=== PATIENT | male | born 1950 | race Caucasian/White ===

== ENCOUNTER 2016-12-22 17:37 | Inpatient (IN) | payer OTHER, MEDICARE ==
[~2016-12-22] VITALS: Ht 170.2 cm; Wt 63.5 kg
--- NOTE | 2016-12-22 17:45 | NUR ---
RILEY FROM HOME FOR RECTAL BLEEDING. PER EMS, PT HAS HAD RECTAL BLEEDING X1 YEAR, BRIGHT RED BLOOD NOTED TODAY. PT HAS ALSO BEEN HAVING GENERALIZED WEAKNESS, WEIGHT LOSS OF 20 LBS IN 6 MONTHS, BLE EDEMA, DIFFICULTY URINATING, AND PAIN IN LOWER SPINE RADIATING DOWN BOTH LEGS WITH WEAKNESS IN EXTREMITIES. HAS NOT SEEN A PCP IN 40 YEARS. DENIES PMHX, DAILY MEDS, ALLERGIES
--- NOTE | 2016-12-22 17:51 | NUR ---
DR. MASON AT BEDSIDE
[2016-12-22] MEDS ORDERED: ALEVE220 M1 PO (18:25)
--- NOTE | 2016-12-22 18:43 | NUR ---
MEDICATED WITH 4MG ZOFRAN AND 10MG IV MORPHINE VIA SLOW INFUSING PER DR. MASON. PT TOLERATING WELL. O2 99%
--- NOTE | 2016-12-22 18:58 | NUR ---
LABS DRAWN AND SENT
[2016-12-22 19:08] LABS: ABSOLUTE BASOPHIL COUNT 0 /CUMM (0.0-0.2); ABSOLUTE EOSINOPHIL COUNT 0.1 /CUMM (0.0-0.7); ABSOLUTE MONOCYTE COUNT 0.7 /CUMM (0.10-0.60); MEAN CORPUSCULAR HGB 29.6 PG (27.0-31.0); MEAN CORPUSCULAR HGB CONC 32.5 G/DL (33.0-37.0); RED BLOOD CELL CT 1.41 /CUMM (4.70-6.10)
[2016-12-22 19:11] LABS: ABSOLUTE GRANULOCYTE CT 4.6 /CUMM (1.4-6.5); ABSOLUTE LYMPH COUNT 2.3 /CUMM (1.2-3.4); BASOPHIL % 0.5 % (0.0-2.0); EOSINOPHIL % 0.9 % (0-5); GRANULOCYTE % 59.8 % (42.2-75.2); MEAN CORPUSCULAR VOLUME 91.3 FL (80.0-94.0); PLATELET COUNT 136 /CUMM (130-400); RBC DISTRIBUTION WIDTH 21.8 % (11.5-14.5); WHITE BLOOD CELL COUNT 7.7 /CUMM (4.8-10.8)
--- NOTE | 2016-12-22 19:20 | NUR ---
PT STATES PAIN IS BETTER BUT STILL INTERMITTENT. CHANGED INTO DOWN, ABLE TO ROLL SIDE TO SIDE SLOWLY BUT WITH MINIMAL ASSISTANCE. STATES HE'S BEEN WEARING A INCONTINENT BRIEF BECAUSE IT'S TOO PAINFUL TO MOVE
[2016-12-22 19:24] LABS: PT 14.7 SEC (9.4-12.5)
[2016-12-22 19:33] LABS: HEMATOCRIT 12.9 % (42-52)
--- NOTE | 2016-12-22 19:33 | NUR ---
CRITICAL TEST RESULTS [id number] AZUCENA ACOSTA 66 Jacquie TESTS AND RESULTS: HEMOGLOBIN 4.2 HEMATOCRIT 12.9 Results received and read back by: KWABENA COTTO Results received date and time: 12/22/161932 The following provider was notified of the results, and read the results back: DR. MASON Notified date and time: 12/22/16 at 1933
--- NOTE | 2016-12-22 20:06 | ED GI/GU/ABDOMINAL COMPLAINT ---
History of Present Illness General Chief Complaint: General Adult Stated Complaint: BIBA WITH WEAKNESS, Source: patient, family Exam Limitations: no limitations Vital Signs & Intake/Output Vital Signs & Intake/Output Vital Signs Date Time Temp Pulse Resp B/P Pulse O2 O2 Flow FiO2 Ox Delivery Rate 12/24 0800 94 Nasal 2.0L Cannula 12/24 0800 98.7 80 20 120/68 94 Nasal 2.0L Cannula 12/24 0000 99 Nasal 2.0L Cannula 12/23 2300 98.3 72 18 112/72 99 Nasal 2.0L Cannula 12/23 1600 Nasal 2.0L Cannula 12/23 1600 98.4 71 18 108/62 99 Nasal 2.0L Cannula ED Intake and Output 12/24 0000 12/23 1200 Intake Total 1940 Output Total 1050 1100 Balance 890 -1100 Intake, Blood 340 Product Intake, IV 400 Intake, Oral 1200 Number 0 Bowel Movements Output, Urine 1050 1100 Allergies Coded Allergies: aspirin (BLEEDS 12/22/16) Reconcile Medications Naproxen Sodium (Aleve) 220 MG CAPSULE 2-3 CAP PO DAILY PAIN/INFLAMMATION ( Reported) Triage Note: BIBA FROM HOME FOR RECTAL BLEEDING. PER EMS, PT HAS HAD RECTAL BLEEDING X1 YEAR, BRIGHT RED BLOOD NOTED TODAY. PT HAS ALSO BEEN HAVING GENERALIZED WEAKNESS, WEIGHT LOSS OF 20 LBS IN 6 MONTHS, BLE EDEMA, DIFFICULTY URINATING, AND PAIN IN LOWER SPINE RADIATING DOWN BOTH LEGS WITH WEAKNESS IN EXTREMITIES. HAS NOT SEEN A PCP IN 40 YEARS. DENIES PMHX, DAILY MEDS, ALLERGIES Triage Nurses Notes Reviewed? yes HPI: Mr. Womack is a 66 yo w/ with unknown medical history BIBA for generalized weakness. Patient states he's had ongoing GI bleeding per rectum for the past year. He has bright red blood every time he uses the restroom. The patient also states that he's had unintentional weight loss of approximately 30-40 pounds over the past 6 months. No change in by mouth intake or diet. Daughter adds that the patient has not seen a doctor in over 45 years. He is no diagnosed medical conditions. Patient states he takes Motrin for pain and has been taking it chronically for a while. Today the patient was so weak that he is unable to get out of bed so the daughter called 911 to bring him into the emergency department for evaluation. She also adds that he looks quite pale compared to his normal coloration. Patient denies any fevers, chills, shortness of breath, nausea, vomiting or diarrhea. He had that he feels diffusely weak. She also has bilateral upper extremity petechiae on his forearms which he states have been there for several months. He denies any trauma. (DIANA MASON MD) Past History Travel History Traveled to [place] past 21 day No Medical History Any Pertinent Medical History? none Surgical History Surgical History: none Family History Hx Contributory? No (DIANA MASON MD) Review of Systems Review of Systems Constitutional: Reports: no symptoms, weakness, unexplained weight loss. EENTM: Reports: no symptoms. Respiratory: Reports: no symptoms. Cardiovascular: Reports: no symptoms. GI: Reports: bloody stool. Genitourinary: Reports: no symptoms. Musculoskeletal: Reports: no symptoms. Skin: Reports: rash. Neurological/Psychological: Reports: no symptoms. Hematologic/Endocrine: Reports: bruising, bleeding. Immunologic/Allergic: Reports: no symptoms. All Other Systems: Reviewed and Negative (DIANA MASON MD) Physical Exam Physical Exam General Appearance: alert, awake, moderate distress Head: atraumatic, pale coloration Eyes: Bilateral: PERRL, EOMI, other (bilaterally pale conjunctiva). Ears, Nose, Throat, Mouth: hearing grossly normal Neck: normal inspection, supple, full range of motion Respiratory: normal breath sounds, chest non-tender, no respiratory distress Cardiovascular: regular rate/rhythm, edema (1+ bilateral lower extremity e) Gastrointestinal: normal bowel sounds, soft, non-tender, no organomegaly Rectal: heme positive stool, bloody stool, hemmorrhoids Back: normal inspection, vertebral tenderness (L2-4) Extremities: normal range of motion Neurologic/Psych: no motor/sensory deficits, awake, alert, oriented x 3, normal mood/affect Skin: intact, warm/dry, pallor, rash (bilateral forearm petechiae) Core Measures ACS in differential dx? No Severe Sepsis Present: No Septic Shock Present: No (DIANA MASON MD) Progress Differential Diagnosis: colon cancer, diverticulitis, gastritis, hemorrhoids, inflamm bowel dis, prostatitis, peptic ulcer, PUD/GERD, perforated viscous Plan of Care: Orders Procedure Date/time Status Nothing by Mouth 12/26 B Active ICU LAB BUNDLE 12/25 0500 Active CBC WITHOUT DIFFERENTIAL 12/25 0500 Active RT: Evaluation 12/24 1305 Active CBC WITHOUT DIFFERENTIAL 12/24 1030 Complete Transfer patient to 12/24 1010 Active BLOOD PRODUCT PICKUP 12/24 0603 Active [place], Insertion/Removal/Asses 12/24 0059 Active CBC WITHOUT DIFFERENTIAL 12/24 0030 Complete TRC EVALUATION (GEN) 12/24 UNK Active TRC EVALUATION (GEN) 12/24 UNK Active INCENTIVE SPIROMETRY TRX (GEN) 12/24 UNK Active PT EVAL MOD COMPLEX 30 MIN 12/24 UNK Complete Gait Training 12/24 UNK Complete BLOOD PRODUCT PICKUP 12/23 1710 Active TROPONIN LEVEL 12/23 1200 Complete Lab Add-on Test 12/23 UNK Active BONE SCAN 12/23 UNK Active MISSING MEDICATION FORM 12/23 UNK Active Current Medications Sig/Sada Start time Last Medication Dose Stop Time Status Admin Albuterol Sulfate 3 ML BID 12/24 2200 AC (Proventil) Acetaminophen 650 MG Q6P PRN 12/23 0030 AC (Tylenol) Acetaminophen 1,000 MG Q6P PRN 12/23 0030 AC (Ofirmev) Morphine Sulfate 2 MG Q4P PRN 12/23 0030 AC (Morphine) Laboratory Tests 12/24/16 0936: CBC w Diff MAN DIFF ORDERED, RBC 3.18 L, MCV 86.2, MCH 27.9, RDW 18.9 H, MPV 8.6, Gran % 65.3, Lymphocytes % 23.8, Monocytes % 9.3, Eosinophils % 1.3, Basophils % 0.3, Absolute Granulocytes 5.2, Segmented Neutrophils 58, Band Neutrophils 8 H, Absolute Lymphocytes 1.9, Lymphocytes 25, Monocytes 8, Absolute Monocytes 0.7 H, Eosinophils 1, Absolute Eosinophils 0.1, Absolute Basophils 0, Nucleated RBCs 7 H, Platelet Estimate DECREASED, Hypochromic- Microcytic 2+, Anisocytosis 1+, PUBS MCHC 32.4 L 12/24/16 0450: Anion Gap 8, Estimated GFR 55 L, Glucose 86, Calcium 7.3 L, Phosphorus 2.7, Magnesium 1.8, Total Bilirubin 0.6, AST 101 H, ALT 35, Albumin 2.5 L, CBC w Diff NO MAN DIFF REQ, RBC 2.42 L, MCV 86.4, MCH 28.8, RDW 18.8 H, MPV 8.6, Gran % 61.9, Lymphocytes % 27.6, Monocytes % 8.9, Eosinophils % 1.3, Basophils % 0.3, Absolute Granulocytes 4.2, Absolute Lymphocytes 1.8, Absolute Monocytes 0.6 , Absolute Eosinophils 0.1, Absolute Basophils 0, PUBS MCHC 33.4 12/24/16 0030: CBC w Diff MAN DIFF ORDERED, RBC 2.46 L, MCV 86.2, MCH 28.8, RDW 18.9 H, MPV 8.3, Gran % 65.9, Lymphocytes % 24.5, Monocytes % 8.1, Eosinophils % 1.4, Basophils % 0.1, Absolute Granulocytes 4.2, Segmented Neutrophils 70, Band Neutrophils 1, Absolute Lymphocytes 1.6, Lymphocytes 24, Monocytes 5, Absolute Monocytes 0.5, Absolute Eosinophils 0.1, Absolute Basophils 0, Nucleated RBCs 1 H, Platelet Estimate DECREASED, Polychromasia 1+, Poikilocytosis 1+, Basophilic Stippling 1+, Ovalocytes 1+, Stomatocytes FEW, PUBS MCHC 33.5, Fld Total RBCs Counted 100 12/23/16 2100: CBC w Diff Cancelled, WBC Cancelled, RBC Cancelled, Hgb Cancelled, Hct Cancelled , MCV Cancelled, MCH Cancelled, RDW Cancelled, Plt Count Cancelled, MPV Cancelled, PUBS MCHC Cancelled 12/23/16 1827: CBC w Diff NO MAN DIFF REQ, RBC 2.50 L, MCV 86.2, MCH 28.6, RDW 18.8 H, MPV 8.4, Gran % 65.4, Lymphocytes % 24.4, Monocytes % 8.4, Eosinophils % 1.4, Basophils % 0.4, Absolute Granulocytes 4.1, Absolute Lymphocytes 1.5, Absolute Monocytes 0.5, Absolute Eosinophils 0.1, Absolute Basophils 0, PUBS MCHC 33.2 Patient is at his ill-appearing and quite pale in coloration. He is hemodynamically stable at this point in time. Per family hasn't seen a physician in over 45 years but has had ongoing she had bleeding for the past year. Guaiac is grossly positive for bright red blood. Patient is given first liter of normal saline IV fluids. Critical results from labs show H&H of 4.2/ 12.9. GI bleeding is possibly related to patient's chronic NSAID use, however, given the intentional weight loss and diffuse weakness, this is likely an oncologic process. Patient ordered for 2 units of packed RBCs to transfuse here in the ED for the critical anemia. On physical exam the patient is tender in his L-spine over the vertebra, concerning for metastases. Patient was given 10 mg of morphine that was infused and a 50 mL bag of normal saline and slowly infused into the patient. He received 2 doses of this. Plan is to obtain CT abdomen and pelvis to assess for mass and/or metastases see other locations. Several electrolyte abnormalities noted including significant hypokalemia at 2.7. Patient ordered for potassium 10 mEq IV. Patient has remained hemodynamically stable here in the department during his entire evaluation. CT scan returned with irregularities in the prostate, possibly invading the bladder wall. Patient also has bony metastases to the spine. GI attending made aware of the GI bleed. We will follow along and likely evaluate tomorrow. Plan to admit the patient to the hospitalist on telemetry given the hypokalemia. Patient will have repeat H&H is unlikely additional units of blood. (DIANA MASON MD) Diagnostic Imaging: Viewed by Me: CT Scan. Discussed w/RAD: CT Scan. Radiology Impression: 1. Enlarged lobular prostate which could be invading the bladder wall. There is distention of the bladder and significant bilateral hydronephrosis consistent with bladder outlet obstruction. 2. Retroperitoneal lymphadenopathy. 3. Osteoblastic bony metastatic disease. Prostate cancer likely etiology. 4. Small bilateral pleural effusions. Atelectasis at left lung base. 5. Cholelithiasis. 6. Small hiatal hernia. Mild diverticulosis. No acute change of the bowel. Extensive sclerotic changes in the osseous structures are likely due to metastatic disease in the setting of prostate cancer., Suspected bladder outlet obstruction with moderate bilateral hydroureteronephrosis. Retroperitoneal adenopathy also present. Severe degenerative disc disease at L5- S1 with moderate central canal stenosis and foraminal narrowing. Questionable mild pathologic superior endplate compression fracture at L3 in the setting of osseous metastatic disease, superimposed upon a degenerative Schmorl's node with mild bony retropulsion. Initial ED EKG: normal axis, normal intervals, normal p-waves, normal QRS complex, normal sinus rhythm, no ST T wave changes (DIANA MASON MD) Departure Departure Time of Disposition: 2257 Disposition: STILL A PATIENT Condition: Stable Clinical Impression Primary Impression: GI bleed Qualifiers: GI bleed type/associated pathology: unspecified peptic ulcer Qualified Code: K27.4 - Chronic or unspecified peptic ulcer, site unspecified, with hemorrhage Secondary Impressions: Anemia Qualifiers: Anemia type: unspecified type Qualified Code: D64.9 - Anemia, unspecified Bony metastasis Ruled Out Impressions: GI bleed due to NSAIDs Referrals: PATIENT HAS NO PRIMARY CARE DR (PCP/Family) Departure Forms: Customer Survey General Discharge Information Admission Note Spoke With: MARIYA BEVERLY MD Documentation of Exam: Documentation of any treatments & extenuating circumstances including Concerns Regarding Discharge (functional status, medication knowledge or non-compliance, living conditions, etc.) that warrant an admission rather than observation: This patient requires inpatient admission for further evaluation of his GI bleed as well as his likely prostatic cancer with metastasis. Patient had a critically low hemoglobin and hematocrit today and was transfused with blood and will likely need more blood transfusion as an inpatient. Patient also has severe pain secondary to bony metastases requiring morphine. She needs consultation and evaluation by both gastroenterology in addition to urology and likely oncology (DIANA MASON MD) PA/CANNERY TENDER ENGINEER Co-Sign Statement Statement: ED Attending supervision documentation- [] I saw and evaluated the patient. I have also reviewed all the pertinent lab results and diagnostic results. I agree with the findings and the plan of care as documented in the PA's/CANNERY TENDER ENGINEER's documentation. [X] I have reviewed the ED Record and agree with the PA's/CANNERY TENDER ENGINEER's documentation. [] Additions or exceptions (if any) to the PAs/CANNERY TENDER ENGINEER's note and plan are summarized below: [] (MARIZA WISE DO) Critical Care Note Critical Care Note Critical Care Time: 30-74 min (45) (DIANA MASON MD)
--- NOTE | 2016-12-22 20:06 | NUR ---
CRITICAL TEST RESULTS [id number] AZUCENA ACOSTA TESTS AND RESULTS: POTASSIUM 2.8 Results received and read back by: DR. MASON Results received date and time: 12/22/162005
--- NOTE | 2016-12-22 22:00 | NUR ---
PT MORE ALERT, TALKATIVE, JOKING AROUND. FAMILY AT BEDSIDE FOR SUPPORT. AVSS.
--- NOTE | 2016-12-22 22:09 | CT SCAN REPORT ---
EXAMINATION: CT LUMBAR SPINE WITH CONTRAST CLINICAL INFORMATION: Unintentional weight loss. Rule out mass. COMPARISON: Abdominal CT performed at the same time as the lumbar CT study. TECHNIQUE: Following intravenous administration of 95 mL of Optiray 320, helical imaging was performed through the lumbar spine. DLP: 292.91 mGy-cm FINDINGS: There are extensive sclerotic changes in the osseous structures. Prominent superior endplate Schmorl's nodes are visible at the L2 and L3 levels. No subluxations are seen. Multilevel disc bulges are present. There may be a pathologic superior endplate compression fracture at L3 with mild bony retropulsion as well. There is severe degenerative disc disease with significant loss of disc height at L5-S1. Hypertrophic facet arthropathy is also present at this level with moderate narrowing of the central canal and neural foramina. There are small bilateral pleural effusions, left greater than right side with passive atelectasis. There is a partially imaged gastroesophageal hiatal hernia with distention of the stomach, filled with oral contrast. There is moderate bilateral hydroureteronephrosis and retroperitoneal adenopathy with bladder distention as a result of what is suspected to represent prostatic carcinoma invaginating into the bladder base with outlet obstruction. IMPRESSION: Extensive sclerotic changes in the osseous structures are likely due to metastatic disease in the setting of prostate cancer. Suspected bladder outlet obstruction with moderate bilateral hydroureteronephrosis. Retroperitoneal adenopathy also present. Severe degenerative disc disease at L5-S1 with moderate central canal stenosis and foraminal narrowing. Questionable mild pathologic superior endplate compression fracture at L3 in the setting of osseous metastatic disease, superimposed upon a degenerative Schmorl's node with mild bony retropulsion.
--- NOTE | 2016-12-22 22:32 | CT SCAN REPORT ---
EXAMINATION: CT ABDOMEN AND PELVIS WITH CONTRAST CLINICAL INFORMATION: GI bleeding. Unintentional weight loss. Petechiae. COMPARISON: None TECHNIQUE: Multidetector volumetric imaging was performed of the abdomen and pelvis before and after the IV administration of 95 mL of Optiray 320 intravenous contrast. Oral contrast was given. Sagittal and coronal reformatted images were obtained on the technologist's workstation. DLP: 2092.91 mGy-cm FINDINGS: LUNG BASES: Small bilateral dependent pleural effusions. Atelectasis at the left lung base. Small hiatal hernia. LIVER, GALLBLADDER, AND BILIARY TREE: The liver is normal in size, shape, and attenuation. No focal hepatic lesion or biliary ductal dilatation is present. There are several peripherally calcified about 1 cm sized gallstones in the gallbladder. Gallbladder is partially contracted. No edema around the gallbladder. Extrahepatic CBD measures 6 mm. PANCREAS: There is atrophy of the pancreas. No acute change of pancreas. SPLEEN: Unremarkable. ADRENAL GLANDS: Unremarkable. KIDNEYS AND URETERS: Bilateral hydronephrosis with dilatation of renal calyces, renal pelvis and both ureters to the ureterovesical junction. No renal or ureteral stone. BLADDER: The bladder is distended. Bladder extends up to about the level of the umbilicus. The distended bladder along with the bilateral hydronephrosis and an enlarged prostate is consistent with bladder outlet obstruction. GASTROINTESTINAL TRACT: Diverticulosis of the colon with diverticula throughout the colon. Diverticula are most numerous in the distal descending colon and sigmoid. There is no diverticulitis. No bowel wall thickening or edema. No pericolonic edema. Moderate volume of stool throughout the colon. No bowel obstruction. The appendix is normal. The small bowel loops are normal. ABDOMINAL WALL: Mild generalized anasarca. LYMPH NODES: Retroperitoneal lymphadenopathy. Largest lymph nodes at the aortic bifurcation adjacent to the inferior vena cava and aorta. Lymph nodes measuring up to a diameter of 1.3 cm in short axis diameter. There are smaller lymph nodes in the more proximal retroperitoneum. No bulky lymphadenopathy of the pelvis. VASCULAR: Atherosclerotic vascular wall calcifications of aorta and iliac vessels without aneurysm. PELVIC VISCERA: Prostate is enlarged and lobular. Difficult to separate the inferior wall of the bladder from the prostate. The prostate measures approximately 7.5 x 7 x 4.8 cm. OSSEOUS STRUCTURES: There is extensive bony metastatic disease throughout the osseous skeleton with osteoblastic lesions seen throughout the spine, pelvis and hips. IMPRESSION: 1. Enlarged lobular prostate which could be invading the bladder wall. There is distention of the bladder and significant bilateral hydronephrosis consistent with bladder outlet obstruction. 2. Retroperitoneal lymphadenopathy. 3. Osteoblastic bony metastatic disease. Prostate cancer likely etiology. 4. Small bilateral pleural effusions. Atelectasis at left lung base. 5. Cholelithiasis. 6. Small hiatal hernia. Mild diverticulosis. No acute change of the bowel.
--- NOTE | 2016-12-22 23:22 | History & Physical ---
IVONNE BEDOYA,[facility] 12/22/16 2321: General Information and [facility] MD Statement: I have seen and personally examined AZUCENA ACOSTA and documented this H&P. The patient is a 66 year old M who presented with a patient stated chief complaint of bright red blood per rectum Source of Information: patient Exam Limitations: no limitations History of Present Illness: This is a 66-year-old male with no significant past medical history, has not seen a physician in the past 45 years, presents with chief complaint of bright red blood per rectum. As per patient he has been having episodes of bright red blood per rectum for almost 6 months now (sometimes blood is mixed with stool sometimes when he wipes off sometimes both), he also has noticed that he has lost over 20 pounds in the past 6 months, along with having low appetite. Also endorses off and on dark stools, off and on abdominal pain, off and on difficulty urinating. He has not seek any medical attention up until now. This morning he had 2 episodes of diarrhea which had copious amount of bright red blood, it scared him, was accompanied with generalized weakness and cold feeling in his body that sort persuaded him come to ER for further evaluation. Denies any nausea, vomiting, burning sensation in urine, hematuria, any bowel or urinary incontinence.. He has been having back pain but as per him he has had it for a while, he correlates it to the nature of his job which included a lot of pushing, pulling heavier objects. But recently for about 6 months now the pain has aggravated, and describes this as to shooting pain traveling from his back to his knees to his ankles. He reports that he has been taking Aleve, he started with 1 pill a day>>2 and currently taking 3 pills a day secondary to worsening of his back pain. He denies any urinary incontinence, hesitation, burning, abdominal pain secondary to urinary retention. Apparently had urinary tract infection sometime ago for which he took [id number] AZO which gave him symptomatic relief. He lives with his daughter, at baseline is able to do his daily activities, is a current daily smoker, denies illicit drug abuse. Allergies/Medications Allergies: Coded Allergies: aspirin (BLEEDS 12/22/16) Home Med list Naproxen Sodium (Aleve) 220 MG CAPSULE 2-3 CAP PO DAILY PAIN/INFLAMMATION ( Reported) Past History Travel History Traveled to [place] past 21 day No Medical History Blood Transfusion Hx: No EENT: NONE Cardiovascular: NONE Respiratory: NONE Gastrointestinal: lower GI bleed Hepatic: NONE Surgical History Surgical History: none Past Family/Social History Family History Relations & Conditions if any Relation not specified for: *No pertinent family history Psychosocial History Where do you live? Home Who Do You Live With? child Services at Home: None Primary Language: Kiswahili Smoking Status: Current Some Day Smoker ETOH Use: denies use Illicit Drug Use: denies illicit drug use Functional Ability ADLs Independent: dressing, eating, toileting, bathing. Ambulation: independent IADLs Independent: shopping, housework, finances, food prep, telephone, transportation , medication admin. Review of Systems Review of Systems Constitutional: Reports: see HPI. Exam & Diagnostic Data Last 24 Hrs of Vital Signs/I&O Vital Signs Date Time Temp Pulse Resp B/P Pulse O2 O2 Flow FiO2 Ox Delivery Rate 12/23 0140 97.0 78 18 120/58 95 Nasal 2.0L Cannula 12/23 0120 96.7 81 18 108/76 94 Room Air 12/22 2339 81 16 119/57 96 Room Air 12/22 2222 81 16 119/56 98 Room Air 12/22 2133 86 16 128/60 86 Room Air 12/22 2107 96.7 75 16 108/56 96 Room Air 12/22 1957 83 16 118/58 95 Room Air 12/22 1944 95.7 16 96 Room Air 12/22 1912 83 16 121/60 100 Room Air 12/22 1842 74 16 110/56 98 Room Air 12/22 1810 100 Room Air 12/22 1745 96.4 79 16 125/58 100 Room Air Intake & Output 12/23 0800 12/23 0000 12/22 1600 Intake Total 1350 Output Total 650 Balance -650 1350 Intake, Blood 350 Product Intake, IV 1000 Intake, Oral 0 Output, Urine 650 Patient 74.843 kg Weight Physical Exam General Appearance Alert, Oriented X3, Cooperative HEENT Atraumatic Neck Supple Cardiovascular Regular Rate, Normal S1, Normal S2, No Murmurs Lungs Clear to Auscultation, Normal Air Movement Abdomen Normal Bowel Sounds, PALPABLE NONTENDER DISTENDED BLADDER Extremities No Clubbing, No Cyanosis, No Edema Last 24 Hrs of Labs/J Carlos: Laboratory Tests 12/23/16 0109: Urinalysis LIGHT H, Urine Color PINK H, Urine Clarity CLDY H, Urine pH 6.0, Ur Specific Mulino 1.010, Urine Protein 30 H, Urine Ketones NEG, Urine Nitrite NEG, Urine Bilirubin NEG, Urine Urobilinogen 0.2, Ur Leukocyte Esterase SMALL H , Ur Microscopic SEDIMENT EXAMINED, Urine RBC >75 H, Urine WBC 1-3 H, Urine Hemoglobin LARGE H, Urine Glucose NEG 12/22/16 2104: Lactic Acid Cancelled 12/22/16 1857: Anion Gap 9, Estimated GFR 47 L, BUN/Creatinine Ratio 13.3, Glucose 100 H, Hemoglobin A1c Pending, Lactic Acid 1.4, Calcium 7.6 L, Iron 50, TIBC 192 L, Ferritin 553.0 H, Total Bilirubin 0.5, AST 26, ALT 24, Alkaline Phosphatase 959 H, Total Protein 5.0 L, Albumin 2.6 L, Globulin 2.4, Albumin/Globulin Ratio 1.1, Vitamin B12 Pending, TSH 1.170, Free T4 1.49, PT 14.7 H, INR 1.40 H, CBC w Diff NO MAN DIFF REQ, RBC 1.41 L, MCV 91.3, MCH 29.6, RDW 21.8 H, MPV 8.0, Gran % 59.8, Lymphocytes % 29.9, Monocytes % 8.9, Eosinophils % 0.9, Basophils % 0.5, Absolute Granulocytes 4.6, Absolute Lymphocytes 2.3, Absolute Monocytes 0.7 H, Absolute Eosinophils 0.1, Absolute Basophils 0, PUBS MCHC 32.5 L Microbiology 12/23 013 LOWER RESP: Respiratory Culture - COLB 12/24 135 LOWER RESP: Gram Stain - COLB 12/23 108 URINE ROUT: Urine Culture - RECD 12/24 31 URINE ROUT: Urine Culture - CAN Cancelled: Cancelled via OE: BEING DONE FROM [facility] 12/22 2256 URINE ROUT: Urine Culture - CAN Cancelled: Cancelled via OE: BEING DONE FROM [facility] 12/22 2052 BLOOD: Blood Culture - RECD 12/22 2044 BLOOD: Blood Culture - RECD Diagnostic Data CXR Results normal sinus rhythm, HR 78, QTC [address] ABD/PLV: 1. Enlarged lobular prostate which could be invading the bladder wall. There is distention of the bladder and significant bilateral hydronephrosis consistent with bladder outlet obstruction. 2. Retroperitoneal lymphadenopathy. 3. Osteoblastic bony metastatic disease. Prostate cancer likely etiology. 4. Small bilateral pleural effusions. Atelectasis at left lung base. 5. Cholelithiasis. 6. Small hiatal hernia. Mild diverticulosis. No acute change of the bowel. Assessment/Plan Assessment: This is a 66-year-old male with no significant past medical history, has not seen a physician in the past 45 years, presents with chief complaint of bright red blood per rectum. Vitals at the time of admission blood pressure 190 25/58, respiratory rate 16, pulse 79, afebrile saturating 96% on room air. CT of the abdomen pelvis was done which shows enlarged lobular prostate which could be invading the bladder wall with distention of the bladder and significant bilateral hydronephrosis consistent with bladder outlet obstruction. He also has retroperitoneal lymphadenopathy osteoblastic bony metastases metastatic disease most likely cancer of the prostate. He also has small bilateral pleural effusions and atelectasis at left lung bases. There is also small hiatal hernia with mild diverticulosis and acute change of bowel CT of the lumbar spine revealed extensive sclerotic changes in the osseous structures secondary to metastatic disease, suspected bladder outlet obstruction with moderate bilateral hydroureter oh nephrosis, retroperitoneal adenopathy, severe degenerative disc disease at L5- S1, with moderate central canal stenosis and foraminal narrowing. There is also questionable superior endplate compression fracture at L3 in the setting of osseous metastatic disease. Patient to admitted to telemetry floor and monitor for the following conditions: Acute blood loss anemia: H&H upon presentation. Likely secondary to GI bleed in setting of prostatic cancer along with chronic use of and states, patient currently getting transfused 2 units of packed red blood cells, a follow-up post transfusion H&H. Iron studies ordered, TSH B12 please follow-up. GI consult has been placed, follow-up recommendations in a.m. Avoid NSAIDs. Acute kidney injury: Creatinine upon presentation 1.5, baseline unknown. Likely secondary to obstructive uropathy along with interstitial nephritis in setting of chronic nsaids use. Will hydrate the patient with normal saline at 75 mL per hour, strict I's and O's, urology consult. Prostatic carcinoma with metastases: CT scan findings as above. Consider oncology consult in a.m. CT chest for further evaluation of metastasis. Chronic low back pain: Likely secondary to compression fracture insetting of metastatic prostate cancer. Pain management with IV Tylenol every 6 hours as needed. Avoid NSAIDs in setting of GI bleed and a HALLEY Diet: Regular DVT prophylaxis with Alps Pain Pathway patient is full code As Ranked By This Provider Problem List: 1. Bony metastasis 2. GI bleed Qualifiers GI bleed type/associated pathology: unspecified peptic ulcer Qualified Code: K27.4 - Chronic or unspecified peptic ulcer, site unspecified, with hemorrhage 3. Bladder outlet obstruction Core Measures/Miscellaneous Acute Coronary Syndrome ACS Diagnosis: No Cerebrovascular Accident CVA/TIA Diagnosis: No Congestive Heart Failure CHF Diagnosis: No Venous Thromboembolism VTE Risk Factors: Acute medical illness, Age > 40 No [facility] VTE prophylaxis d/t: No contraindications No VTE Pharm Prophylaxis d/t: Medical contraindication VTE Diagnosis: No VTE Type: NONE VTE Confirmed by (Test): NONE Severe Sepsis Severe Sepsis Present: No Septic Shock Septic Shock Present: No Miscellaneous Documentation Attending Case Discussed With: Siria Primary Care Physician: PATIENT HAS NO PRIMARY CARE DR Patient sees these Specialists ,. Level of Patient Care: Telemetry OLIVIER DIANA 12/22/16 2329: Resident Review Statement Resident Statement: examined this patient, discussed with recording studio internship, agreed with recording studio internship, discussed with family, reviewed EMR data (avail), discussed with nursing , discussed with case mgmt, reviewed images, amended to note Other Findings: 66-year-old man who has not followed up with a physician in 45 years and has been experiencing bright red bleeding per rectum for the past few years now ( which he attributed it to his hemorrhoids) presented to the ED because he had a large amount of bleeding per rectum this morning and was also having generalized weakness, and lower back pain that radiated down to his legs. He also was having difficulty urinating and has an unintentional weight loss of about 40 pounds in the past 6 months. Of note he doesn't really have a past medical history. According to the patient he used to lift heavy weight objects in the past and has had hemorrhoids with intermittent wiping of blood on toilet paper. However for the past 6 months or so his been having bleeding per rectum mixed with stools as well as on the toilet paper upon wiping. He also endorses back pain that waxes and wanes and is a 10 out of 10 when at its worst, radiating down to his ankles and lower extremities. Patient denies any urinary or fecal incontinence and does endorse sensation in his groin area. He denies any numbness or tingling sensations in his lower extremities. He states that his been taking Aleve about 2-3 tablets on a regular basis for the past few weeks now. He also endorses heartburn however denies any fever, chills. He does endorse bringing up productive purulent phlegm. He denies any chest pain, shortness of breath, nausea, vomiting, dizziness, lightheadedness, urinary hesitation, however does endorse burning micturition and stated that about a year and a half ago he had a bladder infection for which she took Hosel [id number] which helped with the burning sensation. He's never had a colonoscopy since he doesn't like to see physicians and does not have any surgical history. He denies any allergies to medications that he knows of. His family history is pertinent for osteoarthritis. There is no history of cancer in his family reportedly. Mr. Acosta has been having GI bleeding per rectum for the past year has not seen a physician for 45 years. She just is also had unintentional weight loss 30-40 pounds over the past 6 months. Apparently this morning the patient was very weak and was unable to get out of bed and so the daughter called 911 and vitamin to the ED for evaluation. Vitals at the time of admission blood pressure 190 25/58, respiratory rate 16, pulse 79, afebrile saturating 96% on room air. On physical exam he is alert, oriented 3 lying in bed. HEENT revealed pale and dry mucous membranes, PERRLA, no cervical lymphadenopathy or elevated JVD. Cardiovascular exam revealed normal S1, S2, no murmurs rubs or gallops appreciated. Respiratory exam revealed decreased breath sounds bilaterally. Abdominal exam revealed abdomen that was distended, firm with normal bowel sounds well as a palpable urinary bladder extending up to L1. Examination of the back did not reveal any spinal or paraspinal tenderness however patient did receive morphine prior to or examination. He did not allow us to do a digital rectal exam and so rectal tone could not be assessed. Examination of the lower extremities revealed 1+ bilateral edema. Neuro exam was grossly unremarkable. Labs pertinent for normocytic anemia with an H&H of 4.2/12.9, MCV of 91.3, white blood cell count of 7700 and a platelet count of 136,000. Serum chemistries pertinent for sodium of 142, hypokalemia with a potassium of 2.7, bicarbonate 26 , anion gap 9, BUN 20 and creatinine 1.5. Serum glucose elevated to 100 and lactic acid 1.4, corrected calcium of 8.7. LFTs pertinent for a normal total bili of 0.5, AST/ALT of 26/24 and alkaline phosphatase of 959. INR elevated to 1.40. UA pending. In the ER he received a bolus of normal saline, run off KCl 10 mEq 1, Zofran 4 mg IV 1, morphine 10 mg IV 2. Blood cultures and urine cultures were sent CT of the abdomen pelvis was done which shows enlarged lobular prostate which could be invading the bladder wall with distention of the bladder and significant bilateral hydronephrosis consistent with bladder outlet obstruction. He also has retroperitoneal lymphadenopathy osteoblastic bony metastases metastatic disease most likely cancer of the prostate. He also has small bilateral pleural effusions and atelectasis at left lung bases. There is also small hiatal hernia with mild diverticulosis and acute change of bowel CT of the lumbar spine revealed extensive sclerotic changes in the osseous structures secondary to metastatic disease, suspected bladder outlet obstruction with moderate bilateral hydroureter oh nephrosis, retroperitoneal adenopathy, severe degenerative disc disease at L5- S1, with moderate central canal stenosis and foraminal narrowing. There is also questionable superior endplate compression fracture at L3 in the setting of osseous metastatic disease. EKG revealed normal sinus rhythm, heart rate of 78, QTC [address] segment depression and V3. Assessment and plan Admit patient to telemetry given hypokalemia with EKG changes #Acute blood loss anemia Most likely secondary to lower GI bleed from potentially prostatic carcinoma invading the colon. Patient already received a unit of active RBC in the ER. Transfused with another unit and follow-up CBCs at 6 AM. Follow-up iron studies, TSH, vitamin B12 GI consult in a.m. #Lower back pain Most likely secondary to compression fracture with no evidence of synovitis Tesaureliano and her signs and symptoms of spinal cord compression Optimize pain management with Tylenol thousand milligrams IV every 6 when necessary and morphine 2 mg every 4 when necessary IV #Hypokalemia Most likely secondary to diarrhea Replete with runs of IV KCl and follow up BEP in a.m. F/U repeat EKG @ 6:00am #? AK I 2/2 obstructive uropathy versus dehydration vs interstial nephritis form chronic NSAID use Place Barnes catheter Hydrate with NS @75mls/hr for 1 bag Strict I's and O's Urology consult in a.m. given evidence of bilateral hydroureteronephrosis on CT scan 2/2 enlarged prostate. Follow-up UA #? Prostatic carcinoma with metastases His alkaline phosphatase is elevated with urographic evidence of osteoblastic lesions Consider placing an oncology consult in AM Consider chest CT in a.m. to further evaluate for metastases #Generalized weakness and physical deconditioning - 2/2 metastatic disease - PT eval in AM #Elevated blood glucose - Check Hb A1 - DVT prophylaxis Heparin 5000 international units 3 times a day subcutaneous - Diet Regular CODE STATUS Full code SIRIA BEDOYA, [facility] 12/23/16 0548: Attending MD Review Statement Attending Statement Attending MD Statement: examined this patient, discuss w/resident/PA/CUSTOMER SERVICE ASSOCIATE, agreed w/resident/PA/CUSTOMER SERVICE ASSOCIATE Attending Assessment/Plan: 66 yo M who has not seen a physician in over 45 yrs is brought in to the ER by his daughter for weakness. Patient reports ongoing BRBPR for over 6 months to 1 year, he has a h/o hemorrhoids he reports. Reports low back pain that has gradually worsened over past few weeks, requiring him to take Aleve up to 3 times a day. Weight loss of 40 lbs in 6 months, poor appetite+. He denies urinary or fecal incontinence, however reports he has difficulty urinating and uses a diaper. Intermittent diarrhea with black stools at times. VSS. Exam: pallor+, dry mucous membranes+. Abd soft, distended bladder upto umbilicus+. Patient very unco-operative with exam. Rectal exam done by ER physician BRB, hemorrhoid+, rectal tone not assessed. Labs: H/H 4.2/12.9, MCV 91.3, INR 1.40, K 2.7, creat 1.5, alk phos 959. UA cloudy, RBC > 75, WBC 1-3. EKG: SR, with U-waves and mild T-wave flattening. CT abd/pelvis: enlarged prostate invading bladder wall, bladder outlet obstruction with b/l hydronephrosis; retroperitoneal lymphadenopathy, osteoblastic bony metastatic disease, small b/l pleural effusions. CT lumbar spine metastatic disease, DDD L5-S1 with canal stenosis, ?L3 compression fracture. 1. Hypokalemia with EKG changes. Likely 2/2 poor PO intake, diarrhea. Tele admit , monitor for arrhythmias, replete with IV and PO potassium, serial EKG and troponin. Check magnesium levels and replete if needed. 2. Acute blood loss anemia, symptomatic anemia, lower GI bleed. Type and crossmatch, transfuse 2 units PRBC, keep Hb > 7.0, GI consult (placed by ER). Check iron studies, B12 and folic acid. Avoid NSAIDs or aspirin. 3. Enlarged prostate on CT with bladder outlet obstruction, b/l hydronephrosis and HALLEY. Barnes catheter placement, monitor I/O's, IV fluids, trend renal functions. Urology consult for eventual need for TURP. Once biopsy results available consider Heme-Onc consult for eventual management. 4. Low back pain in the setting of osteoblastic mets and ?compression fracture with primary most likely prostate cancer. Pain management, PT eval. Needs further work up of cancer, CT chest, outpatient PET -CT, tissue biopsy and eventual Oncology input. DVT ppx Alps. Full code.
--- NOTE | 2016-12-22 23:45 | NUR ---
HOUSE STAFF AT BEDSIDE NOW FOR ASSESSMENT. BLOOD FINISHED NOW. PT HAS NO SIGNS OF SYMPTOMS OF REACTIONS TO BLOOD PRODUCTS. SINUS ON THE MONITOR WITH NO NEW COMPLAINTS. STATES HE IS COMFORTBALE LAYING. NO RESP DISTRESS.
--- NOTE | 2016-12-23 01:25 | NUR ---
URINE TRIO OBTAINED AND SENT TO LAB FROM PATIENT'S [facility], APPROX 650ML DARK PINK URINE DRAINED FROM [facility] DRAINAGE BAG. SECOND UNIT PRBC INFUSING AT THIS TIME VIA IV SITE #18. WILL REMAIN W/ PATIENT X 15 MINUTES. BLOOD AND PATIENT ID VERIFIED PER POLICY BY KONSTANTIN RN AND RD DURAN DOCUMENTED ON VLOOD PRODUCT TRANSFUSION CARD IN PATIENT CHART. VSS. PATIENT HR:73, SINUS ON MONITOR.
--- NOTE | 2016-12-23 01:40 | NUR ---
PATIENT NOTED W/ O2 SLOWLY DECREASING FROM 94%RA TO 50%RA WHILE SLEEPING W/ GOOD WAVEFORM. HOUSE STAFF OLIVIER (BEEPER 211) AWARE, PER PLAN THIS RN TO PLACE PATIENT ON 2LNC AND INCREASE NEEDED TO MAINTAIN O2 WNL WHILE SLEEPING, IF NO IMPROVEMENT HOUSE STAFF WILL DISCUSS W/ RN AND PATIENT TO DETERMINE ALTERNATE POC. PATIENT PLACED ON 2LNC AT THIS TIME. PATIENT DENIES EVER NEEDING SUPPLEMENTAL O2 DURING SLEEP. PATIENT REPORTING "BUT I'VE BEEN TOLD THAT I ALWAYS BREATHE VERY SHALLOW WHEN I'M ASLEEP."
--- NOTE | 2016-12-23 01:57 | NUR ---
KCL 10MEQ AT 100ML/HR INFUSING W/ NS AT 75ML/HR AT THIS TIME VIA IV #20 LEFT AC. PATIENT SLEEPING, NOTED W/ O2:97% ON 2LNC WHILE SLEEPING, SNORING LOUDLY. LUNGS CTA.
--- NOTE | 2016-12-23 02:56 | NUR ---
2ND TOTAL KCL COMPLETED, 3RD KCL INFUSING AT 100ML/HR PER EMAR. TOLERATING WELL. PATIENT CONTINUES TO SLEEP AT THIS TIME.
--- NOTE | 2016-12-23 03:42 | NUR ---
BLOOD TRANSFUSION COMPLETE, TRANSFUSION COMPLETE IN ELECTRONIC DOCUMENTATION.
--- NOTE | 2016-12-23 05:09 | NUR ---
REPORT CALLED TO MCKAYLA DURAN AT ICU, WILL GO TO ICU TELE OVERFLOW.
--- NOTE | 2016-12-23 05:33 | NUR ---
REPEAT LABS (LAV, SST, BLUE) AND EKG OBTAINED FOR 0600 ORDER. PATIENT BEING CHANGED INTO ER STRETCHER FROM HOSPITAL BED FOR TRANSPORT.
--- NOTE | 2016-12-23 05:37 | NUR ---
PER HOUSE STAFF MILTON (BEEPER 211) NO TROP TO BE ORDERED.
[2016-12-23 05:45] LABS: ABSOLUTE BASOPHIL COUNT 0 /CUMM (0.0-0.2); ABSOLUTE EOSINOPHIL COUNT 0.1 /CUMM (0.0-0.7); ABSOLUTE GRANULOCYTE CT 4.4 /CUMM (1.4-6.5); ABSOLUTE LYMPH COUNT 2.3 /CUMM (1.2-3.4); ABSOLUTE MONOCYTE COUNT 0.4 /CUMM (0.10-0.60); BASOPHIL % 0.4 % (0.0-2.0); EOSINOPHIL % 1.2 % (0-5); GRANULOCYTE % 60.5 % (42.2-75.2); MEAN CORPUSCULAR HGB 28.5 PG (27.0-31.0); MEAN CORPUSCULAR HGB CONC 32.8 G/DL (33.0-37.0); MEAN CORPUSCULAR VOLUME 86.9 FL (80.0-94.0); PLATELET COUNT 126 /CUMM (130-400); RBC DISTRIBUTION WIDTH 20.4 % (11.5-14.5); WHITE BLOOD CELL COUNT 7.3 /CUMM (4.8-10.8)
[2016-12-23 05:49] LABS: RED BLOOD CELL CT 2.26 /CUMM (4.70-6.10)
--- NOTE | 2016-12-23 05:49 | Admission Certification ---
Admission Certification Certification Statement - As attending physician, I certify that at the time of - admission, based on clinical presentation, severity of - symptoms, need for further diagnostic testing and - therapeutic interventions, and risk of adverse outcomes - without in-hospital treatment, in my clinical assessment, - this patient requires an acute hospital stay for a minimum - of two nights or longer. I have also considered psychsocial - factors such as support system, advanced age, financial - issues, cognitive issues, and failed out-patient treatments, - past re-admission history, safety of patient, and lack of - compliance as applicable. Specific rationale supporting this admission is: Acute blood loss anemia, symptomatic anemia, hypokalemia, new diagnosis of prostate cancer.
[2016-12-23 05:51] LABS: HEMATOCRIT 19.6 % (42-52)
[2016-12-23 06:30] VITALS: BP 110/90
--- NOTE | 2016-12-23 06:52 | Cons- CRCU ---
General Information and HPI Allergies/Medications Allergies: Coded Allergies: aspirin (BLEEDS 12/22/16) Home Med List: Naproxen Sodium (Aleve) 220 MG CAPSULE 2-3 CAP PO DAILY PAIN/INFLAMMATION ( Reported) Past History Travel History Traveled to [place] past 21 day No Medical History Blood Transfusion Hx: No EENT: NONE Cardiovascular: NONE Respiratory: NONE Gastrointestinal: lower GI bleed Hepatic: NONE Surgical History Surgical History: 1 Family History Relations & Conditions If Any: Relation not specified for: *No pertinent family history Psychosocial History Where Do You Live? Home Who Do You Live With? child Services at Home: None Primary Language: Thai Smoking Status: Current Some Day Smoker ETOH Use: denies use Illicit Drug Use: denies illicit drug use Functional Ability ADLs Independent: dressing, eating, toileting, bathing. Ambulation: independent IADLs Independent: shopping, housework, finances, food prep, telephone, transportation , medication admin. Assessment/Plan Consult Acknowledgment - Thank you for your consult request.
[2016-12-23 08:00] VITALS: BP 110/64
--- NOTE | 2016-12-23 08:13 | Cons- Gastroenterology ---
KATIE SNOW MD 12/23/16 0812: General Information and HPI Consulting Request Date of Consult: 12/23/16 Requested By: MARIYA BEVERLY MD Reason for Consult: I was notified this morning by the hospitalist service of a request for a GI consult to assess severe anemia and rectal bleeding in the setting of what appears to be widespread metastatic prostate cancer with bone metastases. Source of Information: patient Exam Limitations: fair historian, poor insight History of Present Illness: 66-year-old male, without significant past history, although he has not seen a physician 45 years. He presented to the [facility] 12/22/2016 at 5:37 PM, BIBA from home for rectal bleeding. Per EMS, the patient was having intermittent rectal bleeding for 6 m0nths. He also had generalized weakness with weight loss of 20 pounds over the past 6 months, B/L lower extremity edema, difficulty urinating, and pain in his lower spine radiating down both legs, with weakness in his extremities bilaterally. Upon arrival, he was hemodynamically stable and afebrile, with a normal O2 sat. He was given IV NS, Zofran, morphine, & potassium. His O2 saturation dropped and he was given supplemental oxygen. He stabilized on 2 L nc & was transfused 3u PRBC overnight. BC & UC were obtained on admission, although he did not spike a fever. According to the patient, he has had episodes of BRBPR intermittently mixed with stool, sometimes after wiping. He is downplaying the amount of rectal bleeding. He admits to gross hematuria. He denies any fevers, chills, jaundice, symptoms of UTI, or URI. He denied any fecal or urinary incontinence. He denied any nausea, vomiting, early satiety, odynophagia, or dysphagia. He admitted to mild reflux. He was taking Aleve 3 tabs daily for the past few weeks. He denied any aspirin. He is a [id number] smoker. He denies EtOH. He denied any constipation, obstipation, tenesmus, abdominal pain, or change in stool caliber. There was no spontaneous lower GI bleeding or melena. He had 1 episode of diarrhea on the day of admission. He denied any recent antibiotics. There is no family history of GI malignancy, GI disease, or inherited liver disease. He has never had an EGD or colonoscopy. He denied any CP or SOB, but had some GLASS. His back pain is giving him difficulty with stairs. He was found to be severely anemic and hypokalemic. Additionally, unfortunately imaging studies were consistent with widespread metastatic prostate cancer, with osteoblastic bone lesions, including the spine, and bilateral hydronephrosis, with bladder outlet obstruction. 12/22/2016: Admission labs- WBC 7.7, H/H 4.2/12.9, MCV 91.3, RDW 21.8, PLT 136, PT 14.7, INR 1.40, glucose 100, BUN/Cr 20/1.5, GFR 47, Na 142, K 2.7, HCO3 26, AG 9, lactate 1.4, calcium 7.6, albumin 2.6, glob 2.4, TBil 0.5, alk phos 959, AST 26, ALT 24, nl TFT with TSH 1.17, Fe 50, TIBC 192, Fe sat 26%, ferritin 553 (probable acute phase reactant), B12 269; Hgb A1C- pending 12/23/2016: U/A- cloudy, pink, 1.010, 6.0, > 75 RBC, 1-3 WBC, large Hgb, 30+ protein , neg bili, 0.2 urobilin; negative nitrite, small esterase. 12/23/2016: troponin .06, folate- pending (? if sent after transfusion) 12/22/2016: EKG- NSR @ 78, normal axis, borderline prolonged QT interval, nonspecific T wave flattening. 12/22/2016: CT ABDOMEN AND PELVIS WITH IV/PO CONTRAST- 1. Enlarged lobular prostate which could be invading the bladder wall. There is distention of the bladder up to the level of the umbilicus and significant bilateral hydronephrosis consistent with bladder outlet obstruction. 2. Retroperitoneal lymphadenopathy. 3. Osteoblastic bony metastatic disease. *Prostate cancer likely etiology. 4. Small bilateral pleural effusions. Atelectasis at left lung base. 5. Cholelithiasis. No dilated ducts. CBD 6 mm. No cholecystitis. Atrophic pancreas. Normal liver. 6. Small hiatal hernia. Mild diverticulosis. No acute change of the bowel. Moderate stool throughout colon without large bowel obstruction. Normal small bowel. Normal appendix. Mild generalized anasarca. 7. Left basilar atelectasis. 12/22/2016: CT LUMB SPINE W IV CONTRAST- Extensive sclerotic changes in the osseous structures are likely due to metastatic disease in the setting of prostate cancer. Suspected bladder outlet obstruction with moderate bilateral hydroureteronephrosis. Retroperitoneal adenopathy also present. Severe degenerative disc disease at L5-S1 with moderate central canal stenosis and foraminal narrowing. Questionable mild pathologic superior endplate compression fracture at L3 in the setting of osseous metastatic disease, superimposed upon a degenerative Schmorl's node with mild bony retropulsion. 12/23/2016: EKG- NSR @ 83, normal axis, borderline prolonged QT interval, minimal ST depression anterolaterally. Allergies/Medications Current Medications: Current Medications Sig/Sada Start time Last Medication Dose Route Stop Time Status Admin Acetaminophen 650 MG Q6P PRN 12/23 0030 AC PO Acetaminophen 1,000 MG Q6P PRN 12/23 0030 AC IV Cyanocobalamin 1,000 MCG DAILY 12/23 1029 AC PO Heparin Sodium 5,000 UNIT Q8 12/23 0600 DC (Porcine) SC Morphine Sulfate 2 MG Q4P PRN 12/23 0030 AC IV Morphine Sulfate 0 .STK-MED ONE 12/22 2101 DC .ROUTE Morphine Sulfate 10 MG ONCE ONE 12/22 2014 DC 12/22 IV 12/22 2016 2100 Morphine Sulfate 10 MG ONCE ONE 12/22 1845 DC 12/22 IV 12/22 1846 1843 Morphine Sulfate 0 .STK-MED ONE 12/22 1837 DC .ROUTE Ondansetron HCl 4 MG ONCE ONE 12/22 1845 DC 12/22 IV 12/22 1846 1843 Ondansetron HCl 0 .STK-MED ONE 12/22 1837 DC .ROUTE Potassium Chloride 10 MEQ ONCE ONE 12/23 0200 CAN IV 12/23 0201 Potassium Chloride 10 MEQ Q1H 12/23 0145 DC 12/23 IV 12/23 0246 0256 Potassium Chloride 10 MEQ ONCE ONE 12/22 2014 DC 12/22 IV 12/22 2016 2050 Sodium Chloride 1,000 ML ONCE ONE 12/23 0045 AC 12/23 IV 12/23 1404 0136 Sodium Chloride 1,000 ML BOLUS ONE 12/22 1815 DC 12/22 IV 12/22 1914 1821 Past History Travel History Traveled to [place] past 21 day No Medical History Blood Transfusion Hx: No Neurological: B/L LE wekness & ? 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 FATHER, , Age 60+; Cause: MVA (motor vehicle accident). Relation not specified for: *No pertinent family history Psychosocial History Where Do You Live? Home Who Do You Live With? self Services at Home: None Primary Language: Romanian Smoking Status: Current Some Day Smoker ETOH Use: denies use Illicit Drug Use: denies illicit drug use Living Will? no Power of Flame Annealing Machine Setter/HCP? no Other Social History: x 2. Lives alone. 1 son (by 2nd ) & 1 dtr (by 1st )- both A&W. 50 pk yr cigarette smoker. NoEtOH. No drugs. 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 Functional Ability ADLs Independent: dressing, eating, toileting, bathing. Ambulation: independent (stairs becoming difficult) IADLs Independent: shopping, housework, finances, food prep, telephone, transportation , medication admin. 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 Review of Systems Constitutional: Reports: weakness, unexplained weight loss. Denies: chills, diaphoresis, fever, malaise. EENTM: Denies: blurred vision, double vision, visual changes, eye pain, eye drainage, eye tearing, icterus, ear discharge, ear pain, ear redness, hearing changes, nasal congestion, epistaxis, nasal pain, throat pain, throat swelling, mouth pain, tooth pain. Cardiovascular: Denies: no symptoms (mild GLASS), chest pain, edema, orthopena, palpitations, peripheral edema, syncope. Respiratory: Reports: short of breath (mild GLASS). Denies: cough, hemoptysis, orthopnea, sputum production, stridor, wheezing. GI: Reports: bloody stool. Denies: abdominal pain, bloating, constipation, diarrhea , distention, bowel incontinence, melena, nausea, changes in stool, vomiting, steatorrhea. Genitourinary: Reports: hematuria (gross), hesitation. Denies: no symptoms (difficulty voiding ), discharge, dysuria, frequency, nocturia, pain, urgency. Musculoskeletal: Reports: back pain, joint pain (hips). Denies: gout, joint swelling, muscle pain, muscle stiffness, neck pain. Skin: Denies: cysts, change in skin color, change in hair/nails, dryness, erythema, jaundice, lesions, lymphangitis, lumps, moles, rash. Neurological/Psychological: Reports: weakness, other (? B/L LE sciatica). Denies: anxiety, ataxia, cognitive dysfunction, confusion, depressed, dementia, emotional problems, headache, numbness, paresthesia, pre-existing deficit, petit mal seizures, tingling, tremors, tonic-clonic seizures, unable to move lower ext, unable to move upper ext. Hematologic/Endocrine: Denies: bruising, bleeding, polyuria, polydipsia. Immunologic/Allergic: Denies: splenectomy, HIV/AIDS, lymphadenopathy. All Other Systems: Reviewed and Negative Exam & Diagnostic Data Vital Signs and I&O Vital Signs Date Time Temp Pulse Resp B/P Pulse O2 O2 Flow FiO2 Ox Delivery Rate 12/23 0800 98.8 88 18 110/64 94 Nasal 2.0L Cannula 12/23 0630 97 Nasal 2.0L Cannula 12/23 0630 98.5 78 16 110/90 97 Nasal 2.0L Cannula 12/23 0439 82 18 118/65 93 Nasal 2.0L Cannula 12/23 0239 97.1 82 18 142/66 93 Nasal 2.0L Cannula 12/23 0140 97.0 78 18 120/58 95 Nasal 2.0L Cannula 12/23 0120 96.7 81 18 108/76 94 Room Air 12/22 2339 81 16 119/57 96 Room Air 12/22 2222 81 16 119/56 98 Room Air 12/22 2133 86 16 128/60 86 Room Air 12/227 96.7 75 16 108/56 96 Room Air 12/22 1957 83 16 118/58 95 Room Air 12/22 1944 95.7 16 96 Room Air 12/22 1912 83 16 121/60 100 Room Air 12/22 1842 74 16 110/56 98 Room Air 12/22 1810 100 Room Air 12/22 1745 96.4 79 16 125/58 100 Room Air Intake & Output 12/23 1600 12/23 0400 12/22 0400 12/21 0400 Intake Total 1350 Output Total 450 650 Balance -450 700 Intake, Blood 350 Product Intake, IV 1000 Intake, Oral 0 Output, Urine 450 650 Patient 165 lb Weight Physical Exam: Elderly male, slightly pale (less so after transfusions), NAD. Sclera anicteric. Conjunctiva slightly pale. No oral thrush. No aphthous ulcers. Oropharynx: clear (no bottom teeth). No adenopathy, thyromegaly or JVD. No CVAT. No point spine tenderness. No peripheral stigmata of chronic liver disease or IBD on exam. Lungs: clear to A&P except for slight decreased BS at the bases B/L. No wheezing , rales or rhonchi. COR: RRR, S1S2, without murmur. Abdominal exam: normal bowel sounds, minimally distended, nontender, without guarding or rebound. No organomegaly. Negative Willson sign. No fluid shift. No pulsatile mass. No epigastric bruit. No mass. Rectal: done by myself 12/23/16- brown stool with seth of dark red clot, obviously OB+, with hard nodular irregular prostate on anterior wall (? if break in rectal mucosa anteriorly), nontender, normal sphincter tone, no fissure, scant external hemorrhoids. Extremities: without C, C or E. No palpable cords. No rash. Mod DJD. Hips NT B/L, but FROM deferred. Motor: 4/5 B/L. Downgoing plantars B/L. A detailed exam for cord compression and /or peripheral neuropthy was deferred for the medical team. Gait not assessed. Results Pertinent Lab Results: Laboratory Tests 12/23 12/23 0530 0109 Chemistry Sodium (137 - 145 mmol/L) 143 Potassium (3.5 - 5.1 mmol/L) 3.5 Chloride (98 - 107 mmol/L) 107 Carbon Dioxide (22 - 30 mmol/L) 31 H Anion Gap (5 - 16) 6 BUN (9 - 20 mg/dL) 19 Creatinine (0.7 - 1.2 mg/dL) 1.6 H Estimated GFR (>60 ml/min) 43 L BUN/Creatinine Ratio (7 - 25 %) 11.9 Magnesium (1.6 - 2.3 mg/dL) 2.2 Troponin I (<0.11 ng/ml) 0.06 Total PSA (0.00 - 4.00 ng/mL) Pending Folate (2.76 - 20.0 ng/mL) 5.2 Hematology CBC w Diff NO MAN DIFF REQ WBC (4.8 - 10.8 /CUMM) 7.3 RBC (4.70 - 6.10 /CUMM) 2.26 L Hgb (14.0 - 18.0 G/DL) 6.4 *L Hct (42 - 52 %) 19.6 *L MCV (80.0 - 94.0 FL) 86.9 MCH (27.0 - 31.0 PG) 28.5 RDW (11.5 - 14.5 %) 20.4 H Plt Count (130 - 400 /CUMM) 126 L MPV (7.4 - 10.4 FL) 8.0 Gran % (42.2 - 75.2 %) 60.5 Lymphocytes % (20.5 - 51.1 %) 31.7 Monocytes % (1.7 - 9.3 %) 6.2 Eosinophils % (0 - 5 %) 1.2 Basophils % (0.0 - 2.0 %) 0.4 Absolute Granulocytes (1.4 - 6.5 /CUMM) 4.4 Absolute Lymphocytes (1.2 - 3.4 /CUMM) 2.3 Absolute Monocytes (0.10 - 0.60 /CUMM) 0.4 Absolute Eosinophils (0.0 - 0.7 /CUMM) 0.1 Absolute Basophils (0.0 - 0.2 /CUMM) 0 PUBS MCHC (33.0 - 37.0 G/DL) 32.8 L Urines Urinalysis LIGHT H Urine Color (YEL,AMB,STR) PINK H Urine Clarity (CLEAR) CLDY H Urine pH (5.0 - 8.0) 6.0 Ur Specific Fonda (1.001 - 1.035) 1.010 Urine Protein (NEG,<30 MG/DL) 30 H Urine Ketones (NEG) NEG Urine Nitrite (NEG) NEG Urine Bilirubin (NEG) NEG Urine Urobilinogen (0.1 - 1.0 EU/dl) 0.2 Ur Leukocyte Esterase (NEG) SMALL H Ur Microscopic SEDIMENT EXAMINED Urine RBC (0 - 5 /HPF) >75 H Urine WBC (0 - 2 /HPF) 1-3 H Urine Hemoglobin (NEG) LARGE H Urine Glucose (N MG/DL) NEG 12/224 0927 Chemistry Sodium (137 - 145 mmol/L) 142 Potassium (3.5 - 5.1 mmol/L) 2.7 *L Chloride (98 - 107 mmol/L) 106 Carbon Dioxide (22 - 30 mmol/L) 26 Anion Gap (5 - 16) 9 BUN (9 - 20 mg/dL) 20 Creatinine (0.7 - 1.2 mg/dL) 1.5 H Estimated GFR (>60 ml/min) 47 L BUN/Creatinine Ratio (7 - 25 %) 13.3 Glucose (65 - 99 mg/dL) 100 H Hemoglobin A1c (4.2 - 5.8 %) 5.6 Lactic Acid (0.7 - 2.1 mmol/L) Cancelled 1.4 Calcium (8.4 - 10.2 mg/dL) 7.6 L Iron (49 - 181 ug/dL) 50 TIBC (261 - 462 ug/dL) 192 L Ferritin (17.9 - 464 ng/mL) 553.0 H Total Bilirubin (0.2 - 1.3 mg/dL) 0.5 AST (17 - 59 U/L) 26 ALT (21 - 72 U/L) 24 Alkaline Phosphatase (< 127 U/L) 959 H Total Protein (6.3 - 8.2 g/dL) 5.0 L Albumin (3.5 - 5.0 g/dL) 2.6 L Globulin (1.9 - 4.2 gm/dL) 2.4 Albumin/Globulin Ratio (1.1 - 2.2 %) 1.1 Vitamin B12 (239 - 931 pg/mL) 269 TSH (0.270 - 4.200 uIU/mL) 1.170 Free T4 (0.78 - 2.44 ng/dL) 1.49 Coagulation PT (9.4 - 12.5 SEC) 14.7 H INR (0.90 - 1.17) 1.40 H Hematology CBC w Diff NO MAN DIFF REQ WBC (4.8 - 10.8 /CUMM) 7.7 RBC (4.70 - 6.10 /CUMM) 1.41 L Hgb (14.0 - 18.0 G/DL) 4.2 *L Hct (42 - 52 %) 12.9 *L MCV (80.0 - 94.0 FL) 91.3 MCH (27.0 - 31.0 PG) 29.6 RDW (11.5 - 14.5 %) 21.8 H Plt Count (130 - 400 /CUMM) 136 MPV (7.4 - 10.4 FL) 8.0 Gran % (42.2 - 75.2 %) 59.8 Lymphocytes % (20.5 - 51.1 %) 29.9 Monocytes % (1.7 - 9.3 %) 8.9 Eosinophils % (0 - 5 %) 0.9 Basophils % (0.0 - 2.0 %) 0.5 Absolute Granulocytes (1.4 - 6.5 /CUMM) 4.6 Absolute Lymphocytes (1.2 - 3.4 /CUMM) 2.3 Absolute Monocytes (0.10 - 0.60 /CUMM) 0.7 H Absolute Eosinophils (0.0 - 0.7 /CUMM) 0.1 Absolute Basophils (0.0 - 0.2 /CUMM) 0 PUBS MCHC (33.0 - 37.0 G/DL) 32.5 L Imaging/Other Studies: 12/22/2016: EKG- NSR @ 78, normal axis, borderline prolonged QT interval, nonspecific T wave flattening. 12/22/2016: CT ABDOMEN AND PELVIS WITH IV/PO CONTRAST- 1. Enlarged lobular prostate which could be invading the bladder wall. There is distention of the bladder up to the level of the umbilicus and significant bilateral hydronephrosis consistent with bladder outlet obstruction. 2. Retroperitoneal lymphadenopathy. 3. Osteoblastic bony metastatic disease. *Prostate cancer likely etiology. 4. Small bilateral pleural effusions. Atelectasis at left lung base. 5. Cholelithiasis. No dilated ducts. CBD 6 mm. No cholecystitis. Atrophic pancreas. Normal liver. 6. Small hiatal hernia. Mild diverticulosis. No acute change of the bowel. Moderate stool throughout colon without large bowel obstruction. Normal small bowel. Normal appendix. Mild generalized anasarca. 7. Left basilar atelectasis. 12/22/2016: CT LUMB SPINE W IV CONTRAST- Extensive sclerotic changes in the osseous structures are likely due to metastatic disease in the setting of prostate cancer. Suspected bladder outlet obstruction with moderate bilateral hydroureteronephrosis. Retroperitoneal adenopathy also present. Severe degenerative disc disease at L5-S1 with moderate central canal stenosis and foraminal narrowing. Questionable mild pathologic superior endplate compression fracture at L3 in the setting of osseous metastatic disease, superimposed upon a degenerative Schmorl's node with mild bony retropulsion. 12/23/2016: EKG- NSR @ 83, normal axis, borderline prolonged QT interval, minimal ST depression anterolaterally. Assessment/Plan Assessment/Recommendations: 66-year-old male, without significant past history, although he has not seen a physician 45 years. He presented to the [facility] 12/22/2016 at 5:37 PM, BIBA from home for rectal bleeding. Per EMS, the patient was having intermittent rectal bleeding for 6 m0nths. He also had generalized weakness with weight loss of 20 pounds over the past 6 months, B/L lower extremity edema, difficulty urinating, and pain in his lower spine radiating down both legs, with weakness in his extremities bilaterally. Upon arrival, he was hemodynamically stable and afebrile, with a normal O2 sat. He was given IV NS, Zofran, morphine, & potassium. His O2 saturation dropped and he was given supplemental oxygen. He stabilized on 2 L nc & was transfused 3u PRBC overnight. BC & UC were obtained on admission, although he did not spike a fever. According to the patient, he has had episodes of BRBPR intermittently mixed with stool, sometimes after wiping. He is downplaying the amount of rectal bleeding. He admits to gross hematuria. He denies any fevers, chills, jaundice, symptoms of UTI, or URI. He denied any fecal or urinary incontinence. He denied any nausea, vomiting, early satiety, odynophagia, or dysphagia. He admitted to mild reflux. He was taking Aleve 3 tabs daily for the past few weeks. He denied any aspirin. He is a [id number] smoker. He denies EtOH. He denied any constipation, obstipation, tenesmus, abdominal pain, or change in stool caliber. There was no spontaneous lower GI bleeding or melena. He had 1 episode of diarrhea on the day of admission. He denied any recent antibiotics. There is no family history of GI malignancy, GI disease, or inherited liver disease. He has never had an EGD or colonoscopy. He denied any CP or SOB, but had some GLASS. His back pain is giving him difficulty with stairs. He was found to be severely anemic and hypokalemic. Additionally, unfortunately imaging studies were consistent with widespread metastatic prostate cancer, with osteoblastic bone lesions, including the spine, and bilateral hydronephrosis, with bladder outlet obstruction. 12/22/2016: Admission labs- WBC 7.7, H/H 4.2/12.9, MCV 91.3, RDW 21.8, PLT 136, PT 14.7, INR 1.40, glucose 100, BUN/Cr 20/1.5, GFR 47, Na 142, K 2.7, HCO3 26, AG 9, lactate 1.4, calcium 7.6, albumin 2.6, glob 2.4, TBil 0.5, alk phos 959, AST 26, ALT 24, nl TFT with TSH 1.17, Fe 50, TIBC 192, Fe sat 26%, ferritin 553 (probable acute phase reactant), B12 269; Hgb A1C- pending 12/23/2016: U/A- cloudy, pink, 1.010, 6.0, > 75 RBC, 1-3 WBC, large Hgb, 30+ protein , neg bili, 0.2 urobilin; negative nitrite, small esterase. 12/23/2016: troponin .06, folate- pending (? if sent after transfusion) 12/22/2016: EKG- NSR @ 78, normal axis, borderline prolonged QT interval, nonspecific T wave flattening. 12/22/2016: CT ABDOMEN AND PELVIS WITH IV/PO CONTRAST- 1. Enlarged lobular prostate which could be invading the bladder wall. There is distention of the bladder up to the level of the umbilicus and significant bilateral hydronephrosis consistent with bladder outlet obstruction. 2. Retroperitoneal lymphadenopathy. 3. Osteoblastic bony metastatic disease. *Prostate cancer likely etiology. 4. Small bilateral pleural effusions. Atelectasis at left lung base. 5. Cholelithiasis. No dilated ducts. CBD 6 mm. No cholecystitis. Atrophic pancreas. Normal liver. 6. Small hiatal hernia. Mild diverticulosis. No acute change of the bowel. Moderate stool throughout colon without large bowel obstruction. Normal small bowel. Normal appendix. Mild generalized anasarca. 7. Left basilar atelectasis. 12/22/2016: CT LUMB SPINE W IV CONTRAST- Extensive sclerotic changes in the osseous structures are likely due to metastatic disease in the setting of prostate cancer. Suspected bladder outlet obstruction with moderate bilateral hydroureteronephrosis. Retroperitoneal adenopathy also present. Severe degenerative disc disease at L5-S1 with moderate central canal stenosis and foraminal narrowing. Questionable mild pathologic superior endplate compression fracture at L3 in the setting of osseous metastatic disease, superimposed upon a degenerative Schmorl's node with mild bony retropulsion. 12/23/2016: EKG- NSR @ 83, normal axis, borderline prolonged QT interval, minimal ST depression anterolaterally. *The patient's major issues seem to be metastatic prostate cancer, with bone metastases and bilateral hydronephrosis. He has a hard nodular prostate palpable on the anterior wall of the rectum, with a few specks of clot. It is possible his prostate cancer could be eroding into the anterior wall of the rectum. The majority of his anemia most likely is from metastatic prostate cancer, and/or gross hematuria, rather than from significant GI bleeding. His liver is clean on CT and his elevated alkaline phosphatase is undoubtedly from widespread osteoblastic bone metastases. He does not seem to completely grasp the concept of his widespread malignancy. I do not think his rectal bleeding is his major concern at the moment. SUGGEST: Check PSA. Consider checking 5'NTD. Urology consult. Consideration for decompression of B/L hydronephrosis. Oncology consult. Transfuse as needed. Pain control. Watch for signs of cord compression. May need RT input. No NSAIDs. Replete B12. Check folate. DVT prophylaxis. Replete lytes (i.e.- K+). At the moment, I would defer endoscopic workup until the above issues are clarified. The patient was given my office number for consideration for outpatient colonoscopy. The above findings and recommendations were discussed with Dr. Nelson. Further inpatient GI follow up as needed. Problem List: 1. Anemia 2. Prostate CA 3. Rectal bleed 4. Bony metastasis Copies To: PETAR BEDOYA,EPI [place]; MANISH BEDOYA,LUCÍA; MÓNICA BEDOYA,[facility]; SIRIA BEDOYA,JANETHHayley Consult Acknowledgment - Thank you for your consult request. PARMJIT BEDOYA,RAKESH 12/23/16 1117: General Information and HPI Allergies/Medications Allergies: Coded Allergies: aspirin (BLEEDS 12/22/16) acetaminophen (From TYLENOL) (Severe, CHEST TIGHTNESS 12/29/16) Home Med List: Bicalutamide 50 MG TABLET 50 MG PO DAILY PRN prostate cancer Cyanocobalamin (Vitamin B-12) 1,000 MCG TABLET 1,000 MCG PO DAILY supplement Polyethylene Glycol 3350 (Miralax) 17 GRAM/DOSE POWDER 17 GM PO DAILY PRN constipation Tramadol HCl (Ultram) 50 MG TABLET 1 TAB PO Q6P PRN pain Assessment/Plan Other Findings/Comments: Although I was involved in this patients care, I was not on the GI service. This document was added to my care in error. Consult Acknowledgment - Thank you for your consult request.
--- NOTE | 2016-12-23 08:28 | NUR ---
0600 ORIENTED X3 PATIENT RECEIVED INTO [facility] #[id number] FROM ER VIA STRETCHER FOR TELEMETRY CARE, SKIN PALE, WARM AND DRY, O2 AT 2L/MIN VIA NC- O2 SAT AT 97%, UPPER FIELD RHONCHI, LOWER FIELD CLEAR ON AUSCULTATION, ABDOMEN SOFT, +BS, , EXPLOSIVE OPERATOR SINUS WITHOUT ECTOPY, BLE +1 EDEMA, PATIETN ORIENTED TO SURROUNDINGD/ROUTINE, ENCOURAGED TO VERBALIZE QUESTIONS/CONCERNS, PATIENT IS DROWSY AFTER EARLIER PAIN MED IN ER- STATES THAT MED VERY EFFECTIVE, "BEST I'VE FELT IN AWHILE," 0/10 DISCOMFORT, SETTLED FOR SLEEP, CALL LIGHT WITHIN REACH
--- NOTE | 2016-12-23 08:54 | NUR ---
0800: RECEIVED PT IN BED. D/A ORIENTED. ON 2L NC. LUNGS CLEAR. NON PRODUCTIVE COUGH. ABDOMEN SOFT, +BS. NO BM. PT DENIES ANY ABDOMINAL PAIN. BARNES IN PLACE DRAINING TEA COLOR/SLIGHT HEMATURIC URINE. BLE EDEMA +2, ALPS ON. SKIN INTACT. PT COMFORTABLE. WILL MONITOR.
--- NOTE | 2016-12-23 10:04 | Cons- Oncology ---
BRITTNEY LANTIGUA 12/23/16 1001: General Information and HPI Consulting Request Date of Consult: 12/23/16 Requested By: MARIYA BEVERLY MD Reason for Consult: Prostate cancer? Source of Information: patient, old records Exam Limitations: no limitations History of Present Illness: Mr. Womack is 66-year-old man with no known past medical history. Presented to the emergency department with a chief complaint of bleeding per rectum for the past months. He stated that his last time he so her physician was 45-years ago when he was in the [employer]. He stated that he doesn't seek any medical attention because he thought his rectal bleeding secondary to hemorrhoids. he stated that his bleeding per rectum mixed with stools as well as on the toilet paper upon wiping. He also endorses back pain that waxes and wanes and is a 10 out of 10 when at its worst, radiating down to his ankles and lower extremities, because of that he was taking [id number] Aleve 2-3 tablets daily for the past few weeks. Also he reports urine tract infection 6 months ago and he stated that he treated with [id number] medication. On presentation to the emergency department he also reports generalized weakness that made him call 911 who brought him to the ED for evaluation. there is a positive history of unintention weight loss, he approximated around 20-25 pound in the last 6 month, he stated his appetite overall good. Also reports difficulty urinating With the change in his urine color and some burning during urination. He deny any fever, chills, chest pain, shortness of breath, palpitation, orthopnea, abdominal pain, nausea, vomiting, diarrhea, headache, change in vision or hearing, excessive bruising. Is an active smoker at least 10 cigarettes per day for the past 50 year. Family history: His mother had skin cancer. CT abdomen and pelvis IV contrast was done to evaluate the lower GI bleeding and it showed: 1. Enlarged lobular prostate which could be invading the bladder wall. There is distention of the bladder and significant bilateral hydronephrosis consistent with bladder outlet obstruction. 2. Retroperitoneal lymphadenopathy. 3. Osteoblastic bony metastatic disease. Prostate cancer likely etiology. Due to the CT finding [place] catheter was placed its drain gross hematuria. Gastroenterology evaluate the patient and they didn't recommend any intervention for example colonoscopy during hospitalization and they diverted for outpatient evaluation. Urology was consult their evaluation still pending. Allergies/Medications Allergies: Coded Allergies: aspirin (BLEEDS 12/22/16) Home Med List: Naproxen Sodium (Aleve) 220 MG CAPSULE 2-3 CAP PO DAILY PAIN/INFLAMMATION ( Reported) Current Medications: Current Medications Sig/Sada Start time Last Medication Dose Route Stop Time Status Admin Acetaminophen 650 MG Q6P PRN 12/23 0030 AC PO Acetaminophen 1,000 MG Q6P PRN 12/23 0030 AC IV Cyanocobalamin 1,000 MCG DAILY 12/23 1029 AC PO Heparin Sodium 5,000 UNIT Q8 12/23 0600 DC (Porcine) SC Morphine Sulfate 2 MG Q4P PRN 12/23 0030 AC IV Morphine Sulfate 0 .STK-MED ONE 12/22 2101 DC .ROUTE Morphine Sulfate 10 MG ONCE ONE 12/22 2014 DC 12/22 IV 12/23 2015 2100 Morphine Sulfate 10 MG ONCE ONE 12/22 1845 DC 12/22 IV 12/22 1846 1843 Morphine Sulfate 0 .STK-MED ONE 12/22 1837 DC .ROUTE Ondansetron HCl 4 MG ONCE ONE 12/22 1845 DC 12/22 IV 12/22 1846 1843 Ondansetron HCl 0 .STK-MED ONE 12/22 1837 DC .ROUTE Potassium Chloride 10 MEQ ONCE ONE 12/23 0200 CAN IV 12/23 0201 Potassium Chloride 10 MEQ Q1H 12/23 0145 DC 12/23 IV 12/23 0246 0256 Potassium Chloride 10 MEQ ONCE ONE 12/22 2014 DC 12/22 IV 12/22 2016 2050 Sodium Chloride 1,000 ML ONCE ONE 12/23 0045 AC 12/23 IV 12/23 1404 0136 Sodium Chloride 1,000 ML BOLUS ONE 12/22 1815 DC 12/22 IV 12/22 1914 1821 Review of Systems Review of Systems Constitutional: Reports: weakness. Denies: chills, fever. EENTM: Denies: blurred vision, double vision. Cardiovascular: Reports: peripheral edema. Denies: chest pain, orthopena, palpitations. Respiratory: Denies: hemoptysis, orthopnea, short of breath, wheezing. GI: Reports: bloody stool, changes in stool. Denies: abdominal pain, diarrhea, vomiting. Genitourinary: Reports: dysuria, hematuria. Musculoskeletal: Reports: back pain. Denies: joint swelling, neck pain. Skin: Denies: jaundice, lumps. Hematologic/Endocrine: Reports: bleeding. Denies: bruising. Past History Travel History Traveled to [place] past 21 day No Medical History Blood Transfusion Hx: No EENT: NONE Cardiovascular: NONE Respiratory: NONE Gastrointestinal: lower GI bleed Hepatic: NONE Surgical History Surgical History: 1 Family History Relations & Conditions If Any: Relation not specified for: *No pertinent family history Psychosocial History Where Do You Live? Home Who Do You Live With? child Services at Home: None Primary Language: Yemeni Smoking Status: Current Some Day Smoker ETOH Use: denies use Illicit Drug Use: denies illicit drug use Functional Ability ADLs Independent: dressing, eating, toileting, bathing. Ambulation: independent IADLs Independent: shopping, housework, finances, food prep, telephone, transportation , medication admin. Exam & Diagnostic Data Vital Signs and I&O Vital Signs Date Time Temp Pulse Resp B/P Pulse O2 O2 Flow FiO2 Ox Delivery Rate 12/23 0800 Nasal 2.0L Cannula 12/23 0800 98.8 88 18 110/64 94 Nasal 2.0L Cannula 12/23 0630 97 Nasal 2.0L Cannula 12/23 0630 98.5 78 16 110/90 97 Nasal 2.0L Cannula 12/23 0439 82 18 118/65 93 Nasal 2.0L Cannula 12/23 0239 97.1 82 18 142/66 93 Nasal 2.0L Cannula 12/23 0140 97.0 78 18 120/58 95 Nasal 2.0L Cannula 12/23 0120 96.7 81 18 108/76 94 Room Air 12/22 2339 81 16 119/57 96 Room Air 12/22 2222 81 16 119/56 98 Room Air 12/22 2133 86 16 128/60 86 Room Air 12/22 2107 96.7 75 16 108/56 96 Room Air 12/22 1957 83 16 118/58 95 Room Air 12/22 1944 95.7 16 96 Room Air 12/22 1912 83 16 121/60 100 Room Air 12/22 1842 74 16 110/56 98 Room Air 12/22 1810 100 Room Air 12/22 1745 96.4 79 16 125/58 100 Room Air Intake & Output 12/23 1600 12/23 0800 12/23 0000 Intake Total 1350 Output Total 1100 Balance -1100 1350 Intake, Blood 350 Product Intake, IV 1000 Intake, Oral 0 Output, Urine 1100 Patient 165 lb Weight Physical Exam General Appearance: no apparent distress, alert, awake, comfortable Head: atraumatic, normal appearance Eyes: Bilateral: PERRL, EOMI, pale conjunctivae. Neck: normal inspection, supple Respiratory: normal breath sounds, chest non-tender, lungs clear Cardiovascular: regular rate/rhythm Gastrointestinal: normal bowel sounds, soft, non-tender Back: normal inspection, no vertebral tenderness Extremities: pedal edema Neurologic/Psych: awake, alert, oriented x 3 Last 48 Hours of Lab Results: Laboratory Tests 12/23 12/23 0530 0109 Chemistry Sodium (137 - 145 mmol/L) 143 Potassium (3.5 - 5.1 mmol/L) 3.5 Chloride (98 - 107 mmol/L) 107 Carbon Dioxide (22 - 30 mmol/L) 31 H Anion Gap (5 - 16) 6 BUN (9 - 20 mg/dL) 19 Creatinine (0.7 - 1.2 mg/dL) 1.6 H Estimated GFR (>60 ml/min) 43 L BUN/Creatinine Ratio (7 - 25 %) 11.9 Magnesium (1.6 - 2.3 mg/dL) 2.2 Troponin I (<0.11 ng/ml) 0.06 Total PSA (0.00 - 4.00 ng/mL) Pending Folate (2.76 - 20.0 ng/mL) 5.2 Hematology CBC w Diff NO MAN DIFF REQ WBC (4.8 - 10.8 /CUMM) 7.3 RBC (4.70 - 6.10 /CUMM) 2.26 L Hgb (14.0 - 18.0 G/DL) 6.4 *L Hct (42 - 52 %) 19.6 *L MCV (80.0 - 94.0 FL) 86.9 MCH (27.0 - 31.0 PG) 28.5 RDW (11.5 - 14.5 %) 20.4 H Plt Count (130 - 400 /CUMM) 126 L MPV (7.4 - 10.4 FL) 8.0 Gran % (42.2 - 75.2 %) 60.5 Lymphocytes % (20.5 - 51.1 %) 31.7 Monocytes % (1.7 - 9.3 %) 6.2 Eosinophils % (0 - 5 %) 1.2 Basophils % (0.0 - 2.0 %) 0.4 Absolute Granulocytes (1.4 - 6.5 /CUMM) 4.4 Absolute Lymphocytes (1.2 - 3.4 /CUMM) 2.3 Absolute Monocytes (0.10 - 0.60 /CUMM) 0.4 Absolute Eosinophils (0.0 - 0.7 /CUMM) 0.1 Absolute Basophils (0.0 - 0.2 /CUMM) 0 PUBS MCHC (33.0 - 37.0 G/DL) 32.8 L Urines Urinalysis LIGHT H Urine Color (YEL,AMB,STR) PINK H Urine Clarity (CLEAR) CLDY H Urine pH (5.0 - 8.0) 6.0 Ur Specific Shanks (1.001 - 1.035) 1.010 Urine Protein (NEG,<30 MG/DL) 30 H Urine Ketones (NEG) NEG Urine Nitrite (NEG) NEG Urine Bilirubin (NEG) NEG Urine Urobilinogen (0.1 - 1.0 EU/dl) 0.2 Ur Leukocyte Esterase (NEG) SMALL H Ur Microscopic SEDIMENT EXAMINED Urine RBC (0 - 5 /HPF) >75 H Urine WBC (0 - 2 /HPF) 1-3 H Urine Hemoglobin (NEG) LARGE H Urine Glucose (N MG/DL) NEG 12/22 1857 Chemistry Sodium (137 - 145 mmol/L) 142 Potassium (3.5 - 5.1 mmol/L) 2.7 *L Chloride (98 - 107 mmol/L) 106 Carbon Dioxide (22 - 30 mmol/L) 26 Anion Gap (5 - 16) 9 BUN (9 - 20 mg/dL) 20 Creatinine (0.7 - 1.2 mg/dL) 1.5 H Estimated GFR (>60 ml/min) 47 L BUN/Creatinine Ratio (7 - 25 %) 13.3 Glucose (65 - 99 mg/dL) 100 H Hemoglobin A1c (4.2 - 5.8 %) 5.6 Lactic Acid (0.7 - 2.1 mmol/L) Cancelled 1.4 Calcium (8.4 - 10.2 mg/dL) 7.6 L Iron (49 - 181 ug/dL) 50 TIBC (261 - 462 ug/dL) 192 L Ferritin (17.9 - 464 ng/mL) 553.0 H Total Bilirubin (0.2 - 1.3 mg/dL) 0.5 AST (17 - 59 U/L) 26 ALT (21 - 72 U/L) 24 Alkaline Phosphatase (< 127 U/L) 959 H Total Protein (6.3 - 8.2 g/dL) 5.0 L Albumin (3.5 - 5.0 g/dL) 2.6 L Globulin (1.9 - 4.2 gm/dL) 2.4 Albumin/Globulin Ratio (1.1 - 2.2 %) 1.1 Vitamin B12 (239 - 931 pg/mL) 269 TSH (0.270 - 4.200 uIU/mL) 1.170 Free T4 (0.78 - 2.44 ng/dL) 1.49 Coagulation PT (9.4 - 12.5 SEC) 14.7 H INR (0.90 - 1.17) 1.40 H Hematology CBC w Diff NO MAN DIFF REQ WBC (4.8 - 10.8 /CUMM) 7.7 RBC (4.70 - 6.10 /CUMM) 1.41 L Hgb (14.0 - 18.0 G/DL) 4.2 *L Hct (42 - 52 %) 12.9 *L MCV (80.0 - 94.0 FL) 91.3 MCH (27.0 - 31.0 PG) 29.6 RDW (11.5 - 14.5 %) 21.8 H Plt Count (130 - 400 /CUMM) 136 MPV (7.4 - 10.4 FL) 8.0 Gran % (42.2 - 75.2 %) 59.8 Lymphocytes % (20.5 - 51.1 %) 29.9 Monocytes % (1.7 - 9.3 %) 8.9 Eosinophils % (0 - 5 %) 0.9 Basophils % (0.0 - 2.0 %) 0.5 Absolute Granulocytes (1.4 - 6.5 /CUMM) 4.6 Absolute Lymphocytes (1.2 - 3.4 /CUMM) 2.3 Absolute Monocytes (0.10 - 0.60 /CUMM) 0.7 H Absolute Eosinophils (0.0 - 0.7 /CUMM) 0.1 Absolute Basophils (0.0 - 0.2 /CUMM) 0 PUBS MCHC (33.0 - 37.0 G/DL) 32.5 L Imaging/Other Studies: EXAMINATION: CT ABDOMEN AND PELVIS WITH CONTRAST CLINICAL INFORMATION: GI bleeding. Unintentional weight loss. Petechiae. COMPARISON: None TECHNIQUE: Multidetector volumetric imaging was performed of the abdomen and pelvis before and after the IV administration of 95 mL of Optiray 320 intravenous contrast. Oral contrast was given. Sagittal and coronal reformatted images were obtained on the technologist's workstation. DLP: 2092.91 mGy-cm FINDINGS: LUNG BASES: Small bilateral dependent pleural effusions. Atelectasis at the left lung base. Small hiatal hernia. LIVER, GALLBLADDER, AND BILIARY TREE: The liver is normal in size, shape, and attenuation. No focal hepatic lesion or biliary ductal dilatation is present. There are several peripherally calcified about 1 cm sized gallstones in the gallbladder. Gallbladder is partially contracted. No edema around the gallbladder. Extrahepatic CBD measures 6 mm. PANCREAS: There is atrophy of the pancreas. No acute change of pancreas. SPLEEN: Unremarkable. ADRENAL GLANDS: Unremarkable. KIDNEYS AND URETERS: Bilateral hydronephrosis with dilatation of renal calyces, renal pelvis and both ureters to the ureterovesical junction. No renal or ureteral stone. BLADDER: The bladder is distended. Bladder extends up to about the level of the umbilicus. The distended bladder along with the bilateral hydronephrosis and an enlarged prostate is consistent with bladder outlet obstruction. GASTROINTESTINAL TRACT: Diverticulosis of the colon with diverticula throughout the colon. Diverticula are most numerous in the distal descending colon and sigmoid. There is no diverticulitis. No bowel wall thickening or edema. No pericolonic edema. Moderate volume of stool throughout the colon. No bowel obstruction. The appendix is normal. The small bowel loops are normal. ABDOMINAL WALL: Mild generalized anasarca. LYMPH NODES: Retroperitoneal lymphadenopathy. Largest lymph nodes at the aortic bifurcation adjacent to the inferior vena cava and aorta. Lymph nodes measuring up to a diameter of 1.3 cm in short axis diameter. There are smaller lymph nodes in the more proximal retroperitoneum. No bulky lymphadenopathy of the pelvis. VASCULAR: Atherosclerotic vascular wall calcifications of aorta and iliac vessels without aneurysm. PELVIC VISCERA: Prostate is enlarged and lobular. Difficult to separate the inferior wall of the bladder from the prostate. The prostate measures approximately 7.5 x 7 x 4.8 cm. OSSEOUS STRUCTURES: There is extensive bony metastatic disease throughout the osseous skeleton with osteoblastic lesions seen throughout the spine, pelvis and hips. IMPRESSION: 1. Enlarged lobular prostate which could be invading the bladder wall. There is distention of the bladder and significant bilateral hydronephrosis consistent with bladder outlet obstruction. 2. Retroperitoneal lymphadenopathy. 3. Osteoblastic bony metastatic disease. Prostate cancer likely etiology. 4. Small bilateral pleural effusions. Atelectasis at left lung base. 5. Cholelithiasis. 6. Small hiatal hernia. Mild diverticulosis. No acute change of the bowel. Assessment/Plan Assessment: This is 66-year-old man with no known past medical history. Presented to the emergency department with a chief complaint of bleeding per rectum for the past months. Assessment: -Acute blood loss anemia: Most likely secondary to lower GI and hematuria that is secondary to mass invading his bladder will. Patient will need urology evaluation and most likely cystoscopy with biopsy for further evaluation. First need to be stabilized with blood transfusion and fluid resuscitation. -Prostate cancer?: Due to the CT scan finding, it could be most likely prostate cancer which is stage IV as the patient has osteoblastic bony metastases. he will need staging workup along with biopsy along with urology evaluation. Recommendation: -MRI spine to evaluate metastatic lesion -Obtain neurosurgical consultation and start dexamethasone if there is cord compression. -Bone scan evaluation -Urology evaluation with Tissue biopsy -Casodex 50 mg daily Consult Acknowledgment - Thank you for your consult request. MÓNICA BEDOYA,[facility] 12/23/16 1325: General Information and HPI Consulting Request Date of Consult: 12/23/16 Requested By: LUCÍA HAMMOND MD Allergies/Medications Current Medications: Current Medications Sig/Sada Start time Last Medication Dose Route Stop Time Status Admin Acetaminophen 650 MG Q6P PRN 12/23 0030 AC PO Acetaminophen 1,000 MG Q6P PRN 12/230 AC IV Cyanocobalamin 1,000 MCG DAILY 12/23 1029 AC 12/23 PO 1203 Heparin Sodium 5,000 UNIT Q8 12/23 0600 DC (Porcine) SC Morphine Sulfate 2 MG Q4P PRN 12/230 AC IV Morphine Sulfate 0 .STK-MED ONE 12/22 2100 DC .ROUTE Morphine Sulfate 10 MG ONCE ONE 12/22 2014 DC 12/22 IV 04/13 2016 2100 Morphine Sulfate 10 MG ONCE ONE 12/22 1845 DC / IV 12/22 1846 1843 Morphine Sulfate 0 .STK-MED ONE 12/22 1837 DC .ROUTE Ondansetron HCl 4 MG ONCE ONE 12/23 1230 DC 12/23 IV 12/23 1231 1232 Ondansetron HCl 4 MG ONCE ONE 12/22 1845 DC / IV 12/22 1846 1843 Ondansetron HCl 0 .STK-MED ONE 12/22 1837 DC .ROUTE Potassium Chloride 10 MEQ ONCE ONE 12/23 0200 CAN IV 12/23 0201 Potassium Chloride 10 MEQ Q1H 12/23 0145 DC 12/23 IV 12/23 0246 0256 Potassium Chloride 10 MEQ ONCE ONE 12/22 2014 DC 12/22 IV 12/22 2016 2050 Sodium Chloride 1,000 ML Q20H 12/23 1315 AC IV Sodium Chloride 1,000 ML ONCE ONE 12/23 0045 AC 12/23 IV 12/23 1404 0136 Sodium Chloride 1,000 ML BOLUS ONE 12/22 1815 DC 12/22 IV 12/22 1914 1821 Review of Systems Review of Systems Constitutional: Denies: chills, fever. EENTM: Denies: blurred vision, double vision. Cardiovascular: Denies: chest pain. GI: Denies: diarrhea, bowel incontinence. Genitourinary: Reports: hematuria. Musculoskeletal: Reports: back pain. Neurological/Psychological: Reports: weakness, other (more somnolent). Denies: confusion. Hematologic/Endocrine: Denies: bruising. Immunologic/Allergic: Denies: lymphadenopathy. Exam & Diagnostic Data Vital Signs and I&O Vital Signs Date Time Temp Pulse Resp B/P Pulse O2 O2 Flow FiO2 Ox Delivery Rate 12/23 0800 Nasal 2.0L Cannula 12/23 0800 98.8 88 18 110/64 94 Nasal 2.0L Cannula 12/23 0630 97 Nasal 2.0L Cannula 12/23 06 98.5 78 16 110/90 97 Nasal 2.0L Cannula 12/23 0439 82 18 118/65 93 Nasal 2.0L Cannula 12/23 0239 97.1 82 18 142/66 93 Nasal 2.0L Cannula 12/23 0140 97.0 78 18 120/58 95 Nasal 2.0L Cannula 12/23 0120 96.7 81 18 108/76 94 Room Air 12/22 2339 81 16 119/57 96 Room Air 12/22 2222 81 16 119/56 98 Room Air 12/22 2133 86 16 128/60 86 Room Air 12/22 2107 96.7 75 16 108/56 96 Room Air 12/22 1957 83 16 118/58 95 Room Air 12/22 1944 95.7 16 96 Room Air 12/22 1912 83 16 121/60 100 Room Air 12/22 1842 74 16 110/56 98 Room Air 12/22 1810 100 Room Air 12/22 1745 96.4 79 16 125/58 100 Room Air Intake & Output 12/23 1600 12/23 0800 12/23 0000 Intake Total 1350 Output Total 1100 Balance -1100 1350 Intake, Blood 350 Product Intake, IV 1000 Intake, Oral 0 Output, Urine 1100 Patient 74.843 kg Weight Physical Exam General Appearance: well developed/nourished, alert, awake, comfortable Ears, Nose, Throat: On NC Respiratory: normal breath sounds, chest non-tender, lungs clear Cardiovascular: regular rate/rhythm Gastrointestinal: normal bowel sounds, soft, non-tender Back: no vertebral tenderness Lymphatic: no anterior cervical vianca Last 48 Hours of Lab Results: Laboratory Tests 12/23 12/23 1200 0530 Chemistry Sodium (137 - 145 mmol/L) 144 143 Potassium (3.5 - 5.1 mmol/L) 3.3 L 3.5 Chloride (98 - 107 mmol/L) 108 H 107 Carbon Dioxide (22 - 30 mmol/L) 29 31 H Anion Gap (5 - 16) 7 6 BUN (9 - 20 mg/dL) 20 19 Creatinine (0.7 - 1.2 mg/dL) 1.6 H 1.6 H Estimated GFR (>60 ml/min) 43 L 43 L BUN/Creatinine Ratio (7 - 25 %) 12.5 11.9 Magnesium (1.6 - 2.3 mg/dL) 2.2 Troponin I (<0.11 ng/ml) 0.06 Total PSA (0.00 - 4.00 ng/mL) 932.00 H Folate (2.76 - 20.0 ng/mL) 5.2 Hematology CBC w Diff NO MAN DIFF REQ NO MAN DIFF REQ WBC (4.8 - 10.8 /CUMM) 6.4 7.3 RBC (4.70 - 6.10 /CUMM) 2.49 L 2.26 L Hgb (14.0 - 18.0 G/DL) 7.2 *L 6.4 *L Hct (42 - 52 %) 21.4 L 19.6 *L MCV (80.0 - 94.0 FL) 86.0 86.9 MCH (27.0 - 31.0 PG) 29.0 28.5 RDW (11.5 - 14.5 %) 18.7 H 20.4 H Plt Count (130 - 400 /CUMM) 108 L 126 L MPV (7.4 - 10.4 FL) 8.2 8.0 Gran % (42.2 - 75.2 %) 62.6 60.5 Lymphocytes % (20.5 - 51.1 %) 28.3 31.7 Monocytes % (1.7 - 9.3 %) 7.3 6.2 Eosinophils % (0 - 5 %) 1.4 1.2 Basophils % (0.0 - 2.0 %) 0.4 0.4 Absolute Granulocytes (1.4 - 6.5 /CUMM) 4.0 4.4 Absolute Lymphocytes (1.2 - 3.4 /CUMM) 1.8 2.3 Absolute Monocytes (0.10 - 0.60 /CUMM) 0.5 0.4 Absolute Eosinophils (0.0 - 0.7 /CUMM) 0.1 0.1 Absolute Basophils (0.0 - 0.2 /CUMM) 0 0 PUBS MCHC (33.0 - 37.0 G/DL) 33.7 32.8 L 12/23 Chemistry Lactic Acid Cancelled Urines Urinalysis LIGHT H Urine Color (YEL,AMB,STR) PINK H Urine Clarity (CLEAR) CLDY H Urine pH (5.0 - 8.0) 6.0 Ur Specific Shanks (1.001 - 1.035) 1.010 Urine Protein (NEG,<30 MG/DL) 30 H Urine Ketones (NEG) NEG Urine Nitrite (NEG) NEG Urine Bilirubin (NEG) NEG Urine Urobilinogen (0.1 - 1.0 EU/dl) 0.2 Ur Leukocyte Esterase (NEG) SMALL H Ur Microscopic SEDIMENT EXAMINED Urine RBC (0 - 5 /HPF) >75 H Urine WBC (0 - 2 /HPF) 1-3 H Urine Hemoglobin (NEG) LARGE H Urine Glucose (N MG/DL) NEG 12/22 1857 Chemistry Sodium (137 - 145 mmol/L) 142 Potassium (3.5 - 5.1 mmol/L) 2.7 *L Chloride (98 - 107 mmol/L) 106 Carbon Dioxide (22 - 30 mmol/L) 26 Anion Gap (5 - 16) 9 BUN (9 - 20 mg/dL) 20 Creatinine (0.7 - 1.2 mg/dL) 1.5 H Estimated GFR (>60 ml/min) 47 L BUN/Creatinine Ratio (7 - 25 %) 13.3 Glucose (65 - 99 mg/dL) 100 H Hemoglobin A1c (4.2 - 5.8 %) 5.6 Lactic Acid (0.7 - 2.1 mmol/L) 1.4 Calcium (8.4 - 10.2 mg/dL) 7.6 L Iron (49 - 181 ug/dL) 50 TIBC (261 - 462 ug/dL) 192 L Ferritin (17.9 - 464 ng/mL) 553.0 H Total Bilirubin (0.2 - 1.3 mg/dL) 0.5 AST (17 - 59 U/L) 26 ALT (21 - 72 U/L) 24 Alkaline Phosphatase (< 127 U/L) 959 H Total Protein (6.3 - 8.2 g/dL) 5.0 L Albumin (3.5 - 5.0 g/dL) 2.6 L Globulin (1.9 - 4.2 gm/dL) 2.4 Albumin/Globulin Ratio (1.1 - 2.2 %) 1.1 Vitamin B12 (239 - 931 pg/mL) 269 TSH (0.270 - 4.200 uIU/mL) 1.170 Free T4 (0.78 - 2.44 ng/dL) 1.49 Coagulation PT (9.4 - 12.5 SEC) 14.7 H INR (0.90 - 1.17) 1.40 H Hematology CBC w Diff NO MAN DIFF REQ WBC (4.8 - 10.8 /CUMM) 7.7 RBC (4.70 - 6.10 /CUMM) 1.41 L Hgb (14.0 - 18.0 G/DL) 4.2 *L Hct (42 - 52 %) 12.9 *L MCV (80.0 - 94.0 FL) 91.3 MCH (27.0 - 31.0 PG) 29.6 RDW (11.5 - 14.5 %) 21.8 H Plt Count (130 - 400 /CUMM) 136 MPV (7.4 - 10.4 FL) 8.0 Gran % (42.2 - 75.2 %) 59.8 Lymphocytes % (20.5 - 51.1 %) 29.9 Monocytes % (1.7 - 9.3 %) 8.9 Eosinophils % (0 - 5 %) 0.9 Basophils % (0.0 - 2.0 %) 0.5 Absolute Granulocytes (1.4 - 6.5 /CUMM) 4.6 Absolute Lymphocytes (1.2 - 3.4 /CUMM) 2.3 Absolute Monocytes (0.10 - 0.60 /CUMM) 0.7 H Absolute Eosinophils (0.0 - 0.7 /CUMM) 0.1 Absolute Basophils (0.0 - 0.2 /CUMM) 0 PUBS MCHC (33.0 - 37.0 G/DL) 32.5 L Imaging/Other Studies: CT lumbar spine 12/22/2016: Extensive sclerotic changes in the osseous structures are likely due to metastatic disease in the setting of prostate cancer. Suspected bladder outlet obstruction with moderate bilateral hydroureteronephrosis. Retroperitoneal adenopathy also present. Severe degenerative disc disease at L5-S1 with moderate central canal stenosis and foraminal narrowing. Questionable mild pathologic superior endplate compression fracture at L3 in the setting of osseous metastatic disease, superimposed upon a degenerative Schmorl' s node with mild bony retropulsion Assessment/Plan Assessment: Mr. Womack is a 66-year-old male without medical history who presents with weakness in the lower extremity and fatigue. He was noted to have hemoglobin of 4.2 g/dL. He had some hematuria and BRBPR. He is noted to have elevated PSA of 932 and multiple skeletal lesions. Given these findings, he likely has prostate cancer. It is reasonable to start him on Casodex 50 mg PO daily for now. He should have urology to evaluate him for prostate with likely erosion into the bladder. He may need biopsy of the prostate at that time. If not possible, he should have bone biopsy of skeletal lesion. Given the vertebral lesion, he will be at risk for spine involvment and cord compression. He should have MRI done fo the spine to evaluate for cord compression. If some compromise, he may need neurosurgery evaluation and radiation oncology evaluation. He will need bone scan done to stage him. Recommendations: 1. Obtain CT scan of chest, can be without contrast 2. MRI spine for metastatic evaluation (can do without contrast if needed) 3. Bone scan evaluation 4. Follow up urology evaluation 5. Tissue biopsy: prostate vs bone 6. Follow up GI evaluation: especially rectal bleeding in setting of enlarged prostate 7. Dexamethasone if cord compression 8. Neurosurgery/radiation oncology if cord compression 9. Start Casodex 50 mg daily Problem List: 1. Prostate CA 2. Rectal bleed 3. Anemia 4. Bladder outlet obstruction 5. Bony metastasis Other Findings/Comments: Please call [phone] with any consults. Consult Acknowledgment - Thank you for your consult request.
--- NOTE | 2016-12-23 10:29 | PN- Resident CRCU ---
PARMJIT BEDOYA,[facility] 12/23/16 1029: Subjective HPI/CRCU Issues: Mr. Womack was seen and admitted this morning. Resting in bed comfortably. He was alert and oriented 3 although states that he feels very tired and would like to rest. Patient denies any current issues is currently pain-free.He states that he feels he has enough pain medications on board. He reports no weakness or loss of sensation to his lower extremities. He has not had a bowel movement since been admitted. He has breakfast ordered although is currently deferred eating to later on in the morning. 24 Hour Events: Currently Being Transfused Third Unit PRBC Objective Vital Signs & I&O Last 8 Hrs of Vitals and I&O: T: 98.4 MN: 71 RR: 18 BP 108/62 RR: NC 2.0L Exam General Appearance: well developed/nourished, no apparent distress, alert, awake Head: atraumatic, normal appearance Ears, Nose, Throat: normal pharynx Neck: normal inspection, supple Respiratory: normal breath sounds Cardiovascular: regular rate/rhythm Gastrointestinal: normal bowel sounds, soft, non-tender Extremities: normal inspection, no edema, No Loss of sensation. Movement of lower extemeities WNL Cranial Nerves: normal hearing, normal speech Skin: intact, normal color, warm/dry Back: normal inspection, normal range of motion Current Medications: Current Medications Sig/Sada Start time Last Medication Dose Route Stop Time Status Admin Acetaminophen 650 MG Q6P PRN 12/23 0030 AC PO Acetaminophen 1,000 MG Q6P PRN 12/23 0030 AC IV Bicalutamide 50 MG DAILY 12/23 1745 AC PO Cyanocobalamin 1,000 MCG DAILY 12/23 1029 AC 12/23 PO 1203 Heparin Sodium 5,000 UNIT Q8 12/23 0600 DC (Porcine) SC Morphine Sulfate 2 MG Q4P PRN 12/23 0030 AC IV Morphine Sulfate 0 .STK-MED ONE 12/22 2101 DC .ROUTE Morphine Sulfate 10 MG ONCE ONE 12/22 2014 DC 12/22 IV 12/22 2016 2100 Morphine Sulfate 10 MG ONCE ONE 12/22 1845 DC 12/22 IV 12/22 1846 1843 Morphine Sulfate 0 .STK-MED ONE 12/22 1837 DC .ROUTE Ondansetron HCl 4 MG ONCE ONE 12/23 1230 DC 12/23 IV 12/23 1231 1232 Ondansetron HCl 4 MG ONCE ONE 12/22 1845 DC 12/22 IV 12/22 1846 1843 Ondansetron HCl 0 .STK-MED ONE 12/22 1837 DC .ROUTE Potassium Chloride 40 MEQ ONCE ONE 12/23 1530 DC 12/23 PO 12/23 1531 1636 Potassium Chloride 10 MEQ ONCE ONE 12/23 0200 CAN IV 12/23 0201 Potassium Chloride 10 MEQ Q1H 12/23 0145 DC 12/23 IV 12/23 0246 0256 Potassium Chloride 10 MEQ ONCE ONE 12/22 2014 DC 12/22 IV 12/22 2016 205 Sodium Chloride 1,000 ML Q20H 12/23 1315 AC 12/23 IV 1635 Sodium Chloride 1,000 ML ONCE ONE 12/23 0045 DC 12/23 IV 12/23 1404 0136 Sodium Chloride 1,000 ML BOLUS ONE 12/22 1815 DC 12/22 IV 12/22 1914 1821 Impression/Plan Impression/Problem List Impression: This is a 66-year-old gentleman with limited past medical history is not seen a primary care physician know 45 years who presented to the emergency department on 12/22/2016 after experiencing weakness, lower back pain and bleeding per rectum. The patient was admitted to telemetry (in the ICU) for closer monitoring due to EKG changes. BARNES: Day One Problem List: #Prostate Ca #Bladder outlet obstruction #Hypokalemia #Anemia #GI Bleed Respiratory Patient currently saturating we on 2 L Nasal Canula. Maintain O2 Saturations above 92%. Bileteral Pleural Effusions present on Chest Imaging. Cardiovascular Initial EKG Showed Minimal ST Depression Troponin form this am was WNL, repeat troponin at 12.00 Heme Patient was transfused a total of four units, Last CBC:7.1 Will repeat CBC in AM. Hematology and Oncology Consutlation obtained. MRI of cervical, thoracic and lumbar spine without ELLIE ordered. If any evidence of cord compression, patient will need steroids started stat and a consultation with neuro surgery, will also likely radiation. Continue frequent monitoring. Bone scan was also ordered for: 12/26/2016/ Casodex 50 mg PSA: 960 GI Formal GI consultation Obtained. colonoscopy and Endoscopy isidraley defered till out patient. Bilaterral Hydronephrosis vikash due to cancer invasion into bladder, causing bladder outlet obstruction. Formal Urology Consultation has been obtained. Patient will likely need a tissue biopsy. Patient moris has a barnes in place. Metabolic Patients electrolytes have been repleted. Repeat BEP in AM. Vitamin B12 supplemented. Alimentary Tolerating PO intake well. Neurology Avoid sedating medications. Diet: Regular heart healthy DVT prophylaxis ALPS Code Full code Problem List: 1. Bladder outlet obstruction 2. Bony metastasis 3. Anemia 4. GI bleed 5. Anemia 6. Prostate CA Pain Ratin Tomorrow's Labs & Rationales: CBC ICU Bundle LUCÍA HAMMOND MD 12/23/164: Impression/Plan Plan DVT/Prophylaxis: mechanical Attending MD Review Statement Attending Sign Off Attending Cosign Statement: I have: examined this patient, reviewed aval EMR data, personally reviewd images, discussd w/resident/PA/WORKERS COMPENSATION CLAIMS SPECIALIST, discussed mgmt plan w/fabian, discussed mgmt plan w/pt, agreed w/resident/PA/WORKERS COMPENSATION CLAIMS SPECIALIST. Other Findings: The patient was seen and discussed with the house staff. Appreciate GI, Oncology input. Agree with the plan of care. Transfusions in progress. Patient w/o cord compression on MRI cervical and thoracic spine (done today). He could not tolerate lumbar spine MRI and may reattempt tomorrow.
--- NOTE | 2016-12-23 11:06 | NUR ---
PHYSICAL THERAPY: RECIEVED CONSULT ORDERS, REVIEWED CHART, SPOKE W/ RN. Pt ARRIVED TO [facility] WITH SEVERE ANEMIA (HGB 4.2, HCT 12.9); CURRENTLY RECIEVING 3 UNITS OF BLOOD WITH MOST RECENT HGB 19.6, HCT 6.4. AT THIS TIME, P.T. IS NOT APPROPRIATE. PER RN, LAB VALUES TO BE RE-ASSESSED AT 1200 NOON. P.T. WILL DEFER EVALUATION AND F/U APPROPRIATE AT THIS TIME FOR P.T. EVALUATION.
[2016-12-23 12:37] LABS: ABSOLUTE BASOPHIL COUNT 0 /CUMM (0.0-0.2); ABSOLUTE EOSINOPHIL COUNT 0.1 /CUMM (0.0-0.7); BASOPHIL % 0.4 % (0.0-2.0); WHITE BLOOD CELL COUNT 6.4 /CUMM (4.8-10.8)
[2016-12-23 12:41] LABS: ABSOLUTE LYMPH COUNT 1.8 /CUMM (1.2-3.4); ABSOLUTE MONOCYTE COUNT 0.5 /CUMM (0.10-0.60); EOSINOPHIL % 1.4 % (0-5); GRANULOCYTE % 62.6 % (42.2-75.2); HEMATOCRIT 21.4 % (42-52); MEAN CORPUSCULAR HGB CONC 33.7 G/DL (33.0-37.0); MEAN PLATELET VOLUME 8.2 FL (7.4-10.4); PLATELET COUNT 108 /CUMM (130-400); RBC DISTRIBUTION WIDTH 18.7 % (11.5-14.5); RED BLOOD CELL CT 2.49 /CUMM (4.70-6.10)
--- NOTE | 2016-12-23 13:31 | NUR ---
PHYSICAL THERAPY: ATTEMPTED TO SEE PATIENT THIS P.M. PATIENT WAS IN CARE OF TRANSPORT TEAM AND WILL TAKEN BE [facility] FOR MRI. PATIENT WAS A&OX3 BUT VISIBLY CONFUSED. ABLE TO STATE PLOF AMB W/ USE OF S.C. AND HAS STAIRS WITHIN HOME. P.T. TO F/U AND COMPLETE FULL EVALUATION TOMORROW.
--- NOTE | 2016-12-23 13:35 | NUR ---
PT DOWN FOR CT SCAN AND STAT MRI.
--- NOTE | 2016-12-23 15:43 | CT SCAN REPORT ---
EXAMINATION: CT CHEST WITHOUT CONTRAST CLINICAL INFORMATION: 66-year-old male, known prostate cancer. Suspected metastatic disease. COMPARISON: CT of the abdomen and pelvis and CT of the lumbar spine done on 12/22/2016. TECHNIQUE: Multidetector volumetric CT imaging of the chest was done. Axial MIP volume rendering provided. Sagittal and coronal reformatted images were obtained. DLP: 201.35 mGy-cm FINDINGS: LPN PER DIEM: No discrete focal abnormality is present. LUNGS: Small emphysematous bullous disease related changes are noted at both lung apices. Compressive atelectatic changes are noted at both lung bases. There are 3 tiny sub-5 mm lung nodules noted within the lingula (see the haines images). There is a solitary sub-5 mm ground-glass nodule identified within the right upper lobe (see the haines images). The remainder of the lung hansen otherwise appear clear. The tracheobronchial tree appeared patent. MEDIASTINUM: Atherosclerotic disease including coronary arterial calcifications are present. There are no pathologically enlarged lymphadenopathy present. The right paratracheal lymph node measures 0.9 cm at its maximum short axis dimension. PLEURA: Bilateral small pleural effusions are noted (left greater than right). AXILLA: No lymphadenopathy. UPPER ABDOMEN: No suspicious lytic or sclerotic abnormality. OSSEOUS STRUCTURES: Extensive sclerotic changes, cortical destruction, periosteal reaction is noted involving the manubrium with evidence of retrosternal soft tissue curvilinear mass, consistent with metastatic disease. Less extensive changes are noted within the remainder of the sternum, entire visualized thoracic spine with evidence of multilevel platyspondylia. Multiple old healed rib fractures are noted within the right mid posterior hemithorax. IMPRESSION: 1. Extensive osseous metastatic disease is present likely arising from the prostate with most pronounced involvement seen involving the manubrium of the sternum. 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 2. Three tiny sub-5 mm lung nodules are noted within the lingula and solitary sub-5 mm ground-glass nodule within the right upper lobe, nonspecific in appearance, may represent granulomatous disease within the lingula and atelectatic changes, nonspecific airspace disease within the right upper lobe. Possibility of metastasis is considered less likely. Followup imaging surveillance may be considered for further clarification. 3. Bilateral small pleural effusions (left greater than right), and underlying compressive atelectatic changes at both lung bases.
[2016-12-23 16:00] VITALS: BP 108/62
--- NOTE | 2016-12-23 16:43 | MRI REPORT ---
EXAMINATION: MR CERVICAL SPINE WITHOUT CONTRAST MR THORACIC SPINE WITHOUT CONTRAST CLINICAL INFORMATION: Evaluate for metastatic disease in the setting of prostate carcinoma. COMPARISON: CT scan of the chest earlier 12/23/2016. TECHNIQUE: MRI scans of the cervical and thoracic spine were obtained using routine sequences without contrast. Due to technique imaging is suboptimal (large [id number]). The patient could not tolerate the lumbar spine imaging. The T12 vertebra was not included on the [id number]. FINDINGS: MRI Cervical Spine: VERTEBRAL BODIES AND PARASPINAL SOFT TISSUES: There is anatomic alignment of the vertebral bodies. There is multilevel narrowing of intervertebral disc height in the mid and lower cervical spine. There is loss of vertebral body height of C6 superiorly and anteriorly. There are multiple areas of increased T2 and STIR signal throughout the cervical spine. Vertebral body heights elsewhere are maintained. There is fluid in the right mastoid air cells. The paravertebral structures are unremarkable. CERVICOMEDULLARY JUNCTION AND VISUALIZED POSTERIOR FOSSA: The craniocervical and posterior fossa structures are normal. Accounting for artifact, spinal cord signal appears normal. SPINAL LEVELS: C2-C3: Disc contour is normal. There is no spinal cord compression or central stenosis. The neural foramina are patent. C3-C4: There is mild left facet arthropathy. There is a shallow posterior disc protrusion. There is no central stenosis or foraminal narrowing. C4-C5: There is bilateral facet arthropathy, worse on the right. There is a broad-based posterior disc protrusion with mild effacement of CSF ventral to the spinal cord. There is no spinal cord compression. C5-C6: There is mild left facet arthropathy. There is a broad-based posterior disc protrusion. There are bilateral uncovertebral osteophytes. There is effacement of CSF ventral to the spinal cord without spinal cord compression. There is mild bilateral foraminal narrowing. C6-C7: There is a small posterior disc protrusion. There is minimal effacement of CSF ventral to the spinal cord. There are uncovertebral osteophytes. There is mild bilateral foraminal narrowing. C7-T1: There is a small central disc protrusion. There is no spinal cord compression or central stenosis. MRI Thoracic Spine: VERTEBRAL BODIES AND PARASPINAL STRUCTURES: There is a mild dextroscoliosis in the midthoracic region. There is heterogenous signal from multiple vertebrae and posterior elements throughout the thoracic spine. There is mild loss of vertebral body heights of T4, T5, T6, T8, T10 and T11, which is age-indeterminate. There is abnormal STIR signal in multiple ribs bilaterally. There is increased STIR signal in the right transverse processes of T2 and T7. The paravertebral structures are unremarkable. There is atelectasis in the lungs bilaterally, and there are bilateral pleural effusions. The visualized upper retroperitoneal structures are unremarkable. The conus of the thoracic spinal cord is not included on the available images, and it is below the level of T11-T12. Accounting for artifact, spinal cord signal appears normal. SPINAL LEVELS: T3-T4: There is mild protrusion of the body of T4, which effaces CSF ventral to the spinal cord, but there is no spinal cord compression. T4-T5: There is mild protrusion of the posterior body of T5 to the right of midline. There is no spinal cord compression or central stenosis. T5-T6: There is mild protrusion of the posterior body of T6 just to the left of midline. There is no spinal cord compression or central stenosis. T7-T8: There is mild protrusion of the posterior body of T8. There is no spinal cord compression or central stenosis. T9-T10: There is a small central disc protrusion which distorts the ventral thecal sac. There is no spinal cord compression or central stenosis. T10-T11: There is posterior protrusion of the body of T10. There is also posterior protrusion of the body of the superior body of T11 on the left which distorts the ventral thecal sac. There is no spinal cord compression central stenosis. There is no spinal cord compression or central stenosis. IMPRESSION: MRI cervical spine: 1. There is heterogenous signal throughout the cervical spine, consistent with multiple metastases. There is loss of vertebral body height of C6 anteriorly and superiorly, which is age-indeterminate. 2. There is no spinal cord compression or central stenosis. 3. There is mild multilevel foraminal narrowing. MRI thoracic spine: 1. There is heterogenous signal throughout the thoracic spine consistent with multiple osseous metastases. This includes the ribs and transverse processes as described above. 2. There is mild protrusion of the posterior bodies of multiple vertebrae, but there is no spinal cord compression or central stenosis. 3. There are bilateral pleural effusions.
--- NOTE | 2016-12-23 19:11 | Cons- Urology ---
General Information and HPI Consulting Request Date of Consult: 12/23/16 Requested By: LUCÍA Alves MD Reason for Consult: evaluate for prostate ca Source of Information: patient, old records Exam Limitations: no limitations History of Present Illness: This patient presented to the ER with a complaint of weakness. He was found to have a Hct of 12.9. He gives a hx of a UTI about 6 months ago treated with over the counter meds. He has also had rectal bleeding and gross hematuria for at least a year. CT scan of the abd and pelvis showed bilateral moderate hydronephrosis, a distended bladder, a large lobular prostate likely invading the bladder, retroperitoneal adenopathy and diffuse sclerotic demetrius mets. His creatinine was 1.6. MRI of the cervical and thoracic spine shows diffuse demetrius mets with no spinal cord compression. Allergies/Medications Allergies: Coded Allergies: aspirin (BLEEDS 12/22/16) Home Med List: Naproxen Sodium (Aleve) 220 MG CAPSULE 2-3 CAP PO DAILY PAIN/INFLAMMATION ( Reported) Current Medications: Current Medications Sig/Sada Start time Last Medication Dose Route Stop Time Status Admin Acetaminophen 650 MG Q6P PRN 12/23 0030 AC PO Acetaminophen 1,000 MG Q6P PRN 12/23 0030 AC IV Bicalutamide 50 MG DAILY 12/23 1745 AC PO Cyanocobalamin 1,000 MCG DAILY 12/23 1029 AC 12/23 PO 1203 Heparin Sodium 5,000 UNIT Q8 12/23 0600 DC (Porcine) SC Morphine Sulfate 2 MG Q4P PRN 12/23 0030 AC IV Morphine Sulfate 0 .STK-MED ONE 12/22 2101 DC .ROUTE Morphine Sulfate 10 MG ONCE ONE 12/22 2014 DC 12/22 IV 12/23 2015 2100 Omeprazole 40 MG DAILY AC 12/23 1829 AC 12/23 PO 1844 Ondansetron HCl 4 MG ONCE ONE 12/23 1230 DC 12/23 IV 12/23 1231 1232 Potassium Chloride 40 MEQ ONCE ONE 12/23 1530 DC 12/23 PO 12/23 1531 1636 Potassium Chloride 10 MEQ ONCE ONE 12/23 0200 CAN IV 12/23 0201 Potassium Chloride 10 MEQ Q1H 12/23 0145 DC 12/23 IV 12/23 0246 0256 Potassium Chloride 10 MEQ ONCE ONE 12/22 2014 DC 12/22 IV 12/22 Sodium Chloride 1,000 ML Q20H 12/23 1315 AC 12/23 IV 1635 Sodium Chloride 1,000 ML ONCE ONE 12/23 0045 DC 12/23 IV 12/23 1404 0136 Sodium Chloride 1,000 ML BOLUS ONE 12/22 1815 DC 12/22 IV 12/22 191 1821 Past History Medical History Blood Transfusion Hx: No Neurological: B/L LE wekness & ? B/L sciatica EENT: NONE Cardiovascular: NONE Respiratory: NONE Gastrointestinal: intermittent rectal bleeding post defecation , without spontaneous LGIB Hepatic: NONE Renal: B/L hydro noted 12/22/16 Musculoskeletal: chronic back pain, fracture (pathologic- spine) Psychiatric: NONE Endocrine: NONE Blood Disorders: anemia Cancer(s): prostate cancer (by CT- not yet bx proven) DATA OPERATIONS MANAGER/Reproductive: NONE Surgical History Pertinent Surgical History: none Family History Relations & Conditions If Any: MOTHER, , Age 94; Cause: Old age. FATHER, , Age 60+; Cause: MVA (motor vehicle accident). Relation not specified for: *No pertinent family history Psychosocial History Where Do You Live? Home Who Do You Live With? self Services at Home: None Primary Language: Samoan Smoking Status: Current Some Day Smoker ETOH Use: denies use Illicit Drug Use: denies illicit drug use Living Will? no Power of Purchasing Manager/Sales/HCP? no Other Social History: x 2. Lives alone. 1 son (by 2nd ) & 1 dtr (by 1st )- both [employer]. 50 pk yr cigarette smoker. NoEtOH. No drugs. 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 Functional Ability ADLs Independent: dressing, eating, toileting, bathing. Ambulation: independent (stairs becoming difficult) IADLs Independent: shopping, housework, finances, food prep, telephone, transportation , medication admin. 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 [employer] Exam & Diagnostic Data Vital Signs and I&O Vital Signs Date Time Temp Pulse Resp B/P Pulse O2 O2 Flow FiO2 Ox Delivery Rate 12/23 1600 Nasal 2.0L Cannula 12/23 1600 98.4 71 18 108/62 99 Nasal 2.0L Cannula 12/23 0800 Nasal 2.0L Cannula 12/23 0800 98.8 88 18 110/64 94 Nasal 2.0L Cannula 12/23 0630 97 Nasal 2.0L Cannula 12/23 0630 98.5 78 16 110/90 97 Nasal 2.0L Cannula 12/23 0439 82 18 118/65 93 Nasal 2.0L Cannula 12/23 0239 97.1 82 18 142/66 93 Nasal 2.0L Cannula 12/23 0140 97.0 78 18 120/58 95 Nasal 2.0L Cannula 12/23 0120 96.7 81 18 108/76 94 Room Air 12/22 2339 81 16 119/57 96 Room Air 12/22 2222 81 16 119/56 98 Room Air 12/22 2133 86 16 128/60 86 Room Air 12/22 2107 96.7 75 16 108/56 96 Room Air 12/22 1957 83 16 118/58 95 Room Air 12/22 1944 95.7 16 96 Room Air 12/22 1912 83 16 121/60 100 Room Air Intake & Output 12/23 1600 12/23 0800 12/23 0000 12/22 1600 12/22 0800 12/22 0000 Intake Total 1060 1350 Output Total 1100 Balance 1060 -1100 1350 Intake, Blood 340 350 Product Intake, IV 1000 Intake, Oral 720 0 Number 0 Bowel Movements Output, Urine 1100 Patient 165 lb Weight No acute distress Back: no CVA tenderness Abd: soft and non tender Genitalia: Normal male. Mckinley in place draining light red urine BERTRAND: patient declined rectal exam stating it was done multiple times today Laboratory Tests 12/23 12/23 1827 1200 Chemistry Sodium (137 - 145 mmol/L) 144 Potassium (3.5 - 5.1 mmol/L) 3.3 L Chloride (98 - 107 mmol/L) 108 H Carbon Dioxide (22 - 30 mmol/L) 29 Anion Gap (5 - 16) 7 BUN (9 - 20 mg/dL) 20 Creatinine (0.7 - 1.2 mg/dL) 1.6 H Estimated GFR (>60 ml/min) 43 L BUN/Creatinine Ratio (7 - 25 %) 12.5 Hematology CBC w Diff Pending NO MAN DIFF REQ WBC (4.8 - 10.8 /CUMM) Pending 6.4 RBC (4.70 - 6.10 /CUMM) Pending 2.49 L Hgb (14.0 - 18.0 G/DL) Pending 7.2 *L Hct (42 - 52 %) Pending 21.4 L MCV (80.0 - 94.0 FL) Pending 86.0 MCH (27.0 - 31.0 PG) Pending 29.0 RDW (11.5 - 14.5 %) Pending 18.7 H Plt Count (130 - 400 /CUMM) Pending 108 L MPV (7.4 - 10.4 FL) Pending 8.2 Gran % (42.2 - 75.2 %) 62.6 Lymphocytes % (20.5 - 51.1 %) 28.3 Monocytes % (1.7 - 9.3 %) 7.3 Eosinophils % (0 - 5 %) 1.4 Basophils % (0.0 - 2.0 %) 0.4 Absolute Granulocytes (1.4 - 6.5 /CUMM) 4.0 Absolute Lymphocytes (1.2 - 3.4 /CUMM) 1.8 Absolute Monocytes (0.10 - 0.60 /CUMM) 0.5 Absolute Eosinophils (0.0 - 0.7 /CUMM) 0.1 Absolute Basophils (0.0 - 0.2 /CUMM) 0 PUBS MCHC (33.0 - 37.0 G/DL) Pending 33.7 12/23 12/23 0530 0109 Chemistry Sodium (137 - 145 mmol/L) 143 Potassium (3.5 - 5.1 mmol/L) 3.5 Chloride (98 - 107 mmol/L) 107 Carbon Dioxide (22 - 30 mmol/L) 31 H Anion Gap (5 - 16) 6 BUN (9 - 20 mg/dL) 19 Creatinine (0.7 - 1.2 mg/dL) 1.6 H Estimated GFR (>60 ml/min) 43 L BUN/Creatinine Ratio (7 - 25 %) 11.9 Magnesium (1.6 - 2.3 mg/dL) 2.2 Troponin I (<0.11 ng/ml) 0.06 Total PSA (0.00 - 4.00 ng/mL) 932.00 H Folate (2.76 - 20.0 ng/mL) 5.2 Hematology CBC w Diff NO MAN DIFF REQ WBC (4.8 - 10.8 /CUMM) 7.3 RBC (4.70 - 6.10 /CUMM) 2.26 L Hgb (14.0 - 18.0 G/DL) 6.4 *L Hct (42 - 52 %) 19.6 *L MCV (80.0 - 94.0 FL) 86.9 MCH (27.0 - 31.0 PG) 28.5 RDW (11.5 - 14.5 %) 20.4 H Plt Count (130 - 400 /CUMM) 126 L MPV (7.4 - 10.4 FL) 8.0 Gran % (42.2 - 75.2 %) 60.5 Lymphocytes % (20.5 - 51.1 %) 31.7 Monocytes % (1.7 - 9.3 %) 6.2 Eosinophils % (0 - 5 %) 1.2 Basophils % (0.0 - 2.0 %) 0.4 Absolute Granulocytes (1.4 - 6.5 /CUMM) 4.4 Absolute Lymphocytes (1.2 - 3.4 /CUMM) 2.3 Absolute Monocytes (0.10 - 0.60 /CUMM) 0.4 Absolute Eosinophils (0.0 - 0.7 /CUMM) 0.1 Absolute Basophils (0.0 - 0.2 /CUMM) 0 PUBS MCHC (33.0 - 37.0 G/DL) 32.8 L Urines Urinalysis LIGHT H Urine Color (YEL,AMB,STR) PINK H Urine Clarity (CLEAR) CLDY H Urine pH (5.0 - 8.0) 6.0 Ur Specific Anderson (1.001 - 1.035) 1.010 Urine Protein (NEG,<30 MG/DL) 30 H Urine Ketones (NEG) NEG Urine Nitrite (NEG) NEG Urine Bilirubin (NEG) NEG Urine Urobilinogen (0.1 - 1.0 EU/dl) 0.2 Ur Leukocyte Esterase (NEG) SMALL H Ur Microscopic SEDIMENT EXAMINED Urine RBC (0 - 5 /HPF) >75 H Urine WBC (0 - 2 /HPF) 1-3 H Urine Hemoglobin (NEG) LARGE H Urine Glucose (N MG/DL) NEG 12/23 2103 Chemistry Lactic Acid Cancelled Assessment/Plan Assessment/Plan Imp: 1. Overall findings c/w diffusely metatatic prostate ca 2. Bilateral hydronephrosis due to distended bladder or prostate cancer invading into bladder trigone 3. Hematuria likely due to prostate ca Plan: 1. Leave mckinley in place. Irrigate prn no drainage 2. If creatinine is rising substatially would need to have IR place a unilateral perc nephrostomy 3. Unlikely to be able to place ureteral stent as CT is c/w prostate ca invading bladder base 4. Order PSA if not done already 5. Urine C&S 6. Agree with starting bicalutamide 50 mg qd 7. Will need tissue dx. Please keep npo after midnight Monday night. If stable may try to add on OR schedule for Monday for cysto and tissue bx if other treating physicians agree Consult Acknowledgment - Thank you for your consult request.
[2016-12-23 19:22] LABS: ABSOLUTE BASOPHIL COUNT 0 /CUMM (0.0-0.2); ABSOLUTE EOSINOPHIL COUNT 0.1 /CUMM (0.0-0.7); ABSOLUTE GRANULOCYTE CT 4.1 /CUMM (1.4-6.5); ABSOLUTE LYMPH COUNT 1.5 /CUMM (1.2-3.4); ABSOLUTE MONOCYTE COUNT 0.5 /CUMM (0.10-0.60); BASOPHIL % 0.4 % (0.0-2.0); EOSINOPHIL % 1.4 % (0-5); GRANULOCYTE % 65.4 % (42.2-75.2); HEMATOCRIT 21.5 % (42-52); MEAN CORPUSCULAR HGB 28.6 PG (27.0-31.0); MEAN CORPUSCULAR HGB CONC 33.2 G/DL (33.0-37.0); MEAN CORPUSCULAR VOLUME 86.2 FL (80.0-94.0); MEAN PLATELET VOLUME 8.4 FL (7.4-10.4); PLATELET COUNT 101 /CUMM (130-400); RBC DISTRIBUTION WIDTH 18.8 % (11.5-14.5); WHITE BLOOD CELL COUNT 6.2 /CUMM (4.8-10.8)
--- NOTE | 2016-12-23 20:26 | NUR ---
PTS H+H RESULTS FROM 1800 CAME BACK AT 7.[address] GUME BARRERA DO NOT TRANSFUSE, WILL RECHECK CBC AT 0030 ON 12/24 AND TRANSFUSE IF HGB <7. PT CONTINUES WITH HEMATURIA IN BARNES, DENIES ANY PAIN, DIZZINESS, LIGHTHEADEDNESS, OR CHEST PAIN AT THIS TIME. OFFERS NO COMPLAINTS AT THIS TIME. [facility] AWARE OF BLOODWORK TO BE DONE AT 0030 AND IN AGREEMENT.
[2016-12-23 23:00] VITALS: BP 112/72
[2016-12-24 01:00] LABS: ABSOLUTE BASOPHIL COUNT 0 /CUMM (0.0-0.2); ABSOLUTE EOSINOPHIL COUNT 0.1 /CUMM (0.0-0.7); ABSOLUTE GRANULOCYTE CT 4.2 /CUMM (1.4-6.5); ABSOLUTE LYMPH COUNT 1.6 /CUMM (1.2-3.4); ABSOLUTE MONOCYTE COUNT 0.5 /CUMM (0.10-0.60); BASOPHIL % 0.1 % (0.0-2.0); EOSINOPHIL % 1.4 % (0-5); GRANULOCYTE % 65.9 % (42.2-75.2); HEMATOCRIT 21.2 % (42-52); MEAN CORPUSCULAR HGB 28.8 PG (27.0-31.0); MEAN CORPUSCULAR HGB CONC 33.5 G/DL (33.0-37.0); MEAN CORPUSCULAR VOLUME 86.2 FL (80.0-94.0); MEAN PLATELET VOLUME 8.3 FL (7.4-10.4); PLATELET COUNT 98 /CUMM (130-400); RBC DISTRIBUTION WIDTH 18.9 % (11.5-14.5); RED BLOOD CELL CT 2.46 /CUMM (4.70-6.10); WHITE BLOOD CELL COUNT 6.4 /CUMM (4.8-10.8)
[2016-12-24 05:38] LABS: ABSOLUTE BASOPHIL COUNT 0 /CUMM (0.0-0.2); ABSOLUTE EOSINOPHIL COUNT 0.1 /CUMM (0.0-0.7); ABSOLUTE GRANULOCYTE CT 4.2 /CUMM (1.4-6.5); ABSOLUTE LYMPH COUNT 1.8 /CUMM (1.2-3.4); ABSOLUTE MONOCYTE COUNT 0.6 /CUMM (0.10-0.60); BASOPHIL % 0.3 % (0.0-2.0); EOSINOPHIL % 1.3 % (0-5); GRANULOCYTE % 61.9 % (42.2-75.2); HEMATOCRIT 20.9 % (42-52); MEAN CORPUSCULAR HGB 28.8 PG (27.0-31.0); MEAN CORPUSCULAR HGB CONC 33.4 G/DL (33.0-37.0); MEAN CORPUSCULAR VOLUME 86.4 FL (80.0-94.0); MEAN PLATELET VOLUME 8.6 FL (7.4-10.4); PLATELET COUNT 98 /CUMM (130-400); RBC DISTRIBUTION WIDTH 18.8 % (11.5-14.5); RED BLOOD CELL CT 2.42 /CUMM (4.70-6.10); WHITE BLOOD CELL COUNT 6.7 /CUMM (4.8-10.8)
--- NOTE | 2016-12-24 06:24 | NUR ---
PT'S H+H CAME BACK AT 7.[address] MARYSOL MORLEY, TRANSUFSE 1U PRBC NOW. WILL COMPLY. PT CONTINUES WTIH HEMATURIA IN BARNES. NO S/S GI BLEED, NO STOOLS OR EMESIS THIS SHIFT, NO RECTAL BLEEDING NOTED. PT AOX3, OFFERS NO COMPLAINTS. WILL CONTINUE TO MONITOR.
--- NOTE | 2016-12-24 06:53 | PN- Resident CRCU ---
PARMJIT BEDOYA,[facility] 12/24/16 0652: Subjective HPI/CRCU Issues: Mr Womack was seen and examined this morning. Resting comfortably in bed. He reports no issues overnight. Does state that he is hungry and would like to be fed. He states he is no active pain. Denies any loss of sensation to his lower extremities or any feelings of numbness or paresthesias. He mentioned this morning that he may be agreeable to going for the latter part of his MRI today. He is currently be transfused 1 unit. States that he has not had a bowel movement since admission. He denies any fever, chills, nausea, vomiting. 24 Hour Events: NA Objective Vital Signs & I&O Last 8 Hrs of Vitals and I&O: Temperature 99.8 Pulse rate 87 Respiratory rate 16 Blood pressure 167/64 Pulse ox 94% on room air Intake & Output 12/24 0800 Intake Total 600 Output Total 1650 Balance -1050 Intake, IV 600 Intake, Oral 0 Output, Urine 1650 Exam General Appearance: well developed/nourished, no apparent distress, alert, awake Head: atraumatic, normal appearance Respiratory: normal breath sounds, chest non-tender Cardiovascular: regular rate/rhythm Gastrointestinal: normal bowel sounds, soft, non-tender, no organomegaly Extremities: normal inspection, normal capillary refill Cranial Nerves: normal hearing, normal speech Skin: intact Current Medications: Current Medications Sig/Sada Start time Last Medication Dose Route Stop Time Status Admin Acetaminophen 650 MG Q6P PRN 12/23 0030 AC PO Acetaminophen 1,000 MG Q6P PRN 12/23 0030 AC IV Bicalutamide 50 MG DAILY 12/23 1745 AC PO Cyanocobalamin 1,000 MCG DAILY 12/23 1029 AC 12/23 PO 1203 Morphine Sulfate 2 MG Q4P PRN 12/23 0030 AC IV Omeprazole 40 MG DAILY AC 12/23 1829 AC 12/24 PO 0628 Ondansetron HCl 4 MG ONCE ONE 12/23 1230 DC 12/23 IV 12/23 1231 1232 Potassium Chloride 40 MEQ ONCE ONE 12/23 1530 DC 12/23 PO 12/23 1531 1636 Sodium Chloride 1,000 ML Q20H 12/23 1315 AC 12/23 IV 1635 Sodium Chloride 1,000 ML ONCE ONE 12/23 0045 DC 12/23 IV 12/23 1404 0136 Impression/Plan Impression/Problem List Impression: This is a 66-year-old gentleman with limited past medical history is not seen a primary care physician know 45 years who presented to the emergency department on 12/22/2016 after experiencing weakness, lower back pain and bleeding per rectum. The patient was admitted to telemetry (in the ICU) for closer monitoring due to EKG changes. Mckinley: Day two Problem List: Prostate Ca Bladder outlet obstruction Hypokalemia Anemia GI Bleed Respiratory Patient currently saturating we on 2 L Nasal Canula. Maintain O2 Saturations above 92%. Bileteral Pleural Effusions present on Chest Imaging. Cardiovascular Initial EKG Showed Minimal ST Depression Troponin form this am was WNL, repeat troponin 0.06-->0.06 Heme Patient was transfused a total of five units, Last H/H:8.9/27.4 Will repeat CBC in AM. Hematology and Oncology Consutlation obtained. MRI of cervical, thoracic and lumbar spine without ELLIE ordered 12/23/2016. Study was partially completed. May consider repeating the Lumbar MRI. If any evidence of cord compression, patient will need steroids started stat and a consultation with neuro surgery, will also likely radiation. Continue frequent monitoring. Bone scan was also ordered for next week. Casodex 50 mg PSA: 960 GI Formal GI consultation Obtained. colonoscopy and Endoscopy likley defered till out patient. Bilaterral Hydronephrosis likley due to cancer invasion into bladder, causing bladder outlet obstruction. Formal Urology Consultation has been obtained. Patient will likely need a tissue biopsy. Patient currenlty has a mckinley in place, draining well. Metabolic Patients electrolytes have been repleted. Repeat BEP in AM. Vitamin B12 supplemented. Alimentary Tolerating PO intake well. Neurology Avoid sedating medications. Diet: Regular heart healthy. Patient will be kept nothing by mouth Monday evening for possible biopsy on Monday AM:12/26/2016. DVT prophylaxis ALPS Code Full code Problem List: 1. Rectal bleed 2. Prostate CA 3. Anemia 4. Bladder outlet obstruction 5. Bony metastasis 6. Anemia Pain Ratin Tomorrow's Labs & Rationales: CBC ICU Bundle Plan DVT/Prophylaxis: LUCÍA Freire MD 12/24/16 3935: Attending MD Review Statement Attending Sign Off Attending Cosign Statement: I have: examined this patient, reviewed [facility] EMR data, personally reviewd images, discussd w/resident/PA/DIRECTOR, discussed mgmt plan w/pt, agreed w/resident/ PA/DIRECTOR, amended to note. Other Findings: The patient was seen and discussed with house staff (resident). H/H increased post transfusion and OK to transfer patient to General Medical floor/service ( not clear why he was sent to telemetry). Will undergo cystoscopy and biopsy Tuesday 12/26. Physical therapy consult. Monitor H/H.
[2016-12-24 08:00] VITALS: BP 120/68
--- NOTE | 2016-12-24 10:22 | NUR ---
PHYSICAL THERAPY: ATTEMTPED TO SEE PATIENT THIS A.M.; PER RN, PATIENT STILL WITH LOW H/H AND CURRENTLY RECIEVING TRANSFUSION. ASKED TO FOLLOW UP AFTER 10AM. UPON RETURN, PATIENT WAS [facility] [facility] FOR FURTHER IMAGING. P.T. WILL DEFER EVALUATION TODAY AND F/U TOMORROW APPROPRIATE.
[2016-12-24 10:27] LABS: ABSOLUTE BASOPHIL COUNT 0 /CUMM (0.0-0.2); ABSOLUTE EOSINOPHIL COUNT 0.1 /CUMM (0.0-0.7); ABSOLUTE LYMPH COUNT 1.9 /CUMM (1.2-3.4); EOSINOPHIL % 1.3 % (0-5); MEAN CORPUSCULAR VOLUME 86.2 FL (80.0-94.0)
[2016-12-24 10:47] LABS: ABSOLUTE GRANULOCYTE CT 5.2 /CUMM (1.4-6.5); ABSOLUTE MONOCYTE COUNT 0.7 /CUMM (0.10-0.60); BASOPHIL % 0.3 % (0.0-2.0); GRANULOCYTE % 65.3 % (42.2-75.2); MEAN CORPUSCULAR HGB 27.9 PG (27.0-31.0); MEAN CORPUSCULAR HGB CONC 32.4 G/DL (33.0-37.0); MEAN PLATELET VOLUME 8.6 FL (7.4-10.4); PLATELET COUNT 109 /CUMM (130-400); RBC DISTRIBUTION WIDTH 18.9 % (11.5-14.5)
[2016-12-24 10:49] LABS: HEMATOCRIT 27.4 % (42-52); RED BLOOD CELL CT 3.18 /CUMM (4.70-6.10)
[2016-12-24 11:15] LABS: WHITE BLOOD CELL COUNT 7.5 /CUMM (4.8-10.8)
[2016-12-24 16:16] VITALS: BP 167/64
[2016-12-25 00:02] VITALS: BP 142/68
[2016-12-25 05:29] LABS: ABSOLUTE BASOPHIL COUNT 0.1 /CUMM (0.0-0.2); ABSOLUTE EOSINOPHIL COUNT 0.1 /CUMM (0.0-0.7); ABSOLUTE GRANULOCYTE CT 4.3 /CUMM (1.4-6.5); ABSOLUTE LYMPH COUNT 1.9 /CUMM (1.2-3.4); ABSOLUTE MONOCYTE COUNT 0.7 /CUMM (0.10-0.60); BASOPHIL % 1.1 % (0.0-2.0); GRANULOCYTE % 60.8 % (42.2-75.2); MEAN CORPUSCULAR HGB 27.9 PG (27.0-31.0); MEAN CORPUSCULAR HGB CONC 32.6 G/DL (33.0-37.0); MEAN CORPUSCULAR VOLUME 85.5 FL (80.0-94.0); MEAN PLATELET VOLUME 8.2 FL (7.4-10.4); PLATELET COUNT 108 /CUMM (130-400); RBC DISTRIBUTION WIDTH 19.1 % (11.5-14.5); RED BLOOD CELL CT 2.69 /CUMM (4.70-6.10); WHITE BLOOD CELL COUNT 7.1 /CUMM (4.8-10.8)
--- NOTE | 2016-12-25 07:10 | NUR ---
PT H/H 7.5 AND 23. MD MORLEY AWARE. NNO AT THIS TIME.
--- NOTE | 2016-12-25 08:09 | PN- Housestaff ---
MADALYNJAZMÍN 12/25/16 0809: Subjective Follow-up For: Hematuria, prostate cancer Bilateral wheezing Acute blood loss Subjective: I have seen and examined the patient. And patient does report of coughing which is his baseline. Vital signs are stable. Patient hemoglobin 7.5 today. He will transfuse 1 unit of blood today. Review of Systems Constitutional: Reports: see HPI. Objective Last 24 Hrs of Vital Signs/I&O Vital Signs Date Time Temp Pulse Resp B/P Pulse O2 O2 Flow FiO2 Ox Delivery Rate 12/25 0829 98.7 86 16 154/78 96 Nasal Cannula 12/25 0002 98.9 90 16 142/68 94 Room Air 12/25 0000 Room Air 12/24 2020 96 Room Air Room Air 12/24 1616 99.8 87 16 167/64 94 Room Air 12/24 1458 Room Air Intake & Output 12/25 1600 12/25 0800 12/25 0000 Intake Total 600 220 Output Total 1000 2000 Balance -400 -1780 Intake, IV 600 100 Intake, Oral 120 Output, Urine 1000 1999 Physical Exam General Appearance: Alert, Oriented X3, Cooperative HEENT: Atraumatic, PERRLA Cardiovascular: Regular Rate, Normal S1, Normal S2 Lungs: bilateral wheezing Abdomen: Normal Bowel Sounds, Soft, No Tenderness, mckinley has schwarz red hematura no clots Extremities: No Edema Assessment/Plan Assessment: This is a 66-year-old gentleman with limited past medical history is not seen a primary care physician know 45 years who presented to the emergency department on 12/22/2016 after experiencing weakness, lower back pain and bleeding per rectum. CT scan showed metastatic prostate cancer with bladder invasion. #Prostate Ca/Bladder outlet obstruction/hematuria -Patient is still has hematuria with no clots -We will transfuse 1 unit of blood -NPO for cystoscopy tomorrow -HALLEY has resolved -Follow oncology and urology notes -No NSAIDs or aspirin or pharmacological DVT prophylaxis for now -IV hydration is starting tomorrow morning -PT PTT INR tomorrow -Continue Mckinley Hypokalemia/hypomagnesemia -Replete with oral K and IV magnesium and check them tomorrow Anemia -Status post 4 units transfusion hemoglobin today is 7.5 he was transferred 1 unit of blood today #Lower back pain -Continue current pain regimen -MRI of the thoracic spine " 1. There is heterogenous signal throughout the thoracic spine consistent with multiple osseous metastases. 2. There is mild protrusion of the posterior bodies of multiple vertebrae,but there is no spinal cord compression or central stenosis.3. There are bilateral pleural effusions." -May consider MRI of the lumbar spine if patient develops symptoms of cord compression Regular diet, full code, DVT prophylaxis is mechanical, Tylenol for pain Problem List: 1. Anemia 2. Bladder outlet obstruction 3. Prostate CA Pain Ratin Pain Location: no pain Pain Goal: Pain 4 or less Pain Plan: same Tomorrow's Labs & Rationales: cbc , bep halley , acure blood loss LUCÍA HAMMOND MD 12/25/16 1903: Attending MD Review Statement Attending Statement Attending MD Statement: examined this patient, discuss w/resident/PA/PAPER SALES MANAGER, agreed w/resident/PA/PAPER SALES MANAGER, reviewed EMR data (avail), discussed with nursing, amended to note Attending Assessment/Plan: The patient was seen and discussed with house staff. H/H dropped and will transfuse additional unit of blood. No blood per rectum, however hematuria persists. Should have cystoscopy and biopsy tomorrow (await input from Urology). Replete K and Mg. 3. Prostate CA Pain Ratin Pain Location: no pain Pain Goal: Pain 4 or less Pain Plan: same Tomorrow's Labs & Rationales: cbc , bep halley , acure blood loss Pain Plan: same Tomorrow's Labs & Rationales: cbc , bep halley , acure blood loss
[2016-12-25 08:29] VITALS: BP 154/78
[2016-12-25 16:40] VITALS: BP 144/69
[2016-12-25 21:04] VITALS: BP 138/68
[2016-12-26 07:13] VITALS: BP 158/82
--- NOTE | 2016-12-26 07:40 | PN- Housestaff ---
GWEN BREWER 12/26/16 0740: Subjective Follow-up For: Metastatic Prostrate cancer Subjective: Seen and examined patient. States he is hungry. Understands he is to undergo cystoscopy today. Reports non productive cough. Denies being in pain, short of breath, chest pain. Review of Systems Constitutional: Denies: chills, diaphoresis, fever, malaise, weakness, unexplained weight loss. Cardiovascular: Denies: chest pain, edema, orthopena, palpitations, peripheral edema, syncope. Respiratory: Reports: cough. Denies: hemoptysis, orthopnea, short of breath, sputum production, stridor, wheezing. Neurological/Psychological: Denies: numbness, paresthesia, tingling. Objective Last 24 Hrs of Vital Signs/I&O Vital Signs Date Time Temp Pulse Resp B/P Pulse O2 O2 Flow FiO2 Ox Delivery Rate 12/26 0839 95 Room Air Room Air 12/26 0713 98.9 91 17 158/82 95 12/26 0000 Room Air 12/25 2104 99.0 92 18 138/68 95 Room Air 12/25 1858 97 Room Air Room Air 12/25 1640 100.1 95 16 144/69 95 Room Air 12/25 1621 100.1 12/25 0950 97 Room Air Room Air Intake & Output 12/26 1600 12/26 0800 12/26 0000 Intake Total 10 Output Total 2200 2250 Balance -2190 -2250 Intake, IV 10 Intake, Oral 0 Number 0 Bowel Movements Output, Urine 2200 2250 Physical Exam General Appearance: Alert, Oriented X3, Cooperative, No Acute Distress Cardiovascular: Regular Rate, Normal S1, Normal S2 Lungs: b/l rhonchi Abdomen: Normal Bowel Sounds, No Tenderness, palpable mass in lower abdomen, likely bladder Extremities: No Edema Current Medications: Current Medications Sig/Sada Start time Last Medication Dose Route Stop Time Status Admin Acetaminophen 650 MG .STK-MED ONE 12/25 1620 DC PO 12/25 162 Acetaminophen 650 MG Q6P PRN 12/23 0030 AC 12/25 PO 1621 Acetaminophen 1,000 MG Q6P PRN 12/23 0030 AC IV Albuterol Sulfate 3 ML BID 12/24 2200 AC 12/26 INH 0834 Bicalutamide 50 MG DAILY 12/23 1745 AC 04/16 PO 0941 Cyanocobalamin 1,000 MCG DAILY 12/23 1029 AC 12/25 PO 0941 Docusate Sodium 100 MG DAILY NEEDED PRN 12/25 1700 AC 12/25 PO 1839 Magnesium Sulfate 1 GM Q2H 12/25 1030 DC 12/25 Dextrose/Water 100 ML IV 12/25 1429 1516 Morphine Sulfate 2 MG Q4P PRN 12/23 0030 AC 12/25 IV 2325 Omeprazole 40 MG DAILY AC 12/23 1829 AC 12/25 PO 0556 Polyethylene Glycol 17 GM DAILY 12/25 1656 AC 12/25 PO 1839 Senna/Docusate Sodium 1 TAB BID PRN 12/25 1700 AC 12/25 PO 1839 Sodium Chloride 1,000 ML Q20H 12/26 0800 AC 12/26 IV 0814 Last 24 Hrs of Lab/J Carlos Results Last 24 Hrs of Labs/Mics: Laboratory Tests 12/26/16 0620: Anion Gap 7, Estimated GFR > 60, BUN/Creatinine Ratio 16.0, Magnesium 1.6, PT 14.7 H, INR 1.40 H, APTT 30, CBC w Diff Pending, WBC Pending, RBC Pending, Hgb Pending, Hct Pending, MCV Pending, MCH Pending, RDW Pending, Plt Count Pending, MPV Pending, Gran % Pending, Lymphocytes % Pending, Monocytes % Pending, Eosinophils % Pending, Basophils % Pending, Absolute Granulocytes Pending, Absolute Lymphocytes Pending, Absolute Monocytes Pending, Absolute Eosinophils Pending, Absolute Basophils Pending, PUBS MCHC Pending Lines/Diet/Fluids [place] Still Needed? Yes (draining ) Assessment/Plan Assessment: 66-year-old gentleman with limited past medical history, not seen a primary care physician in 45 years admitted on 12/22/2016 for weakness, lower back pain and bleeding per rectum. CT scan showed metastatic prostate cancer with bladder invasion. MRI of the cervical and thoracic spine shows diffuse demetrius mets with no spinal cord compression. #Prostate Ca/Bladder outlet obstruction/hematuria -[place] in place and continues to drain hematuria, clots noted. -NPO for cystoscopy today, urology on board, apprec recs -HALLEY has resolved - Oncology consulted -No NSAIDs or aspirin or pharmacological DVT prophylaxis for now hypomagnesemia -Repleted with IV magnesium, will continue to monitor Anemia -Status post 5 units transfusion -h/h pending, will follow up #Lower back pain -Continue current pain regimen Regular diet DVT prophylaxis is mechanical full code Problem List: 1. Bony metastasis 2. Bladder outlet obstruction 3. Prostate CA Pain Ratin Pain Location: na Pain Goal: Pain 4 or less Pain Plan: current regimen Tomorrow's Labs & Rationales: cbc/bep AMANDA BEDOYAJB 12/26/16 1406: Attending MD Review Statement Attending Statement Attending MD Statement: examined this patient, discuss w/resident/PA/STATION AGENT, agreed w/resident/PA/STATION AGENT, reviewed EMR data (avail), discussed with nursing, discussed with case mgmt, amended to note Attending Assessment/Plan: Patient seen and examined. Resting comfortably and not in any acute distress. Denies any pain. No issues overnight reported by nursing staff. Scheduled today to undergo cystoscopy. He is alert and oriented 3. Heart sounds are regular. Lungs are clear bilaterally. Abdomen is soft and nontender. He has no peripheral edema. He has no spine tenderness on examination. Constellation of findings are suggestive of prostate cancer with diffuse bony metastasis. Problems: 1. Severe acute on chronic blood loss anemia. Status post transfusion of 5 PRBC. 2. Diffuse metastatic disease; likely primaries the prostate gland. 3. Pulmonary nodules; appeared nonmalignant 4. Lumbar compression fractures. 5. Obstructive uropathy; status post improvement of a TIA. Recommendations: -Scheduled to undergo cystoscopy today. Tissue biopsy should be obtained during the procedure. -Oncology consultation. -Pain appears to be controlled on current regimen. -Regardless of treatment options offered by the oncology service, would strongly recommend referral of the patient to an outpatient palliative care program. -We'll discuss goals of care further with the patient after discussion of treatment options by the oncology service.
--- NOTE | 2016-12-26 07:59 | PN- Urology ---
Surgical Brief Attending Note Brief Attending Note: Above noted. Will schedule today for cysto and bx of prostate. Anticipate procedure to be late morning or early afternoon. Please continue npo today except for po meds with sip
[2016-12-26 08:18] LABS: PT 14.7 SEC (9.4-12.5); PTT 30 SEC (25-37)
[2016-12-26 08:21] LABS: ABSOLUTE BASOPHIL COUNT 0 /CUMM (0.0-0.2); ABSOLUTE EOSINOPHIL COUNT 0.1 /CUMM (0.0-0.7); ABSOLUTE LYMPH COUNT 1.9 /CUMM (1.2-3.4); ABSOLUTE MONOCYTE COUNT 0.6 /CUMM (0.10-0.60); BASOPHIL % 0.4 % (0.0-2.0); EOSINOPHIL % 1.7 % (0-5); HEMATOCRIT 27.3 % (42-52); MEAN CORPUSCULAR HGB 28.1 PG (27.0-31.0); MEAN CORPUSCULAR HGB CONC 33.4 G/DL (33.0-37.0); MEAN CORPUSCULAR VOLUME 84.1 FL (80.0-94.0); MEAN PLATELET VOLUME 8.8 FL (7.4-10.4); RBC DISTRIBUTION WIDTH 19.3 % (11.5-14.5); WHITE BLOOD CELL COUNT 7.7 /CUMM (4.8-10.8)
[2016-12-26 09:17] LABS: GRANULOCYTE % 65.9 % (42.2-75.2); PLATELET COUNT 115 /CUMM (130-400); RED BLOOD CELL CT 3.24 /CUMM (4.70-6.10)
--- NOTE | 2016-12-26 13:14 | Transfer of Care Summary ---
Hospital Course Course Hospital Course: Mr Womack is a 66-year-old gentleman with limited past medical history is not seen a primary care physician for 45 years who presented to the emergency department on 12/22/2016 after experiencing weakness, lower back pain and bleeding per rectum. The patient was admitted to telemetry (in the ICU) for closer monitoring due to EKG changes. Problem List: Prostate Ca Bladder outlet obstruction Hypokalemia Anemia GI Bleed Respiratory Patient currently saturating we on 2 L Nasal Canula. Maintain O2 Saturations above 92%. Bileteral Pleural Effusions present on Chest Imaging. Cardiovascular Initial EKG at the time of admission Showed Minimal ST Depression. Repeat EKG were non contibutory for any findings. His troponins were trended. Repeat troponin 0.06-->0.06 Heme Owing to the patient profound Anemia, he was transfused a total of 5 units of PRBC. 4 units on day one and 1 unit on day two of admisstion. Hematology and Oncology Consutlations were obtained. MRI of cervical, thoracic and lumbar spine without ELLIE ordered 12/23/2016. Study was partially completed. During the latter part of the study, the patient felt anxious and so was unable to complete the chest. The MRI was done with the intention that if any evidence of cord compression was found, patient needed steroids started stat and a consultation with neuro surgery, will also likely radiation. Following the oncologists recommendations a Bone Scan was also ordered and the patient started on Bicalutamide 50 mg daily. GI A formal GI consultation Obtained, as the patient complained of a long standing history of bright bloogt per rectum loss. Formal Imaging Studies were deferred for the outpatient setting. Bilaterral Hydronephrosis likley due to cancer invasion into bladder, causing bladder outlet obstruction. Formal Urology Consultation was obtained. Patient is scheduled to go for a tissue biopsy. Since admission, the patient has had a mckinley in place. Metabolic Patients electrolytes and vitamins were repleted. Diet: Regular heart healthy. Patient needs to be kept NPO Monday evening for a tissue biopsy on Monday with urology. DVT prophylaxis Patient Maintained on ALPS Code Full code Pertinent Lab Results: H/H on admission: 4.2/12.9 PSA: 960 SERVICE DATE: 12/23/16 EXAM TYPE: CAT - CT CHEST WO IV CONTRAST EXAMINATION: CT CHEST WITHOUT CONTRAST CLINICAL INFORMATION: 66-year-old male, known prostate cancer. Suspected metastatic disease. COMPARISON: CT of the abdomen and pelvis and CT of the lumbar spine done on 12/22/2016. TECHNIQUE: Multidetector volumetric CT imaging of the chest was done. Axial MIP volume rendering provided. Sagittal and coronal reformatted images were obtained. DLP: 201.35 mGy-cm FINDINGS: CELL TECHNICIAN: No discrete focal abnormality is present. LUNGS: Small emphysematous bullous disease related changes are noted at both lung apices. Compressive atelectatic changes are noted at both lung bases. There are 3 tiny sub-5 mm lung nodules noted within the lingula (see the haines images). There is a solitary sub-5 mm ground-glass nodule identified within the right upper lobe (see the haines images). The remainder of the lung hansen otherwise appear clear. The tracheobronchial tree appeared patent. MEDIASTINUM: Atherosclerotic disease including coronary arterial calcifications are present. There are no pathologically enlarged lymphadenopathy present. The right paratracheal lymph node measures 0.9 cm at its maximum short axis dimension. PLEURA: Bilateral small pleural effusions are noted (left greater than right). AXILLA: No lymphadenopathy. UPPER ABDOMEN: No suspicious lytic or sclerotic abnormality. OSSEOUS STRUCTURES: Extensive sclerotic changes, cortical destruction, periosteal reaction is noted involving the manubrium with evidence of retrosternal soft tissue curvilinear mass, consistent with metastatic disease. Less extensive changes are noted within the remainder of the sternum, entire visualized thoracic spine with evidence of multilevel platyspondylia. Multiple old healed rib fractures are noted within the right mid posterior hemithorax. IMPRESSION: 1. Extensive osseous metastatic disease is present likely arising from the prostate with most pronounced involvement seen involving the manubrium of the sternum. 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 2. Three tiny sub-5 mm lung nodules are noted within the lingula and solitary sub-5 mm ground-glass nodule within the right upper lobe, nonspecific in appearance, may represent granulomatous disease within the lingula and atelectatic changes, nonspecific airspace disease within the right upper lobe. Possibility of metastasis is considered less likely. Followup imaging surveillance may be considered for further clarification. 3. Bilateral small pleural effusions (left greater than right), and underlying compressive atelectatic changes at both lung bases. DICTATED BY: GENIE CHASE MD SERVICE DATE: 12/22/16 EXAM TYPE: CAT - CT ABD & PELVIS W ORAL & IV CO EXAMINATION: CT ABDOMEN AND PELVIS WITH CONTRAST CLINICAL INFORMATION: GI bleeding. Unintentional weight loss. Petechiae. COMPARISON: None TECHNIQUE: Multidetector volumetric imaging was performed of the abdomen and pelvis before and after the IV administration of 95 mL of Optiray 320 intravenous contrast. Oral contrast was given. Sagittal and coronal reformatted images were obtained on the technologist's workstation. DLP: 2092.91 mGy-cm FINDINGS: LUNG BASES: Small bilateral dependent pleural effusions. Atelectasis at the left lung base. Small hiatal hernia. LIVER, GALLBLADDER, AND BILIARY TREE: The liver is normal in size, shape, and attenuation. No focal hepatic lesion or biliary ductal dilatation is present. There are several peripherally calcified about 1 cm sized gallstones in the gallbladder. Gallbladder is partially contracted. No edema around the gallbladder. Extrahepatic CBD measures 6 mm. PANCREAS: There is atrophy of the pancreas. No acute change of pancreas. SPLEEN: Unremarkable. ADRENAL GLANDS: Unremarkable. KIDNEYS AND URETERS: Bilateral hydronephrosis with dilatation of renal calyces, renal pelvis and both ureters to the ureterovesical junction. No renal or ureteral stone. BLADDER: The bladder is distended. Bladder extends up to about the level of the umbilicus. The distended bladder along with the bilateral hydronephrosis and an enlarged prostate is consistent with bladder outlet obstruction. GASTROINTESTINAL TRACT: Diverticulosis of the colon with diverticula throughout the colon. Diverticula are most numerous in the distal descending colon and sigmoid. There is no diverticulitis. No bowel wall thickening or edema. No pericolonic edema. Moderate volume of stool throughout the colon. No bowel obstruction. The appendix is normal. The small bowel loops are normal. ABDOMINAL WALL: Mild generalized anasarca. LYMPH NODES: Retroperitoneal lymphadenopathy. Largest lymph nodes at the aortic bifurcation adjacent to the inferior vena cava and aorta. Lymph nodes measuring up to a diameter of 1.3 cm in short axis diameter. There are smaller lymph nodes in the more proximal retroperitoneum. No bulky lymphadenopathy of the pelvis. VASCULAR: Atherosclerotic vascular wall calcifications of aorta and iliac vessels without aneurysm. PELVIC VISCERA: Prostate is enlarged and lobular. Difficult to separate the inferior wall of the bladder from the prostate. The prostate measures approximately 7.5 x 7 x 4.8 cm. OSSEOUS STRUCTURES: There is extensive bony metastatic disease throughout the osseous skeleton with osteoblastic lesions seen throughout the spine, pelvis and hips. IMPRESSION: 1. Enlarged lobular prostate which could be invading the bladder wall. There is distention of the bladder and significant bilateral hydronephrosis consistent with bladder outlet obstruction. 2. Retroperitoneal lymphadenopathy. 3. Osteoblastic bony metastatic disease. Prostate cancer likely etiology. 4. Small bilateral pleural effusions. Atelectasis at left lung base. 5. Cholelithiasis. 6. Small hiatal hernia. Mild diverticulosis. No acute change of the bowel. DICTATED BY: LANETTE KOO MD Assessment/Plan: Mr Womack is a 66-year-old gentleman with limited past medical history is not seen a primary care physician for 45 years who presented to the emergency department on 12/22/2016 after experiencing weakness, lower back pain and bleeding per rectum. The patient was admitted to telemetry (in the ICU) for closer monitoring due to EKG changes. Problem List: Prostate Ca Bladder outlet obstruction Hypokalemia Anemia GI Bleed Cardiovascular May consider cardiology referral as an outpatient. Heme The patient will need to follow up with the oncologist service as an outpatient. GI The patient will need to follow up with the GI service as an outpatient. Bilaterral Hydronephrosis vikash due to cancer invasion into bladder, causing bladder outlet obstruction. Formal Urology Consultation was obtained. Patient is scheduled to go for a tissue biopsy. Since admission, the patient has had a mckinley in place. DVT prophylaxis Patient Maintained on ALPS Code Full code
--- NOTE | 2016-12-26 14:31 | Operative Report ---
Operative/Inv Procedure Report Surgery Date: 12/26/16 Name of Procedure: Cystoscopy and transurethral resection of bladder mass, likely originating in the prostate Pre-Operative Diagnosis: Probable prostate ca Post-Operative Diagnosis: bladder mass, consisitent with prostate ca invading bladder. Estimated Blood Loss: 50ml to 100ml Surgeon/Computer Systems Administrator: JB Crook M.D Anesthesia: laryngeal mask airway Drains: 22 fr 3-way hematuria catheter for CBI Specimens: Bladder mass fragments Complications: none Condition: fair Operative Indication: Metastatic disease, likely of prostatic origin. Bladder mass, likely prostate ca invading bladder. Procedure done to make histologic diagnosis and to control bleeding Operative/Procedure Note Note: The patient was taken to the cystoscopy room and identified. He was placed in supine position on the cystoscopy table. Timeout was executed appropriately with the patient awake. Gen. anesthesia was induced via LMA. He was then placed in dorsolithotomy position. Bimanual rectal exam revealed a firm prostate. He was prepped and draped in usual fashion for cystoscopy. A surgical pause was executed appropriately. The 22 Swedish cystoscope sheath was placed into the bladder under direct vision using the 30 lens. Anterior urethra was normal. The prostatic urethra did not appear to be causing high- grade bladder outlet obstruction. However from the left side of the area of the prostate there was a mass growing into the bladder. This extended from the 11 o 'clock position down to the 5 o'clock position. It did extend quite proximally. Did not have the typical appearance of bladder tumor. The bladder was heavily trabeculated. The right ureteral orifice was normal. The left could not be visualized. This point the bladder was left full and the cystoscope removed. 26 Swedish resectoscope sheath was placed into the bladder using the obturator. The working element was inserted. A good portion of the mass was resected in order to obtain tissue for pathologic diagnosis as well as to control bleeding. However the mass was not completely resected. The Anika evacuator was used to remove all chips from the bladder. Hemostasis is obtained electrocautery. There was some oozing noted from the residual mass. At this point the bladder was left full and resectoscope removed. A 22 Swedish three-way [place] catheter was inserted and continuous bladder irrigation begun. With the catheter on traction the drainage was light pink. The patient tolerated the procedure well and as completion was taken to recovery room stable condition. Findings: 1. Prostate not appearing to cause high grade obstruction 2. Mass originating in area of prostate and extending into bladder, mostly on L side, from 11 o'clock to 5 o'clock 3. Heavily trabeculated bladder 4. R ureteral orifice visualized. L not visualized due to mass Discharge Disposition: PACU
[2016-12-26 16:00] VITALS: BP 140/64
--- NOTE | 2016-12-26 16:26 | PN- Oncology ---
Subjective Subjective: He denies any new symptoms. Morphine is controlling his pain. Review of Systems: Constitutional: Reports: weakness. Denies: chills, fever. Cardiovascular: Reports: peripheral edema. Denies: chest pain, orthopena, palpitations. Respiratory: Denies: hemoptysis, orthopnea, short of breath, wheezing. GI: Reports: bloody stool, changes in stool. Denies: abdominal pain, diarrhea, vomiting. Genitourinary: Reports: dysuria, hematuria. Musculoskeletal: Reports: back pain. Denies: joint swelling, neck pain. Hematologic/Endocrine: Reports: bleeding. Denies: bruising. Review of Systems All Other Systems: Reviewed and Negative Objective Vital Signs and I&Os Vital Signs Date Time Temp Pulse Resp B/P Pulse O2 O2 Flow FiO2 Ox Delivery Rate 12/26 0839 95 Room Air Room Air 12/26 0713 98.9 91 17 158/82 95 12/26 0000 Room Air 12/25 2104 99.0 92 18 138/68 95 Room Air 12/25 1858 97 Room Air Room Air 12/25 1640 100.1 95 16 144/69 95 Room Air 12/25 1621 100.1 12/25 0950 97 Room Air Room Air Intake & Output 12/26 1600 12/26 0800 12/26 0000 12/25 1600 12/25 0800 12/25 0000 Intake Total 10 1050 600 220 Output Total 2200 2250 2500 1000 1999 Balance -2190 -2250 -1450 -400 -1780 Intake, Blood 350 Product Intake, IV 10 300 600 100 Intake, Oral 0 400 120 Number 0 Bowel Movements Output, Urine 2200 2250 2500 1000 1999 Physical Exam: General Appearance: no apparent distress, alert, awake, comfortable Respiratory: normal breath sounds, chest non-tender, lungs clear Cardiovascular: regular rate/rhythm Gastrointestinal: normal bowel sounds, soft, non-tender Back: normal inspection, no vertebral tenderness Extremities: pedal edema Neurologic/Psych: awake, alert, oriented x 3 Current Medications: Current Medications Sig/Sada Start time Last Medication Dose Route Stop Time Status Admin Acetaminophen 650 MG .STK-MED ONE 12/25 1620 DC PO 12/25 162 Acetaminophen 650 MG Q6P PRN 12/23 0030 AC 12/25 PO 1621 Acetaminophen 1,000 MG Q6P PRN 12/23 0030 AC IV Albuterol Sulfate 3 ML BID 12/24 2200 AC 12/26 INH 0834 Bicalutamide 50 MG DAILY 12/23 1745 AC 12/25 PO 0941 Cyanocobalamin 1,000 MCG DAILY 12/23 1029 AC 12/25 PO 0941 Docusate Sodium 100 MG DAILY NEEDED PRN 12/25 1700 AC 12/25 PO 1839 Magnesium Sulfate 1 GM Q2H 12/25 1030 DC 12/25 Dextrose/Water 100 ML IV 12/25 1429 1516 Morphine Sulfate 2 MG Q4P PRN 12/23 0030 AC 12/25 IV 2325 Omeprazole 40 MG DAILY AC 12/23 1829 AC 12/25 PO 0556 Polyethylene Glycol 17 GM DAILY 12/25 1656 AC 12/25 PO 1839 Senna/Docusate Sodium 1 TAB BID PRN 12/25 1700 AC 12/25 PO 1839 Sodium Chloride 1,000 ML Q20H 12/26 0800 AC 12/26 IV 0814 Results Last 24 Hours of Lab Results: Laboratory Tests 12/26 0620 Chemistry Sodium Pending Potassium Pending Chloride Pending Carbon Dioxide Pending Anion Gap Pending BUN Pending Creatinine Pending BUN/Creatinine Ratio Pending Magnesium Pending Coagulation PT (9.4 - 12.5 SEC) 14.7 H INR (0.90 - 1.17) 1.40 H APTT (25 - 37 SEC) 30 Hematology CBC w Diff Pending WBC Pending RBC Pending Hgb Pending Hct Pending MCV Pending MCH Pending RDW Pending Plt Count Pending MPV Pending Gran % Pending Lymphocytes % Pending Monocytes % Pending Eosinophils % Pending Basophils % Pending Absolute Granulocytes Pending Absolute Lymphocytes Pending Absolute Monocytes Pending Absolute Eosinophils Pending Absolute Basophils Pending PUBS MCHC Pending Recent Imaging Studies: MRI cervical/thoracic 12/23/2016: MRI cervical spine: 1. There is heterogenous signal throughout the cervical spine, consistent with multiple metastases. There is loss of vertebral body height of C6 anteriorly and superiorly, which is age-indeterminate. 2. There is no spinal cord compression or central stenosis. 3. There is mild multilevel foraminal narrowing. MRI thoracic spine: 1. There is heterogenous signal throughout the thoracic spine consistent with multiple osseous metastases. This includes the ribs and transverse processes as described above. 2. There is mild protrusion of the posterior bodies of multiple vertebrae, but there is no spinal cord compression or central stenosis. 3. There are bilateral pleural effusions. Chest CT 12/23/2016: 1. Extensive osseous metastatic disease is present likely arising from the prostate with most pronounced involvement seen involving the manubrium of the sternum. 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 2. Three tiny sub-5 mm lung nodules are noted within the lingula and solitary sub-5 mm ground-glass nodule within the right upper lobe, nonspecific in appearance, may represent granulomatous disease within the lingula and atelectatic changes, nonspecific airspace disease within the right upper lobe. Possibility of metastasis is considered less likely. Followup imaging surveillance may be considered for further clarification. 3. Bilateral small pleural effusions (left greater than right), and underlying compressive atelectatic changes at both lung bases. CT lumbar spine 12/22/2016: Extensive sclerotic changes in the osseous structures are likely due to metastatic disease in the setting of prostate cancer. Suspected bladder outlet obstruction with moderate bilateral hydroureteronephrosis. Retroperitoneal adenopathy also present. Severe degenerative disc disease at L5-S1 with moderate central canal stenosis and foraminal narrowing. Questionable mild pathologic superior endplate compression fracture at L3 in the setting of osseous metastatic disease, superimposed upon a degenerative Schmorl's node with mild bony retropulsion. Abdomen/pelvis CT 12/22/2016: 1. Enlarged lobular prostate which could be invading the bladder wall. There is distention of the bladder and significant bilateral hydronephrosis consistent with bladder outlet obstruction. 2. Retroperitoneal lymphadenopathy. 3. Osteoblastic bony metastatic disease. Prostate cancer likely etiology. 4. Small bilateral pleural effusions. Atelectasis at left lung base. 5. Cholelithiasis. 6. Small hiatal hernia. Mild diverticulosis. No acute change of the bowel. Assessment/Plan Assessment/Recommendations: Mr. Womack is a 66-year-old male without medical history who presents with weakness in the lower extremity and fatigue. He was noted to have hemoglobin of 4.2 g/dL. He had some hematuria and BRBPR. He is noted to have elevated PSA of 932 and multiple skeletal lesions. Given these findings, he likely has prostate cancer. MRI of the cervical and thoracic spine did not demonstrate any obvious cord compression. There are heterogenous signal throughout the spine which represent multiple osseous metastases. CT chest did not demonstrate any obvious metastatic disease except for osseous finding. He did have some bilateral small pleural effusion. Given his elevated PSA, he was started on Casodex 50 mg PO daily. He will need bone scan done. Urology is evaluating for cystoscopy and likely biopsy today. Recommendations: 1. Continue Casodex 50 mg daily 2. Bone scan 3. Tissue biopsy as per urology Please call [phone] with any questions or concerns. Problem List: 1. Rectal bleed 2. Prostate CA 3. Anemia 4. Bony metastasis
[2016-12-26 22:36] VITALS: BP 138/70
--- NOTE | 2016-12-27 06:56 | PN- Housestaff ---
GWEN BREWER 12/27/16 0656: Subjective Follow-up For: Metastatic Prostrate cancer Subjective: Seen and examined patient. Offers no complaints denies being in pain anywhere. Denies fevers, chills, chest pain, shortness of breath Review of Systems Constitutional: Denies: chills, diaphoresis, fever, malaise, weakness, unexplained weight loss. Cardiovascular: Denies: chest pain, edema, orthopena, palpitations, peripheral edema, syncope. Respiratory: Denies: cough, hemoptysis, orthopnea, short of breath, sputum production, stridor, wheezing. Objective Last 24 Hrs of Vital Signs/I&O Vital Signs Date Time Temp Pulse Resp B/P Pulse O2 O2 Flow FiO2 Ox Delivery Rate 12/27 0719 97.6 85 20 124/78 97 Nasal 4.0L Cannula 12/27 0706 98.7 87 20 128/68 97 Room Air 12/27 0600 Room Air 12/27 0315 Room Air 12/27 0000 Room Air 12/26 2236 97.8 84 22 138/70 100 Room Air 12/26 2215 96 Room Air 12/26 2200 Room Air 12/26 1600 97.7 74 20 140/64 94 Room Air 12/26 0839 95 Room Air Room Air Intake & Output 12/27 1600 12/27 0800 12/27 0000 Intake Total Output Total 3400 800 Balance -3400 -800 Output, Urine 3400 800 Physical Exam General Appearance: Alert, Oriented X3, Cooperative, No Acute Distress Cardiovascular: Regular Rate, Normal S1, Normal S2 Lungs: Normal Air Movement Abdomen: Normal Bowel Sounds, Soft, No Tenderness Extremities: No Edema Current Medications: Current Medications Sig/Sada Start time Last Medication Dose Route Stop Time Status Admin Acetaminophen 650 MG Q6P PRN 12/23 0030 AC 12/25 PO 1621 Acetaminophen 1,000 MG Q6P PRN 12/23 0030 AC 12/26 IV 1623 Albuterol Sulfate 3 ML BID 12/24 2200 12/27 INH 0314 Bicalutamide 50 MG DAILY 12/23 1745 AC 12/26 PO 1743 Cyanocobalamin 1,000 MCG DAILY 12/23 1029 AC 12/26 PO 1742 Docusate Sodium 100 MG DAILY NEEDED PRN 12/25 1700 AC 12/26 PO 1805 Fentanyl Citrate 250 MCG .STK-MED ONE 12/26 1153 DC IM 12/26 1154 Hydromorphone HCl 2 MG .STK-MED ONE 12/26 1411 DC IM 12/26 1412 Magnesium Sulfate 1 GM ONCE ONE 12/26 0915 DC 12/26 Dextrose/Water 100 ML IV 12/26 1314 1742 Meperidine HCl 50 MG .STK-MED ONE 12/26 1411 DC IM 12/26 1412 Midazolam HCl 2 MG .STK-MED ONE 12/26 1152 DC IM 12/26 1153 Morphine Sulfate 2 MG Q4P PRN 12/23 0030 AC 12/25 IV 2325 Omeprazole 40 MG DAILY AC 12/23 1829 12/27 PO 0612 Patient Medication 1 ED .STK-MED ONE 12/26 1313 DC Teaching ED 12/26 1314 Polyethylene Glycol 17 GM DAILY 12/25 1656 AC 12/26 PO 1743 Senna/Docusate Sodium 1 TAB BID PRN 12/25 1700 AC 12/25 PO 1839 Sodium Chloride 1,000 ML Q20H 12/26 0800 AC 12/27 IV 0612 Last 24 Hrs of Lab/J Carlos Results Last 24 Hrs of Labs/Mics: Laboratory Tests 12/27/16 0715: Sodium Pending, Potassium Pending, Chloride Pending, Carbon Dioxide Pending, Anion Gap Pending, BUN Pending, Creatinine Pending, BUN/Creatinine Ratio Pending , Magnesium Pending, CBC w Diff Pending, WBC Pending, RBC Pending, Hgb Pending, Hct Pending, MCV Pending, MCH Pending, RDW Pending, Plt Count Pending, MPV Pending, PUBS MCHC Pending Assessment/Plan Assessment: 66-year-old gentleman with limited past medical history, not seen a primary care physician in 45 years admitted on 12/22/2016 for weakness, lower back pain and bleeding per rectum. CT scan showed metastatic prostate cancer with bladder invasion. MRI of the cervical and thoracic spine shows diffuse demetrius mets with no spinal cord compression. Status post cystoscopy with TURP yesterday. Prostate Ca/Bladder outlet obstruction/hematuria -[place] in place, clear drainage, continue CBI -Cystoscope showed a heavily trabeculated bladder and the mass was not completely resected - urology on board, apprec recs -HALLEY has resolved - No NSAIDs or aspirin or pharmacological DVT prophylaxis for nowOncology consulted, -appreciate recommendations, continue Casodex Oncologist recommending bone scan, when patient was informed of this he declined. He was explained the reason for it ,including assessing for further metastases and ultimately affecting his management. He verbalized understanding of this and still did not wish to proceed with the bone scan. Anemia -Status post 5 units transfusion -h/h stable Lower back pain -Continue current pain regimen Regular diet DVT prophylaxis is mechanical full code At four pm today had a family meeting with patient and his daughter Yamile Acosta at patient's request. She was updated regarding status and what further plans are. His daughter is to be informed of any changes. Problem List: 1. Bony metastasis 2. Bladder outlet obstruction 3. Prostate CA Pain Ratin Pain Location: Not applicable Pain Goal: Pain 4 or less Pain Plan: Current regimen Tomorrow's Labs & Rationales: none required JB PATEL MD 12/27/16 1556: Attending MD Review Statement Attending Statement Attending MD Statement: examined this patient, discuss w/resident/PA/SIFTING OPERATOR, agreed w/resident/PA/SIFTING OPERATOR, reviewed EMR data (avail), discussed with nursing, discussed with case mgmt, amended to note Attending Assessment/Plan: \Patient seen and examined. Resting comfortably and not in any acute distress. No issues overnight reported by nursing staff. Denies nausea vomiting. Denies abdominal pain. Denies low back pain. On examination abdomen is soft and nontender with normal bowel sounds. CBI remains in progress with bloody urine in the bag. Recommendations: -Patient declines to have bone scan done at present. His is tired of all the testing. Procedure may be deferred to the outpatient setting. -Mobilize patient. -Anticipate discharge on CBI was discontinued by the urology service. -Patient will follow up pathology results and further treatment recommendations with the urology service as an outpatient.
[2016-12-27 07:06] VITALS: BP 128/68
[2016-12-27 07:18] VITALS: BP 111/58
[2016-12-27 07:19] VITALS: BP 111/58; BP 124/78
--- NOTE | 2016-12-27 07:28 | PN- Urology ---
Subjective Subjective: No distress Objective Vital Signs and I&Os Vital Signs Date Time Temp Pulse Resp B/P Pulse O2 O2 Flow FiO2 Ox Delivery Rate 12/27 07 97.6 85 20 124/78 97 Nasal 4.0L Cannula 12/27 07 98.7 87 20 128/68 97 Room Air 12/27 0315 Room Air 12/27 0000 Room Air 12/26 2236 97.8 84 22 138/70 100 Room Air 12/26 2215 96 Room Air 12/26 2200 Room Air 12/26 1600 97.7 74 20 140/64 94 Room Air 12/26 0839 95 Room Air Room Air 12/26 0800 96 Room Air Intake & Output 12/27 0800 12/27 0000 12/26 1600 12/26 0800 12/26 0000 12/25 1600 Intake Total 10 1050 Output Total 2650 800 1400 2200 2250 2500 Balance -2650 -800 -1400 -2190 -2250 -1450 Intake, Blood 350 Product Intake, IV 10 300 Intake, Oral 0 400 Number 0 Bowel Movements Output, Urine 2650 800 1400 2200 2250 2500 Abd: soft and non tender Genitalia: 3-way mckinley in place. CBI running with very clear drainage Assessment/Plan Assessment/Plan Imp: Likely metastatic prostate ca s/p TUR of bladder mass originating on L side of prostate Plan: Continue CBI at slow rate today. Will hopefully be able to stop CBI tomorrow Continue casodex f/u path bone scan
--- NOTE | 2016-12-27 07:38 | PN- Oncology ---
Subjective Subjective: He feels a little better. Pain is still persistent. He has no new pain. He feels full in his bladder. He underwent TURBT yesterday under the care of Dr. Choudhary. He has CBI in place right now. Review of Systems Constitutional: Denies: chills, fever. Cardiovascular: Denies: chest pain. Respiratory: Reports: cough. Denies: short of breath. Gastrointestinal: Denies: abdominal pain. Musculoskeletal: Denies: back pain. Neurological/Psychological: Reports: anxiety. Denies: headache. All Other Systems: Reviewed and Negative Objective Vital Signs and I&Os Vital Signs Date Time Temp Pulse Resp B/P Pulse O2 O2 Flow FiO2 Ox Delivery Rate 12/27 07 97.6 85 20 124/78 97 Nasal 4.0L Cannula 12/27 07 98.7 87 20 128/68 97 Room Air 12/27 0315 Room Air 12/27 0000 Room Air 12/26 2236 97.8 84 22 138/70 100 Room Air 12/26 2215 96 Room Air 12/26 2200 Room Air 12/26 1600 97.7 74 20 140/64 94 Room Air 12/26 0839 95 Room Air Room Air 12/26 0800 96 Room Air Intake & Output 12/27 0800 12/27 0000 12/26 1600 12/26 0800 12/26 0000 12/25 1600 Intake Total 10 1050 Output Total 2650 800 1400 2200 2250 2500 Balance -2650 -800 -1400 -2190 -2250 -1450 Intake, Blood 350 Product Intake, IV 10 300 Intake, Oral 0 400 Number 0 Bowel Movements Output, Urine 2650 800 1400 2200 2250 2500 Physical Exam: General Appearance: no apparent distress, alert, awake, comfortable Respiratory: normal breath sounds, chest non-tender, lungs clear Cardiovascular: regular rate/rhythm Gastrointestinal: normal bowel sounds, soft, non-tender : CBI in place. Back: normal inspection, no vertebral tenderness Extremities: pedal edema Neurologic/Psych: awake, alert, oriented x 3 Current Medications: Current Medications Sig/Sada Start time Last Medication Dose Route Stop Time Status Admin Acetaminophen 650 MG Q6P PRN 12/23 0030 AC 12/25 PO 1621 Acetaminophen 1,000 MG Q6P PRN 12/23 0030 AC 12/26 IV 1623 Albuterol Sulfate 3 ML BID 12/24 2200 AC 12/27 INH 0314 Bicalutamide 50 MG DAILY 12/23 1745 AC 12/26 PO 1743 Cyanocobalamin 1,000 MCG DAILY 12/23 1029 AC 12/26 PO 1742 Docusate Sodium 100 MG DAILY NEEDED PRN 12/25 1700 AC 12/26 PO 1805 Fentanyl Citrate 250 MCG .STK-MED ONE 12/26 1153 DC IM 12/26 1154 Hydromorphone HCl 2 MG .STK-MED ONE 12/26 1411 DC IM 12/26 1412 Magnesium Sulfate 1 GM ONCE ONE 12/26 0915 DC 12/26 Dextrose/Water 100 ML IV 12/26 1314 1742 Meperidine HCl 50 MG .STK-MED ONE 12/26 1411 DC IM 12/26 1412 Midazolam HCl 2 MG .STK-MED ONE 12/26 1152 DC IM 12/26 1153 Morphine Sulfate 2 MG Q4P PRN 12/23 0030 AC 12/25 IV 2325 Omeprazole 40 MG DAILY AC 12/23 1829 12/27 PO 0612 Patient Medication 1 ED .STK-MED ONE 12/26 1313 DC Teaching ED 12/26 1314 Polyethylene Glycol 17 GM DAILY 12/25 1656 AC 12/26 PO 1743 Senna/Docusate Sodium 1 TAB BID PRN 12/25 1700 AC 12/25 PO 1839 Sodium Chloride 1,000 ML Q20H 12/26 0800 12/27 IV 0612 Assessment/Plan Assessment/Recommendations: Mr. Womack is a 66-year-old male without medical history who presents with weakness in the lower extremity and fatigue. He was noted to have hemoglobin of 4.2 g/dL. He had some hematuria and BRBPR. CT demonstrated prostatic invasion into the bladder wall. He is noted to have elevated PSA of 932 and diffuse skeletal lesions. Given these findings, he likely has prostate cancer. He was taken to the OR for cystoscopy and TURBT by Dr. Choudhary yesterday. Pathology is pending. Given his likely prostate cancer diagnosis, he was started on Casodex 50 mg PO daily. He is tolerating this well. Bone scan is pending for the patient. Recommendations: 1. Continue Casodex 50 mg daily 2. Bone scan when possible 3. Follow up pathology Please call [phone] with any questions or concerns. Problem List: 1. Anemia 2. Bladder outlet obstruction 3. Bony metastasis 4. GI bleed 5. Prostate CA
[2016-12-27 08:25] LABS: ABSOLUTE BASOPHIL COUNT 0 /CUMM (0.0-0.2); ABSOLUTE EOSINOPHIL COUNT 0.1 /CUMM (0.0-0.7); ABSOLUTE LYMPH COUNT 1.7 /CUMM (1.2-3.4); ABSOLUTE MONOCYTE COUNT 0.8 /CUMM (0.10-0.60); BASOPHIL % 0.3 % (0.0-2.0); EOSINOPHIL % 1.7 % (0-5); GRANULOCYTE % 68.9 % (42.2-75.2); MEAN CORPUSCULAR HGB 28.2 PG (27.0-31.0); MEAN CORPUSCULAR HGB CONC 33.3 G/DL (33.0-37.0); MEAN CORPUSCULAR VOLUME 84.7 FL (80.0-94.0); MEAN PLATELET VOLUME 8.6 FL (7.4-10.4); PLATELET COUNT 123 /CUMM (130-400); RBC DISTRIBUTION WIDTH 19.9 % (11.5-14.5); WHITE BLOOD CELL COUNT 8.6 /CUMM (4.8-10.8)
[2016-12-27 14:29] VITALS: BP 122/60
[2016-12-27 22:14] VITALS: BP 130/60
[2016-12-28 06:43] VITALS: BP 123/60
--- NOTE | 2016-12-28 07:37 | PN- Oncology ---
Subjective Subjective: He denies any new pain. He does not want to have bone scan at the moment. He is considering not doing anything. He denies any new pain. CBI still in place. Review of Systems Constitutional: Denies: chills, fever. Cardiovascular: Denies: chest pain. Respiratory: Denies: short of breath. Gastrointestinal: Denies: abdominal pain. Musculoskeletal: Denies: back pain. Hematologic/Endocrine: Denies: bruising, bleeding. Immunologic/Allergic: Denies: lymphadenopathy. All Other Systems: Reviewed and Negative Objective Vital Signs and I&Os Vital Signs Date Time Temp Pulse Resp B/P B/P Pulse O2 O2 Flow FiO2 Mean Ox Delivery Rate 12/28 0643 98.8 88 20 123/60 95 Room Air 12/28 0000 95 Room Air 12/27 2214 98.3 90 20 130/60 96 12/27 1429 98.0 89 22 122/60 95 Room Air 12/27 1400 95 Room Air 12/27 1100 96 Room Air 12/27 0800 94 Room Air Intake & Output 12/28 0800 12/28 0000 12/27 1600 12/27 0800 12/27 0000 12/26 1600 Intake Total 200 1150 Output Total 500 3400 800 1400 Balance 200 650 -3400 -800 -1400 Intake, IV 350 Intake, Oral 200 800 Output, Urine 500 3400 800 1400 Physical Exam General Appearance: alert, awake, comfortable Head: atraumatic Respiratory: normal breath sounds, chest non-tender, no respiratory distress, quiet respiration Cardiovascular: regular rate/rhythm Abdomen: normal bowel sounds, soft, non-tender, no organomegaly Extremities: no edema Skin: intact Other Physical Findings: CBI, mckinley in place Current Medications: Current Medications Sig/Sada Start time Last Medication Dose Route Stop Time Status Admin Acetaminophen 650 MG Q6P PRN 12/23 0030 AC 12/25 PO 1621 Acetaminophen 1,000 MG Q6P PRN 12/23 0030 AC 12/26 IV 1623 Albuterol Sulfate 3 ML Q4 HRS NEEDED PRN 12/27 2215 AC INH Albuterol Sulfate 3 ML BID 12/24 2200 DC 12/27 INH 1057 Bicalutamide 50 MG DAILY 12/23 1745 AC 12/27 PO 1034 Cyanocobalamin 1,000 MCG DAILY 12/23 1029 AC 12/27 PO 1034 Docusate Sodium 100 MG DAILY NEEDED PRN 12/25 1700 AC 12/26 PO 1805 Morphine Sulfate 2 MG Q4P PRN 12/23 0030 AC 12/27 IV 2211 Omeprazole 40 MG DAILY AC 12/23 1829 AC 12/28 PO 0556 Polyethylene Glycol 17 GM DAILY 12/25 1656 AC 12/27 PO 1034 Senna/Docusate Sodium 1 TAB BID PRN 12/25 1700 AC 12/25 PO 1839 Sodium Chloride 1,000 ML Q20H 12/26 0800 DC 12/27 IV 0612 Assessment/Plan Assessment/Recommendations: Mr. Womack is a 66-year-old male without medical history who presents with weakness in the lower extremity and fatigue. He was noted to have hemoglobin of 4.2 g/dL. He had some hematuria and BRBPR. CT demonstrated prostatic invasion into the bladder wall. He is noted to have elevated PSA of 932 and diffuse skeletal lesions. Given these findings, he likely has prostate cancer. Pathology is pending from cystoscopy and TURBT. CBI is in place currently. He is doing well on Casodex. He does not want to have bone scan at the moment. This may be done as an outpatient if patient refuses. He is considering not doing anything. I discussed with the patient regarding the prognosis and overall therapy goal. Therapy tend to be well tolerated without significant side effect. Benefit may be signficant. Recommendations: 1. Continue Casodex 50 mg daily 2. Bone scan when possible, may be as an outpatient if need 3. Follow up pathology 4. Follow up as outpatient once discharged Please call [phone] with any questions or concerns. Problem List: 1. Prostate CA 2. Anemia 3. Bladder outlet obstruction 4. Bony metastasis
--- NOTE | 2016-12-28 07:57 | PN- Urology ---
Subjective Subjective: No distress Objective Vital Signs and I&Os Vital Signs Date Time Temp Pulse Resp B/P B/P Pulse O2 O2 Flow FiO2 Mean Ox Delivery Rate 12/28 0643 98.8 88 20 123/60 95 Room Air 12/28 0000 95 Room Air 12/27 2214 98.3 90 20 130/60 96 12/27 1429 98.0 89 22 122/60 95 Room Air 12/27 1400 95 Room Air 12/27 1100 96 Room Air 12/27 0800 94 Room Air Intake & Output 12/28 0800 12/28 0000 12/27 1600 12/27 0800 12/27 0000 12/26 1600 Intake Total 200 1150 Output Total 0576 201 7921 800 1400 Balance -1000 200 650 -3400 -800 -1400 Intake, IV 350 Intake, Oral 200 800 Output, Urine 6576 119 3339 800 1400 Abd: soft and non tender Genitalia: mckinley in place. CBI at slow rate with clear drainage Assessment/Plan Assessment/Plan Imp: 1. Probable metastatic prostate ca 2. s/p TUR of bladder/prostate mass Plan: 1. CBI turned off, mckinley to stay in 2. f/u path 3. continue casodex 4. Will consider voiding trial in next few days
[2016-12-28] MEDS ORDERED: BICALUTAMIDE50 M1 PO (08:12)
--- NOTE | 2016-12-28 08:14 | Patient Discharge Instructions ---
Discharge Instructions General Discharge Information You were seen/treated for: Blood in urine Prostate cancer with spread Special Instructions: please follow up with your primary care doctor within one week of discharge please follow up with your oncologist within two weeks of discharge Please follow up with your urologist within two weeks for voiding trial, keep mckinley in place till then Check CBC on 01/02 to assess for further hemoglobin/hematocrit drop. Acute Coronary Syndrome Inclusion Criteria At DC or during hospital stay patient has or had the following: ACS DIAGNOSIS No Discharge Core Measures Meds if any: Prescribed or Continued at Discharge Meds if any: NOT Prescribed or Continued at Discharge Congestive Heart Failure Inclusion Criteria At DC or during hospital stay patient has or had the following: CHF DIAGNOSIS No Discharge Core Measures Meds if any: Prescribed or Continued at Discharge Meds if any: NOT Prescribed or Continued at Discharge Cerebrovascular accident Inclusion Criteria At DC or during hospital stay patient has or had the following: CVA/TIA Diagnosis No Discharge Core Measures Meds if any: Prescribed or Continued at Discharge Meds if any: NOT Prescribed or Continued at Discharge Venous thromboembolism Inclusion Criteria VTE Diagnosis No VTE Type NONE VTE Confirmed by (Test) NONE Discharge Core Measures - Per Current guidelines, there needs to be overlap - treatment for the first 5 days of Warfarin therapy. - If discharged on Warfarin prior to 5 days of - overlap therapy, the patient will need to be - assessed for post discharge needs including - *Post discharge parental anticoagulation - *Warfarin and/or parental anticoagulation education - *Follow up date to check INR post discharge At least 5 days overlap therapy as Inpatient No Meds if any: Prescribed or Continued at Discharge Note: Overlap Therapy is Warfarin and Anticoagulant Meds if any: NOT Prescribed or Continued at Discharge
--- NOTE | 2016-12-28 08:26 | PN- Housestaff ---
See Addendum Subjective Follow-up For: Metastatic Prostrate cancer Subjective: Seen and examined patient. Has not had a bowel movement in 3-4 days. Denies fevers, chest pain, chills, abdominal pain. Review of Systems Constitutional: Denies: chills, diaphoresis, fever, malaise, weakness, unexplained weight loss. Cardiovascular: Denies: chest pain, edema, orthopena, palpitations, peripheral edema, syncope. Respiratory: Denies: cough, hemoptysis, orthopnea, short of breath, sputum production, stridor, wheezing. Objective Last 24 Hrs of Vital Signs/I&O Vital Signs Date Time Temp Pulse Resp B/P B/P Pulse O2 O2 Flow FiO2 Mean Ox Delivery Rate 12/28 1437 98.6 96 20 118/60 95 Room Air 12/28 1030 96 Room Air Room Air 12/28 0643 98.8 88 20 123/60 95 Room Air 12/28 0000 95 Room Air 12/27 2214 98.3 90 20 130/60 96 Intake & Output 12/28 1600 12/28 0800 12/28 0000 Intake Total 200 Output Total 1000 Balance -1000 200 Intake, Oral 200 Output, Urine 1000 Physical Exam General Appearance: Alert, Oriented X3, Cooperative, No Acute Distress Cardiovascular: Regular Rate, Normal S1, Normal S2 Lungs: Clear to Auscultation, Normal Air Movement Abdomen: Normal Bowel Sounds, Soft, No Tenderness Current Medications: Current Medications Sig/Sada Start time Last Medication Dose Route Stop Time Status Admin Acetaminophen 650 MG Q6P PRN 12/23 0030 AC 12/25 PO 1621 Acetaminophen 1,000 MG Q6P PRN 12/23 0030 AC 12/26 IV 1623 Albuterol Sulfate 3 ML Q4 HRS NEEDED PRN 12/27 2215 AC INH Albuterol Sulfate 3 ML BID 12/24 2200 DC 12/27 INH 1057 Bicalutamide 50 MG DAILY 12/23 1745 AC 12/28 PO 0904 Cyanocobalamin 1,000 MCG DAILY 12/23 1029 AC 12/28 PO 0904 Docusate Sodium 100 MG DAILY NEEDED PRN 12/25 1700 AC 12/28 PO 1030 Morphine Sulfate 2 MG Q4P PRN 12/23 0030 AC 12/27 IV 2211 Omeprazole 40 MG DAILY AC 12/23 1829 AC 12/28 PO 0556 Patient Medication 1 ED .STK-MED ONE 12/28 1358 MO Teaching ED 12/28 1359 Polyethylene Glycol 17 GM DAILY 12/25 1656 12/28 PO 0904 Senna/Docusate Sodium 1 TAB BID PRN 12/25 1700 12/25 PO 1839 Assessment/Plan Assessment: 66-year-old gentleman with limited past medical history, not seen a primary care physician in 45 years admitted on 12/22/2016 for weakness, lower back pain and bleeding per rectum. CT scan showed metastatic prostate cancer with bladder invasion. MRI of the cervical and thoracic spine shows diffuse demetrius mets with no spinal cord compression. Status post cystoscopy with TURP yesterday. Prostate Ca/Bladder outlet obstruction/hematuria -CBI discontinued today, will be discharged with [place], appointment made at Dr. Choudhary's office for Monday, January 29 for voiding trial. -Cystoscopy showed a heavily trabeculated bladder and the mass was not completely resected - urology on board, apprec recs -HALLEY has resolved - No NSAIDs or aspirin Oncology consulted, will follow-up as outpatient, appreciate recommendations, continue Casodex Anemia -Status post 5 units transfusion -h/h stable Lower back pain -Continue current pain regimen Regular diet DVT prophylaxis is mechanical full code Bowel regimen given and patient had a bowel movement today. Physical therapy is to work with patient and if cleared by them for home with palliative care services. Can be discharged later today. His daughter is to be informed of any changes. Problem List: 1. Prostate CA 2. Bladder outlet obstruction 3. GI bleed Pain Ratin Pain Location: Not applicable Pain Goal: Pain 4 or less Pain Plan: Current regimen Tomorrow's Labs & Rationales: None required
--- NOTE | 2016-12-28 08:51 | Discharge Summary ---
Hospital Course Allergies: Coded Allergies: aspirin (BLEEDS 12/22/16) Discharge Instructions Medications at Discharge Discharge Medications: Stop taking the following medications: Naproxen Sodium (Aleve) 220 MG CAPSULE ORAL DAILY Start taking the following new medications: Bicalutamide (Bicalutamide) 50 MG TABLET 50 Milligram ORAL DAILY as needed for prostate cancer Days = 30 No Refills
[2016-12-28 14:37] VITALS: BP 118/60
[2016-12-28 22:23] VITALS: BP 116/58
[2016-12-29 06:32] VITALS: BP 108/58
--- NOTE | 2016-12-29 07:13 | PN- Housestaff ---
GWEN BREWER 12/29/16 0713: Subjective Follow-up For: Metastatic Prostrate cancer Subjective: He and examined patient, states he is having some mild arthritic pain which is usual for him on rainy days. At this time does not wish to have any pain medications and said that he will ask for it if he needs. Review of Systems Constitutional: Denies: chills, diaphoresis, fever, malaise, weakness, unexplained weight loss. Cardiovascular: Denies: chest pain, edema, orthopena, palpitations, peripheral edema, syncope. Respiratory: Denies: cough, hemoptysis, orthopnea, short of breath, sputum production, stridor, wheezing. Objective Last 24 Hrs of Vital Signs/I&O Vital Signs Date Time Temp Pulse Resp B/P B/P Pulse O2 O2 Flow FiO2 Mean Ox Delivery Rate 12/29 0814 Room Air 12/29 0632 98.1 84 20 108/58 94 Room Air 12/29 0000 95 Room Air 12/28 2223 98.9 89 18 116/58 96 12/28 1601 Room Air Room Air 12/28 1600 96 Room Air 12/28 1437 98.6 96 20 118/60 95 Room Air 12/28 1030 96 Room Air Room Air Intake & Output 12/29 1600 12/29 0800 12/29 0000 Intake Total 800 Output Total 1250 600 Balance -1250 200 Intake, Oral 800 Output, Urine 1250 600 Physical Exam General Appearance: Alert, Oriented X3, Cooperative, No Acute Distress Cardiovascular: Regular Rate, Normal S1, Normal S2 Lungs: Clear to Auscultation, Normal Air Movement Abdomen: Normal Bowel Sounds, Soft, No Tenderness Extremities: No Edema Current Medications: Current Medications Sig/Sada Start time Last Medication Dose Route Stop Time Status Admin Acetaminophen 650 MG Q6P PRN 12/23 0030 AC 12/25 PO 1621 Acetaminophen 1,000 MG Q6P PRN 12/23 0030 AC 12/26 IV 1623 Albuterol Sulfate 3 ML Q4 HRS NEEDED PRN 12/27 2215 AC INH Bicalutamide 50 MG DAILY 12/23 1745 AC 12/28 PO 0904 Cyanocobalamin 1,000 MCG DAILY 12/23 1029 AC 12/28 PO 0904 Docusate Sodium 200 MG .STK-MED ONE 12/28 1028 DC PO 12/28 1029 Docusate Sodium 100 MG DAILY NEEDED PRN 12/25 1700 AC 12/28 PO 1030 Morphine Sulfate 2 MG Q4P PRN 12/23 0030 AC 12/28 IV 1926 Omeprazole 40 MG DAILY AC 12/23 1829 AC 12/29 PO 0558 Patient Medication 1 ED .STK-MED ONE 12/28 1358 DC Teaching ED 12/28 1359 Polyethylene Glycol 17 GM DAILY 12/25 1656 12/28 PO 0904 Senna/Docusate Sodium 1 TAB BID PRN 12/25 1700 AC 12/25 PO 1839 Assessment/Plan Assessment: 66-year-old gentleman with limited past medical history, not seen a primary care physician in 45 years admitted on 12/22/2016 for weakness, lower back pain and bleeding per rectum. CT scan showed metastatic prostate cancer with bladder invasion. MRI of the cervical and thoracic spine shows diffuse demetrius mets with no spinal cord compression. Status post cystoscopy with TURP Prostate Ca/Bladder outlet obstruction/hematuria -Continues to have hematuria, will be discharged with [place], appointment made at Dr. Choudhary's office for January 29 for voiding trial. -Cystoscopy showed a heavily trabeculated bladder and the mass was not completely resected - urology on board, apprec recs -HALLEY has resolved - No NSAIDs or aspirin Oncology consulted, will follow-up as outpatient, appreciate recommendations, continue Casodex Anemia -Status post 5 units transfusion -h/h stable Lower back pain -Continue current pain regimen Regular diet DVT prophylaxis is mechanical full code PT to work with patient and is stable further recommendations will be discharged later today. His daughter is to be informed of any changes. Problem List: 1. Bony metastasis 2. Bladder outlet obstruction 3. Prostate CA 4. Moderate protein-calorie malnutrition Pain Ratin Pain Location: diffuse Pain Goal: Pain 4 or less Pain Plan: current regimen Tomorrow's Labs & Rationales: none required JB PATEL MD 12/29/16 1150: Attending MD Review Statement Attending Statement Attending MD Statement: examined this patient, discuss w/resident/PA/SHOP HELPER, agreed w/resident/PA/SHOP HELPER, reviewed EMR data (avail), discussed with nursing, discussed with case mgmt, amended to note Attending Assessment/Plan: Patient seen and examined. Resting comfortably and not in any distress. No issues overnight. He remains hemodynamically stable. He has not been ambulated by nursing staff will physical therapy at the time of evaluation this morning. We'll follow-up after he is evaluated by the physical therapy services this morning. His discharge disposition will be determined at their evaluation of the patient today.
--- NOTE | 2016-12-29 07:23 | PN- Oncology ---
Subjective Subjective: He feels better. He does have some back pain. He still has a mckinley in place. CBI has been stopped. Review of Systems Constitutional: Denies: chills, fever, weakness. Cardiovascular: Denies: chest pain. Respiratory: Denies: short of breath. Gastrointestinal: Denies: abdominal pain. Genitourinary: Denies: no symptoms. Musculoskeletal: Reports: back pain. Skin: Denies: rash. Neurological/Psychological: Denies: anxiety, depressed. Hematologic/Endocrine: Denies: bruising, bleeding. Immunologic/Allergic: Denies: lymphadenopathy. All Other Systems: Reviewed and Negative Objective Vital Signs and I&Os Vital Signs Date Time Temp Pulse Resp B/P B/P Pulse O2 O2 Flow FiO2 Mean Ox Delivery Rate 12/29 0632 98.1 84 20 108/58 94 Room Air 12/29 0000 95 Room Air 12/28 2223 98.9 89 18 116/58 96 12/28 1601 Room Air Room Air 12/28 1600 96 Room Air 12/28 1437 98.6 96 20 118/60 95 Room Air 12/28 1030 96 Room Air Room Air 12/28 0800 94 Intake & Output 12/29 0800 12/29 0000 12/28 1600 12/28 0800 12/28 0000 12/27 1600 Intake Total 800 647 834 2190 Output Total 1250 336 717 0367 500 Balance -1250 200 70 -1000 200 650 Intake, IV 350 Intake, Oral 800 720 200 800 Number 1 Bowel Movements Output, Urine 1250 267 701 2436 500 Physical Exam General Appearance: alert, awake, comfortable Head: atraumatic Ears, Nose, Throat: normal pharynx Respiratory: normal breath sounds, chest non-tender, no respiratory distress Cardiovascular: regular rate/rhythm Abdomen: normal bowel sounds, soft, non-tender Extremities: no edema Skin: ecchymosis (scatter,rare) Other Physical Findings: Mckinley in place Current Medications: Current Medications Sig/Sada Start time Last Medication Dose Route Stop Time Status Admin Acetaminophen 650 MG Q6P PRN 12/23 0030 AC 12/25 PO 1621 Acetaminophen 1,000 MG Q6P PRN 12/23 0030 AC 12/26 IV 1623 Albuterol Sulfate 3 ML Q4 HRS NEEDED PRN 12/27 2215 AC INH Bicalutamide 50 MG DAILY 12/23 1745 AC 12/28 PO 0904 Cyanocobalamin 1,000 MCG DAILY 12/23 1029 12/28 PO 0904 Docusate Sodium 200 MG .STK-MED ONE 12/28 1028 DC PO 12/28 1029 Docusate Sodium 100 MG DAILY NEEDED PRN 12/25 1700 12/28 PO 1030 Morphine Sulfate 2 MG Q4P PRN 12/23 0030 AC 12/28 IV 1926 Omeprazole 40 MG DAILY AC 12/23 1829 12/29 PO 0558 Patient Medication 1 ED .STK-MED ONE 12/28 1358 DC Teaching ED 12/28 1359 Polyethylene Glycol 17 GM DAILY 12/25 1656 12/28 PO 0904 Senna/Docusate Sodium 1 TAB BID PRN 12/25 1700 AC 12/25 PO 1839 Assessment/Plan Assessment/Recommendations: Mr. Womack is a 66-year-old male without medical history who presents with weakness in the lower extremity and fatigue. Hemoglobin was found to be 4.2 g/ dL. He had some hematuria and BRBPR. CT demonstrated prostatic invasion into the bladder wall. He is noted to have elevated PSA of 932 and diffuse skeletal lesions. Given these findings, he likely has prostate cancer. He underwent cystoscopy with TURBT on 12/26/[address] Choudhary. Cystoscopy noted mass originating in area of prostate and extending into bladder mostly on the left side, from 11 o'clock to 5 o'clock. The left ureteral was not visualized due to mass. Pathology is pending. He has been on Casodex daily. He should be continued on this for now. He is hesitant on starting any therapy and getting bone scan. I discussed the overall response and prognosis for patient with metastatic prostate is generally good. Therapy is very well tolerated. He will need to start at least leuprolide. Recommendations: 1. Continue Casodex 50 mg daily 2. He will need bone scan when possible, may be as an outpatient 3. Follow up pathology result 4. Will need leuprolide, likely as outpatient 5. Follow up as outpatient once discharged Please call [phone] with any questions or concerns. Problem List: 1. Prostate CA 2. Rectal bleed 3. Anemia 4. Bladder outlet obstruction 5. Bony metastasis
--- NOTE | 2016-12-29 14:27 | PN- Urology ---
Subjective Subjective: No distress Objective Vital Signs and I&Os Vital Signs Date Time Temp Pulse Resp B/P B/P Pulse O2 O2 Flow FiO2 Mean Ox Delivery Rate 12/29 0814 Room Air 12/29 0632 98.1 84 20 108/58 94 Room Air 12/29 0000 95 Room Air 12/28 2223 98.9 89 18 116/58 96 12/28 1601 Room Air Room Air 12/28 1600 96 Room Air 12/28 1437 98.6 96 20 118/60 95 Room Air Intake & Output 12/29 1600 12/29 0800 12/29 0000 12/28 1600 12/28 0800 12/28 0000 Intake Total 800 720 200 Output Total 1250 861 648 3239 Balance -1250 200 70 -1000 200 Intake, Oral 800 720 200 Number 1 Bowel Movements Output, Urine 1250 706 729 4626 Abd: soft and non tender Genitalia: mckinley in place. Urine very light pink Path pending. Assessment/Plan Assessment/Plan Imp: Probable metastatic prostate ca s/p TURP Urinary retention Resolved renal failure Plan: From urology point of view ok to go to rehab or home Office f/u in 2 weeks for voiding trial continue casodex f/u path
[2016-12-29 14:39] VITALS: BP 106/60
[2016-12-29 21:15] VITALS: BP 100/50
--- NOTE | 2016-12-29 23:37 | NUR ---
2200 RT TREATMENT GIVEN ALERT AND ORIENTED X 3. VITAL SIGNS STABLE. ON ROOM AIR. BARNES CARE GIVEN. PATIENT RESTING AT THIS TIME. WILL CONTINUE TO MONITOR
[2016-12-30 06:12] VITALS: BP 100/58
--- NOTE | 2016-12-30 07:06 | PN- Housestaff ---
GWEN BREWER 12/30/16 0706: Subjective Follow-up For: Metastatic Prostrate cancer Subjective: seen and examined patient, ambulating more today. Reported that he was given tyelenol overnight and he experience some shortness of breath. Currently stating that he is not in any significant pain and does not wish any pain medications. Denies fever, abdominal pain or shortness of breath. Review of Systems Constitutional: Denies: chills, diaphoresis, fever, malaise, weakness, unexplained weight loss. Cardiovascular: Denies: chest pain, edema, orthopena, palpitations, peripheral edema, syncope. Respiratory: Denies: cough, hemoptysis, orthopnea, short of breath, sputum production, stridor, wheezing. Objective Last 24 Hrs of Vital Signs/I&O Vital Signs Date Time Temp Pulse Resp B/P B/P Pulse O2 O2 Flow FiO2 Mean Ox Delivery Rate 12/30 1430 98.2 100 18 92/52 97 Room Air 12/30 1049 96 Room Air Room Air 12/30 0921 Room Air Room Air 12/30 0800 98.2 82 18 100/58 12/30 0800 94 Room Air Room Air 12/30 0612 98.2 82 18 100/58 95 Room Air 12/30 0000 96 Room Air Room Air 12/29 2115 98.4 84 18 100/50 96 Room Air Intake & Output 12/30 1600 12/30 0800 12/30 0000 Intake Total 580 300 Output Total 150 450 300 Balance 430 -450 0 Intake, IV 100 Intake, Oral 480 300 Number 2 2 Bowel Movements Output, Urine 150 450 300 Physical Exam General Appearance: Alert, Oriented X3, Cooperative, No Acute Distress Cardiovascular: Regular Rate, Normal S1, Normal S2 Lungs: Clear to Auscultation, Normal Air Movement Extremities: No Edema Current Medications: Current Medications Sig/Sada Start time Last Medication Dose Route Stop Time Status Admin Acetaminophen 650 MG Q6P PRN 12/23 0030 DC 12/25 PO 1621 Acetaminophen 1,000 MG Q6P PRN 12/23 0030 DC 12/29 IV 1827 Albuterol Sulfate 3 ML Q4 HRS NEEDED PRN 12/27 2215 AC 12/29 INH 2222 Bicalutamide 50 MG DAILY 12/23 1745 AC 12/30 PO 1005 Cyanocobalamin 1,000 MCG DAILY 12/23 1029 AC 12/30 PO 1004 Docusate Sodium 100 MG DAILY NEEDED PRN 12/25 1700 AC 12/28 PO 1030 Morphine Sulfate 2 MG Q4P PRN 12/23 0030 DC 12/28 IV 1926 Omeprazole 40 MG DAILY AC 12/23 1829 AC 12/30 PO 0603 Patient Medication 1 ED .STK-MED ONE 12/30 1401 RI Teaching ED 12/30 1402 Polyethylene Glycol 17 GM DAILY 12/25 1656 12/30 PO 1006 Senna/Docusate Sodium 1 TAB BID PRN 12/25 1700 AC 12/25 PO 1839 Sodium Chloride 1,000 ML Q10H 12/30 1345 AC 12/30 IV 12/30 2344 1358 Tramadol HCl 50 MG Q6 12/29 2359 AC 12/30 PO 1006 Assessment/Plan Assessment: 66-year-old gentleman with limited past medical history, not seen a primary care physician in 45 years admitted on 12/22/2016 for weakness, lower back pain and bleeding per rectum. CT scan showed metastatic prostate cancer with bladder invasion. MRI of the cervical and thoracic spine shows diffuse demetrius mets with no spinal cord compression. Status post cystoscopy with TURP Prostate Ca/Bladder outlet obstruction/hematuria -urine is clearing up, will be discharged with [place] till he sees Dr. Crowley in two weeks for voiding trial. Called their office and gave contact information of [facility]. - urology on board, apprec recs -HALLEY has resolved - No NSAIDs or aspirin Oncology consulted, will follow-up as outpatient, appreciate recommendations, continue Casodex Anemia -Status post 5 units transfusion -h/h stable, will repeat tommorrow prior to discharge Lower back pain -will be discharged on tramadol Regular diet DVT prophylaxis is mechanical full code His daughter is to be informed of any changes. Problem List: 1. Anemia 2. Prostate CA 3. Rectal bleed 4. Bony metastasis 5. Bladder outlet obstruction Pain Ratin Pain Location: diffuse Pain Goal: Pain 4 or less Pain Plan: morphine 2mg IV as needed Tomorrow's Labs & Rationales: gabriella PATEL MD,JB 12/30/16 1253: Attending MD Review Statement Attending Statement Attending MD Statement: examined this patient, discuss w/resident/PA/PHYSICAL DAMAGE APPRAISER, agreed w/resident/PA/PHYSICAL DAMAGE APPRAISER, reviewed EMR data (avail), discussed with nursing, discussed with case mgmt, amended to note Attending Assessment/Plan: Patient seen and examined. Resting comfortably and not in any acute distress. After extensive conversation with the patient yesterday including his daughter at the bedside he has agreed to be discharged to alf facility for short-term rehabilitation as recommended by the physical therapy service. Is currently awaiting bed placement. He has no new complaints this morning. He is not requiring significant medications for pain control. He was given Tylenol yesterday for low back pain but then complained of throat tightness afterwards. This has since resolved. Ultram has been ordered but has not required any dose. His blood pressure is on the lower side this morning but he stable. He is mentating appropriately. He is not dizzy. Problems: 1. Acute on chronic anemia 2. Metastatic prostate cancer 3. Deconditioning Recommendations: -Check orthostatic vitals. If stable, patient remains medication is scheduled to be discharged to alf facility once a bed is available. -Patient is to continue on Casodex. -He is to follow-up with the urology service and hematology service as an outpatient. -He'll require bone scan as an outpatient.
--- NOTE | 2016-12-30 07:14 | PN- Oncology ---
Subjective Subjective: He reports having chest pain with the acetaminophen. He denies any fever or chills. He did have some nausea with the acetaminophen. Review of Systems Constitutional: Reports: weakness. Denies: chills, fever. Cardiovascular: Reports: chest pain. Respiratory: Denies: short of breath. Gastrointestinal: Reports: nausea. Musculoskeletal: Reports: joint pain. Skin: Denies: rash. All Other Systems: Reviewed and Negative Objective Vital Signs and I&Os Vital Signs Date Time Temp Pulse Resp B/P B/P Pulse O2 O2 Flow FiO2 Mean Ox Delivery Rate 12/30 0612 98.2 82 18 100/58 95 Room Air 12/30 0000 96 Room Air Room Air 12/29 2115 98.4 84 18 100/50 96 Room Air 12/29 1600 95 Room Air 12/29 1538 95 Room Air Room Air 12/29 1439 98.4 84 20 106/60 94 Room Air 12/29 0814 Room Air Intake & Output 12/30 0800 12/30 0000 12/29 1600 12/29 0800 12/29 0000 12/28 1600 Intake Total 300 800 720 Output Total 450 560 347 5436 600 650 Balance -450 0 -850 -1250 200 70 Intake, Oral 300 800 720 Number 2 1 1 Bowel Movements Output, Urine 450 675 225 8551 600 650 Physical Exam: General Appearance: alert, awake, comfortable Head: atraumatic Ears, Nose, Throat: normal pharynx Respiratory: normal breath sounds, chest non-tender, no respiratory distress Cardiovascular: regular rate/rhythm Abdomen: normal bowel sounds, soft, non-tender Extremities: no edema Skin: rare ecchymoses Other Physical Findings: [place] in place Current Medications: Current Medications Sig/Sada Start time Last Medication Dose Route Stop Time Status Admin Acetaminophen 650 MG Q6P PRN 12/23 0030 DC 12/25 PO 1621 Acetaminophen 1,000 MG Q6P PRN 12/23 0030 DC 12/29 IV 1827 Albuterol Sulfate 3 ML Q4 HRS NEEDED PRN 12/27 2215 AC 12/29 INH 2222 Bicalutamide 50 MG DAILY 12/23 1745 AC 12/29 PO 1014 Cyanocobalamin 1,000 MCG DAILY 12/23 1029 AC 12/29 PO 1014 Docusate Sodium 100 MG DAILY NEEDED PRN 12/25 1700 AC 12/28 PO 1030 Morphine Sulfate 2 MG Q4P PRN 12/23 0030 DC 12/28 IV 1926 Omeprazole 40 MG DAILY AC 12/23 1829 AC 12/30 PO 0603 Polyethylene Glycol 17 GM DAILY 12/25 1656 AC 12/28 PO 0904 Senna/Docusate Sodium 1 TAB BID PRN 12/25 1700 AC 12/25 PO 1839 Tramadol HCl 50 MG Q6 12/29 2359 AC PO Assessment/Plan Assessment/Recommendations: Mr. Womack is a 66-year-old male without medical history who presents with weakness in the lower extremity and fatigue. Hemoglobin was found to be 4.2 g/ dL. He had some hematuria and BRBPR. CT demonstrated prostatic invasion into the bladder wall. He is noted to have elevated PSA of 932 and diffuse skeletal lesions. Given these findings, he likely has prostate cancer. He underwent cystoscopy with TURBT on 12/26/[address] Choudhary. Cystoscopy noted mass originating in area of prostate and extending into bladder mostly on the left side, from 11 o'clock to 5 o'clock. The left ureteral was not visualized due to mass. Pathology is pending. He is now on Casodex. He will continue on this for now. He will need bone scan as an outpatient as he does not want it while in the hospital. He will likely need leuprolide. He 1. continue Casodex 50 mg daily 2. Bone scan as outpatient 3. Return to clinic 1 week after discharge 4. Follow up pathology results 5. May need MMA check given low normal vitamin B12 level Please call [phone] with any questions or concerns. Problem List: 1. Rectal bleed 2. Prostate CA 3. Anemia
--- NOTE | 2016-12-30 07:45 | Discharge Summary ---
See Addendum Visit Information Visit Dates Admission Date: 12/22/16 Discharge Date: 12/30/16 Hospital Course Course Attending Physician: JB PATEL M.D Primary Care Physician: PATIENT HAS NO PRIMARY CARE DR Hospital Course: Rex a 66-year-old man with no previous history of medical problems (no medical follow-up) who presented with weakness and lower shoulder Itzel significant fatigue. Found to have a hemoglobin of 4, and experienced hematuria or bright red blood per rectum. CAT scan demonstrate prostatic invasion into the bladder wall. His PSA was 932 and he has diffuse skeletal metastases. It appeared that he had metastatic prostate cancer. He was evaluated by oncology and begun on Casodex and will continue this with further outpatient workup and bone scan to determine staging of an extent of lesions. Oncology feels he will likely need leuprolide in the future. He underwent cystoscopy with a transurethral resection of bladder tumor on 12/26/2016. He had a CBI placed and hematuria subsequently resolved. Cystoscopy noted maceration in the area prostatectomy and bladder most left-sided from 11:00 to 5 o'clock position. Pathology report is still pending. Patient will need to return to oncology clinic in one week after discharge, he will also need to see the urologist in 2 weeks for voiding trials. Del [place] catheters remain in place Allergies: Coded Allergies: aspirin (BLEEDS 12/22/16) acetaminophen (From TYLENOL) (Severe, CHEST TIGHTNESS 12/29/16) Pertinent Lab Results: Vital Signs Date Time Temp Pulse Resp B/P B/P Pulse O2 O2 Flow FiO2 Mean Ox Delivery Rate 12/30 0921 Room Air Room Air 12/30 0612 98.2 82 18 100/58 95 Room Air 12/30 0000 96 Room Air Room Air 12/29 2115 98.4 84 18 100/50 96 Room Air 12/29 1600 95 Room Air 12/29 1538 95 Room Air Room Air 12/29 1439 98.4 84 20 106/60 94 Room Air 12/29 0814 Room Air 12/29 0632 98.1 84 20 108/58 94 Room Air 12/29 0000 95 Room Air 12/28 2223 98.9 89 18 116/58 96 12/28 1601 Room Air Room Air 12/28 1600 96 Room Air 12/28 1437 98.6 96 20 118/60 95 Room Air 12/28 1030 96 Room Air Room Air 12/28 0800 94 12/28 0643 98.8 88 20 123/60 95 Room Air 12/28 0000 95 Room Air 12/27 2214 98.3 90 20 130/60 96 12/27 1429 98.0 89 22 122/60 95 Room Air 12/27 1400 95 Room Air 12/27 1100 96 Room Air 12/27 0800 94 Room Air 12/27 0719 97.6 85 20 124/78 97 Nasal 4.0L Cannula 12/27 0706 98.7 87 20 128/68 97 Room Air 12/27 0600 Room Air 12/27 0315 Room Air 12/27 0000 Room Air 12/26 2236 97.8 84 22 138/70 100 Room Air 12/26 2215 96 Room Air 12/26 2200 Room Air 12/26 1600 97.7 74 20 140/64 94 Room Air 12/26 0839 95 Room Air Room Air 12/26 0800 96 Room Air 12/26 0713 98.9 91 17 158/82 95 12/26 0000 Room Air 12/25 2104 99.0 92 18 138/68 95 Room Air 12/25 1858 97 Room Air Room Air 12/25 1640 100.1 95 16 144/69 95 Room Air 12/25 1621 100.1 12/25 0950 97 Room Air Room Air 12/25 0829 98.7 86 16 154/78 96 Nasal Cannula 12/25 0002 98.9 90 16 142/68 94 Room Air 12/25 0000 Room Air 12/24 2020 96 Room Air Room Air 12/24 1616 99.8 87 16 167/64 94 Room Air 12/24 1458 Room Air 12/24 0800 94 Nasal 2.0L Cannula 12/24 0800 98.7 80 20 120/68 94 Nasal 2.0L Cannula 12/24 0000 99 Nasal 2.0L Cannula 12/23 2300 98.3 72 18 112/72 99 Nasal 2.0L Cannula 14 1600 Nasal 2.0L Cannula 12/23 1600 98.4 71 18 108/62 99 Nasal 2.0L Cannula 12/23 0800 Nasal 2.0L Cannula 12/23 0800 98.8 88 18 110/64 94 Nasal 2.0L Cannula 12/23 0630 97 Nasal 2.0L Cannula 12/23 0630 98.5 78 16 110/90 97 Nasal 2.0L Cannula 12/23 0439 82 18 118/65 93 Nasal 2.0L Cannula 12/23 0239 97.1 82 18 142/66 93 Nasal 2.0L Cannula 12/23 0140 97.0 78 18 120/58 95 Nasal 2.0L Cannula 12/23 0120 96.7 81 18 108/76 94 Room Air 12/22 2339 81 16 119/57 96 Room Air 12/22 2222 81 16 119/56 98 Room Air 12/22 2133 86 16 128/60 86 Room Air 12/22 2107 96.7 75 16 108/56 96 Room Air 12/22 1957 83 16 118/58 95 Room Air 12/22 1944 95.7 16 96 Room Air 12/22 1912 83 16 121/60 100 Room Air 12/22 1842 74 16 110/56 98 Room Air 12/22 1810 100 Room Air 12/22 1745 96.4 79 16 125/58 100 Room Air Last 24 Hours I&Os 12/30 1600 12/30 0800 12/30 0000 Intake Total 300 Output Total 450 300 Balance -450 0 Intake, Oral 300 Number 2 Bowel Movements Output, Urine 450 300 Orders Procedure Date/time Status Del Rio, Insertion/Removal/Asses 12/29 1541 Active AEROSOL CHG 12/29 UNK Complete Therapeutic Activities 12/29 UNK Complete Gait Training 12/29 UNK Complete [place], Insertion/Removal/Asses 12/28 UNK Complete MISSING MEDICATION FORM 12/28 UNK Active RT: Reevaluation 12/27 2156 Active [place], Insertion/Removal/Asses 12/27 2052 Complete AEROSOL CHG 12/27 UNK Complete THERAPIST ORDERS 12/27 UNK Complete Therapeutic Activities 12/27 UNK Complete Therapeutic Exercise 12/27 UNK Complete Gait Training 12/27 UNK Complete Disposition Summary Disposition Principal Diagnosis: See hospital summary Additional Diagnosis: See hospital summary Discharge Disposition: REHABILITATION Discharge Instructions General Discharge Information Code Status: Full Code Patient's Diet: Regular diet Patient's Activity: Self-limited Follow-Up Instructions/Appts: Follow-up with primary medical doctor, follow-up with Dr. Gunter (oncology), follow up with Dr. Zeeshan Garza (urology) Medications at Discharge Discharge Medications: Stop taking the following medications: Naproxen Sodium (Aleve) 220 MG CAPSULE ORAL DAILY Start taking the following new medications: Bicalutamide (Bicalutamide) 50 MG TABLET 50 Milligram ORAL DAILY as needed for prostate cancer Days = 30 No Refills Comments: Last Taken: 12/31/16 Time: 9:00 AM Polyethylene Glycol 3350 (Miralax) 17 GRAM/DOSE POWDER 17 Gram ORAL DAILY as needed for constipation Days = 30 No Refills Comments: Last Taken: 12/30/16 Time: 9:00 AM Cyanocobalamin (Vitamin B-12) 1,000 MCG TABLET 1,000 Microgram ORAL DAILY Days = 30 No Refills Comments: Last Taken: 12/31/16 Time: 9:00 AM Tramadol HCl (Ultram) 50 MG TABLET 1 Tablet ORAL EVERY SIX HOURS NEEDED as needed for pain Qty = 30 No Refills Comments: Last Taken: 12/31/16 Time: 10:00 AM Copies To: PETAR BEDOYA,ZEESHAN Glover; MÓNICA BEDOYA,MALATHI BROWN MD,LOUIS Attending MD Review Statement Documenting Attending: JB PATEL M.D Other Findings: Patient discharged in stable condiotion
[2016-12-30 08:00] VITALS: BP 100/58
[2016-12-30] MEDS ORDERED: ULTRAM50 M1 PO (10:30)
--- NOTE | 2016-12-30 10:39 | NUR ---
PHYSICAL THERAPY: ATTEMPTING TO SEE PT THIS MORNING. PT IS REFUSING, STATING THAT HE IS DIZZY FROM THE NEW MEDICATION THAT HE JUST GOT. PT APPEARED CONFUSED AND WAS NOT AGREEABLE TO GET OOB AFTER ENCOURAGEMENT BY P.T. WILL FOLLOW UP APPROPRIATE. THANK YOU.
[2016-12-30 14:30] VITALS: BP 92/52
--- NOTE | 2016-12-30 16:35 | NUR ---
BP RECHECK AT 1600 IS 99/52, HR 100. PT DENIES DIZZINESS, ALERT ORIENTED, BP REPORTED TO BEAM DYER OPERATOR. NS IVF CONTINUE TO INFUSE. WILL RECHECK
[2016-12-30 19:00] VITALS: BP 106/60
[2016-12-30 22:34] VITALS: BP 96/56
[2016-12-31 06:51] VITALS: BP 100/54
--- NOTE | 2016-12-31 08:12 | PN- Housestaff ---
VIRI BEDOYA,DAIN 12/31/16 0812: Subjective Follow-up For: Metastatic prostate cancer Subjective: Patient seen and examined. He is seen sitting upright in bed resting comfortably. He appears to be in no acute distress. He reports sleeping well last night and has no new subjective complaints. Additionally he denies any fever, chills, chest pain, shortness of breath, nausea, vomiting, diarrhea. No overnight events reported. Review of Systems Constitutional: Reports: see HPI. Objective Last 24 Hrs of Vital Signs/I&O Vital Signs Date Time Temp Pulse Resp B/P B/P Pulse O2 O2 Flow FiO2 Mean Ox Delivery Rate 12/31 1032 98.2 82 18 100/58 12/31 0800 95 Room Air Room Air 12/31 0800 96 Room Air Room Air 12/31 0651 98.7 95 20 100/54 95 12/31 0000 96 Room Air 12/30 2234 98.2 95 20 96/56 96 Room Air 12/30 2038 97 Room Air Room Air 12/30 1900 106/60 12/30 1430 98.2 100 18 92/52 97 Room Air Intake & Output 12/31 1600 12/31 0800 12/31 0000 Intake Total 490 800 Output Total 550 350 Balance -60 450 Intake, IV 10 800 Intake, Oral 480 Number 0 Bowel Movements Output, Urine 550 350 Physical Exam General Appearance: Alert, Oriented X3, Cooperative, No Acute Distress Other Physical Findings: General - thin, elderly man in no acute distress HEENT - NCAT, PERRL, EOMI, anicteric sclera CVS - S1, S2 w/o m/g/r Resp - CTA bilaterally GI - soft, nontender, nondistended, bowel sounds itnact - mckinley catheter in place draining a clear/yellow urine Neuro - Awake and alert, CN II - XII grossly intact Ext - normal pulses, no cyanosis/clubbing/edema Current Medications: Current Medications Sig/Sada Start time Last Medication Dose Route Stop Time Status Admin Albuterol Sulfate 3 ML Q4 HRS NEEDED PRN 12/27 2215 AC 12/29 INH 2222 Bicalutamide 50 MG DAILY 12/23 1745 AC 12/31 PO 0833 Cyanocobalamin 1,000 MCG DAILY 12/23 1029 AC 12/31 PO 0833 Docusate Sodium 100 MG DAILY NEEDED PRN 12/25 1700 AC 12/28 PO 1030 Omeprazole 40 MG DAILY AC 12/23 1829 12/31 PO 0635 Patient Medication 1 ED .STK-MED ONE 12/30 1401 UT Teaching ED 12/30 1402 Polyethylene Glycol 17 GM DAILY 12/25 1656 12/30 PO 1006 Senna/Docusate Sodium 1 TAB BID PRN 12/25 1700 AC 12/25 PO 1839 Sodium Chloride 1,000 ML Q10H 12/30 1345 DC 12/30 IV 12/30 2344 1358 Tramadol HCl 50 MG Q6 12/29 2359 AC 12/31 PO 0945 Last 24 Hrs of Lab/J Carlos Results Last 24 Hrs of Labs/Mics: Laboratory Tests 12/31/16 0635: CBC w Diff NO MAN DIFF REQ, RBC 2.85 L, MCV 85.3, MCH 27.8, RDW 19.9 H, MPV 8.0, Gran % 72.6, Lymphocytes % 17.3 L, Monocytes % 9.1, Eosinophils % 0.8, Basophils % 0.2, Absolute Granulocytes 7.7 H, Absolute Lymphocytes 1.8, Absolute Monocytes 1.0 H, Absolute Eosinophils 0.1, Absolute Basophils 0, PUBS MCHC 32.6 L Assessment/Plan Assessment: 66-year-old gentleman with limited past medical history, not seen a primary care physician in 45 years admitted on 12/22/2016 for weakness, lower back pain and bleeding per rectum. CT scan showed metastatic prostate cancer with bladder invasion. MRI of the cervical and thoracic spine shows diffuse demetrius mets with no spinal cord compression. Status post cystoscopy with TURP Hospital Day 9 Patient continues to do well and has no new subjective complaints. His blood pressure has been consistently low in recent days, however given his physical size and lack of symptoms it is not entirely unreasonable to believe that these are his normal pressures. Manual blood pressure at bedside was 104/56. Patient is to be discharged to [facility] with instruction to follow up with Dr. Choudhary for further evaluation of the mckinley catheter and Dr. Gunter in the near future. He is to have a repeat CBC on Monday for assessment of his hemoglobin/hematocrit. Problem List: -Metastatic Prostate Cancer -Bladder Outlet obstruction -Hematuria -Anemia Plan: -General medicine, UT to [facility] today -Mckinley catheter -No NSAIDs -Monitor for hemodynamic stability -Monitor hemoglobin, transfuse to >7.0 -Continue home meds, casodex -Heme/Onc consult -Urology consult -PT evaluation: STR -Tramadol for pain -Bowel Regimen -Regular Diet -DVT PPx -Full Code His daughter is to be informed of any changes. Problem List: 1. Bladder outlet obstruction Pain Ratin Pain Location: None Pain Goal: Pain 4 or less Pain Plan: Tramadol Tomorrow's Labs & Rationales: None JAYA BEDOYA,ROSALIA 12/31/16 1322: Attending MD Review Statement Attending Statement Attending MD Statement: examined this patient, discuss w/resident/PA/BLACKSMITH APPRENTICE, agreed w/resident/PA/BLACKSMITH APPRENTICE, discussed with family, reviewed EMR data (avail), discussed with nursing, discussed with case mgmt, reviewed images, amended to note Attending Assessment/Plan: Patient sitting comfortably in bed. Does not offer any complaint at the moment. His blood pressure checked manually by the help desk intern was 104/60. Patient does not have any dizziness, shortness of breath, chest pain. He can be discharged today to rehabilitation. Check a CBC on Monday01/02/17 as an outpatient to make sure his hemoglobin and hematocrit are stable.
[2016-12-31 08:15] LABS: ABSOLUTE BASOPHIL COUNT 0 /CUMM (0.0-0.2); ABSOLUTE EOSINOPHIL COUNT 0.1 /CUMM (0.0-0.7); ABSOLUTE GRANULOCYTE CT 7.7 /CUMM (1.4-6.5); ABSOLUTE LYMPH COUNT 1.8 /CUMM (1.2-3.4)
[2016-12-31 08:33] LABS: BASOPHIL % 0.2 % (0.0-2.0); EOSINOPHIL % 0.8 % (0-5); GRANULOCYTE % 72.6 % (42.2-75.2); HEMATOCRIT 24.3 % (42-52); MEAN CORPUSCULAR HGB 27.8 PG (27.0-31.0); MEAN CORPUSCULAR HGB CONC 32.6 G/DL (33.0-37.0); MEAN CORPUSCULAR VOLUME 85.3 FL (80.0-94.0); RED BLOOD CELL CT 2.85 /CUMM (4.70-6.10); WHITE BLOOD CELL COUNT 10.6 /CUMM (4.8-10.8)
[2016-12-31 09:32] LABS: PLATELET COUNT 212 /CUMM (130-400)
[2016-12-31 09:33] LABS: RBC DISTRIBUTION WIDTH 19.9 % (11.5-14.5)
[2016-12-31] MEDS ORDERED: VITAMIN B-121000 MC3 PO (10:30)
[2016-12-31] MEDS ORDERED: MIRALAX119 GM PO (10:30)
[2016-12-31 10:32] VITALS: BP 100/58
== END 2016-12-31 13:23 | DRG 715 ==
LOC: ENRESERVDT → ENRESERVTM → ERH 17:37 → CRI 22:36 → ERHI 22:36 → 2NB 22:36 → CRI 12-23 05:50 → 1NO 12-24 09:36 → 2NB 12-25 20:57 → ENPENDDIS 12-31 11:16 → 2NB 12-31 13:23
PROVIDERS: Emergency Medicine; Internal Medicine; Internal Medicine Infectious Disease; Ophthalmology; Student in an Organized Health Care Education/Training Program; ADMIT Student in an Organized Health Care Education/Training Program
PROC: 30233N1 Transfusion of Nonautologous Red Blood Cells into Peripheral Vein, Percutaneous Approach (ICD-10-PCS; principal; 2016-12-22)
PROC: 0TBB8ZZ Excision of Bladder, Via Natural or Artificial Opening Endoscopic (ICD-10-PCS; 2016-12-26)
DX: C61 Malignant neoplasm of prostate (principal); N17.9 Acute kidney failure, unspecified; C79.11 Secondary malignant neoplasm of bladder; C79.51 Secondary malignant neoplasm of bone; E44.0 Moderate protein-calorie malnutrition; D62 Acute posthemorrhagic anemia; M48.56XA Collapsed vertebra, not elsewhere classified, lumbar region, initial encounter for fracture; N13.30 Unspecified hydronephrosis; E87.6 Hypokalemia; Z68.21 Body mass index [BMI] 21.0-21.9, adult; F17.200 Nicotine dependence, unspecified, uncomplicated
CPT/HCPCS: 1NSP; 2NBSP; 72141; 72146; CCU; ERO; 36415; 74177; 81001; 82436; 86920; 87040; 87070; 87086; 88307; 93005; 93010; 96374; 96375; 96376; 97110-GO; 97116-GO; 97162-GP; 97530-GO; J2405; J9202; P9016

== ENCOUNTER 2017-02-07 16:57 | Emergency (ER) | payer OTHER, MEDICARE ==
[~2017-02-07] VITALS: Ht 139.7 cm; Wt 54.4 kg
[~2017-02-07 16:57] MED LIST: ALEVE220 M1 PO; BICALUTAMIDE50 M1 PO; MIRALAX119 GM PO; ULTRAM50 M1 PO; VITAMIN B-121000 MC3 PO
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
[2017-02-07 18:35] LABS: ABSOLUTE BASOPHIL COUNT 0 /CUMM (0.0-0.2); ABSOLUTE EOSINOPHIL COUNT 0.1 /CUMM (0.0-0.7); ABSOLUTE LYMPH COUNT 1.8 /CUMM (1.2-3.4); ABSOLUTE MONOCYTE COUNT 0.8 /CUMM (0.10-0.60); BASOPHIL % 0.6 % (0.0-2.0); EOSINOPHIL % 1.5 % (0-5); GRANULOCYTE % 42.1 % (42.2-75.2); HEMATOCRIT 28.4 % (42-52); MEAN CORPUSCULAR HGB 28.6 PG (27.0-31.0); MEAN CORPUSCULAR HGB CONC 32.5 G/DL (33.0-37.0); MEAN CORPUSCULAR VOLUME 87.8 FL (80.0-94.0); MEAN PLATELET VOLUME 6.9 FL (7.4-10.4); PLATELET COUNT 358 /CUMM (130-400); RBC DISTRIBUTION WIDTH 23.7 % (11.5-14.5); RED BLOOD CELL CT 3.23 /CUMM (4.70-6.10); WHITE BLOOD CELL COUNT 4.7 /CUMM (4.8-10.8)
--- NOTE | 2017-02-07 19:42 | CT SCAN REPORT ---
EXAMINATION: CT HEAD WITHOUT CONTRAST CLINICAL INFORMATION: Altered mental status. COMPARISON: None TECHNIQUE: Contiguous axial imaging was performed from the skull base to vertex without intravenous administration of contrast. DLP: 617.5 mGy-cm FINDINGS: There is no evidence of acute intracranial hemorrhage or territorial infarction. No abnormal mass effect or midline shift is seen. Gutierrez to white matter differentiation is well preserved. No extra-axial fluid collections are identified. The ventricles are normal in size. There is no abnormal attenuation within the brain parenchyma. The osseous structures and soft tissues are normal. The mastoid air cells and visualized portions of the paranasal sinuses are well aerated. IMPRESSION: No acute intracranial pathology.
[2017-02-07] MEDS ORDERED: AMOXICILLIN500 M3 PO (20:33)
[2017-02-07 21:07] VITALS: BP 128/67
[2017-02-08] MEDS ORDERED: TRAMADOL HCL50 M1 PO (18:33)
== END 2017-02-07 21:10 ==
LOC: ERH 16:57
PROVIDERS: Emergency Medicine
DX: F22 Delusional disorders (principal); D64.9 Anemia, unspecified
CPT/HCPCS: 80307; 81001; 87086; 93005; 93010; G0480

== ENCOUNTER 2017-02-08 15:44 | Inpatient (IN) | payer OTHER, MEDICARE ==
[~2017-02-08] VITALS: Ht 170.2 cm; Wt 55.8 kg
[~2017-02-08 15:44] MED LIST changes: +AMOXICILLIN500 M3 PO
--- NOTE | 2017-02-08 15:45 | NUR ---
RILEY ON PEER FOR DELUSIONAL BEHAVIOR. PT WAS SEEN IN ED YESTERDAY FOR SAME, DIAGNOSED WITH UTI AND DISCHARGED. PER FAMILY PT CONTINUES WITH DELUSIONAL BEHAVIOR. FAMILY CALLED 911 FOR AMBULANCE TODAY. PT AT FIRST REFUSED TO COME TO ED WHICH IS WHY HE IS ON A PEER. UPON ARRIVAL PT AWAKE, ALERT ORIENTED TO PERSON. PLACE AND SOMEWHAT TO TIME. COOPERATIVE. SEEN BY DR MORRIS AND VERBALIZED WHAT SOUNDS LIKE DELISIONS. PT FEARFUL OF DELUSIONS. PER DR MORRIS PT TO BE WORKED UP FOR MEDICAL CAUSE OF DELUSIONS. TO
--- NOTE | 2017-02-08 15:51 | ED AMS/SEIZURE/WEAK/DIZZY ---
History of Present Illness General Chief Complaint: Altered Mental Status Stated Complaint: BIBA AMS Source: patient, old records, EMS Exam Limitations: confusion Vital Signs & Intake/Output Vital Signs & Intake/Output Vital Signs Date Time Temp Pulse Resp B/P B/P Pulse O2 O2 Flow FiO2 Mean Ox Delivery Rate 02/08 1546 98.6 107 20 131/74 96 Allergies Coded Allergies: aspirin (BLEEDS 12/22/16) acetaminophen (From TYLENOL) (Severe, CHEST TIGHTNESS 12/29/16) Reconcile Medications Amoxicillin/Clavulanate Potass (Amox-Clav 875-125 MG Tablet) 875 MG-125 MG TABLET 875 MG PO Q12 Dental Infection . Cyanocobalamin (Vitamin B-12) 1,000 MCG TABLET 1,000 MCG PO DAILY supplement Melatonin 5 MG TABLET 2 TAB PO AT BEDTIME PRN sleep . Tramadol HCl 50 MG TABLET 1 TAB PO DAILY PRN PAIN (Reported) Triage Nurses Notes Reviewed? yes Onset: Abrupt Duration: day(s): (FEW) Timing: recent history Severity: moderate, severe No Modifying Factors: none Associated Symptoms: PARANOIA, DELUSIONS HPI: This is a 66-year-old male who presents to the ER for chief complaint of confusion. According to EMS his daughter states that he is not acting himself and is paranoid and having delusions. Patient admits to being very anxious. He states that his [id number] and his are making their very large dogs came after him. He states that at night they bring him into their room and then feed ribs to the dogs to get going and then put the dogs on him. He states that his [id number] also wheezing feathers over his abdomen and draining is blood which is making him lose all this weight. He states that I shouldn't be telling any of this because than significant happen to me. He denies any headache or blurred vision. He is able to tell me that he has prostate cancer that was treated across the street. Past History Medical History Any Pertinent Medical History? see below for history Neurological: B/L LE wekness & ? B/L sciatica EENT: NONE Cardiovascular: NONE Respiratory: NONE Gastrointestinal: intermittent rectal bleeding post defecation , without spontaneous LGIB Hepatic: NONE Renal: B/L hydro noted 12/22/16 Musculoskeletal: chronic back pain, fracture (pathologic- spine) Psychiatric: NONE Endocrine: NONE Blood Disorders: anemia Cancer(s): prostate cancer (by CT- not yet bx proven) [employer]/Reproductive: NONE History of MRSA: No History of VRE: No History of CDIFF: No Surgical History Surgical History: N Psychosocial History Who do you live with Patient/Self Services at Home None What is your primary language Syriac Family History Family History, If Any: MOTHER, , Age 94; Cause: Old age. FATHER, , Age 60+; Cause: MVA (motor vehicle accident). Relation not specified for: *No pertinent family history Hx Contributory? No Review of Systems Review of Systems Constitutional: Denies: chills, fever. EENTM: Reports: no symptoms. Respiratory: Denies: cough, orthopnea. Cardiovascular: Denies: chest pain, palpitations. GI: Denies: abdominal pain. Genitourinary: Reports: no symptoms. Musculoskeletal: Denies: joint pain, joint swelling. Skin: Reports: no symptoms. Neurological/Psychological: Reports: anxiety, confusion. Hematologic/Endocrine: Denies: bruising, bleeding, polyuria, polydipsia. Immunologic/Allergic: Denies: splenectomy. All Other Systems: Reviewed and Negative Physical Exam Physical Exam General Appearance: alert, awake, anxious, mild distress, thin Head: atraumatic, normal appearance Eyes: Bilateral: PERRL. Ears, Nose, Throat: normal pharynx, hearing grossly normal Neck: normal inspection, supple, full range of motion Respiratory: normal breath sounds, chest non-tender, no respiratory distress Cardiovascular: regular rate/rhythm Peripheral Pulses: 2+ radial (R), 2+ radial (L) Gastrointestinal: soft, no organomegaly Neurologic/Psych: awake, alert, ORIENTED TO PERSON, PLACE AND YEAR Skin: intact, normal color, warm/dry Core Measures ACS in differential dx? No CVA/TIA Diagnosis: No Severe Sepsis Present: No Septic Shock Present: No Progress Differential Diagnosis: CVA/stroke, encephalitis, intracranial mass/tumor, METABOLIC ENCEPHALOPATHY, DEPRESSION WITH PSYCHOTIC FEATURES, Plan of Care: Orders Procedure Date/time Status Heart Healthy Diet 02/09 B Active LACTIC ACID 02/08 185 Active ED Holding Orders 02/09 1744 Active Admit to inpatient 02/09 1744 Active Vital Signs 02/09 1744 Active Code Status 02/09 1744 Active Patient Safety Monitor 02/08 155 Active BLOOD CULTURE 02/08 155 Active URINALYSIS 02/08 155 Active THYROID STIMULATING HORMONE 02/08 155 Complete TROPONIN LEVEL 02/09 1552 Complete PARTIAL THROMBOPLASTIN TIME 02/08 155 Complete PROTHROMBIN TIME 02/08 155 Complete LACTIC ACID 02/08 155 Complete FREE T4 02/08 155 Complete COMPREHENSIVE METABOLIC PANEL 02/09 1552 Complete CBC WITHOUT DIFFERENTIAL 02/09 1552 Complete EKG 02/09 1552 Active Laboratory Tests 02/08/17 1723: Urine Color Pending, Urine Clarity Pending, Urine pH Pending, Ur Specific [place] Pending, Urine Protein Pending, Urine Ketones Pending, Urine Nitrite Pending, Urine Bilirubin Pending, Urine Urobilinogen Pending, Ur Leukocyte Esterase Pending, Ur Microscopic SEDIMENT EXAMINED, Urine RBC Pending, Urine Hemoglobin Pending, Urine Glucose Pending 02/08/17 1615: Anion Gap 16, Estimated GFR > 60, BUN/Creatinine Ratio 21.1, Glucose 95, Lactic Acid 1.1, Calcium 8.8, Total Bilirubin 0.7, AST 16 L, ALT 32, Alkaline Phosphatase 1741 H, Troponin I < 0.01, Total Protein 7.0, Albumin 3.9, Globulin 3.1, Albumin/Globulin Ratio 1.3, TSH 0.909, Free T4 1.18, PT 15.2 H, INR 1.45 H, APTT 29, CBC w Diff NO MAN DIFF REQ, RBC 3.40 L, MCV 87.0, MCH 28.2, RDW 24.2 H, MPV 6.5 L, Gran % 50.4, Lymphocytes % 32.4, Monocytes % 15.2 H, Eosinophils % 1.7, Basophils % 0.3, Absolute Granulocytes 2.5, Absolute Lymphocytes 1.6, Absolute Monocytes 0.8 H, Absolute Eosinophils 0.1, Absolute Basophils 0, PUBS MCHC 32.4 L Microbiology 02/08 1627 BLOOD: Blood Culture - RECD 02/08 1615 BLOOD: Blood Culture - RECD Initial ED EKG: NSR, FLAT ST SEDMENTS V3-V6 Prior EKG: unchanged Departure Departure Time of Disposition: 1743 Disposition: STILL A PATIENT Condition: Stable Clinical Impression Primary Impression: Acute confusion due to infection Secondary Impressions: Acute delirium, UTI (urinary tract infection) Referrals: PATIENT HAS NO PRIMARY CARE DR (PCP/Family) Departure Forms: Customer Survey General Discharge Information Prescriptions: Current Visit Scripts Amoxicillin/Clavulanate Potass (Amox-Clav 875-125 MG Tablet) 875 MG PO Q12 #14 TAB . Melatonin 2 TAB PO AT BEDTIME PRN sleep #30 TAB . Admission Note Spoke With: OTTO STEWART MD Documentation of Exam: Documentation of any treatments & extenuating circumstances including Concerns Regarding Discharge (functional status, medication knowledge or non-compliance, living conditions, etc.) that warrant an admission rather than observation: [IV antibiotics, IV fluids, monitor intake and output, follow-up cultures, consider further imaging with MRI if patient's delerium does not clear, neurology consultation, consider psychiatric consultation]
--- NOTE | 2017-02-08 15:56 | NUR ---
PER DR MORRIS PT IS BE TREATED A MEDICAL PATIENT AND NOT BEHAVIOR PT. DOES NOT NEED TO BE PUT IN BLUE SCRUBS. PT WAS WANDED BY SECURITY AND VALUABLES WERE SECURED IN SAFE
--- NOTE | 2017-02-08 16:01 | NUR ---
PT CHANGED INTO GOWN. SITTER AT BEDSIDE FOR SAFETY
--- NOTE | 2017-02-08 16:28 | NUR ---
LABS DRAWN AND BOTH SETS OF BLOOD CULTURES OBTAINED. IV STARTED AND IVF INFUSING.
[2017-02-08 16:30] LABS: ABSOLUTE BASOPHIL COUNT 0 /CUMM (0.0-0.2); ABSOLUTE EOSINOPHIL COUNT 0.1 /CUMM (0.0-0.7); ABSOLUTE GRANULOCYTE CT 2.5 /CUMM (1.4-6.5); ABSOLUTE LYMPH COUNT 1.6 /CUMM (1.2-3.4); ABSOLUTE MONOCYTE COUNT 0.8 /CUMM (0.10-0.60); BASOPHIL % 0.3 % (0.0-2.0); EOSINOPHIL % 1.7 % (0-5); GRANULOCYTE % 50.4 % (42.2-75.2); HEMATOCRIT 29.6 % (42-52); MEAN CORPUSCULAR HGB 28.2 PG (27.0-31.0); MEAN CORPUSCULAR HGB CONC 32.4 G/DL (33.0-37.0); MEAN PLATELET VOLUME 6.5 FL (7.4-10.4); PLATELET COUNT 405 /CUMM (130-400); RBC DISTRIBUTION WIDTH 24.2 % (11.5-14.5)
[2017-02-08 16:44] LABS: PT 15.2 SEC (9.4-12.5); PTT 29 SEC (25-37)
--- NOTE | 2017-02-08 17:52 | Admission Certification ---
Admission Certification Certification Statement - As attending physician, I certify that at the time of - admission, based on clinical presentation, severity of - symptoms, need for further diagnostic testing and - therapeutic interventions, and risk of adverse outcomes - without in-hospital treatment, in my clinical assessment, - this patient requires an acute hospital stay for a minimum - of two nights or longer. I have also considered psychsocial - factors such as support system, advanced age, financial - issues, cognitive issues, and failed out-patient treatments, - past re-admission history, safety of patient, and lack of - compliance as applicable. Specific rationale supporting this admission is: Acute delrium in pt with UTI and metastatic prostate CA
--- NOTE | 2017-02-08 17:57 | PN- Att Addend ---
Attending Addendum Attending Brief Note Pt is not a relaible informant. History obtained from pt's daughter and medical records. 66-year-old male with fairly recent diagnosis of metastatic prostate CA. He was here from December 22 to December 30 and was found to be profoundly anemic and found to have a bladder mass which was found to be invasive prostate CA. 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 He was seen by oncology, started on treatment, and sent to [facility]. He was brought in by the police the day prior to today (02/07) for delusional behavior and was found to have a UTI. Discharged on by mouth amoxicillin. The delusional behavior has continued and he is acutely delirious now with some paranoia. His exam appears to be nonfocal in terms of any meningeal signs, no focal weakness and no evidence of active infection. He is afebrile. He did have a UA with greater than 75 WBC's done yesterday and a urine culture that is growing gram-negative rods. Initial CT head done yesterday was negative. At this point we are dealing with acute delirium of unclear etiology. We need to bring him into [facility], certainly continue the antibiotic, I would broaden it to IV ceftriaxone for the UTI. I would get an MRI of his brain to rule out intracranial metastases and get oncology involved. There is no obvious electrolyte abnormality or new drug to explain the delirium. We need to get more of a collateral history from the family and the oncologist. Continue his bicalutamide for prostate CA, Lovenox for DVT prophylaxis. Will need to be very careful with medications for the delirium as I worry that he is going to get combat events agitated. Low threshold to use a sitter and may need a low dose sedative if necessary.
--- NOTE | 2017-02-08 18:05 | History & Physical ---
ANURADHA ZHANG 02/08/17 1805: General Information and HPI MD Statement: I have seen and personally examined AZUCENA ACOSTA and documented this H&P. The patient is a 66 year old M who presented with a patient stated chief complaint of delusional behavior. Source of Information: patient, old records Exam Limitations: clinical condition, confusion, poor historian History of Present Illness: This is a 66-year-old gentleman with past medical history significant for invasive prostate adenocarcinoma with bony metastasis, status post transurethral resection of bladder mass, profound anemia, constipation, chronic back pain, bilateral lower extremity weakness brought to the hospital by police for acute change in mental status and delusional behavior. Patient was admitted at [facility] from 12/22 to 12/30 for anemia and hematuria. He was found to have metastatic prostate cancer with invasion into bladder wall and diffuse skeletal metastasis. He was evaluated by oncology and started on Casodex. He was advised to get bone scan and leuprolide as outpatient. He underwent transurethral resection of bladder mass on 12/26. He was seen at [facility] emergency room on 02/07 for acute confusion and delirium and was found to have a UTI. He was discharged on Augmentin. He was brought to the hospital again by the police today for acute confusion and worsening delirium. According to EMS his daughter states that he is not acting himself and is paranoid and having delusions. Patient admits to being very anxious and hallucinating. He states that at night they bring him into their room and then feed ribs to the dogs to get going and then put the dogs on him. He does report ringing sensation of ears. Denied any loss of consciousness, passing out. Denies any syncopal events. Denies any dizziness, lightheadedness , history of falls. Patient is aware of being Hallucinating for 10 days. He attributes these hallucinating episodes from the medication oxycodone, which was discontinued by his physician for the same reason. Also reports dysuria for the past 1 week. Denied any fever or chills. denies urgency, frequency, any abdominal discomfort. He denied any difficulty breathing, chest pain, racing of heart, headache, weakness, sensory changes, numbness. Patient reports chronic back pain for which he uses tramadol. He is a known smoker for 50 years. Denied any alcohol abuse. Denies any illicit drug Use. He reports using marijuana in the past. He follows Dr. Payne oncologist as an outpatient for prostate cancer. He follows Dr. Simpson urologist as an outpatient for bladder cancer Allergies/Medications Allergies: Coded Allergies: aspirin (BLEEDS 12/22/16) acetaminophen (From TYLENOL) (Severe, CHEST TIGHTNESS 12/29/16) Compliance With Home Meds: GOOD Past History Travel History Traveled to [place] past 21 day No Medical History Neurological: B/L LE wekness & ? B/L sciatica EENT: NONE Cardiovascular: NONE Respiratory: NONE Gastrointestinal: intermittent rectal bleeding post defecation , without spontaneous LGIB Hepatic: NONE Renal: B/L hydro noted 12/22/16 Musculoskeletal: chronic back pain, fracture (pathologic- spine) Psychiatric: NONE Endocrine: NONE Blood Disorders: anemia Cancer(s): prostate cancer (by CT- not yet bx proven) CHILD NUTRITION ASSISTANT/Reproductive: NONE History of MRSA: No History of VRE: No History of CDIFF: No Isolation History: Standard Surgical History Surgical History: N Past Family/Social History Family History Relations & Conditions if any MOTHER, , Age 94; Cause: Old age. FATHER, , Age 60+; Cause: MVA (motor vehicle accident). Relation not specified for: *No pertinent family history Psychosocial History Who Do You Live With? self Services at Home: None Primary Language: Sami Smoking Status: Former Smoker ETOH Use: denies use Illicit Drug Use: denies illicit drug use Living Will? no Power of Rat Poisoner/HCP? no Functional Ability ADLs Independent: dressing, eating, toileting, bathing. Ambulation: independent (stairs becoming difficult) IADLs Independent: shopping, housework, finances, food prep, telephone, transportation , medication admin. Review of Systems Review of Systems Constitutional: Reports: see HPI. EENTM: Denies: double vision, visual changes. Cardiovascular: Denies: chest pain, edema, orthopena, palpitations, peripheral edema, syncope. Respiratory: Denies: cough, hemoptysis, orthopnea, short of breath. GI: Denies: abdominal pain, bloating, constipation, diarrhea, melena, nausea. Genitourinary: Reports: dysuria. Denies: discharge, frequency, hematuria, hesitation, nocturia. Musculoskeletal: Reports: back pain. Denies: gout, joint pain. Neurological/Psychological: Reports: confusion. Denies: anxiety, ataxia, cognitive dysfunction, depressed, dementia, emotional problems, headache, numbness, tingling, tremors. Exam & Diagnostic Data Last 24 Hrs of Vital Signs/I&O Vital Signs Date Time Temp Pulse Resp B/P B/P Pulse O2 O2 Flow FiO2 Mean Ox Delivery Rate 02/08 2022 97.5 80 18 107/59 93 02/08 1859 97.5 80 18 124/61 96 02/08 1830 Room Air 02/08 1546 98.6 107 20 131/74 96 Intake & Output 02/08 1600 02/08 0800 02/08 0000 Intake Total Output Total Balance Patient 55.792 kg Weight Physical Exam General Appearance Alert, Oriented X3, Cooperative, No Acute Distress Skin No Rashes, No Breakdown HEENT Atraumatic, PERRLA, EOMI, Mucous Membr. moist/pink Neck Supple, No JVD Lymphatic Cervical nl Cardiovascular Normal S1, Normal S2 Lungs Normal Air Movement Abdomen Normal Bowel Sounds, Soft, No Tenderness, No Hepatospenomegaly Neurological Normal Speech, Strength at 5/5 X4 Ext, Normal Tone, Sensation Intact, Cranial Nerves 3-12 NL, Reflexes 2+ Extremities No Clubbing, No Cyanosis, No Edema Vascular Normal Pulses, Pulses Symmetrical Last 24 Hrs of Labs/J Carlos: Laboratory Tests 02/08/17 1723: Methadone Screen Pending, Barbiturate Screen Pending, Ur Phencyclidine Scrn Pending, Amphetamines Screen Pending, U Benzodiazepines Scrn Pending, Urine Cocaine Screen Pending, Urine Cannabis Screen Pending, Urinalysis LIGHT H, Urine Color YEL, Urine Clarity TURBD H, Urine pH 6.0, Ur Specific [place] >= 1.030, Urine Protein 100 H, Urine Ketones 15 H, Urine Nitrite NEG, Urine Bilirubin NEG@ICTO, Urine Urobilinogen 1.0, Ur Leukocyte Esterase LARGE H, Ur Microscopic SEDIMENT EXAMINED, Urine RBC 10-15 H, Urine WBC PACKD H, Ur Epithelial Cells FEW, Urine Bacteria PACKD H, Urine Mucus MOD H, Urine Hemoglobin LARGE H, Urine Glucose NEG 02/08/17 1615: Anion Gap 16, Estimated GFR > 60, BUN/Creatinine Ratio 21.1, Glucose 95, Lactic Acid 1.1, Calcium 8.8, Total Bilirubin 0.7, AST 16 L, ALT 32, Alkaline Phosphatase 1741 H, Troponin I < 0.01, Total Protein 7.0, Albumin 3.9, Globulin 3.1, Albumin/Globulin Ratio 1.3, Vitamin B12 Pending, Folate Pending, TSH 0.909, Free T4 1.18, PT 15.2 H, INR 1.45 H, APTT 29, CBC w Diff NO MAN DIFF REQ, RBC 3.40 L, MCV 87.0, MCH 28.2, RDW 24.2 H, MPV 6.5 L, Gran % 50.4, Lymphocytes % 32.4, Monocytes % 15.2 H, Eosinophils % 1.7, Basophils % 0.3, Absolute Granulocytes 2.5, Absolute Lymphocytes 1.6, Absolute Monocytes 0.8 H, Absolute Eosinophils 0.1, Absolute Basophils 0, PUBS MCHC 32.4 L Microbiology 02/08 1627 BLOOD: Blood Culture - RECD 02/08 161 BLOOD: Blood Culture - RECD Diagnostic Data EKG Results normal sinus rhythm, rate 87, no acute ST-T wave changes Assessment/Plan Assessment: This is a 66-year-old gentleman with past medical history significant for invasive prostate adenocarcinoma with bony metastasis, status post transurethral resection of bladder mass, profound anemia, constipation, chronic back pain, bilateral lower extremity weakness brought to the hospital by police for acute change in mental status and delusional behavior. Vitals on admission afebrile, heart rate 107, respiratory rate 20, blood pressure 131/64, saturating at 96 on room air. Pertinent lab on admission is: Hemoglobin 9.6, hematocrit 29.6, platelet 405, AST 16, alkaline phosphatase 1741, thyroid function tests within normal limits, troponin negative, positive UA, urine culture from 02/07/2017 shows gram- negative rods EKG on admission: Sinus rhythm at 97, QTC 447, no ST-T wave changes. Problem list 1. Altered mental status/acute delirium 2. Invasive prostate adenocarcinoma with bony metastasis 3. Profound anemia 4. Chronic back pain 5. Bilateral lower extremity weakness Altered mental status/acute delirium Patient was brought to hospital with acute change in mental status and delusional behavior. History of hallucinations for past 10 days and the patient was aware of the hallucinations. He was started on oxycodone for his back pain however it was stopped because of hallucinations. The other day patient was seen in emergency room for acute delirium and was found to have UTI and was discharged on Augmentin. Altered mental status/acute delirium most possibly from urinary tract infection versus brain metastasis from prostate cancer versus medication changes. * Admitted to general medicine floor for further management of acute mental status change * Monitor vitals closely every shift * Maintain oxygen saturation the above 90% * Fall precautions * IV ceftriaxone for urinary tract infection * Urine culture positive for gram-negative rods will follow up sensitivities * Will follow-up B12 and folic acid * Follow-up urine toxicology * Follow-up blood cultures and urine cultures * Will get MRA brain for metastasis from prostate cancer * Oncology was consulted * 1-1 sitter for safety * Will start patient on trazodone 25 mg at bedtime when necessary for agitation Metastatic Prostate cancer Patient was admitted at [facility] from 12/22 to 12/30 for anemia and hematuria. He was found to have metastatic prostate cancer with invasion into bladder wall and diffuse skeletal metastasis. He was evaluated by oncology and started on Casodex. He was advised to get bone scan and leuprolide as outpatient. He underwent transurethral resection of bladder mass on 12/26. * Not on Casodex, confirmed with the oncologist * Dr. Hansen was notified about admission * Of note, patient mentions that he is not on bicalutamide anymore; he receives "monthly injections" for his prostate cancer (likely leuprolide?) and follows with Dr. Gunter. * Will rule out brain metastasis Back pain Back pain most possibly from axial metastasis from prostate cancer * Will continue pain management with home medication tramadol * We'll closely monitor for cord compression symptoms Anemia Will continue home medication B12 Will check B12 and folate levels DVT prophylaxis subcutaneous Lovenox Full code Pain pathway tramadol Regular diet As Ranked By This Provider Problem List: 1. Acute confusion due to infection 2. Delusions 3. UTI (urinary tract infection) 4. Acute delirium 5. Prostate CA 6. Anemia 7. Bony metastasis Core Measures/Miscellaneous Acute Coronary Syndrome ACS Diagnosis: No Cerebrovascular Accident CVA/TIA Diagnosis: No Congestive Heart Failure CHF Diagnosis: No Venous Thromboembolism VTE Risk Factors: Age > 40, Cancer/chemo/oth therapy No Mech VTE prophylaxis d/t: No contraindications No VTE Pharm Prophylaxis d/t: No contraindications VTE Diagnosis: No VTE Type: NONE VTE Confirmed by (Test): NONE Severe Sepsis Severe Sepsis Present: No Septic Shock Septic Shock Present: No Miscellaneous Documentation Attending Case Discussed With: TERRY BEDOYA,OTTO Glover Primary Care Physician: PATIENT HAS NO PRIMARY CARE DR Patient sees these Specialists urology oncology Level of Patient Care: General Medicine FAYE CHOWDHURY 02/08/17 2176: General Information and HPI Allergies/Medications Home Med list Amoxicillin 500 MG TABLET 1 TAB PO BID UTI Cyanocobalamin (Vitamin B-12) 1,000 MCG TABLET 1,000 MCG PO DAILY supplement Tramadol HCl 50 MG TABLET 1 TAB PO DAILY PRN PAIN (Reported) Resident Review Statement Resident Statement: examined this patient, discussed with accounting intern, agreed with accounting intern, discussed with family Other Findings: This is a 66-year-old gentleman with past medical history significant for invasive prostate adenocarcinoma with bone metastasis, status post transurethral chart resection of bladder/prostate mass on 12/26/2016, history of hematuria and profound anemia requiring blood transfusion was brought to the hospital by the police yesterday and today for delusional behavior. Upon workup in the ED, he was found to have UTI head CT was performed which was negative for any acute intracranial pathology, he was discharged on amoxicillin. Per patient, he started having episodes of hallucination 1.5 weeks ago, he attributes those episodes to his pain medication (oxycodone) which was discontinued by his physician for same reason. He describes his hallucinations as visual and admits that he can become agitated and combative during these episodes. Otherwise, he reports dysuria for the past week, occasional hematuria which is improved since last month. Physical exam at the time of admission: VSS. NAD, AAO 3, HEENT: HNCAT, PERRLA, EOMI, sclerae jaundiced. Neck: Supple, no JVD, no carotid bruit, no lymphadenopathy. CV: RRR, no murmur. Lungs: CTA BL. No CVA tenderness. Abdomen: Normal bowel sounds, soft, NT, ND. Extremities: No lower extremity edema, normal pulses, normal reflexes. Neurologic: Cranial nerves II-12 intact, [id number] intact. Pertinent lab on admission is: Hemoglobin 9.6, hematocrit 29.6, platelet 405, AST 16, alkaline phosphatase 1741, thyroid function tests within normal limits, troponin negative, positive UA, urine culture from 02/07/2017 shows gram- negative rods EKG on admission: Sinus rhythm at 97, QTC 447, no ST-T wave changes. Assessment: #Altered mental status: Likely secondary to UTI would also rule out brain metastases #Invasive prostate adenocarcinoma with bone metastasis Plan: * Admit to general medicine * Vitals per protocol * MRI of the brain to look for brain metastases or other pathology * Will check vitamin B12, folic acid,U tox * Will check blood cultures, * Will start the patient on IV ceftriaxone, Adjust antibiotic therapy based on sensitivity results * Oncology consult * One-to-one sitter for safety * Will start the patient on trazodone 25 mg bedtime when necessary for agitation * Can try a low-dose Zyprexa if patient becomes combative/agitated * Continue pain management w/ home medication of tramadol (patient reports adequate pain control while on this medication) * DVT prophylaxis with subcutaneous Lovenox * Patient is full code * Of note, patient mentions that he is not on bicalutamide anymore; he receives "monthly injections" for his prostate cancer (likely leuprolide?) and follows with Dr. Gunter. TERRY BEDOYA,OTTO 02/09/17 0756: Attending MD Review Statement Attending Statement Attending MD Statement: examined this patient, discuss w/resident/PA/IT OPERATIONS MANAGER, agreed w/resident/PA/IT OPERATIONS MANAGER, reviewed EMR data (avail), discussed with nursing, reviewed images Attending Assessment/Plan: See medical brief addendum note dated 02/08/17
[2017-02-08] MEDS ORDERED: TRAMADOL HCL50 M1 PO (18:33)
--- NOTE | 2017-02-08 18:53 | NUR ---
PT GIVEN DINNER. SPOKE WITH DTKeerthi PHILLIPS AND GAVE UPDATE ON TEST RESULTS AND PLAN FOR ADMISSION AND MRI
--- NOTE | 2017-02-08 18:53 | NUR ---
JUAN LUIS PHILLIPS [phone]
--- NOTE | 2017-02-08 18:54 | NUR ---
IN ED PT HAS RECIEVED 1 LITER OF IVF AND FIRST DOSE OF ANTIBIOTICS.
--- NOTE | 2017-02-08 20:16 | NUR ---
REPORT CALLED TO EMAL ON
--- NOTE | 2017-02-08 20:36 | NUR ---
PT TRANSFERRED UPSTAIRS
[2017-02-08 20:59] VITALS: BP 122/58
[2017-02-09 06:17] VITALS: BP 108/58
[2017-02-09 08:03] LABS: ABSOLUTE BASOPHIL COUNT 0 /CUMM (0.0-0.2); MEAN PLATELET VOLUME 7.1 FL (7.4-10.4); RBC DISTRIBUTION WIDTH 24.3 % (11.5-14.5); RED BLOOD CELL CT 2.95 /CUMM (4.70-6.10)
--- NOTE | 2017-02-09 08:05 | PN- Student ---
Subjective Subjective: Today Mr. Womack appears more coherent. He states that he feels congested and has a little chest pain when he coughs up the phlegm. He reports that his dysuria is improving and he does not see any hematuria. He reports his back pain as 5/10 when he moves. His denies any abdominal pain, extremity pain out of the norm, or problems with bowel movements. Objective Objective: Vital Signs Date Time Temp Pulse Resp B/P B/P Pulse O2 O2 Flow FiO2 Mean Ox Delivery Rate 02/09 617 98.1 75 20 108/58 95 Room Air 02/08 2059 98.4 80 18 122/58 95 Room Air 02/08 2022 97.5 80 18 107/59 93 02/08 1859 97.5 80 18 124/61 96 02/08 1830 Room Air 02/08 1546 98.6 107 20 131/74 96 Intake & Output 02/09 1600 02/09 0800 02/09 0000 Intake Total 240 Output Total Balance 240 Intake, Oral 240 Patient 123 lb Weight Notes: -Toxicology screen showed small amounts of phencyclidine (10.4) and methadone ( 44) -UA from 02/07 is growing gram negative rods -EKG showed sinus rhythm at 97 bpm, QTC of 447, no ST or T wave changes PE: general- AAO x3, cooperative, NAD HEENT- atraumatic, PERRLA, membranes moist and pink Neck- supple, no lymphadenopathy or thyromegaly, trachea is midline CV- S1 and S2 appreciated, regular rate and rhythm, no murmurs or rubs, peripheral pulses present and full Lungs- difficult to examine due to back pain, slight crackles heard with expiratory wheeze. Abdoment- soft, non-tender to palpation, not distended MSK-5/5 strength x 4 extremities, normal sensation bilaterally Skin- warm and well perfused, no lesions noted Results Results: Laboratory Tests 02/09/17 0602: Anion Gap 10, Estimated GFR > 60, BUN/Creatinine Ratio 28.3 H, CBC w Diff NO MAN DIFF REQ, RBC 2.95 L, MCV 87.8, MCH 29.1, RDW 24.3 H, MPV 7.1 L, Gran % 48.4, Lymphocytes % 36.2, Monocytes % 11.7 H, Eosinophils % 3.0, Basophils % 0.7, Absolute Granulocytes 2.7, Absolute Lymphocytes 2.0, Absolute Monocytes 0.6 , Absolute Eosinophils 0.2, Absolute Basophils 0, PUBS MCHC 33.2 02/09/17 0008: Lactic Acid 0.7 02/08/17 1723: Urine Opiates Screen < 100.00, Methadone Screen 44, Barbiturate Screen < 60, Ur Phencyclidine Scrn 10.40, Amphetamines Screen < 100, U Benzodiazepines Scrn < 85 , Urine Cocaine Screen < 50, Urine Cannabis Screen < 5.00, Urinalysis LIGHT H, Urine Color YEL, Urine Clarity TURBD H, Urine pH 6.0, Ur Specific [place] >= 1.030, Urine Protein 100 H, Urine Ketones 15 H, Urine Nitrite NEG, Urine Bilirubin NEG@ICTO, Urine Urobilinogen 1.0, Ur Leukocyte Esterase LARGE H, Ur Microscopic SEDIMENT EXAMINED, Urine RBC 10-15 H, Urine WBC PACKD H, Ur Epithelial Cells FEW, Urine Bacteria PACKD H, Urine Mucus MOD H, Urine Hemoglobin LARGE H, Urine Glucose NEG 02/08/17 1615: Anion Gap 16, Estimated GFR > 60, BUN/Creatinine Ratio 21.1, Glucose 95, Lactic Acid 1.1, Calcium 8.8, Total Bilirubin 0.7, AST 16 L, ALT 32, Alkaline Phosphatase 1741 H, Troponin I < 0.01, Total Protein 7.0, Albumin 3.9, Globulin 3.1, Albumin/Globulin Ratio 1.3, Vitamin B12 573, Folate 9.3, TSH 0.909, Free T4 1.18, PT 15.2 H, INR 1.45 H, APTT 29, CBC w Diff NO MAN DIFF REQ, RBC 3.40 L, MCV 87.0, MCH 28.2, RDW 24.2 H, MPV 6.5 L, Gran % 50.4, Lymphocytes % 32.4, Monocytes % 15.2 H, Eosinophils % 1.7, Basophils % 0.3, Absolute Granulocytes 2.5, Absolute Lymphocytes 1.6, Absolute Monocytes 0.8 H, Absolute Eosinophils 0.1, Absolute Basophils 0, PUBS MCHC 32.4 L Microbiology 02/08 1627 BLOOD: Blood Culture - RECD 02/08 1615 BLOOD: Blood Culture - RECD Assessment/Plan Assessment: Mr. Womack is a 66 yo white man with a PMH of invasive prostate cancer with bony metastasis(s/p transurethral resection of bladder mass 12/26/2016), profound anemia, constipation, Chronic back pain (on tramadol), and bilateral lower extremity weakness who was brought in by police with acute mental status change with delusional behavior and hallucinations (patient attributes to oxycodone). He has been hospitalized in the past for anemia and hematuria (12/22-12/30), and most recently for confusion and delerium related to a UTI (02/07) for which he was prescribed augmentin and discharged. UA from 02/07 grew gram negative rods and he was started on IV ceftriaxone in the ED. Toxicology reported low amounts of phencyclidine and methadone. Vitals and labs on admission to follow: -Vitals: temp- 98.6, HR- 107, RR- 20, BP- 131/74, SpO2- 96% on room air -Labs: WBC- 5.0, H/H- 9.6/29.6, Bun- 19, Field Radio Technician- 0.9, INR- 1.45, PT- 15.2, Alk. Phos.- 1741 Today Mr. Womack is alert and oriented, his pain is not too bad. His history of visual and auditory hallucinations warrant a neurological workup. Patient reports congestion and cough productive of sputum, crackles and expiratory wheezes were heard on auscultation but respiratory infection seems less likely at this point. Vitals today are temp- 98.1, HR- 75, RR- 20, BP- 108/58, SpO2-95% on room air. Labs today were H/H- 8.6/25.9, BUN- 17, Field Radio Technician- 0.6. Current Medications Sig/Sada Start time Last Medication Dose Route Stop Time Status Admin Ceftriaxone Sodium 1,000 MG DAILY 02/09 1000 AC 02/09 IV 1021 Ceftriaxone Sodium 0 .STK-MED ONE 02/08 1744 DC .ROUTE Ceftriaxone Sodium 1,000 MG ONCE ONE 02/08 1700 DC 02/08 IV 02/08 1701 1751 Cyanocobalamin 1,000 MCG DAILY 02/09 1000 AC 02/09 PO 1144 Enoxaparin Sodium 40 MG DAILY 02/08 1901 AC 02/09 SC 1021 Lorazepam 2 MG ONE ONE 02/09 1015 DC IV 02/09 1016 Lorazepam 0.5 MG ONE PRN 02/08 1930 AC PO 02/15 1929 Sodium Chloride 1,000 ML BOLUS ONE 02/08 1600 DC 02/08 IV 02/08 1659 1605 Tramadol HCl 50 MG Q6P PRN 02/08 1930 AC PO Trazodone HCl 25 MG AT BEDTIME PRN 02/08 1930 AC PO Plan: Mr. Womack's mental status change may be due to his UTI, drug intoxication or interaction, or possible brain metastasis. He seems to be more lucid today but has been getting agitated about the treatment plan. Will give 0.5mg ativan PO prn for agitation. Problem list: 1. acute mental status change, delerium, hallucinations -patient has been having auditory and visual hallucinations for over 1 week that he attributes to oxycodone. possible causes include UTI, drug intoxication/ interaction, brain mets from prostate cancer. -patient refused MRI of brain to rule out brain metastasis. -IV ceftriaxone for UTI- day2 -follow folate and B12 levels -continue B12 supplementation -trazodone 25mg at bedtime for agitation -Urine toxicology returned results above -Oncology was consulted 2. Invasive prostate cancer with bone mets -S/P transurethral resection of bladder mass -patient is on leuprolide every 3 months -has completed one month course of casodex -supposed to see radiation oncology as outpatient to discuss palliative radiation -Will provide outpatient referral for radiation oncology at discharge 3. Chronic back pain -Patient to see outpatient radiation oncology -continue tramadol treatment for pain 4. Profound anemia -continue to monitor H/H and home medications for Vit B12. Code Status: Full Diet: regular DVT prophylaxis: enoxaparin
--- NOTE | 2017-02-09 08:30 | PN- Housestaff ---
ANURADHA ZHANG 02/09/17 0830: Subjective Follow-up For: 1. Altered mental status/acute delirium 2. Invasive prostate adenocarcinoma with bony metastasis 3. Profound anemia 4. Chronic back pain Complaints: pain scale (0-10) Subjective: Patient was seen and examined this morning. He is alert, awake and oriented to time place and person. No acute events noticed overnight. He does report back pain, getting relief with tramadol. He is not willing to go to MRI because of claustrophobia We offered Ativan however he denied going to MRI scan. He reports being hallucinating. psychiatrist was consulted. He denies any fever, chills, chest pain, short of breath, nausea, vomiting, abdominal pain, change in bladder or bowel habits Vitals were stable this morning Review of Systems Constitutional: Denies: chills, diaphoresis, fever, malaise, weakness. Objective Last 24 Hrs of Vital Signs/I&O Vital Signs Date Time Temp Pulse Resp B/P B/P Pulse O2 O2 Flow FiO2 Mean Ox Delivery Rate 02/09 1139 Room Air Room Air 02/09 617 98.1 75 20 108/58 95 Room Air 02/08 2059 98.4 80 18 122/58 95 Room Air 02/08 2022 97.5 80 18 107/59 93 02/08 1859 97.5 80 18 124/61 96 02/08 1830 Room Air 02/08 1546 98.6 107 20 131/74 96 Intake & Output 02/09 1600 02/09 0800 02/09 0000 Intake Total 240 Output Total Balance 240 Intake, Oral 240 Patient 55.792 kg Weight Physical Exam General Appearance: Alert, Oriented X3, Cooperative Skin: No Rashes, No Breakdown HEENT: Atraumatic, PERRLA Neck: Supple, No JVD Lymphatic: Cervical nl Cardiovascular: Normal S1, Normal S2 Lungs: Normal Air Movement Abdomen: Normal Bowel Sounds, Soft, No Tenderness Neurological: Normal Speech, Strength at 5/5 X4 Ext, Normal Tone, Sensation Intact, Cranial Nerves 3-12 NL Extremities: No Clubbing, No Cyanosis, No Edema Vascular: Normal Pulses, Pulses Symmetrical Current Medications: Current Medications Sig/Sada Start time Last Medication Dose Route Stop Time Status Admin Ceftriaxone Sodium 1,000 MG DAILY 02/09 1000 AC 02/09 IV 1021 Ceftriaxone Sodium 0 .STK-MED ONE 02/08 1744 DC .ROUTE Ceftriaxone Sodium 1,000 MG ONCE ONE 02/08 1700 DC 02/08 IV 02/08 1701 1751 Cyanocobalamin 1,000 MCG DAILY 02/09 1000 AC 02/09 PO 1144 Enoxaparin Sodium 40 MG DAILY 02/08 1901 AC 02/08 SC 2242 Lorazepam 2 MG ONE ONE 02/09 1015 DC IV 02/09 1016 Lorazepam 0.5 MG ONE PRN 02/08 193 AC PO 02/15 1929 Patient Medication 1 ED .STK-MED ONE 02/09 1244 DC Teaching ED 02/09 1245 Sodium Chloride 1,000 ML BOLUS ONE 02/08 1600 DC 02/08 IV 02/08 1659 1605 Tramadol HCl 50 MG Q6P PRN 02/08 1930 AC PO Trazodone HCl 25 MG AT BEDTIME PRN 02/08 1930 AC PO Last 24 Hrs of Lab/J Carlos Results Last 24 Hrs of Labs/Mics: Laboratory Tests 02/09/17 0602: Anion Gap 10, Estimated GFR > 60, BUN/Creatinine Ratio 28.3 H, CBC w Diff NO MAN DIFF REQ, RBC 2.95 L, MCV 87.8, MCH 29.1, RDW 24.3 H, MPV 7.1 L, Gran % 48.4, Lymphocytes % 36.2, Monocytes % 11.7 H, Eosinophils % 3.0, Basophils % 0.7, Absolute Granulocytes 2.7, Absolute Lymphocytes 2.0, Absolute Monocytes 0.6 , Absolute Eosinophils 0.2, Absolute Basophils 0, PUBS MCHC 33.2 02/09/17 0008: Lactic Acid 0.7 02/08/17 1723: Urine Opiates Screen < 100.00, Methadone Screen 44, Barbiturate Screen < 60, Ur Phencyclidine Scrn 10.40, Amphetamines Screen < 100, U Benzodiazepines Scrn < 85 , Urine Cocaine Screen < 50, Urine Cannabis Screen < 5.00, Urinalysis LIGHT H, Urine Color YEL, Urine Clarity TURBD H, Urine pH 6.0, Ur Specific [place] >= 1.030, Urine Protein 100 H, Urine Ketones 15 H, Urine Nitrite NEG, Urine Bilirubin NEG@ICTO, Urine Urobilinogen 1.0, Ur Leukocyte Esterase LARGE H, Ur Microscopic SEDIMENT EXAMINED, Urine RBC 10-15 H, Urine WBC PACKD H, Ur Epithelial Cells FEW, Urine Bacteria PACKD H, Urine Mucus MOD H, Urine Hemoglobin LARGE H, Urine Glucose NEG 02/08/17 1615: Anion Gap 16, Estimated GFR > 60, BUN/Creatinine Ratio 21.1, Glucose 95, Lactic Acid 1.1, Calcium 8.8, Total Bilirubin 0.7, AST 16 L, ALT 32, Alkaline Phosphatase 1741 H, Troponin I < 0.01, Total Protein 7.0, Albumin 3.9, Globulin 3.1, Albumin/Globulin Ratio 1.3, Vitamin B12 573, Folate 9.3, TSH 0.909, Free T4 1.18, PT 15.2 H, INR 1.45 H, APTT 29, CBC w Diff NO MAN DIFF REQ, RBC 3.40 L, MCV 87.0, MCH 28.2, RDW 24.2 H, MPV 6.5 L, Gran % 50.4, Lymphocytes % 32.4, Monocytes % 15.2 H, Eosinophils % 1.7, Basophils % 0.3, Absolute Granulocytes 2.5, Absolute Lymphocytes 1.6, Absolute Monocytes 0.8 H, Absolute Eosinophils 0.1, Absolute Basophils 0, PUBS MCHC 32.4 L Microbiology 02/08 1627 BLOOD: Blood Culture - RECD 02/08 1615 BLOOD: Blood Culture - RECD Assessment/Plan Assessment: This is a 66-year-old gentleman with past medical history significant for invasive prostate adenocarcinoma with bony metastasis, status post transurethral resection of bladder mass, profound anemia, constipation, chronic back pain, bilateral lower extremity weakness brought to the hospital by police for acute change in mental status and delusional behavior. Vitals on admission afebrile, heart rate 107, respiratory rate 20, blood pressure 131/64, saturating at 96 on room air. Pertinent lab on admission is: Hemoglobin 9.6, hematocrit 29.6, platelet 405, AST 16, alkaline phosphatase 1741, thyroid function tests within normal limits, troponin negative, positive UA, urine culture from 02/07/2017 shows gram- negative rods EKG on admission: Sinus rhythm at 97, QTC 447, no ST-T wave changes. Problem list 1. Altered mental status/acute delirium 2. Invasive prostate adenocarcinoma with bony metastasis 3. Profound anemia 4. Chronic back pain 5. Bilateral lower extremity weakness Altered mental status/acute delirium Patient was brought to hospital with acute change in mental status and delusional behavior. History of hallucinations for past 10 days and the patient was aware of the hallucinations. He was started on oxycodone for his back pain however it was stopped because of hallucinations. The other day patient was seen in emergency room for acute delirium and was found to have UTI and was discharged on Augmentin. Altered mental status/acute delirium most possibly from urinary tract infection versus brain metastasis from prostate cancer versus medication changes. * Admitted to general medicine floor for further management of acute mental status change * Monitor vitals closely every shift * Maintain oxygen saturation the above 90% * Fall precautions * IV ceftriaxone for urinary tract infection- day2 * Urine culture positive for gram-negative rods will follow up sensitivities * follow-up B12 and folic acid- normal * Follow-up urine toxicology * Follow-up blood cultures and urine cultures * MRI brain for metastasis from prostate cancer-however patient refused MRI. * Oncology was consulted * 1-1 sitter for safety * Will start patient on trazodone 25 mg at bedtime when necessary for agitation * Continue B12 supplementation daily Metastatic Prostate cancer Patient was admitted at [facility] from 12/22 to 12/30 for anemia and hematuria. He was found to have metastatic prostate cancer with invasion into bladder wall and diffuse skeletal metastasis. He was evaluated by oncology and started on Casodex. He was advised to get bone scan and leuprolide as outpatient. He underwent transurethral resection of bladder mass on 12/26. * Completed Casodex ONE month course * He is getting leuprolide every 3 months * He is due to see radiation oncology to have discussion regarding palliative radiation to symptomatic osseous metastasis. * He will need to see them as an outpatient. * will Provide outpatient referral to radiation oncology Back pain Back pain most possibly from axial metastasis from prostate cancer * Bone scan had some evidence of diffuse osseous abnormalities without a focal area. He has no focal weakness. * Will continue pain management with home medication tramadol * We'll closely monitor for cord compression symptoms Anemia Will continue home medication B12 DVT prophylaxis subcutaneous Lovenox Full code Pain pathway tramadol Regular diet Problem List: 1. Acute delirium 2. UTI (urinary tract infection) Pain Ratin Pain Location: back pain Pain Goal: Remain pain free Pain Plan: Tramadol Tomorrow's Labs & Rationales: None SUE CHAMPAGNE 02/09/17 1215: Attending MD Review Statement Attending Statement Attending MD Statement: examined this patient, discuss w/resident/PA/LOCOMOTIVE SWITCH OPERATOR, agreed w/resident/PA/LOCOMOTIVE SWITCH OPERATOR, discussed with family, reviewed EMR data (avail), discussed with nursing, discussed with case mgmt, reviewed images, amended to note Attending Assessment/Plan: ASSESSMENT 1. Altered mental status/acute delirium with halucinations 2. Invasive prostate adenocarcinoma with bony metastasis 3. Profound anemia 4. Chronic back pain 5. Bilateral lower extremity weakness. PLAN admit to inpatient medical services oncology consulted, MRI brain , claustrophobia, sedatives needed prn trial of ativan consult pysch, supportive care, pain control. consult case management for safe d/c plans. gi/dvt prophyalxis full code.
[2017-02-09 08:32] LABS: ABSOLUTE EOSINOPHIL COUNT 0.2 /CUMM (0.0-0.7); ABSOLUTE GRANULOCYTE CT 2.7 /CUMM (1.4-6.5); ABSOLUTE MONOCYTE COUNT 0.6 /CUMM (0.10-0.60); BASOPHIL % 0.7 % (0.0-2.0); GRANULOCYTE % 48.4 % (42.2-75.2); HEMATOCRIT 25.9 % (42-52); MEAN CORPUSCULAR HGB 29.1 PG (27.0-31.0); MEAN CORPUSCULAR HGB CONC 33.2 G/DL (33.0-37.0); MEAN CORPUSCULAR VOLUME 87.8 FL (80.0-94.0); PLATELET COUNT 339 /CUMM (130-400); WHITE BLOOD CELL COUNT 5.5 /CUMM (4.8-10.8)
--- NOTE | 2017-02-09 11:46 | Cons- Oncology ---
General Information and HPI Consulting Request Date of Consult: 02/09/17 Requested By: TERRY BEDOYA,OTTO Glover Reason for Consult: metastatic prostate cancer Source of Information: patient, old records Exam Limitations: no limitations History of Present Illness: Mr. Womack is a 66-yo male with metastatic prostate cancer to bone currently on leuprolide every 3 months and vitamin B12 deficiency who presents AMS. He was seen in the ED on 02/07 for confusion and delirium symptoms. He was found to have an UTI and was discharged on Augmentin. He continue to have confusion and delirium and was sent back to ED. Per history, he was noted to have delirium, delusion, and paranoid symptoms. He had some hallucinations. Since admission, he has been started on IV antibiotic. He has improved. This morning he was alert and able to give history of hallucinations. Head CT on was negative for any lesion. Bone scan had some evidence of diffuse osseous abnormalities without a focal area. He has no focal weakness. He denies any fever or chills. He has no headaches. He denies any nausea or vomiting. He still has back pain. Allergies/Medications Allergies: Coded Allergies: aspirin (BLEEDS 12/22/16) acetaminophen (From TYLENOL) (Severe, CHEST TIGHTNESS 12/29/16) Home Med List: Amoxicillin 500 MG TABLET 1 TAB PO BID UTI Cyanocobalamin (Vitamin B-12) 1,000 MCG TABLET 1,000 MCG PO DAILY supplement Tramadol HCl 50 MG TABLET 1 TAB PO DAILY PRN PAIN (Reported) Current Medications: Current Medications Sig/Sada Start time Last Medication Dose Route Stop Time Status Admin Ceftriaxone Sodium 1,000 MG DAILY 02/09 1000 AC 02/09 IV 1021 Ceftriaxone Sodium 0 .STK-MED ONE 02/08 1744 DC .ROUTE Ceftriaxone Sodium 1,000 MG ONCE ONE 02/08 1700 DC 02/08 IV 02/08 1701 1751 Cyanocobalamin 1,000 MCG DAILY 02/09 1000 AC PO Enoxaparin Sodium 40 MG DAILY 02/08 1901 AC 02/09 SC 1021 Lorazepam 2 MG ONE ONE 02/09 1015 DC 02/09 IV 02/09 1016 1014 Lorazepam 0.5 MG ONE PRN 02/08 1930 AC PO 02/15 1929 Sodium Chloride 1,000 ML BOLUS ONE 02/08 1600 DC 02/08 IV 02/08 1659 1605 Tramadol HCl 50 MG Q6P PRN 02/08 1930 AC PO Trazodone HCl 25 MG AT BEDTIME PRN 02/08 1930 AC PO Review of Systems Review of Systems Constitutional: Reports: weakness. Denies: chills, fever. Cardiovascular: Denies: chest pain. Respiratory: Denies: short of breath. GI: Reports: abdominal pain. Denies: nausea. Neurological/Psychological: Reports: anxiety, confusion. Hematologic/Endocrine: Denies: bruising. All Other Systems: Reviewed and Negative Past History Travel History Traveled to [place] past 21 day No Medical History Blood Transfusion Hx: Yes Neurological: B/L LE wekness & ? B/L sciatica EENT: NONE Cardiovascular: NONE Respiratory: NONE Gastrointestinal: intermittent rectal bleeding post defecation , without spontaneous LGIB Hepatic: NONE Renal: B/L hydro noted 12/22/16 Musculoskeletal: chronic back pain, fracture (pathologic- spine) Psychiatric: NONE Endocrine: NONE Blood Disorders: anemia Cancer(s): prostate cancer (by CT- not yet bx proven) PIPE PULLER/Reproductive: NONE Surgical History Surgical History: none Family History Relations & Conditions If Any: MOTHER, , Age 94; Cause: Old age. FATHER, , Age 60+; Cause: MVA (motor vehicle accident). Relation not specified for: *No pertinent family history Psychosocial History Who Do You Live With? self Services at Home: None Primary Language: Korean Smoking Status: Former Smoker ETOH Use: denies use Illicit Drug Use: denies illicit drug use Living Will? no Power of Biomedical Service Engineer/HCP? no Functional Ability ADLs Independent: dressing, eating, toileting, bathing. Ambulation: independent (stairs becoming difficult) IADLs Independent: shopping, housework, finances, food prep, telephone, transportation , medication admin. Exam & Diagnostic Data Vital Signs and I&O Vital Signs Date Time Temp Pulse Resp B/P B/P Pulse O2 O2 Flow FiO2 Mean Ox Delivery Rate 02/09 617 98.1 75 20 108/58 95 Room Air 02/08 2059 98.4 80 18 122/58 95 Room Air 02/08 2022 97.5 80 18 107/59 93 02/08 185 97.5 80 18 124/61 96 02/08 1830 Room Air 02/08 154 98.6 107 20 131/74 96 Intake & Output 02/09 1600 02/09 0800 02/09 0000 Intake Total 240 Output Total Balance 240 Intake, Oral 240 Patient 55.792 kg Weight Physical Exam General Appearance: alert, awake, comfortable, thin Head: atraumatic, normal appearance Ears, Nose, Throat: normal pharynx Respiratory: normal breath sounds, chest non-tender Cardiovascular: regular rate/rhythm Gastrointestinal: normal bowel sounds, soft, non-tender Extremities: no edema Neurologic/Psych: awake, alert, oriented x 3 Skin: normal color Last 48 Hours of Lab Results: Laboratory Tests 02/09 02/09 0602 0008 Chemistry Sodium (137 - 145 mmol/L) 141 Potassium (3.5 - 5.1 mmol/L) 4.1 Chloride (98 - 107 mmol/L) 106 Carbon Dioxide (22 - 30 mmol/L) 25 Anion Gap (5 - 16) 10 BUN (9 - 20 mg/dL) 17 Creatinine (0.7 - 1.2 mg/dL) 0.6 L Estimated GFR (>60 ml/min) > 60 BUN/Creatinine Ratio (7 - 25 %) 28.3 H Lactic Acid (0.7 - 2.1 mmol/L) 0.7 Hematology CBC w Diff NO MAN DIFF REQ WBC (4.8 - 10.8 /CUMM) 5.5 RBC (4.70 - 6.10 /CUMM) 2.95 L Hgb (14.0 - 18.0 G/DL) 8.6 L Hct (42 - 52 %) 25.9 L MCV (80.0 - 94.0 FL) 87.8 MCH (27.0 - 31.0 PG) 29.1 RDW (11.5 - 14.5 %) 24.3 H Plt Count (130 - 400 /CUMM) 339 MPV (7.4 - 10.4 FL) 7.1 L Gran % (42.2 - 75.2 %) 48.4 Lymphocytes % (20.5 - 51.1 %) 36.2 Monocytes % (1.7 - 9.3 %) 11.7 H Eosinophils % (0 - 5 %) 3.0 Basophils % (0.0 - 2.0 %) 0.7 Absolute Granulocytes (1.4 - 6.5 /CUMM) 2.7 Absolute Lymphocytes (1.2 - 3.4 /CUMM) 2.0 Absolute Monocytes (0.10 - 0.60 /CUMM) 0.6 Absolute Eosinophils (0.0 - 0.7 /CUMM) 0.2 Absolute Basophils (0.0 - 0.2 /CUMM) 0 PUBS MCHC (33.0 - 37.0 G/DL) 33.2 02/08 02/08 1723 1615 Chemistry Sodium (137 - 145 mmol/L) 139 Potassium (3.5 - 5.1 mmol/L) 4.4 Chloride (98 - 107 mmol/L) 103 Carbon Dioxide (22 - 30 mmol/L) 21 L Anion Gap (5 - 16) 16 BUN (9 - 20 mg/dL) 19 Creatinine (0.7 - 1.2 mg/dL) 0.9 Estimated GFR (>60 ml/min) > 60 BUN/Creatinine Ratio (7 - 25 %) 21.1 Glucose (65 - 99 mg/dL) 95 Lactic Acid (0.7 - 2.1 mmol/L) 1.1 Calcium (8.4 - 10.2 mg/dL) 8.8 Total Bilirubin (0.2 - 1.3 mg/dL) 0.7 AST (17 - 59 U/L) 16 L ALT (21 - 72 U/L) 32 Alkaline Phosphatase (< 127 U/L) 1741 H Troponin I (<0.11 ng/ml) < 0.01 Total Protein (6.3 - 8.2 g/dL) 7.0 Albumin (3.5 - 5.0 g/dL) 3.9 Globulin (1.9 - 4.2 gm/dL) 3.1 Albumin/Globulin Ratio (1.1 - 2.2 %) 1.3 Vitamin B12 (239 - 931 pg/mL) 573 Folate (2.76 - 20.0 ng/mL) 9.3 TSH (0.270 - 4.200 uIU/mL) 0.909 Free T4 (0.78 - 2.44 ng/dL) 1.18 Coagulation PT (9.4 - 12.5 SEC) 15.2 H INR (0.90 - 1.17) 1.45 H APTT (25 - 37 SEC) 29 Hematology CBC w Diff NO MAN DIFF REQ WBC (4.8 - 10.8 /CUMM) 5.0 RBC (4.70 - 6.10 /CUMM) 3.40 L Hgb (14.0 - 18.0 G/DL) 9.6 L Hct (42 - 52 %) 29.6 L MCV (80.0 - 94.0 FL) 87.0 MCH (27.0 - 31.0 PG) 28.2 RDW (11.5 - 14.5 %) 24.2 H Plt Count (130 - 400 /CUMM) 405 H MPV (7.4 - 10.4 FL) 6.5 L Gran % (42.2 - 75.2 %) 50.4 Lymphocytes % (20.5 - 51.1 %) 32.4 Monocytes % (1.7 - 9.3 %) 15.2 H Eosinophils % (0 - 5 %) 1.7 Basophils % (0.0 - 2.0 %) 0.3 Absolute Granulocytes (1.4 - 6.5 /CUMM) 2.5 Absolute Lymphocytes (1.2 - 3.4 /CUMM) 1.6 Absolute Monocytes (0.10 - 0.60 /CUMM) 0.8 H Absolute Eosinophils (0.0 - 0.7 /CUMM) 0.1 Absolute Basophils (0.0 - 0.2 /CUMM) 0 PUBS MCHC (33.0 - 37.0 G/DL) 32.4 L Toxicology Urine Opiates Screen (>2000 NG/ML) < 100.00 Methadone Screen (>300 NG/ML) 44 Barbiturate Screen (>200 NG/ML) < 60 Ur Phencyclidine Scrn (>25 NG/ML) 10.40 Amphetamines Screen (>1000 NG/ML) < 100 U Benzodiazepines Scrn (>200 NG/ML) < 85 Urine Cocaine Screen (>300 NG/ML) < 50 Urine Cannabis Screen (>50 NG/ML) < 5.00 Urines Urinalysis LIGHT H Urine Color (YEL,AMB,STR) YEL Urine Clarity (CLEAR) TURBD H Urine pH (5.0 - 8.0) 6.0 Ur Specific [place] (1.001 - 1.035) >= 1.030 Urine Protein (NEG,<30 MG/DL) 100 H Urine Ketones (NEG) 15 H Urine Nitrite (NEG) NEG Urine Bilirubin (NEG) NEG@ICTO Urine Urobilinogen (0.1 - 1.0 EU/dl) 1.0 Ur Leukocyte Esterase (NEG) LARGE H Ur Microscopic SEDIMENT EXAMINED Urine RBC (0 - 5 /HPF) 10-15 H Urine WBC (0 - 2 /HPF) PACKD H Ur Epithelial Cells (NONE,FEW) FEW Urine Bacteria (NEG/NONE) PACKD H Urine Mucus (FEW,NONE) MOD H Urine Hemoglobin (NEG) LARGE H Urine Glucose (N MG/DL) NEG Assessment/Plan Assessment: Mr. Womack is a 66-yo male with metastatic prostate cancer to the bone and invasion into bladder who presented to the hospital with altered mental status with delirium. He was noted to have hallucination and confusion. He was noted to have an UTI. He is currently being treated with IV antibiotic. Confusion seem to have improved this morning. MRI of the head may be reasonable. Intracranial metastasis is less likely. Dural and skull metastases have been seen with prostate cancer. He has no focal deficit at the moment. Symptoms may be related to pain medications or infection. His prostate cancer seem to be improving with leuprolide. He has completed his month of Casodex. He is getting leuprolide every 3 months. He is due to see radiation oncology to have discussion regarding palliative radiation to symptomatic osseous metastasis. He will need to see them as an outpatient. He has also been noted to have vitamin B12 deficiency. He is suppose to be on vitamin B12 supplement. Level can be check to see if he still deficient. Vitamin B12 deficiency may trigger neurological issue. Recommendations: 1. MRI head 2. Continue vitamin B12 3. Pain control as per primary 4. Radiation oncology consult as an outpatient 5. Follow up as outpatient after discharge Problem List: 1. UTI (urinary tract infection) 2. Acute confusion due to infection 3. Prostate CA 4. Bony metastasis Other Findings/Comments: Please call [phone] with any questions or concerns. Consult Acknowledgment - Thank you for your consult request.
[2017-02-09 14:15] VITALS: BP 110/58
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
[2017-02-09 21:56] VITALS: BP 130/60
[2017-02-10 07:23] VITALS: BP 110/62
--- NOTE | 2017-02-10 08:11 | PN- Student ---
Subjective Subjective: Today Mr. Womack is feeling much better. He reports that he slept well last night and that he is currently in no pain. His only complaint is some swelling in his right jaw that he believes is an abcess as he has had them in the past. He denies any chest pain, palpitations, anxiety, headaches, fevers, abdominal pain, N/V/D, dysuria, or problems with bowel movements. He has agreed to an MRI of the head although he is still worried that he'll have hallucinations if he does not have someone with him during the procedure. He stated that he did not want any medication prior to the MRI. Objective Objective: Vital Signs Date Time Temp Pulse Resp B/P B/P Pulse O2 O2 Flow FiO2 Mean Ox Delivery Rate 02/10 0723 98.5 74 22 110/62 95 02/09 2156 98.3 84 20 130/60 96 02/09 1415 98.2 79 20 110/58 96 Room Air 02/09 1139 Room Air Room Air Intake & Output 02/10 1600 02/10 0800 02/10 0000 Intake Total 100 100 Output Total Balance 100 100 Intake, Oral 100 100 Notes from admission: -Toxicology screen showed small amounts of phencyclidine (10.4) and methadone ( 44) -UA from 02/07 is growing gram negative rods -EKG showed sinus rhythm at 97 bpm, QTC of 447, no ST or T wave changes PE: general- AAO x3, cooperative, NAD HEENT- atraumatic, PERRLA, Swelling that is tender on right mandible, membranes are moist and pink with some erythema noticed on the right side associated with the swelling. Patient had all his teeth pulled on the bottom in the past. Neck- supple, no lymphadenopathy or thyromegaly, trachea is midline CV- S1 and S2 appreciated, regular rate and rhythm, no murmurs or rubs, peripheral pulses present and full Lungs- equal chest rise bilaterally, vesicular breath sounds heard, good air movement Abdoment- soft, non-tender to palpation, not distended MSK-5/5 strength x 4 extremities, normal sensation bilaterally Skin- warm and well perfused, no lesions noted Results Results: Laboratory Tests 02/09/17 0602: Anion Gap 10, Estimated GFR > 60, BUN/Creatinine Ratio 28.3 H, CBC w Diff NO MAN DIFF REQ, RBC 2.95 L, MCV 87.8, MCH 29.1, RDW 24.3 H, MPV 7.1 L, Gran % 48.4, Lymphocytes % 36.2, Monocytes % 11.7 H, Eosinophils % 3.0, Basophils % 0.7, Absolute Granulocytes 2.7, Absolute Lymphocytes 2.0, Absolute Monocytes 0.6 , Absolute Eosinophils 0.2, Absolute Basophils 0, PUBS MCHC 33.2 02/09/17 0008: Lactic Acid 0.7 02/08/17 1723: Urine Opiates Screen < 100.00, Methadone Screen 44, Barbiturate Screen < 60, Ur Phencyclidine Scrn 10.40, Amphetamines Screen < 100, U Benzodiazepines Scrn < 85 , Urine Cocaine Screen < 50, Urine Cannabis Screen < 5.00, Urinalysis LIGHT H, Urine Color YEL, Urine Clarity TURBD H, Urine pH 6.0, Ur Specific [place] >= 1.030, Urine Protein 100 H, Urine Ketones 15 H, Urine Nitrite NEG, Urine Bilirubin NEG@ICTO, Urine Urobilinogen 1.0, Ur Leukocyte Esterase LARGE H, Ur Microscopic SEDIMENT EXAMINED, Urine RBC 10-15 H, Urine WBC PACKD H, Ur Epithelial Cells FEW, Urine Bacteria PACKD H, Urine Mucus MOD H, Urine Hemoglobin LARGE H, Urine Glucose NEG 02/08/17 1615: Anion Gap 16, Estimated GFR > 60, BUN/Creatinine Ratio 21.1, Glucose 95, Lactic Acid 1.1, Calcium 8.8, Total Bilirubin 0.7, AST 16 L, ALT 32, Alkaline Phosphatase 1741 H, Troponin I < 0.01, Total Protein 7.0, Albumin 3.9, Globulin 3.1, Albumin/Globulin Ratio 1.3, Vitamin B12 573, Folate 9.3, TSH 0.909, Free T4 1.18, PT 15.2 H, INR 1.45 H, APTT 29, CBC w Diff NO MAN DIFF REQ, RBC 3.40 L, MCV 87.0, MCH 28.2, RDW 24.2 H, MPV 6.5 L, Gran % 50.4, Lymphocytes % 32.4, Monocytes % 15.2 H, Eosinophils % 1.7, Basophils % 0.3, Absolute Granulocytes 2.5, Absolute Lymphocytes 1.6, Absolute Monocytes 0.8 H, Absolute Eosinophils 0.1, Absolute Basophils 0, PUBS MCHC 32.4 L Microbiology 02/08 1627 BLOOD: Blood Culture - RES 02/08 161 BLOOD: Blood Culture - RES Assessment/Plan Assessment: Mr. Womack is a 66 yo white man with a PMH of invasive prostate cancer with bony metastasis(s/p transurethral resection of bladder mass 12/26/2016), profound anemia, constipation, Chronic back pain (on tramadol), and bilateral lower extremity weakness who was brought in by police with acute mental status change with delusional behavior and hallucinations (patient attributes to oxycodone). He has been hospitalized in the past for anemia and hematuria (12/22-12/30), and most recently for confusion and delerium related to a UTI (02/07) for which he was prescribed augmentin and discharged. UA from 02/07 grew gram negative rods and he was started on IV ceftriaxone in the ED. Toxicology reported low amounts of phencyclidine and methadone. Vitals and labs on admission to follow: -Vitals: temp- 98.6, HR- 107, RR- 20, BP- 131/74, SpO2- 96% on room air -Labs: WBC- 5.0, H/H- 9.6/29.6, Bun- 19, Program Coordinator- 0.9, INR- 1.45, PT- 15.2, Alk. Phos.- 1741 Today patient is feeling much better. His mental status has been stable since admission and his UTI appears to be resolving well. He presents today with some swelling of his right mandible that is sore to palpation. Patient attributes it to an abscess as he has had them in the past. He has had his teeth pulled on the bottom in the past due to abscesses and trauma as per patient. Otherwise his vitals are stable temp- 98.5, HR- 74, RR- 22, BP-110/62, SpO2-95% on room air. Current Medications Sig/Sada Start time Last Medication Dose Route Stop Time Status Admin Calcium Carbonate 500 MG Q2 HRS NEEDED PRN 02/09 1615 AC 02/09 PO 1846 Calcium Carbonate 500 MG DAILY 02/09 1515 DC PO Ceftriaxone Sodium 1,000 MG DAILY 02/09 1000 AC 02/10 IV 1108 Cyanocobalamin 1,000 MCG DAILY 02/09 1000 AC 06/02 PO 1108 Enoxaparin Sodium 40 MG DAILY 02/08 190 AC 02/10 SC 1108 Lorazepam 0.5 MG ONE PRN 02/08 1930 AC PO 02/15 1929 Melatonin 10 MG AT BEDTIME 02/09 2200 AC 02/09 PO 2134 Olanzapine 2.5 MG Q8P PRN 02/09 1500 AC PO Ondansetron HCl 4 MG Q6P PRN 02/09 1500 AC IV Tramadol HCl 50 MG Q6P PRN 02/08 1930 AC 02/09 PO 2134 Trazodone HCl 25 MG AT BEDTIME PRN 02/08 1930 DC PO Plan: Psych and oncology are on board and will continue to follow notes and recommendations. Patient is improving in symptomology and is agreeable to current treatment plan. Psych recommendations: -Continue psychotropics as currently ordered. olanzapine 2.5 mg Q8P PO -Continue with plan for referral to [facility] Center support groups and consider outpatient psychiatry therapy is agreeable. Will provide contact info for Sparkle Holden LCSW. -Please continue to avoid benzodiazepines, opioid analgesics, and meds with strong anticholinergic properties as much as possible to prevent further confusion. -Please continue the following nonpharmacologic interventions: -Avoid nursing and medical procedures during sleep hours whenever possible - Cluster at night interventions that must be completed as much as possible to minimize sleep disruption - Decrease noise patient area during sleeping hours - Reduce lighting at night - Ensure patient has any sensory aids close by that he regularly uses -We will continue to assess for depression and anxiety related to his cancer diagnosis. -discontinue trazadone and use melatonin instead Oncology recommendations: -MRI of head -continue B12 -continue pain control -radiation oncology as outpatient -follow up as outpatient on discharge -continue to monitor for anxiety and depression related to cancer diagnosis Problem list: 1. acute mental status change, delerium, hallucinations -patient has been having auditory and visual hallucinations for over 1 week that he attributes to oxycodone. possible causes include UTI, drug intoxication/ interaction, brain mets from prostate cancer. -patient agreed to MRI of brain and face to rule out brain metastasis and assess swelling of jaw. -IV ceftriaxone for UTI- day3 -olanzapine 2.5 mg Q8P PO -follow folate and B12 levels -continue B12 supplementation -trazodone 25mg at bedtime discontinued, Melatonin used instead -Urine toxicology returned results above -Oncology was consulted 2. Invasive prostate cancer with bone mets -S/P transurethral resection of bladder mass -patient is on leuprolide every 3 months -has completed one month course of casodex -supposed to see radiation oncology as outpatient to discuss palliative radiation -Will provide outpatient referral for radiation oncology at discharge 3. Chronic back pain -Patient to see outpatient radiation oncology -continue tramadol treatment for pain 4. Profound anemia -continue to monitor H/H and home medications for Vit B12. Code Status: Full Diet: regular DVT prophylaxis: enoxaparin 4. Profound anemia -continue to monitor H/H and home medications for Vit B12. Code Status: Full Diet: regular DVT prophylaxis: enoxaparin
--- NOTE | 2017-02-10 08:15 | PN- Housestaff ---
ANURADHA ZHANG 02/10/17 0815: Subjective Follow-up For: 1. Altered mental status/acute delirium 2. Invasive prostate adenocarcinoma with bony metastasis 3. Profound anemia 4. Chronic back pain 5. Right mandible swelling Complaints: pain scale (0-10) Subjective: Patient was seen and examined this morning. He is alert, awake and oriented to time place and person. No acute events noticed overnight. He does report back pain, getting relief with tramadol. He is willing to go to MRI today He reports being hallucinating. psychiatrist was consulted. Patient reports right side of the face swelling associated with pain and redness. Denies any difficulty swallowing. Denies any difficulty speaking. He denies any fever, chills, chest pain, short of breath, nausea, vomiting, abdominal pain, change in bladder or bowel habits Vitals were stable this morning Review of Systems Constitutional: Denies: chills, diaphoresis, fever, malaise. Objective Last 24 Hrs of Vital Signs/I&O Vital Signs Date Time Temp Pulse Resp B/P B/P Pulse O2 O2 Flow FiO2 Mean Ox Delivery Rate 02/10 1517 98.8 80 20 100/62 96 Room Air 02/10 0723 98.5 74 22 110/62 95 06/ 2156 98.3 84 20 130/60 96 Intake & Output 02/10 1600 02/10 0800 02/10 0000 Intake Total 840 100 100 Output Total Balance 840 100 100 Intake, Oral 840 100 100 Physical Exam General Appearance: Alert, Oriented X3, Cooperative, No Acute Distress Skin: right face swelling HEENT: Atraumatic, PERRLA, EOMI, Mucous Membr. moist/pink Neck: Supple, No JVD Lymphatic: Cervical nl Cardiovascular: Normal S1, Normal S2 Lungs: Normal Air Movement Abdomen: Normal Bowel Sounds, Soft, No Tenderness Extremities: No Clubbing, No Cyanosis, No Edema Vascular: Pulses Symmetrical Current Medications: Current Medications Sig/Sada Start time Last Medication Dose Route Stop Time Status Admin Calcium Carbonate 500 MG Q2 HRS NEEDED PRN 02/09 1615 AC 02/10 PO 1641 Ceftriaxone Sodium 1,000 MG DAILY 02/09 1000 AC 02/10 IV 1108 Cyanocobalamin 1,000 MCG DAILY 02/09 1000 AC 02/10 PO 1108 Enoxaparin Sodium 40 MG DAILY 02/08 1901 AC 02/10 SC 1108 Lorazepam 0.5 MG ONE PRN 02/08 1930 AC PO 02/15 1929 Melatonin 10 MG AT BEDTIME 02/090 AC 02/09 PO 2134 Olanzapine 2.5 MG Q8P PRN 02/09 1500 AC PO Ondansetron HCl 4 MG Q6P PRN 02/09 1500 AC IV Tramadol HCl 50 MG Q6P PRN 02/08 1930 AC 02/09 PO 2134 Assessment/Plan Assessment: This is a 66-year-old gentleman with past medical history significant for invasive prostate adenocarcinoma with bony metastasis, status post transurethral resection of bladder mass, profound anemia, constipation, chronic back pain, bilateral lower extremity weakness brought to the hospital by police for acute change in mental status and delusional behavior. Vitals on admission afebrile, heart rate 107, respiratory rate 20, blood pressure 131/64, saturating at 96 on room air. Pertinent lab on admission is: Hemoglobin 9.6, hematocrit 29.6, platelet 405, AST 16, alkaline phosphatase 1741, thyroid function tests within normal limits, troponin negative, positive UA, urine culture from 02/07/2017 shows gram- negative rods EKG on admission: Sinus rhythm at 97, QTC 447, no ST-T wave changes. Problem list 1. Altered mental status/acute delirium 2. Invasive prostate adenocarcinoma with bony metastasis 3. Profound anemia 4. Chronic back pain 5. Bilateral lower extremity weakness Altered mental status/acute delirium Patient was brought to hospital with acute change in mental status and delusional behavior. History of hallucinations for past 10 days and the patient was aware of the hallucinations. He was started on oxycodone for his back pain however it was stopped because of hallucinations. The other day patient was seen in emergency room for acute delirium and was found to have UTI and was discharged on Augmentin. Altered mental status/acute delirium most possibly from urinary tract infection versus brain metastasis from prostate cancer versus medication changes. * Admitted to general medicine floor for further management of acute mental status change * Monitor vitals closely every shift * Maintain oxygen saturation the above 90% * Fall precautions * IV ceftriaxone for urinary tract infection- day3 * Urine culture positive for gram-negative rods -Klebsiella sensitive to ceftriaxone * follow-up B12 and folic acid- normal * Follow-up urine toxicology * Follow-up blood cultures and urine cultures * MRI brain for metastasis from prostate cancer-pending * Oncology was consulted * 1-1 sitter for safety * Will start patient on olanzapine when necessary for agitation * Continue B12 supplementation daily Metastatic Prostate cancer Patient was admitted at [facility] from 12/22 to 12/30 for anemia and hematuria. He was found to have metastatic prostate cancer with invasion into bladder wall and diffuse skeletal metastasis. He was evaluated by oncology and started on Casodex. He was advised to get bone scan and leuprolide as outpatient. He underwent transurethral resection of bladder mass on 12/26. * Completed Casodex ONE month course * He is getting leuprolide every 3 months * He is due to see radiation oncology to have discussion regarding palliative radiation to symptomatic osseous metastasis. * He will need to see them as an outpatient. * will Provide outpatient referral to radiation oncology Back pain Back pain most possibly from axial metastasis from prostate cancer * Bone scan had some evidence of diffuse osseous abnormalities without a focal area. He has no focal weakness. * Will continue pain management with home medication tramadol * We'll closely monitor for cord compression symptoms Anemia Will continue home medication B12 Hallucinations 1. Continue psychotropics-elanzepine every 8 hours as needed for agitation 2. Continue with plan for referral to Cancer Center support groups and consider outpatient psychiatry therapy is agreeable. Will provide contact info for Sparkle Holden LCSW. 3. Please continue to avoid benzodiazepines, opioid analgesics, and meds with strong anticholinergic properties as much as possible to prevent further confusion. 4. Please continue the following nonpharmacologic interventions: -Avoid nursing and medical procedures during sleep hours whenever possible - Cluster at night interventions that must be completed as much as possible to minimize sleep disruption - Decrease noise patient area during sleeping hours - Reduce lighting at night - Ensure patient has any sensory aids close by that he regularly uses New right buccal swelling Patient reports new right buccal swelling associated with pain and redness.This may be an obstructed parotid duct vs abscess. Imaging of this may be reasonable. * Planning to get MRI head for possible metastasis * Will get MRI face for right buccal swelling DVT prophylaxis subcutaneous Lovenox Full code Pain pathway tramadol Regular diet Problem List: 1. Acute delirium 2. UTI (urinary tract infection) 3. Prostate CA Pain Ratin Pain Location: back pain Pain Goal: Remain pain free Pain Plan: Tramadol Tomorrow's Labs & Rationales: cbc in the setting of infection SUE CHAMPAGNE 02/10/17 1130: Attending MD Review Statement Attending Statement Attending MD Statement: examined this patient, discuss w/resident/PA/DRONE OPERATOR, agreed w/resident/PA/DRONE OPERATOR, discussed with family, reviewed EMR data (avail), discussed with nursing, discussed with case mgmt, reviewed images, amended to note Attending Assessment/Plan: ASSESSMENT 1. Altered mental status/acute delirium with halucinations 2. Invasive prostate adenocarcinoma with bony metastasis 3. Profound anemia 4. Chronic back pain 5. Bilateral lower extremity weakness. PLAN admit to inpatient medical services oncology consulted, MRI brain , claustrophobia, sedatives needed prn trial of ativan consult reggie, added olanzapine, supportive care, pain control. consult case management for safe d/c plans. gi/dvt prophyalxis full code.
--- NOTE | 2017-02-10 08:26 | PN- Psychiatry ---
Assessment/Plan Impression: Identifying Info: 66-year-old male with a recent prostate cancer diagnosis since [facility] emergency department on 02/08/2017 with chief complaint of altered mental status including paranoia and hallucinations. He was admitted to medicine for evaluation and consult rquested for hallucinations and delusions. SUBJECTIVE "I feel good today, have a different attitude." Pt reports he has agreed to MRI today. He declines medication for anxiety. States he feels on last attempt it made him feel unwell. No complaints. States he slept "great," with no overnight hallucinations, delusions, or "dreams that felt too real." Brief ROS Gait: Steady Sleep: Adequate without nightmares Appetite: Adequate OBJECTIVE Mental Status Exam Presentation/Appearance: Cooperative with evaluation. Hospital garb. Lying in bed Orientation: x4 Sensorium: Intially somnolent but arousable Eye contact: Appropriate Affect: Somewhat constricted, tearful at times Mood: "I feel good." Depression: Denies Anxiety: Denies Thought Content: - Denies SI/HI/AVH/PI. States and also believes they will not kill themselves. - Denies Hopeless/Helpless Thoughts Thought Process: Linear Associations: Appropriate Speech: Normal tone and rate Judgment: Intact Insight: Intact Cognition: Memory: Endorses deficits Attention/Concentration: Grossly intact, some minor deficits on intial eval Fund of Knowledge: Adequate Abstractions: Did not assess MMSE: Did not assess ASSESSMENT Diagnosis Delirium due to multiple etiologies, mild Rule out unspecified neurocognitive disorder Rule out psychotic disorder due to another medical condition Rule out adjustment disorder Rule out depressive disorder due to another medical condition A total of 30 minutes was spent with the patient with more than 50% of the time spent in counseling and/or coordination of care. Suggestion: 1. Continue psychotropics as currently ordered. 2. Continue with plan for referral to Cancer Center support groups and consider outpatient psychiatry therapy is agreeable. Will provide contact info for Sparkle Holden LCSW. 3. Please continue to avoid benzodiazepines, opioid analgesics, and meds with strong anticholinergic properties as much as possible to prevent further confusion. 4. Please continue the following nonpharmacologic interventions: -Avoid nursing and medical procedures during sleep hours whenever possible - Cluster at night interventions that must be completed as much as possible to minimize sleep disruption - Decrease noise patient area during sleeping hours - Reduce lighting at night - Ensure patient has any sensory aids close by that he regularly uses 5. We will continue to assess for depression and anxiety related to his cancer diagnosis. Thank you for including psychiatry in this case we'll continue to follow Subjective Subjective: as above Objective Last 24 Hrs of Vital Signs/I&O Current Medications Sig/Sada Start time Last Medication Dose Route Stop Time Status Admin Calcium Carbonate 500 MG Q2 HRS NEEDED PRN 02/09 1615 AC 02/09 PO 1846 Calcium Carbonate 500 MG DAILY 02/09 1515 DC PO Ceftriaxone Sodium 1,000 MG DAILY 02/09 1000 AC 02/09 IV 1021 Cyanocobalamin 1,000 MCG DAILY 02/09 1000 AC 02/09 PO 1144 Enoxaparin Sodium 40 MG DAILY 02/08 1901 AC 02/09 SC 1445 Lorazepam 2 MG ONE ONE 02/09 1015 DC IV 02/09 1016 Lorazepam 0.5 MG ONE PRN 02/08 1930 AC PO 02/15 1929 Melatonin 10 MG AT BEDTIME 02/09 2200 AC 02/09 PO 2135 Olanzapine 2.5 MG Q8P PRN 02/09 1500 AC PO Ondansetron HCl 4 MG Q6P PRN 02/09 1500 AC IV Patient Medication 1 ED .[facility]-MED ONE 02/09 1244 DC Teaching ED 02/09 1245 Tramadol HCl 50 MG Q6P PRN 02/08 1930 AC 02/09 PO 2135 Trazodone HCl 25 MG AT BEDTIME PRN 02/08 1930 DC PO Vital Signs Date Time Temp Pulse Resp B/P B/P Pulse O2 O2 Flow FiO2 Mean Ox Delivery Rate 02/10 723 98.5 74 22 110/62 95 02/09 2156 98.3 84 20 130/60 96 02/09 1415 98.2 79 20 110/58 96 Room Air 02/09 1139 Room Air Room Air Intake & Output 02/10 1600 02/10 0800 02/10 0000 Intake Total 100 100 Output Total Balance 100 100 Intake, Oral 100 100
--- NOTE | 2017-02-10 11:20 | Patient Discharge Instructions ---
Discharge Instructions General Discharge Information You were seen/treated for: Acute delirium secondary to UTI Hallucinations Metastatic prostate cancer You had these procedures: none Special Instructions: We have scheduled you an appointment with Dr. Pablo MD on 02/28/17 at 11 AM in [place]. [address] [place] [address], [place], [place], on [address]. Follow-up with your oncologist Dr. Lyric MD later this week. Follow-up radiation oncologist next at your scheduled appointment. Please continue to avoid benzodiazepines, opioid analgesics, and meds with strong anticholinergic properties as much as possible to prevent further confusion. Please continue the following nonpharmacologic interventions: - Cluster at night interventions that must be completed as much as possible to minimize sleep disruption - Reduce lighting at night - Ensure patient has any sensory aids close by that he regularly uses Large dental caries involving the only remaining right mandibular tooth most likely a premolar- PLEASE follow-up with dentist in one week. Continue augmentin for this. Diet Continue normal diet: Yes Activity Full Activity/No Limits: Yes Acute Coronary Syndrome Inclusion Criteria At DC or during hospital stay patient has or had the following: ACS DIAGNOSIS No Discharge Core Measures Meds if any: Prescribed or Continued at Discharge Meds if any: NOT Prescribed or Continued at Discharge Congestive Heart Failure Inclusion Criteria At DC or during hospital stay patient has or had the following: CHF DIAGNOSIS No Discharge Core Measures Meds if any: Prescribed or Continued at Discharge Meds if any: NOT Prescribed or Continued at Discharge Cerebrovascular accident Inclusion Criteria At DC or during hospital stay patient has or had the following: CVA/TIA Diagnosis No Discharge Core Measures Meds if any: Prescribed or Continued at Discharge Meds if any: NOT Prescribed or Continued at Discharge Venous thromboembolism Inclusion Criteria VTE Diagnosis No VTE Type NONE VTE Confirmed by (Test) NONE Discharge Core Measures - Per Current guidelines, there needs to be overlap - treatment for the first 5 days of Warfarin therapy. - If discharged on Warfarin prior to 5 days of - overlap therapy, the patient will need to be - assessed for post discharge needs including - *Post discharge parental anticoagulation - *Warfarin and/or parental anticoagulation education - *Follow up date to check INR post discharge At least 5 days overlap therapy as Inpatient No Meds if any: Prescribed or Continued at Discharge Note: Overlap Therapy is Warfarin and Anticoagulant Meds if any: NOT Prescribed or Continued at Discharge
--- NOTE | 2017-02-10 11:41 | PN- Oncology ---
Subjective Subjective: He reports having right side face swelling and mild pain. He denies any other new pain. He denies any fever or chills. He has no nausea or vomiting. He still feels a little confused. Review of Systems Constitutional: Denies: chills, fever. EENTM: Reports: see HPI. Cardiovascular: Denies: chest pain. Gastrointestinal: Denies: abdominal pain. Musculoskeletal: Reports: back pain, joint pain, muscle pain. Neurological/Psychological: Reports: confusion. All Other Systems: Reviewed and Negative Objective Vital Signs and I&Os Vital Signs Date Time Temp Pulse Resp B/P B/P Pulse O2 O2 Flow FiO2 Mean Ox Delivery Rate 02/10 0723 98.5 74 22 110/62 95 02/09 2156 98.3 84 20 130/60 96 02/09 1415 98.2 79 20 110/58 96 Room Air 02/09 1139 Room Air Room Air Intake & Output 02/10 1600 02/10 0800 02/10 0000 02/09 1600 02/09 0800 02/09 0000 Intake Total 100 100 840 240 Output Total Balance 100 100 840 240 Intake, Oral 100 100 840 240 Patient 55.792 kg Weight Physical Exam: General Appearance: alert, awake, comfortable, thin Head: atraumatic, normal appearance Ears, Nose, Throat: firm, swollen right bucccal region Respiratory: normal breath sounds, chest non-tender Cardiovascular: regular rate/rhythm Gastrointestinal: normal bowel sounds, soft, non-tender Extremities: no edema Neurologic/Psych: awake, alert, oriented x 3 Skin: normal color Current Medications: Current Medications Sig/Sada Start time Last Medication Dose Route Stop Time Status Admin Calcium Carbonate 500 MG Q2 HRS NEEDED PRN 02/09 1615 AC 02/09 PO 1846 Calcium Carbonate 500 MG DAILY 02/09 1515 DC PO Ceftriaxone Sodium 1,000 MG DAILY 02/09 1000 AC 02/10 IV 1108 Cyanocobalamin 1,000 MCG DAILY 02/09 1000 AC 02/10 PO 1108 Enoxaparin Sodium 40 MG DAILY 02/08 1901 AC 02/10 SC 1108 Lorazepam 0.5 MG ONE PRN 02/08 1930 AC PO 02/15 192 Melatonin 10 MG AT BEDTIME 02/09 2200 AC 02/09 PO 2135 Olanzapine 2.5 MG Q8P PRN 02/09 1500 AC PO Ondansetron HCl 4 MG Q6P PRN 02/09 1500 AC IV Patient Medication [address]-MED ONE 02/09 1244 DC Teaching ED 02/09 1245 Tramadol HCl 50 MG Q6P PRN 02/08 1930 AC 02/09 PO 2135 Trazodone HCl 25 MG AT BEDTIME PRN 02/08 1930 DC PO Assessment/Plan Assessment/Recommendations: Mr. Womack is a 66-yo male with metastatic prostate cancer to the bone and invasion into bladder who presented to the hospital with altered mental status with delirium. He was noted to have hallucination and confusion. He was noted to have an UTI. He is currently being treated with IV antibiotic. He has new right buccal swelling with mild pain. This may be an obstructed parotid duct vs abscess. Imaging of this may be reasonable. If he is getting MRI of the head, this may be included in the field. CT head may also be done. He continues to have some mild confusion and hallucination. 1. MRI head/face with contrast or CT head/mandibular with contrast 2. Continue vitamin B12 3. Radiation oncology consult as an outpatient 4. Follow up as outpatient after discharge Please call [phone] with any questions/concerns. Problem List: 1. Acute delirium 2. UTI (urinary tract infection) 3. Acute confusion due to infection 4. Prostate CA 5. Bony metastasis
[2017-02-10 15:17] VITALS: BP 100/62
[2017-02-10] MEDS ORDERED: MELATONIN5 M7 PO (20:05)
[2017-02-10] MEDS ORDERED: OLANZAPINE2.5 M1 PO (20:07)
[2017-02-10 22:27] VITALS: BP 115/64
[2017-02-11 06:48] VITALS: BP 108/56
--- NOTE | 2017-02-11 07:57 | PN- Housestaff ---
MILLI BEDOYA,AILYN 02/11/17 0756: Subjective Follow-up For: 1. Altered mental status/acute delirium 2. Invasive prostate adenocarcinoma with bony metastasis 3. Profound anemia 4. Chronic back pain 5. Right mandible swelling Complaints: no complaints Subjective: Patient is seen and examined at the bedside. He was oriented to time, place and person. He thinks the swelling on the right side of the face has been decreased. Review of Systems Constitutional: Denies: no symptoms. EENTM: Reports: no symptoms (right-sided facial swelling). Cardiovascular: Denies: no symptoms. Respiratory: Denies: no symptoms. Objective Last 24 Hrs of Vital Signs/I&O Vital Signs Date Time Temp Pulse Resp B/P B/P Pulse O2 O2 Flow FiO2 Mean Ox Delivery Rate 02/11 1459 98.4 71 20 100/58 96 Room Air 02/11 0648 98.2 77 20 108/56 96 Room Air 02/10 2227 98.2 78 20 115/64 95 Room Air Intake & Output 02/11 1600 02/11 0800 02/11 0000 Intake Total 120 240 Output Total Balance 120 240 Intake, Oral 120 240 Physical Exam General Appearance: Alert, Oriented X3, Cooperative, No Acute Distress HEENT: right-sided facial swelling Neck: Supple, No JVD Cardiovascular: Normal S1, Normal S2 Lungs: Clear to Auscultation, Normal Air Movement Abdomen: Soft, No Tenderness Neurological: Normal Speech Extremities: No Clubbing, No Cyanosis, No Edema Vascular: Normal Pulses, Pulses Symmetrical Current Medications: Current Medications Sig/Sada Start time Last Medication Dose Route Stop Time Status Admin Calcium Carbonate 500 MG Q2 HRS NEEDED PRN 02/09 1615 AC 02/10 PO 2020 Ceftriaxone Sodium 1,000 MG DAILY 02/09 1000 AC 02/11 IV 1122 Cyanocobalamin 1,000 MCG DAILY 02/09 1000 AC 02/11 PO 1122 Enoxaparin Sodium 40 MG DAILY 02/08 190 AC 02/11 SC 1122 Lorazepam 0.5 MG ONE PRN 02/08 1930 AC PO 02/15 192 Melatonin 10 MG AT BEDTIME 02/09 2200 AC 02/10 PO 2125 Olanzapine 2.5 MG Q8P PRN 02/09 1500 AC PO Omeprazole 40 MG DAILY AC 02/11 0700 AC 02/11 PO 0654 Ondansetron HCl 4 MG Q6P PRN 02/09 1500 AC IV Tramadol HCl 50 MG Q6P PRN 02/08 1930 AC 02/11 PO 0646 Last 24 Hrs of Lab/J Carlos Results Last 24 Hrs of Labs/Mics: Laboratory Tests 02/11/17 0635: CBC w Diff NO MAN DIFF REQ, RBC 3.08 L, MCV 87.8, MCH 28.8, RDW 24.0 H, MPV 7.4, Gran % 57.8, Lymphocytes % 28.9, Monocytes % 10.2 H, Eosinophils % 2.8, Basophils % 0.3, Absolute Granulocytes 3.8, Absolute Lymphocytes 1.9, Absolute Monocytes 0.7 H, Absolute Eosinophils 0.2, Absolute Basophils 0, PUBS MCHC 32.8 L Assessment/Plan Assessment: This is a 66-year-old gentleman with past medical history significant for invasive prostate adenocarcinoma with bony metastasis, status post transurethral resection of bladder mass, profound anemia, constipation, chronic back pain, bilateral lower extremity weakness brought to the hospital by police for acute change in mental status and delusional behavior. Vitals on admission afebrile, heart rate 107, respiratory rate 20, blood pressure 131/64, saturating at 96 on room air. Pertinent lab on admission is: Hemoglobin 9.6, hematocrit 29.6, platelet 405, AST 16, alkaline phosphatase 1741, thyroid function tests within normal limits, troponin negative, positive UA, urine culture from 02/07/2017 shows gram- negative rods EKG on admission: Sinus rhythm at 97, QTC 447, no ST-T wave changes. Problem list 1. Altered mental status/acute delirium 2. Invasive prostate adenocarcinoma with bony metastasis 3. Profound anemia 4. Chronic back pain 5. Bilateral lower extremity weakness Altered mental status/acute delirium Patient was brought to hospital with acute change in mental status and delusional behavior. History of hallucinations for past 10 days and the patient was aware of the hallucinations. He was started on oxycodone for his back pain however it was stopped because of hallucinations. The other day patient was seen in emergency room for acute delirium and was found to have UTI and was discharged on Augmentin. Altered mental status/acute delirium most possibly from urinary tract infection versus brain metastasis from prostate cancer versus medication changes. * Fall precautions * IV ceftriaxone for urinary tract infection- day4 * Urine culture positive for gram-negative rods -Klebsiella sensitive to ceftriaxone * follow-up B12 and folic acid- normal * Follow-up urine toxicology * Follow-up blood cultures and urine cultures * Patient cannot get MRI brain/CT scan due to downtime, we will get ultrasound of right-sided facial swelling to rule out any parotid abscess. * Oncology was consulted * Tablet olanzapine when necessary for agitation * Continue B12 supplementation daily Metastatic Prostate cancer Patient was admitted at [facility] from 12/22 to 12/30 for anemia and hematuria. He was found to have metastatic prostate cancer with invasion into bladder wall and diffuse skeletal metastasis. He was evaluated by oncology and started on Casodex. He was advised to get bone scan and leuprolide as outpatient. He underwent transurethral resection of bladder mass on 12/26. * Completed Casodex ONE month course * He is getting leuprolide every 3 months * He is due to see radiation oncology as an outpatient to have discussion regarding palliative radiation to symptomatic osseous metastasis. Back pain Back pain most possibly from axial metastasis from prostate cancer * Bone scan had some evidence of diffuse osseous abnormalities without a focal area. He has no focal weakness. * Will continue pain management with home medication tramadol * We'll closely monitor for cord compression symptoms Anemia * Will continue home medication B12 Hallucinations * We will give tablet olanzapine every 8 hours as needed for agitation * We will referral to [facility] support groups and consider outpatient psychiatry therapy is agreeable. Will provide contact info for Sparkle Holden LCSW. * We will avoid benzodiazepines, opioid analgesics, and meds with strong anticholinergic properties as much as possible to prevent further confusion. * We will follow nonpharmacologic interventions: -Avoid nursing and medical procedures during sleep hours whenever possible - Cluster at night interventions that must be completed as much as possible to minimize sleep disruption - Decrease noise patient area during sleeping hours - Reduce lighting at night - Ensure patient has any sensory aids close by that he regularly uses New right buccal swelling Patient reports new right buccal swelling associated with pain and redness.This may be an obstructed parotid duct vs abscess. Imaging of this may be reasonable. * Patient cannot get MRI brain/CT scan due to downtime, we will get ultrasound of right-sided facial swelling to rule out any parotid abscess. DVT prophylaxis - subcutaneous Lovenox CODE STATUS - Full code Diet - Regular diet Problem List: 1. Acute delirium 2. UTI (urinary tract infection) 3. Prostate CA 4. Anemia 5. Bony metastasis Pain Ratin Pain Location: Lower back Pain Goal: Remain pain free Pain Plan: [id number] Tomorrow's Labs & Rationales: not required DVT/Prophylaxis: mechanical, pharmacological HUBER BLAIR MD 02/11/17 1330: Attending MD Review Statement Attending Statement Attending MD Statement: examined this patient, discuss w/resident/PA/TECHNICAL SALES REPRESENTATIVES, agreed w/resident/PA/TECHNICAL SALES REPRESENTATIVES, reviewed EMR data (avail), discussed with nursing, discussed with case mgmt, reviewed images, amended to note Attending Assessment/Plan: Patient seen and examined, mental status seemed to improve. I spoke with patient's nurse and she mentions that patient's mental status is variable. He is in and out of coherent state. Vital Signs Date Time Temp Pulse Resp B/P B/P Pulse O2 O2 Flow FiO2 Mean Ox Delivery Rate 02/11 0648 98.2 77 20 108/56 96 Room Air 02/10 2227 98.2 78 20 115/64 95 Room Air / 1517 98.8 80 20 100/62 96 Room Air on exam; aox3, nad. heent; + swelling on right manbible area. cv; s1,s2, rrr resp; clear abd: soft, nt, bs+ ext; no edema. Laboratory Tests 02/11 0635 Hematology CBC w Diff NO MAN DIFF REQ WBC (4.8 - 10.8 /CUMM) 6.5 RBC (4.70 - 6.10 /CUMM) 3.08 L Hgb (14.0 - 18.0 G/DL) 8.9 L Hct (42 - 52 %) 27.0 L MCV (80.0 - 94.0 FL) 87.8 MCH (27.0 - 31.0 PG) 28.8 RDW (11.5 - 14.5 %) 24.0 H Plt Count (130 - 400 /CUMM) 323 MPV (7.4 - 10.4 FL) 7.4 Gran % (42.2 - 75.2 %) 57.8 Lymphocytes % (20.5 - 51.1 %) 28.9 Monocytes % (1.7 - 9.3 %) 10.2 H Eosinophils % (0 - 5 %) 2.8 Basophils % (0.0 - 2.0 %) 0.3 Absolute Granulocytes (1.4 - 6.5 /CUMM) 3.8 Absolute Lymphocytes (1.2 - 3.4 /CUMM) 1.9 Absolute Monocytes (0.10 - 0.60 /CUMM) 0.7 H Absolute Eosinophils (0.0 - 0.7 /CUMM) 0.2 Absolute Basophils (0.0 - 0.2 /CUMM) 0 PUBS MCHC (33.0 - 37.0 G/DL) 32.8 L A/P; 66 y/o M with pmh sig for invasive prostate adenocarcinoma with bony metastasis, status post transurethral resection of bladder mass, profound anemia , constipation, chronic back pain, bilateral lower extremity weakness admitted with altered mental status, delusional behavior as well as delirium. This was thought to be due to combination of UTI, medications. There is there was a concern for possible brain metastases with patient's history of prostate cancer. Unfortunately MRI could not be obtained because initially patient refused and now the MRI machine is down. We tried to obtain a CT of the head and mandible but unfortunately CT scan is also down. Oncology expressed the concern for possible parotid abscess or parotid gland duct obstruction. Patient is afebrile with white count normal. On exam he does have some tenderness. We'll try to obtain an ultrasound to see if there is any evidence of abscess. Patient on Septra For UTI. Next and Continue Current Pain Control. DVT Px: Lovenox. We'll discuss with case management about safe disposition plan.
[2017-02-11 08:06] LABS: ABSOLUTE BASOPHIL COUNT 0 /CUMM (0.0-0.2); ABSOLUTE EOSINOPHIL COUNT 0.2 /CUMM (0.0-0.7); ABSOLUTE GRANULOCYTE CT 3.8 /CUMM (1.4-6.5); ABSOLUTE LYMPH COUNT 1.9 /CUMM (1.2-3.4); ABSOLUTE MONOCYTE COUNT 0.7 /CUMM (0.10-0.60); BASOPHIL % 0.3 % (0.0-2.0); EOSINOPHIL % 2.8 % (0-5); GRANULOCYTE % 57.8 % (42.2-75.2); MEAN CORPUSCULAR HGB 28.8 PG (27.0-31.0); MEAN CORPUSCULAR HGB CONC 32.8 G/DL (33.0-37.0); MEAN CORPUSCULAR VOLUME 87.8 FL (80.0-94.0); MEAN PLATELET VOLUME 7.4 FL (7.4-10.4); PLATELET COUNT 323 /CUMM (130-400); RED BLOOD CELL CT 3.08 /CUMM (4.70-6.10); WHITE BLOOD CELL COUNT 6.5 /CUMM (4.8-10.8)
[2017-02-11 14:59] VITALS: BP 100/58
--- NOTE | 2017-02-11 15:58 | NUR ---
PT LEFT FLOOR WITH DISTRIBUTION IN STRETCHER A/OX3, ROOM AIR, FOR CT SCAN OF HEAD. WILL AWAIT RETURN TO FLOOR.
--- NOTE | 2017-02-11 16:28 | ULTRASOUND REPORT ---
EXAMINATION: US HEAD/NECK CLINICAL INFORMATION: Swelling right lower face. COMPARISON: None TECHNIQUE: Targeted sonography of the right face was performed. FINDINGS/IMPRESSION: There is no discrete/drainable fluid collection in the area of clinical concern along the right face. No suspicious mass or cystic lesion.
[2017-02-11 21:38] VITALS: BP 100/50
[2017-02-12 07:56] VITALS: BP 109/62
--- NOTE | 2017-02-12 08:09 | PN- Housestaff ---
NORBERTIGNACIOANURADHA GRIFFITH 02/12/17 0809: Subjective Follow-up For: 1. Altered mental status/acute delirium 2. Invasive prostate adenocarcinoma with bony metastasis 3. Profound anemia 4. Chronic back pain 5. Right mandible swelling Complaints: pain scale (0-10) Subjective: Patient was seen and examined this morning. He is alert, awake and oriented to time place and person. No acute events noticed overnight. He does report back pain, getting relief with tramadol. He reports being hallucinating. psychiatrist was consulted. Patient reports right side of the face swelling associated with pain and redness. Denies any difficulty swallowing. Denies any difficulty speaking. He denies any fever, chills, chest pain, short of breath, nausea, vomiting, abdominal pain, change in bladder or bowel habits Vitals were stable this morning Review of Systems Constitutional: Denies: chills, diaphoresis, fever. Objective Last 24 Hrs of Vital Signs/I&O Vital Signs Date Time Temp Pulse Resp B/P B/P Pulse O2 O2 Flow FiO2 Mean Ox Delivery Rate 02/12 0756 98.3 73 20 109/62 96 Room Air 02/11 2138 98.3 77 20 100/50 95 Room Air 02/11 1459 98.4 71 20 100/58 96 Room Air Physical Exam General Appearance: Alert, Oriented X3, Cooperative, No Acute Distress Skin: No Rashes, No Breakdown HEENT: Atraumatic, PERRLA, EOMI Neck: Supple, No JVD Cardiovascular: Normal S1, Normal S2 Lungs: Normal Air Movement Abdomen: Normal Bowel Sounds, Soft, No Tenderness Extremities: No Clubbing, No Cyanosis, No Edema Vascular: Pulses Symmetrical Assessment/Plan Assessment: This is a 66-year-old gentleman with past medical history significant for invasive prostate adenocarcinoma with bony metastasis, status post transurethral resection of bladder mass, profound anemia, constipation, chronic back pain, bilateral lower extremity weakness brought to the hospital by police for acute change in mental status and delusional behavior. Vitals on admission afebrile, heart rate 107, respiratory rate 20, blood pressure 131/64, saturating at 96 on room air. Pertinent lab on admission is: Hemoglobin 9.6, hematocrit 29.6, platelet 405, AST 16, alkaline phosphatase 1741, thyroid function tests within normal limits, troponin negative, positive UA, urine culture from 02/07/2017 shows gram- negative rods EKG on admission: Sinus rhythm at 97, QTC 447, no ST-T wave changes. Problem list 1. Altered mental status/acute delirium 2. Invasive prostate adenocarcinoma with bony metastasis 3. Profound anemia 4. Chronic back pain 5. Bilateral lower extremity weakness Altered mental status/acute delirium Patient was brought to hospital with acute change in mental status and delusional behavior. History of hallucinations for past 10 days and the patient was aware of the hallucinations. He was started on oxycodone for his back pain however it was stopped because of hallucinations. The other day patient was seen in emergency room for acute delirium and was found to have UTI and was discharged on Augmentin. Altered mental status/acute delirium most possibly from urinary tract infection versus brain metastasis from prostate cancer versus medication changes. * Admitted to general medicine floor for further management of acute mental status change * Monitor vitals closely every shift * Maintain oxygen saturation the above 90% * Fall precautions * IV ceftriaxone for urinary tract infection- day5 * Urine culture positive for gram-negative rods -Klebsiella sensitive to ceftriaxone * follow-up B12 and folic acid- normal * Follow-up urine toxicology * Follow-up blood cultures and urine cultures * MRI brain/ct head for metastasis from prostate cancer-pending * Oncology was consulted * 1-1 sitter for safety * on olanzapine when necessary for agitation * Continue B12 supplementation daily Metastatic Prostate cancer Patient was admitted at [facility] from 12/22 to 12/30 for anemia and hematuria. He was found to have metastatic prostate cancer with invasion into bladder wall and diffuse skeletal metastasis. He was evaluated by oncology and started on Casodex. He was advised to get bone scan and leuprolide as outpatient. He underwent transurethral resection of bladder mass on 12/26. * Completed Casodex ONE month course * He is getting leuprolide every 3 months * He is due to see radiation oncology to have discussion regarding palliative radiation to symptomatic osseous metastasis. * He will need to see them as an outpatient. * will Provide outpatient referral to radiation oncology Back pain Back pain most possibly from axial metastasis from prostate cancer * Bone scan had some evidence of diffuse osseous abnormalities without a focal area. He has no focal weakness. * Will continue pain management with home medication tramadol * We'll closely monitor for cord compression symptoms Anemia Will continue home medication B12 Hallucinations 1. Continue psychotropics-elanzepine every 8 hours as needed for agitation 2. Continue with plan for referral to [facility] support groups and consider outpatient psychiatry therapy is agreeable. Will provide contact info for Sparkle Holden MISTY. 3. Please continue to avoid benzodiazepines, opioid analgesics, and meds with strong anticholinergic properties as much as possible to prevent further confusion. 4. Please continue the following nonpharmacologic interventions: -Avoid nursing and medical procedures during sleep hours whenever possible - Cluster at night interventions that must be completed as much as possible to minimize sleep disruption - Decrease noise patient area during sleeping hours - Reduce lighting at night - Ensure patient has any sensory aids close by that he regularly uses New right buccal swelling Patient reports new right buccal swelling associated with pain and redness.This may be an obstructed parotid duct vs abscess. Imaging of this may be reasonable. * Planning to get MRI head/ct head for possible metastasis * uls- There is no discrete/drainable fluid collection in the area of clinical concern along the right face. No suspicious mass or cystic lesion. DVT prophylaxis subcutaneous Lovenox Full code Pain pathway tramadol Regular diet Problem List: 1. Delusions 2. Acute confusion due to infection Pain Ratin Pain Location: n/a Pain Goal: Remain pain free Pain Plan: tylinol tramadol Tomorrow's Labs & Rationales: gabriella BLAIR MD,HUBER 02/12/17 1333: Attending MD Review Statement Attending Statement Attending MD Statement: examined this patient, discuss w/resident/PA/MARKET RESEARCH ASSOCIATE, agreed w/resident/PA/MARKET RESEARCH ASSOCIATE, reviewed EMR data (avail), discussed with nursing, discussed with case mgmt, reviewed images, amended to note Attending Assessment/Plan: Patient seen and examined, denies any complaints but the right sided lower jaw/ cheek swelling still remains. The ultrasound does not show any evidence of abscess. Patient is pretty sure that swelling happened very recently in the last couple of days. He is nontender. He claims that sometimes he sees a pus that drains inside his mouth. He is not sure whether the pus comes from the, from his cheek. At this point he is waiting for an MRI of his mandible as well as his brain. If MRI cannot be done then he can receive a CT scan with contrast. If unfortunately nothing can be done then he will just have to follow-up with his dentist as an outpatient or ENT. He is on antibiotics for treatment of UTI.
[2017-02-12 08:27] LABS: ABSOLUTE BASOPHIL COUNT 0.1 /CUMM (0.0-0.2); ABSOLUTE EOSINOPHIL COUNT 0.3 /CUMM (0.0-0.7); ABSOLUTE GRANULOCYTE CT 3.6 /CUMM (1.4-6.5); ABSOLUTE MONOCYTE COUNT 0.8 /CUMM (0.10-0.60); BASOPHIL % 0.9 % (0.0-2.0); EOSINOPHIL % 4.3 % (0-5); GRANULOCYTE % 53.2 % (42.2-75.2); HEMATOCRIT 26.7 % (42-52); MEAN CORPUSCULAR HGB 28.5 PG (27.0-31.0); MEAN CORPUSCULAR HGB CONC 32.4 G/DL (33.0-37.0); MEAN CORPUSCULAR VOLUME 88.1 FL (80.0-94.0); MEAN PLATELET VOLUME 7.3 FL (7.4-10.4); PLATELET COUNT 328 /CUMM (130-400); RED BLOOD CELL CT 3.03 /CUMM (4.70-6.10); WHITE BLOOD CELL COUNT 6.8 /CUMM (4.8-10.8)
[2017-02-12 14:38] VITALS: BP 102/52
[2017-02-12 21:45] VITALS: BP 118/52
[2017-02-13 07:24] VITALS: BP 120/60
--- NOTE | 2017-02-13 08:06 | PN- Housestaff ---
ANURADHA ZHANG 02/13/17 0806: Subjective Follow-up For: 1. Altered mental status/acute delirium sec to UTI 2. Invasive prostate adenocarcinoma with bony metastasis 3. Profound anemia 4. Chronic back pain 5. Right mandible swelling Complaints: pain scale (0-10) Subjective: Patient was seen and examined this morning. He is alert, awake and oriented to time place and person. No acute events noticed overnight. He does report back pain, getting relief with tramadol. He reports being hallucinating. psychiatrist was consulted. Patient reports right side of the face swelling SUBSIDED. Denies any difficulty swallowing. Denies any difficulty speaking. He denies any fever, chills, chest pain, short of breath, nausea, vomiting, abdominal pain, change in bladder or bowel habits Vitals were stable this morning Review of Systems Constitutional: Denies: chills, diaphoresis, fever, malaise. Objective Last 24 Hrs of Vital Signs/I&O Vital Signs Date Time Temp Pulse Resp B/P B/P Pulse O2 O2 Flow FiO2 Mean Ox Delivery Rate 02/13 1416 98.0 72 18 120/62 94 Room Air 02/13 0724 98.7 67 18 120/60 94 Room Air 02/12 2145 98.2 76 19 118/52 95 Room Air Intake & Output 02/13 1600 /05 0800 06/05 0000 Intake Total 500 450 100 Output Total 450 Balance 500 450 -350 Intake, Oral 500 450 100 Number 1 Bowel Movements Output, Urine 450 Patient 55.792 kg Weight Physical Exam General Appearance: Alert, Oriented X3, Cooperative, No Acute Distress Skin: No Rashes, No Breakdown HEENT: Atraumatic, PERRLA Neck: Supple, No JVD, No thryomegaly Lymphatic: Cervical nl Cardiovascular: Normal S1, Normal S2 Lungs: Normal Air Movement Abdomen: Normal Bowel Sounds, Soft, No Tenderness Neurological: Normal Speech, Strength at 5/5 X4 Ext, Normal Tone, Sensation Intact, Cranial Nerves 3-12 NL Extremities: No Clubbing, No Cyanosis, No Edema Vascular: Pulses Symmetrical Current Medications: Current Medications Sig/Sada Start time Last Medication Dose Route Stop Time Status Admin Calcium Carbonate 500 MG Q2 HRS NEEDED PRN 02/09 1615 AC 02/10 PO 2020 Ceftriaxone Sodium 1,000 MG DAILY 02/09 1000 DC 02/13 IV 1023 Cyanocobalamin 1,000 MCG DAILY 02/09 1000 AC 02/13 PO 1123 Docusate Sodium 100 MG DAILY 02/12 1000 AC 02/13 PO 1123 Enoxaparin Sodium 40 MG DAILY 02/08 190 AC 02/12 SC 0923 Lorazepam 0.5 MG ONE PRN 02/08 1930 AC PO 02/15 192 Melatonin 10 MG AT BEDTIME 02/09 2200 AC 02/12 PO 2236 Olanzapine 2.5 MG Q8P PRN 02/09 1500 AC PO Omeprazole 40 MG DAILY AC 02/11 0700 AC 02/13 PO 0612 Ondansetron HCl 4 MG Q6P PRN 02/09 1500 AC IV Polyethylene Glycol 17 GM DAILY 02/12 1000 AC PO Senna 187 MG AT BEDTIME 02/12 2200 AC PO Tramadol HCl 50 MG Q6P PRN 02/08 193 AC 02/12 PO 1246 Last 24 Hrs of Lab/J Carlos Results Last 24 Hrs of Labs/Mics: Laboratory Tests 02/13/17 0610: CBC w Diff NO MAN DIFF REQ, RBC 2.98 L, MCV 88.2, MCH 28.4, RDW 24.2 H, MPV 7.4, Gran % 56.0, Lymphocytes % 30.0, Monocytes % 9.0, Eosinophils % 4.7, Basophils % 0.3, Absolute Granulocytes 4.0, Absolute Lymphocytes 2.2, Absolute Monocytes 0.6, Absolute Eosinophils 0.3, Absolute Basophils 0, PUBS MCHC 32.2 L Assessment/Plan Assessment: This is a 66-year-old gentleman with past medical history significant for invasive prostate adenocarcinoma with bony metastasis, status post transurethral resection of bladder mass, profound anemia, constipation, chronic back pain, bilateral lower extremity weakness brought to the hospital by police for acute change in mental status and delusional behavior. Vitals on admission afebrile, heart rate 107, respiratory rate 20, blood pressure 131/64, saturating at 96 on room air. Pertinent lab on admission is: Hemoglobin 9.6, hematocrit 29.6, platelet 405, AST 16, alkaline phosphatase 1741, thyroid function tests within normal limits, troponin negative, positive UA, urine culture from 02/07/2017 shows gram- negative rods EKG on admission: Sinus rhythm at 97, QTC 447, no ST-T wave changes. Problem list 1. Altered mental status/acute delirium 2. Invasive prostate adenocarcinoma with bony metastasis 3. Profound anemia 4. Chronic back pain 5. Bilateral lower extremity weakness Altered mental status/acute delirium Patient was brought to hospital with acute change in mental status and delusional behavior. History of hallucinations for past 10 days and the patient was aware of the hallucinations. He was started on oxycodone for his back pain however it was stopped because of hallucinations. The other day patient was seen in emergency room for acute delirium and was found to have UTI and was discharged on Augmentin. Altered mental status/acute delirium most possibly from urinary tract infection versus brain metastasis from prostate cancer versus medication changes. * Admitted to general medicine floor for further management of acute mental status change * Monitor vitals closely every shift * Maintain oxygen saturation the above 90% * Fall precautions * IV ceftriaxone for urinary tract infection- day6 * Urine culture positive for gram-negative rods -Klebsiella sensitive to ceftriaxone * follow-up B12 and folic acid- normal * Follow-up urine toxicology- normal * Follow-up blood cultures- neg * MRI brain/ct head for metastasis from prostate cancer-pending * Oncology was consulted * on olanzapine when necessary for agitation * Continue B12 supplementation daily Metastatic Prostate cancer Patient was admitted at [facility] from 12/22 to 12/30 for anemia and hematuria. He was found to have metastatic prostate cancer with invasion into bladder wall and diffuse skeletal metastasis. He was evaluated by oncology and started on Casodex. He was advised to get bone scan and leuprolide as outpatient. He underwent transurethral resection of bladder mass on 12/26. * Completed Casodex ONE month course * He is getting leuprolide every 3 months * He is due to see radiation oncology to have discussion regarding palliative radiation to symptomatic osseous metastasis. * will Provide outpatient referral to radiation oncology * Lenticular 1.6 x 1.5 x 0.4 cm extra-axial structure along the inferior aspect of the right cerebellar hemispheric convexity. There is mild regional mass effect. This is nonspecific and could reflect a meningioma versus a pachymeningeal metastatic focus. * MRI brain with and without contrast pending Back pain Back pain most possibly from axial metastasis from prostate cancer * Bone scan had some evidence of diffuse osseous abnormalities without a focal area. He has no focal weakness. * Will continue pain management with home medication tramadol * We'll closely monitor for cord compression symptoms Anemia Will continue home medication B12 Hallucinations 1. Continue psychotropics-elanzepine every 8 hours as needed for agitation 2. Continue with plan for referral to [facility] support groups and consider outpatient psychiatry therapy is agreeable. Will provide contact info for Sparkle Holden LCSW. 3. Please continue to avoid benzodiazepines, opioid analgesics, and meds with strong anticholinergic properties as much as possible to prevent further confusion. 4. Please continue the following nonpharmacologic interventions: -Avoid nursing and medical procedures during sleep hours whenever possible - Cluster at night interventions that must be completed as much as possible to minimize sleep disruption - Decrease noise patient area during sleeping hours - Reduce lighting at night - Ensure patient has any sensory aids close by that he regularly uses New right buccal swelling Patient reports new right buccal swelling associated with pain and redness.This may be an obstructed parotid duct vs abscess. Imaging of this may be reasonable. * ct neck showed Large dental caries involving the only remaining right mandibular tooth most likely a premolar, with associated periodontal and periapical lucency, as well as focal dehiscence of the adjacent buccal cortex with regional soft tissue swelling and fat stranding. * Needs outpatient dentist follow-up DVT prophylaxis subcutaneous Lovenox Full code Pain pathway tramadol Regular diet Problem List: 1. Acute delirium 2. UTI (urinary tract infection) 3. Bony metastasis 4. Prostate CA Pain Ratin Pain Location: n/a Pain Goal: Remain pain free Pain Plan: tramadol Tomorrow's Labs & Rationales: none ROSSY BEDOYA,HUBER 02/13/17 1320: Attending MD Review Statement Attending Statement Attending MD Statement: examined this patient, discuss w/resident/PA/QUARANTINE OFFICER, agreed w/resident/PA/QUARANTINE OFFICER, reviewed EMR data (avail), discussed with nursing, discussed with case mgmt, reviewed images, amended to note Attending Assessment/Plan: Patient seen and examined, he denies any complaints. He denies any pain in his jaw currently. His CT head shows right cerebellar hemispheric covexity. Vital Signs Date Time Temp Pulse Resp B/P B/P Pulse O2 O2 Flow FiO2 Mean Ox Delivery Rate 02/13 0724 98.7 67 18 120/60 94 Room Air 02/12 2145 98.2 76 19 118/52 95 Room Air 02/12 1438 98.1 75 18 102/52 97 Room Air on exam; aox3, nad heent: + swelling along the right mandible. cv; s1, s2, rrr resp; clear abd; soft, nt, bs+ ext; no edema Laboratory Tests 02/13 0610 Hematology CBC w Diff NO MAN DIFF REQ WBC (4.8 - 10.8 /CUMM) 7.2 RBC (4.70 - 6.10 /CUMM) 2.98 L Hgb (14.0 - 18.0 G/DL) 8.5 L Hct (42 - 52 %) 26.3 L MCV (80.0 - 94.0 FL) 88.2 MCH (27.0 - 31.0 PG) 28.4 RDW (11.5 - 14.5 %) 24.2 H Plt Count (130 - 400 /CUMM) 329 MPV (7.4 - 10.4 FL) 7.4 Gran % (42.2 - 75.2 %) 56.0 Lymphocytes % (20.5 - 51.1 %) 30.0 Monocytes % (1.7 - 9.3 %) 9.0 Eosinophils % (0 - 5 %) 4.7 Basophils % (0.0 - 2.0 %) 0.3 Absolute Granulocytes (1.4 - 6.5 /CUMM) 4.0 Absolute Lymphocytes (1.2 - 3.4 /CUMM) 2.2 Absolute Monocytes (0.10 - 0.60 /CUMM) 0.6 Absolute Eosinophils (0.0 - 0.7 /CUMM) 0.3 Absolute Basophils (0.0 - 0.2 /CUMM) 0 PUBS MCHC (33.0 - 37.0 G/DL) 32.2 L A/P; 66 y/o M with pmh sig for invasive prostate adenocarcinoma with bony metastasis, status post transurethral resection of bladder mass, profound anemia , constipation, chronic back pain, bilateral lower extremity weakness admitted with altered mental status, delusional behavior as well as delirium. This was thought to be due to combination of UTI, medications. There is there was a concern for possible brain metastases with patient's history of prostate cancer. Patient underwent CT of the sinuses as well as had which showed right cerebellar hemispheric of laxity. Patient will require MRI of the brain with and without contrast. He also has dental caries in the right premolar region. Patient currently is getting treated with antibiotics for UTI. We will switch her to oral Augmentin. This will cover the possible tooth abscess if she has but he needs to be seen by dentist. We'll follow-up on MRI of the brain. Oncology recommending neurosurgical consult after the MRI if it shows significant finding. Continue the current medications. DVT prophylaxis: Lovenox.
[2017-02-13 08:11] LABS: ABSOLUTE BASOPHIL COUNT 0 /CUMM (0.0-0.2); ABSOLUTE EOSINOPHIL COUNT 0.3 /CUMM (0.0-0.7); ABSOLUTE LYMPH COUNT 2.2 /CUMM (1.2-3.4); ABSOLUTE MONOCYTE COUNT 0.6 /CUMM (0.10-0.60); BASOPHIL % 0.3 % (0.0-2.0); EOSINOPHIL % 4.7 % (0-5); HEMATOCRIT 26.3 % (42-52); MEAN CORPUSCULAR HGB 28.4 PG (27.0-31.0); MEAN CORPUSCULAR HGB CONC 32.2 G/DL (33.0-37.0); MEAN CORPUSCULAR VOLUME 88.2 FL (80.0-94.0); MEAN PLATELET VOLUME 7.4 FL (7.4-10.4); RBC DISTRIBUTION WIDTH 24.2 % (11.5-14.5); RED BLOOD CELL CT 2.98 /CUMM (4.70-6.10)
[2017-02-13 09:20] LABS: PLATELET COUNT 329 /CUMM (130-400)
[2017-02-13 09:21] LABS: WHITE BLOOD CELL COUNT 7.2 /CUMM (4.8-10.8)
--- NOTE | 2017-02-13 10:29 | CT SCAN REPORT ---
EXAMINATION: CT HEAD WITHOUT CONTRAST CT FACIAL BONES WITHOUT CONTRAST CLINICAL INFORMATION: Right mandibular infection. Prostate cancer with multifocal osseous metastasis.. Question brain metastasis. COMPARISON: MRI of the cervical and thoracic spine from 12/23/2016. Bone scan from 01/26/2017. Head CT from 02/07/2017 TECHNIQUE: Contiguous axial imaging was performed from the skull base to vertex without intravenous administration of contrast. In addition, helical noncontrast CT imaging was acquired through the facial bones and source images were reviewed along with axial reconstructions and sagittal and coronal MPRs. The patient declined contrast. DLP: 1319 mGy-cm FINDINGS: HEAD: There is a lenticular area of high density along the inferior right cerebellar hemispheric convexity. This measures approximately 1.6 x 1.5 x 0.4 cm (AP by TV by CC). There appears to be mild mass effect on the adjacent right cerebellar hemisphere without convincing intraparenchymal signal abnormality. No definitive adjacent osseous lesion nor hyperostosis. There is no edema, hydrocephalus, shift of the normally midline structures, evolving territorial infarct, or extra-axial collection. There is mild generalized prominence of the ventricles, sulci, and extra-axial CSF space. Attenuation within the brain is fairly normal. There is no evidence of intraparenchymal metastatic disease on this noncontrast examination. No acute osseous abnormalities. No convincing calvarial metastatic disease. The imaged paranasal sinuses, mastoid air cells and middle ear cavities are clear. No acute soft tissue abnormalities. FACIAL BONES: There is a large dental caries involving the only remaining mandibular tooth, in the expected region of a right mandibular premolar, with periodontal and periapical lucency, contiguous with the canal of the inferior alveolar nerve. There is focal dehiscence of the adjacent buccal cortex with adjacent soft tissue thickening and fat stranding. The parotid and submandibular glands are unremarkable. The floor of mouth and oral tongue appear unremarkable. The visualized pharyngeal and laryngeal contours are symmetric in appearance. No maxillary periapical lucencies. The visualized paranasal sinuses are clear apart from mild mucosal thickening in the maxillary bases bilaterally. The infundibula are well-maintained. The nasal cavity is clear with rightward nasal septal deviation. The orbits appear normal. No upper cervical adenopathy. IMPRESSION: 1. Lenticular 1.6 x 1.5 x 0.4 cm extra-axial structure along the inferior aspect of the right cerebellar hemispheric convexity. There is mild regional mass effect. This is nonspecific and could reflect a meningioma versus a pachymeningeal metastatic focus. If feasible, correlation with MRI of the brain without and with contrast is recommended. 2. Large dental caries involving the only remaining right mandibular tooth most likely a premolar, with associated periodontal and periapical lucency, as well as focal dehiscence of the adjacent buccal cortex with regional soft tissue swelling and fat stranding. Lack of intravenous contrast precludes assessment for small rim-enhancing fluid collection. There is dehiscence with the canal of the inferior alveolar nerve.
--- NOTE | 2017-02-13 12:38 | PN- Oncology ---
Subjective Subjective: He reports feeling well. He has no new headaches or confusion. He has no dizziness. His right buccal swelling is improved. Review of Systems: Constitutional: Denies: chills, fever. EENTM: Reports: see HPI. Cardiovascular: Denies: chest pain. Gastrointestinal: Denies: abdominal pain. Musculoskeletal: Reports: back pain, joint pain, muscle pain. Neurological/Psychological: Reports: confusion. All Other Systems: Reviewed and Negative Objective Vital Signs and I&Os Vital Signs Date Time Temp Pulse Resp B/P B/P Pulse O2 O2 Flow FiO2 Mean Ox Delivery Rate 02/13 07 98.7 67 18 120/60 94 Room Air 02/12 2145 98.2 76 19 118/52 95 Room Air 02/12 1438 98.1 75 18 102/52 97 Room Air Intake & Output 02/13 1600 02/13 0800 06/ 0000 / 1600 / 0800 / 0000 Intake Total 922 608 1725 Output Total 450 600 Balance 450 -350 900 Intake, IV 0 Intake, Oral 507 072 7170 Number 1 Bowel Movements Output, Urine 450 600 Physical Exam: General Appearance: alert, awake, comfortable, thin Head: atraumatic, normal appearance Ears, Nose, Throat: firm, swollen right bucccal region Respiratory: normal breath sounds, chest non-tender Cardiovascular: regular rate/rhythm Gastrointestinal: normal bowel sounds, soft, non-tender Extremities: no edema Neurologic/Psych: awake, alert, oriented x 3 Skin: normal color Current Medications: Current Medications Sig/Sada Start time Last Medication Dose Route Stop Time Status Admin Calcium Carbonate 500 MG Q2 HRS NEEDED PRN 02/09 1615 AC 02/10 PO 2020 Ceftriaxone Sodium 1,000 MG DAILY 02/09 1000 DC 02/13 IV 1023 Cyanocobalamin 1,000 MCG DAILY 02/09 1000 AC 02/13 PO 1123 Docusate Sodium 100 MG DAILY 02/12 1000 AC 02/13 PO 1123 Enoxaparin Sodium 40 MG DAILY 02/08 190 AC 02/12 SC 0923 Lorazepam 0.5 MG ONE PRN 02/08 1930 AC PO 02/15 192 Melatonin 10 MG AT BEDTIME 02/09 2200 AC 02/12 PO 2236 Olanzapine 2.5 MG Q8P PRN 02/09 1500 AC PO Omeprazole 40 MG DAILY AC 02/11 0700 AC 02/13 PO 0612 Ondansetron HCl 4 MG Q6P PRN 02/09 1500 AC IV Polyethylene Glycol 17 GM DAILY 02/12 1000 AC PO Senna 187 MG AT BEDTIME 02/12 2200 AC PO Tramadol HCl 50 MG Q6P PRN 02/08 1930 AC 02/12 PO 1246 Results Last 24 Hours of Lab Results: Laboratory Tests 02/13 610 Hematology CBC w Diff NO MAN DIFF REQ WBC (4.8 - 10.8 /CUMM) 7.2 RBC (4.70 - 6.10 /CUMM) 2.98 L Hgb (14.0 - 18.0 G/DL) 8.5 L Hct (42 - 52 %) 26.3 L MCV (80.0 - 94.0 FL) 88.2 MCH (27.0 - 31.0 PG) 28.4 RDW (11.5 - 14.5 %) 24.2 H Plt Count (130 - 400 /CUMM) 329 MPV (7.4 - 10.4 FL) 7.4 Gran % (42.2 - 75.2 %) 56.0 Lymphocytes % (20.5 - 51.1 %) 30.0 Monocytes % (1.7 - 9.3 %) 9.0 Eosinophils % (0 - 5 %) 4.7 Basophils % (0.0 - 2.0 %) 0.3 Absolute Granulocytes (1.4 - 6.5 /CUMM) 4.0 Absolute Lymphocytes (1.2 - 3.4 /CUMM) 2.2 Absolute Monocytes (0.10 - 0.60 /CUMM) 0.6 Absolute Eosinophils (0.0 - 0.7 /CUMM) 0.3 Absolute Basophils (0.0 - 0.2 /CUMM) 0 PUBS MCHC (33.0 - 37.0 G/DL) 32.2 L Recent Imaging Studies: CT head without contrast 02/13/2017 1. Lenticular 1.6 x 1.5 x 0.4 cm extra-axial structure along the inferior aspect of the right cerebellar hemispheric convexity. There is mild regional mass effect. This is nonspecific and could reflect a meningioma versus a pachymeningeal metastatic focus. If feasible, correlation with MRI of the brain without and with contrast is recommended. 2. Large dental caries involving the only remaining right mandibular tooth most likely a premolar, with associated periodontal and periapical lucency, as well as focal dehiscence of the adjacent buccal cortex with regional soft tissue swelling and fat stranding. Lack of intravenous contrast precludes assessment for small rim-enhancing fluid collection. There is dehiscence with the canal of the inferior alveolar nerve. Assessment/Plan Assessment/Recommendations: Mr. Womack is a 66-yo male with metastatic prostate cancer to the bone and invasion into bladder who presented to the hospital with altered mental status with delirium. He was noted to have hallucination and confusion. He was noted to have an UTI. He has received 5 days of ceftriaxone. He had CT of the head without contrast today. This demonstrated a nonspecific 1.6 x 1.5 x 0.4 cm extra-axial structure and large dental caries in the right mandibular tooth. He is currently asymptomatic. He will likely need dental evaluation for his right premolar. He will need further evaluation of the cerebellar structure. Recommendations: 1. MRI head/face with and without contrast to evaluate right cerebellar structure 2. Continue vitamin B12 3. Dental evaluation, likely as outpatient Please call [phone] with any questions/concerns. Problem List: 1. Acute delirium 2. Prostate CA 3. Bony metastasis
[2017-02-13 14:16] VITALS: BP 120/62
[2017-02-13] MEDS ORDERED: AUGMENTIN 875-1 EACH PO (15:17)
--- NOTE | 2017-02-13 18:28 | MRI REPORT ---
EXAMINATION: MR BRAIN WITHOUT AND WITH CONTRAST CLINICAL INFORMATION: Reported prostate cancer. Possible brain mass on CT. Further evaluate. COMPARISON: CT from earlier in the morning on 02/13/2017. TECHNIQUE: Multiplanar, multisequence imaging of the brain was performed before and after the intravenous administration of 6 mL of Gadavist. FINDINGS: At the site of the high attenuation soft tissue focus along the inferior surface of the right cerebellar hemisphere in the posterior fossa, there is mild en plaque dural-based soft tissue enhancement without mass effect which is relatively low in signal on T2-weighted imaging. There is diffuse replacement of the marrow signal in the upper cervical vertebrae, skull base, and calvarium due to known osseous metastatic disease. There is no abnormal parenchymal enhancement. A small 1 cm nodular focus of dural based enhancement along the high right frontal convexity near the vertex may be due to a meningioma versus metastatic disease. The orbits and pituitary axis appear normal. No diffusion abnormalities are identified to suggest an acute infarct. The ventricles are normal in size. No mass effect or midline shift is seen. A few scattered punctate foci of signal change in the cerebral white matter are entirely nonspecific. No extra-axial fluid collections are seen. The brainstem and cerebellum are normal. The gradient refocused acquisition is normal. The craniovertebral junction and midline structures are normal. The major intracranial flow voids at the level of the cahto of Amos are preserved. The dural venous sinus flow voids are maintained. There is a mild amount of fluid in the mastoid air cells bilaterally. Very mild mucosal thickening noted in the paranasal sinuses. IMPRESSION: Extensive osseous metastatic disease as correlated with the patient's prior bone scan study. Linear en plaque extra-axial enhancement along the floor of the posterior fossa underlying the right cerebellar hemisphere without mass effect is suspicious for dural based metastatic disease. Small nodular focus of enhancement along the high right frontal convexity may also represent metastatic disease versus an incidental meningioma. Otherwise, no acute intracranial process. No abnormal parenchymal enhancement. Minimal nonspecific white matter signal changes which may be due to chronic microangiopathy.
--- NOTE | 2017-02-13 20:43 | Discharge Summary ---
See Addendum Visit Information Visit Dates Admission Date: 02/08/17 Discharge Date: 02/14/17 Hospital Course Course Attending Physician: IHSAN BEDOYA,SUE Primary Care Physician: PATIENT HAS NO PRIMARY CARE DR Other Care Providers: dr. mónica lopez Consulting Request: Consulting Specialty: Hematology/Oncology Hospital Course: This is a 66-year-old gentleman with past medical history significant for invasive prostate adenocarcinoma with bony metastasis, status post transurethral resection of bladder mass, profound anemia, constipation, chronic back pain, bilateral lower extremity weakness brought to the hospital by police for acute change in mental status and delusional behavior. Vitals on admission afebrile, heart rate 107, respiratory rate 20, blood pressure 131/64, saturating at 96 on room air. Pertinent lab on admission is: Hemoglobin 9.6, hematocrit 29.6, platelet 405, AST 16, alkaline phosphatase 1741, thyroid function tests within normal limits, troponin negative, positive UA, urine culture from 02/07/2017 shows gram- negative rods EKG on admission: Sinus rhythm at 97, QTC 447, no ST-T wave changes. Problem list 1. Altered mental status/acute delirium 2. Invasive prostate adenocarcinoma with bony metastasis 3. Profound anemia 4. Chronic back pain 5. Bilateral lower extremity weakness Altered mental status/acute delirium Patient was brought to hospital with acute change in mental status and delusional behavior. History of hallucinations for past 10 days and the patient was aware of the hallucinations. He was started on oxycodone for his back pain however it was stopped because of hallucinations. The other day patient was seen in emergency room for acute delirium and was found to have UTI and was discharged on Augmentin. Altered mental status/acute delirium most possibly from urinary tract infection versus brain metastasis from prostate cancer versus medication changes. He was Admitted to general medicine floor. Fall precautions were maintained. He was started on IV ceftriaxone for urinary tract infection. Received 7 days IV antibiotics for the UTI. Urine cultures positive for gram-negative rods Klebsiella sensitive to ceftriaxone. Urine toxicology, B12, folate were normal. We continued his home medication B12. Psychiatrist was consulted. Hallucinations improved and patient noted to be back to baseline prior to discharge. Of note, MRI brain suggested brain metastasis which may have contributed to this, however no edema appreciated and no steroids. Metastatic Prostate cancer/brain metastasis Patient was admitted at [facility] from 12/22 to 12/30 for anemia and hematuria. He was found to have metastatic prostate cancer with invasion into bladder wall and diffuse skeletal metastasis. He underwent transurethral resection of bladder mass on 12/26. Completed Casodex ONE month course and He is getting leuprolide every 3 months. He is due to see radiation oncology to have discussion regarding palliative radiation to symptomatic osseous metastasis. He is scheduled for an appointment with Dr. Rowley next week. Head CT showed: * Lenticular 1.6 x 1.5 x 0.4 cm extra-axial structure along the inferior aspect of the right cerebellar hemispheric convexity. There is mild regional mass effect. This is nonspecific and could reflect a meningioma versus a pachymeningeal metastatic focus. * Linear en plaque extra-axial enhancement along the floor of the posterior fossa underlying the right cerebellar hemisphere without mass effect is suspicious for dural based metastatic disease. Small nodular focus of enhancement along the high right frontal convexity may also represent metastatic disease versus an incidental meningioma. Head MRI showed: * Extensive osseous metastatic disease as correlated with the patient's prior bone scan study. * Linear en plaque extra-axial enhancement along the floor of the posterior fossa underlying the right cerebellar hemisphere without mass effect is suspicious for dural based metastatic disease. Small nodular focus of enhancement along the high right frontal convexity may also represent metastatic disease versus an incidental meningioma. Patient doesnt want to see neurosurgeon. willing to f/u oncology and radiation oncology as an outpatient. These appointments were scheduled prior to discharge. Back pain Back pain most possibly from axial metastasis from prostate cancer. Bone scan had some evidence of diffuse osseous abnormalities without a focal area. He has no focal weakness. We continued pain management with home medication tramadol. Anemia Continued home medication B12 inpatient and on discharge. Hallucinations The following were implemented to help prevent hallucinations: 1. Continued psychotropics-olanzepine every 8 hours as needed for agitation. 2. The following medications were avoided: benzodiazepines, opioid analgesics, and meds with strong anticholinergic properties as much as possible to prevent further confusion. 4. Avoided nursing and medical procedures during sleep hours whenever possible; clustered at night interventions that must be completed as much as possible to minimize sleep disruption; Decreased noise patient area during sleeping hours; Reduced lighting at night; ensured patient has any sensory aids close by that he regularly uses New right buccal swelling Patient reported new right buccal swelling associated with pain and redness.This likely represented an obstructed parotid duct vs abscess. CT neck showed large dental caries involving the only remaining right mandibular tooth most likely a premolar, with associated periodontal and periapical lucency, as well as focal dehiscence of the adjacent buccal cortex with regional soft tissue swelling and fat stranding. Highly recommend the patient follows up with a dentist as an outpatient. Patient discharged on oral augmentin course. DVT prophylaxis: SC Lovenox Full code Pain pathway: tramadol Regular diet Complications: none Allergies: Coded Allergies: aspirin (BLEEDS 12/22/16) acetaminophen (From TYLENOL) (Severe, CHEST TIGHTNESS 12/29/16) Significant Procedures: none Pertinent Lab Results: head mri FINDINGS: At the site of the high attenuation soft tissue focus along the inferior surface of the right cerebellar hemisphere in the posterior fossa, there is mild en plaque dural-based soft tissue enhancement without mass effect which is relatively low in signal on T2-weighted imaging. There is diffuse replacement of the marrow signal in the upper cervical vertebrae, skull base, and calvarium due to known osseous metastatic disease. There is no abnormal parenchymal enhancement. A small 1 cm nodular focus of dural based enhancement along the high right frontal convexity near the vertex may be due to a meningioma versus metastatic disease. The orbits and pituitary axis appear normal. No diffusion abnormalities are identified to suggest an acute infarct. The ventricles are normal in size. No mass effect or midline shift is seen. A few scattered punctate foci of signal change in the cerebral white matter are entirely nonspecific. No extra-axial fluid collections are seen. The brainstem and cerebellum are normal. The gradient refocused acquisition is normal. The craniovertebral junction and midline structures are normal. The major intracranial flow voids at the level of the [place] are preserved. The dural venous sinus flow voids are maintained. There is a mild amount of fluid in the mastoid air cells bilaterally. Very mild mucosal thickening noted in the paranasal sinuses. IMPRESSION: Extensive osseous metastatic disease as correlated with the patient's prior bone scan study. Linear en plaque extra-axial enhancement along the floor of the posterior fossa underlying the right cerebellar hemisphere without mass effect is suspicious for dural based metastatic disease. Small nodular focus of enhancement along the high right frontal convexity may also represent metastatic disease versus an incidental meningioma. Otherwise, no acute intracranial process. No abnormal parenchymal enhancement. Minimal nonspecific white matter signal changes which may be due to chronic microangiopathy. neck ct IMPRESSION: 1. Lenticular 1.6 x 1.5 x 0.4 cm extra-axial structure along the inferior aspect of the right cerebellar hemispheric convexity. There is mild regional mass effect. This is nonspecific and could reflect a meningioma versus a pachymeningeal metastatic focus. If feasible, correlation with MRI of the brain without and with contrast is recommended. 2. Large dental caries involving the only remaining right mandibular tooth most likely a premolar, with associated periodontal and periapical lucency, as well as focal dehiscence of the adjacent buccal cortex with regional soft tissue swelling and fat stranding. Lack of intravenous contrast precludes assessment for small rim-enhancing fluid collection. There is dehiscence with the canal of the inferior alveolar nerve. thyroid u/s FINDINGS/IMPRESSION: There is no discrete/drainable fluid collection in the area of clinical concern along the right face. No suspicious mass or cystic lesion. Disposition Summary Disposition Principal Diagnosis: 1. Altered mental status/acute delirium sec to UTI vs brain metastasis 2. Invasive prostate adenocarcinoma with bony metastasis and brain metastasis 3. Profound anemia 4. Chronic back pain 5. dental caries Additional Diagnosis: none Discharge Disposition: home health services Discharge Instructions General Discharge Information Code Status: Full Code Patient's Diet: As tolerated Patient's Activity: As tolerated Follow-Up Instructions/Appts: follow-up primary care doctor in 1 week Follow-up with your oncologist in one week Follow-up radiation oncologist in one week after discharge Please continue to avoid benzodiazepines, opioid analgesics, and meds with strong anticholinergic properties as much as possible to prevent further confusion. Please continue the following nonpharmacologic interventions: - Cluster at night interventions that must be completed as much as possible to minimize sleep disruption - Reduce lighting at night - Ensure patient has any sensory aids close by that he regularly uses Large dental caries involving the only remaining right mandibular tooth most likely a premolar- PLEASE follow-up with dentist in one week Medications at Discharge Discharge Medications: Stop taking the following medications: Amoxicillin (Amoxicillin) 500 MG TABLET ORAL TWICE DAILY Qty = 20 Continue taking these medications: Cyanocobalamin (Vitamin B-12) 1,000 MCG TABLET 1,000 Microgram ORAL DAILY Days = 30 Comments: Last Taken: 02/14/17 Time: 10:20 AM Tramadol HCl (Tramadol HCl) 50 MG TABLET 1 Tablet ORAL DAILY as needed for PAIN Qty = 100 Comments: Last Taken: 02/14/17 Time: 10:45 AM Start taking the following new medications: Amoxicillin/Clavulanate Potass (Amox-Clav 875-125 MG Tablet) 875 MG-125 MG TABLET 875 Milligram ORAL EVERY 12 HOURS Qty = 14 No Refills Instructions: . Comments: Last Taken: 02/14/17 Time: 10:20 AM Melatonin (Melatonin) 5 MG TABLET 2 Tablet ORAL AT BEDTIME as needed for sleep Qty = 30 No Refills Instructions: . Comments: Last Taken: 02/13/17 Time: 9:45 PM Copies To: SCOTT BEDOYA,WILLIAMS Doe; OLU BEDOYA,IFTIKHAR; MÓNICA BEDOYA,IDALMIS Attending MD Review Statement Documenting Attending: HUBER BLAIR MD
[2017-02-13 22:25] VITALS: BP 120/58
--- NOTE | 2017-02-14 06:56 | PN- Housestaff ---
See Addendum Subjective Follow-up For: 1. Altered mental status/acute delirium secondary to UTI 2. Invasive prostate adenocarcinoma with bony metastasis 3. Profound anemia 4. Chronic back pain 5. ight mandibular swelling Complaints: no complaints Subjective: Patient seen and examined at bedside this AM. He is in no acute distress and reports he slept well throughout the night. His right jaw swelling is noted to have improved and is causing him no pain. He remained afebrile overnight and is hoping to be discharged soon. Rex had a head MRI done yesterday which showed extensive osseous metastatic disease and suspicious dural based metastatic disease. He is aware of these findings and is planning on following up closely with Dr. Lyric MD for further management. Review of Systems Constitutional: Denies: chills, fever, malaise. EENTM: Denies: blurred vision, visual changes. Cardiovascular: Denies: chest pain, palpitations. Respiratory: Denies: cough, short of breath. Gastrointestinal: Denies: abdominal pain, nausea, changes in stool, vomiting. Genitourinary: Denies: dysuria. Musculoskeletal: Denies: joint pain. Skin: Denies: rash. Neurological/Psychological: Denies: confusion, headache. Hematologic/Endocrine: Denies: bruising, bleeding. Objective Last 24 Hrs of Vital Signs/I&O Vital Signs Date Time Temp Pulse Resp B/P B/P Pulse O2 O2 Flow FiO2 Mean Ox Delivery Rate 02/14 0722 97.7 65 20 121/58 97 Room Air 02/13 2225 98.6 78 20 120/58 95 Room Air 02/13 1416 98.0 72 18 120/62 94 Room Air Intake & Output 02/14 1600 02/14 0800 02/14 0000 Intake Total 240 600 Output Total Balance 240 600 Intake, IV 0 Intake, Oral 240 600 Number 0 Bowel Movements Physical Exam General Appearance: Alert, Oriented X3, Cooperative, No Acute Distress Skin: No Significant Lesion Skin Temp/Moisture Exam: Warm/Dry HEENT: Atraumatic, PERRLA, EOMI, Mucous Membr. moist/pink Neck: Supple, No JVD, No thryomegaly Cardiovascular: Regular Rate, Normal S1, Normal S2 Lungs: Clear to Auscultation, Normal Air Movement Abdomen: Normal Bowel Sounds, Soft, No Tenderness Neurological: Normal Speech, Strength at 5/5 X4 Ext, Normal Tone Extremities: No Clubbing, No Cyanosis, No Edema Vascular: Pulses Symmetrical Current Medications: Current Medications Sig/Sada Start time Last Medication Dose Route Stop Time Status Admin Amoxicillin/ 875 MG Q12 02/14 1000 AC Clavulanate Potassium PO Calcium Carbonate 500 MG Q2 HRS NEEDED PRN 02/09 1615 AC 02/10 PO 202 Ceftriaxone Sodium 1,000 MG DAILY 02/09 1000 DC 02/13 IV 1023 Cyanocobalamin 1,000 MCG DAILY 02/09 1000 AC 02/13 PO 1123 Docusate Sodium 100 MG DAILY 02/12 1000 AC 02/13 PO 1123 Enoxaparin Sodium 40 MG DAILY 02/08 1901 AC 02/12 SC 0923 Lorazepam 0.5 MG ONE PRN 02/08 1930 AC PO 02/15 192 Melatonin 10 MG AT BEDTIME 02/09 2200 AC 02/13 PO 2145 Olanzapine 2.5 MG Q8P PRN 02/09 1500 AC PO Omeprazole 40 MG DAILY AC 02/11 0700 AC 02/14 PO 0624 Ondansetron HCl 4 MG Q6P PRN 02/09 1500 AC IV Polyethylene Glycol 17 GM DAILY 02/12 1000 AC PO Senna 187 MG AT BEDTIME 02/12 2200 AC PO Tramadol HCl 50 MG Q6P PRN 02/08 1930 AC 02/14 PO 0224 Assessment/Plan Assessment: Mr. Womack is a pleasant 66 year old gentleman with PMH invasive prostate adenocarcinoma with bony metastasis, status post transurethral resection of bladder mass, profound anemia, constipation, chronic back pain and bilateral lower extremity weakness who was brought to the hospital by police for acute change in mental status and delusional behavior. Vital signs on admission: afebrile, HR 107, RR 20, BP 131/64, O2 sat 96% on room air. Pertinent lab on admission is: H&H 9.6/29.6, plt 405, AST 16, alkaline phosphatase 1741, TFTs WNL, troponin negative, positive UA, urine culture from 02/07/2017 showing gram-negative rods. EKG on admission: Sinus rhythm at 97, QTC 447, no ST-T wave changes. Patient is admitted to the general medicine floor and the following is the managment: Problem list 1. Altered mental status/acute delirium 2. Invasive prostate adenocarcinoma with bony metastasis 3. Profound anemia 4. Chronic back pain 5. Bilateral lower extremity weakness 1. Altered mental status/acute delirium Patient was brought to hospital with acute change in mental status and delusional behavior. History of hallucinations for the past 10 days and the patient was aware of the hallucinations. He was started on oxycodone for his back pain, however it was discontinued because of hallucinations. The other day , the patient was seen in the emergency room for acute delirium and was found to have UTI with subsequent discharge home on Augmentin. * Altered mental status/acute delirium most likely due to a combination of urinary tract infection with brain metastasis from prostate cancer. * Monitor vitals per protocol, maintain oxygen saturation the above 90% * Fall precautions * IV ceftriaxone course for urinary tract infection completed * Urine culture positive for gram-negative rods, ie. Klebsiella sensitive to ceftriaxone * UTox, B12 and folic acid: normal * Blood cultures x 2 no growth after 5 days * MRI brain done last night showed extensive osseous metastatic disease and linear extra-axial enhancement around right cerebellar hemisphere without mass effect suspicious for dural based disease: Radiation oncology appointment set up for patient in one week. * Oncology consult appreciated, will continue to follow Rex as an outpatient ; no steroids needed as patient asymptomatic and no mass effect appreciated on MRI. * Patient has also been give a PCP referral to Dr. Shah's office on 02/28 at 11 AM in [place]. 2. Metastatic Prostate cancer Patient was admitted at [facility] from 12/22 to 12/30 for anemia and hematuria. He was found to have metastatic prostate cancer with invasion into the bladder wall and diffuse skeletal metastasis. He was evaluated by oncology and started on Casodex. He was advised to get bone scan and leuprolide as outpatient. He underwent transurethral resection of bladder mass on 12/26. * Completed Casodex ONE month course; he is getting leuprolide every 3 months * He is scheduled to see Dr. Rowley, radiation oncologist to have discussion regarding palliative radiation to symptomatic osseous metastasis * CT head showed lenticular 1.6 x 1.5 x 0.4 cm extra-axial structure along the inferior aspect of the right cerebellar hemispheric convexity. There is mild regional mass effect. This is nonspecific and could reflect a meningioma versus a pachymeningeal metastatic focus. * MRI brain results noted as above. * Patient stable for discharge with close follow up to oncology and rad-onc. 3. Back pain * Back pain likely due to axial metastasis from prostate cancer. * Bone scan had some evidence of diffuse osseous abnormalities without a focal area. He has no focal weakness. * Will continue pain management with home medication tramadol. * We'll closely monitor for cord compression symptoms. 4. Anemia * Continue home medication B12 inpatient and upon discharge. 5. Hallucinations * No further agitation, patient will not be discharged on olanzapine. * [facility]erral to [facility] groups and consider outpatient psychiatry therapy is agreeable. Will provide contact info for Sparkle Holden LCSW. * Continue to avoid benzodiazepines, opioid analgesics, and meds with strong anticholinergic properties as much as possible to prevent further confusion. * Continue the following nonpharmacologic interventions:Avoid nursing and medical procedures during sleep hours whenever possible, cluster at night interventions that must be completed as much as possible to minimize sleep disruption, decrease noise patient area during sleeping hours, reduce lighting at night, ensure patient has any sensory aids close by that he regularly uses. 6. New Right Buccal Swelling * Patient reports new right buccal swelling associated with pain and redness. * Likely represents abscess which has improved on inpatient antibiotics * Ct neck showed large dental caries involving the only remaining right mandibular tooth most likely a premolar, with associated periodontal and periapical lucency, as well as focal dehiscence of the adjacent buccal cortex with regional soft tissue swelling and fat stranding. * Augmentin 875 mg Q12 on discharge with CLOSE FOLLOW UP to dentist. FULL CODE DVTP: SC Lovenox Pain Pathway: tramadol Regular diet Problem List: 1. Acute delirium 2. UTI (urinary tract infection) 3. Moderate protein-calorie malnutrition 4. Prostate CA 5. Anemia 6. Bony metastasis Pain Ratin Pain Location: n/a Pain Goal: Remain pain free Pain Plan: Per pain pathway Tomorrow's Labs & Rationales: None, discharge today. Consulting Request: Consulting Specialty: Hematology/Oncology
[2017-02-14 07:22] VITALS: BP 121/58
[2017-02-14] MEDS ORDERED: AMOX-CLAV 875-1 EACH PO ×2 (10:53→11:33)
[2017-02-14] MEDS ORDERED: MELATONIN5 M7 PO (11:33)
--- NOTE | 2017-02-14 12:15 | PN- Oncology ---
Subjective Subjective: He denies any new symptoms. He has no fever or chills. He has no nausea or vomiting. He has no confusion. Review of Systems: Constitutional: Denies: chills, fever. EENTM: Reports: see HPI. Cardiovascular: Denies: chest pain. Gastrointestinal: Denies: abdominal pain. Musculoskeletal: Reports: back pain, joint pain, muscle pain. Neurological/Psychological: Reports: confusion. All Other Systems: Reviewed and Negative Objective Vital Signs and I&Os Vital Signs Date Time Temp Pulse Resp B/P B/P Pulse O2 O2 Flow FiO2 Mean Ox Delivery Rate 02/14 0722 97.7 65 20 121/58 97 Room Air 02/13 2225 98.6 78 20 120/58 95 Room Air 02/13 1416 98.0 72 18 120/62 94 Room Air Intake & Output 02/14 1600 02/14 0800 02/14 0000 / 1600 02/13 0800 / 0000 Intake Total 240 600 500 450 100 Output Total 450 Balance 240 600 500 450 -350 Intake, IV 0 Intake, Oral 240 600 500 450 100 Number 0 1 Bowel Movements Output, Urine 450 Patient 55.792 kg Weight Physical Exam: General Appearance: alert, awake, comfortable, thin Head: atraumatic, normal appearance Ears, Nose, Throat: firm, swollen right bucccal region improved Respiratory: normal breath sounds, chest non-tender Cardiovascular: regular rate/rhythm Gastrointestinal: normal bowel sounds, soft, non-tender Extremities: no edema Neurologic/Psych: awake, alert, oriented x 3 Skin: normal color Current Medications: Current Medications Sig/Sada Start time Last Medication Dose Route Stop Time Status Admin Amoxicillin/ 875 MG Q12 02/14 1000 AC 02/14 Clavulanate Potassium PO 1020 Calcium Carbonate 500 MG Q2 HRS NEEDED PRN 02/09 1615 AC 02/10 PO 2021 Cyanocobalamin 1,000 MCG DAILY 02/09 1000 AC 02/14 PO 1021 Docusate Sodium 100 MG DAILY 02/12 1000 AC 02/13 PO 1123 Enoxaparin Sodium 40 MG DAILY 02/08 1901 AC 02/12 SC 0923 Lorazepam 0.5 MG ONE PRN 02/08 1930 AC PO 02/15 192 Melatonin 10 MG AT BEDTIME 02/09 2200 AC 02/13 PO 2145 Olanzapine 2.5 MG Q8P PRN 02/09 1500 AC PO Omeprazole 40 MG DAILY AC 02/11 0700 AC 02/14 PO 0624 Ondansetron HCl 4 MG Q6P PRN 02/09 1500 AC IV Polyethylene Glycol 17 GM DAILY 02/12 1000 AC PO Senna 187 MG AT BEDTIME 02/12 2200 AC PO Tramadol HCl 50 MG Q6P PRN 02/08 1930 AC 02/14 PO 1044 Results Recent Imaging Studies: MRI Brain 02/13/2017: Extensive osseous metastatic disease as correlated with the patient's prior bone scan study. Linear en plaque extra-axial enhancement along the floor of the posterior fossa underlying the right cerebellar hemisphere without mass effect is suspicious for dural based metastatic disease. Small nodular focus of enhancement along the high right frontal convexity may also represent metastatic disease versus an incidental meningioma. Otherwise, no acute intracranial process. No abnormal parenchymal enhancement. Minimal nonspecific white matter signal changes which may be due to chronic microangiopathy. Assessment/Plan Assessment/Recommendations: Mr. Womack is a 66-yo male with metastatic prostate cancer to the bone and invasion into bladder who presented to the hospital with altered mental status with delirium. He was noted to have hallucination and confusion. He was noted to have an UTI. He has received 5 days of ceftriaxone. He had CT of the head without contrast demonstrated a nonspecific 1.6 x 1.5 x 0.4 cm extra-axial structure and large dental caries in the right mandibular tooth. MRI demonstrated extensive osseious mass. Linear en plaque extra-axial enhancement along the floor of the posterior fossa underlying the right cerebella hemisphere and a small nodular focus of enhancement along the hihgt right frontal convexity. There is concern for dural based metastatic disease. He is currently asymptomatic. I discussed options of neurosurgery and radiation therapy. He is not interested in undergoing any surgery. He is amenable to radiation oncology evaluation. He was to see them prior to admission last week. He will need to follow up with radiation oncology for evaluation. He will need dental evaluation for his right premolar. Recommendations: 1. Radiation oncology evaluation 2. Continue vitamin B12 3. Dental evaluation, likely as outpatient Please call [phone] with any questions/concerns. Problem List: 1. Prostate CA 2. UTI (urinary tract infection) 3. Acute confusion due to infection 4. Bony metastasis 5. Brain metastasis
--- NOTE | 2017-02-14 14:54 | PN- Psychiatry ---
Assessment/Plan Impression: Identifying Info: 66-year-old male with a recent prostate cancer diagnosis since [facility] emergency department on 02/08/2017 with chief complaint of altered mental status including paranoia and hallucinations. He was admitted to medicine for evaluation and consult rquested for hallucinations and delusions. SUBJECTIVE Pt has no complaints today. Is "feeling good" regarding pending discharge. Asks for and is provided some clarification on the specialties of his f/u MD appointments. Brief ROS Gait: Steady with cane Sleep: Adequate without nightmares Appetite: Adequate OBJECTIVE Mental Status Exam Presentation/Appearance: Cooperative with evaluation. Hospital garb. Lying in bed Orientation: x4 Sensorium: Awake and alert Eye contact: Appropriate Affect: Broader range, congruent Mood: "Feeling good." Depression: Denies Anxiety: Denies Thought Content: - Denies SI/HI/AVH/PI. States and also believes they will not kill themselves. - Denies Hopeless/Helpless Thoughts Thought Process: Linear Associations: Appropriate Speech: Normal tone and rate Judgment: Intact Insight: Intact Cognition: Memory: Endorses deficits Attention/Concentration: Grossly intact, some minor deficits on intial eval Fund of Knowledge: Adequate Abstractions: Did not assess MMSE: Did not assess ASSESSMENT 66-year-old male presents with confusion, hallucinations, and delusions in the context of urinary tract infection and metastatic prostate cancer. Symptoms have resolved. Diagnosis Delirium due to multiple etiologies, resolved Rule out unspecified neurocognitive disorder Rule out adjustment disorder Rule out depressive disorder due to another medical condition A total of 30 minutes was spent with the patient with more than 50% of the time spent in counseling and/or coordination of care. Suggestion: 1. Continue melatonin. Patient does not require Zyprexa for discharge. 2. Continue with plan for referral [facility] and consider outpatient psychiatry therapy. Thank you for including psychiatry in this case we'll continue to follow Subjective Subjective: as above Objective Last 24 Hrs of Vital Signs/I&O Current Medications Sig/Sada Start time Last Medication Dose Route Stop Time Status Admin Amoxicillin/ 875 MG Q12 02/14 1000 AC 02/14 Clavulanate Potassium PO 1020 Calcium Carbonate 500 MG Q2 HRS NEEDED PRN 02/09 1615 AC 02/10 PO 202 Cyanocobalamin 1,000 MCG DAILY 02/09 1000 AC 02/14 PO 1021 Docusate Sodium 100 MG DAILY 02/12 1000 AC 02/13 PO 1123 Enoxaparin Sodium 40 MG DAILY 02/08 190 AC 02/12 SC 0923 Lorazepam 0.5 MG ONE PRN 02/08 193 AC PO 02/15 192 Melatonin 10 MG AT BEDTIME 02/09 2200 AC 02/13 PO 2145 Olanzapine 2.5 MG Q8P PRN 02/09 1500 AC PO Omeprazole 40 MG DAILY AC 02/11 07 AC 02/14 PO 0624 Ondansetron HCl 4 MG Q6P PRN 02/09 1500 AC IV Patient Medication 1 ED .STK-MED ONE 02/14 1421 SC Teaching ED 02/14 1422 Polyethylene Glycol 17 GM DAILY 02/12 1000 AC PO Senna 187 MG AT BEDTIME 02/12 2200 AC PO Tramadol HCl 50 MG Q6P PRN 02/08 1930 AC 02/14 PO 1044 Vital Signs Date Time Temp Pulse Resp B/P B/P Pulse O2 O2 Flow FiO2 Mean Ox Delivery Rate 02/14 722 97.7 65 20 121/58 97 Room Air 02/13 2225 98.6 78 20 120/58 95 Room Air Intake & Output 02/14 1600 02/14 0800 02/14 0000 Intake Total 240 600 Output Total Balance 240 600 Intake, IV 0 Intake, Oral 240 600 Number 0 Bowel Movements
== END 2017-02-14 15:10 | disposition home health service (06) | DRG 55 ==
LOC: ERH 15:44 → 2NB 17:44 → ERHI 17:44 → ENRESERV 18:48 → ENTRNSPT 20:22 → 2NB 20:36 → CMPTRNSPT 20:53 → 2NB 02-10 08:34
PROVIDERS: Emergency Medicine; Internal Medicine; ADMIT Internal Medicine
DX: C79.31 Secondary malignant neoplasm of brain (principal); E44.0 Moderate protein-calorie malnutrition; C79.51 Secondary malignant neoplasm of bone; F05 Delirium due to known physiological condition; C61 Malignant neoplasm of prostate; N39.0 Urinary tract infection, site not specified; D64.9 Anemia, unspecified; E53.8 Deficiency of other specified B group vitamins; Z68.1 Body mass index [BMI] 19.9 or less, adult; K02.9 Dental caries, unspecified; R22.0 Localized swelling, mass and lump, head; Z87.891 Personal history of nicotine dependence
CPT/HCPCS: 2NBSP; 70552; 36415; 70553; 80307; 81001; 82436; 87040; 87086; 93005; 93010; 96360; 96361; 96374; A9579; G0480; J0696; J1650; J2405